=== PATIENT | male | born 1955 | race Caucasian/White ===

== ENCOUNTER 2017-04-14 01:08 | Emergency (ER) | payer OTHER ==
[2017-04-14 01:30] VITALS: BMI 22.8
[2017-04-14] MEDS ORDERED: ONDANSETRON 4 MG/2 ML VIAL IVPUSH ONE (02:30)
[2017-04-14] MEDS ORDERED: FAMOTIDINE 20 MG/50 ML IVPB 50 ML IVPB ONE ×2 (02:30→02:44)
[2017-04-14] MEDS ORDERED: SODIUM CHLORIDE 1,000 ML IV STA (02:30)
[2017-04-14] MEDS ORDERED: PANTOPRAZOLE SODIUM 40 MG in SODIUM CHLORIDE 100 ML IVPB ONE (02:30)
[2017-04-14] MEDS ORDERED: PANTOPRAZOLE SODIUM 100 ML IVPB ONE (02:44)
[2017-04-14] MEDS ORDERED: ONDANSETRON 4 MG/2 ML VIAL ONE (02:44)
--- NOTE | 2017-04-14 02:55 | PDOC ---
History of Present Illness - General Chief Complaint: Pain Stated Complaint: ABD PAIN Time Seen by Provider: 04/14/17 01:27 History Source: Patient Exam Limitations: No Limitations - History of Present Illness Travel History: No Initial Comments: 04/14/17 02:55 61yo Male patient w/ PmHx: Depression, Anxiety, Seizures, GERD, and Gastritis presents to ED c/o n/v with abdominal pain. Patient states he was seen at [facility] for anxiety and was discharged after having blood work done due to not feeling well. Patient states he was discharged home, and as he was walking down street he began vomiting and called [address] [facility] ED. He denies fever, CP, Diff breathing, cough, congestion, back pain, or any other complaints at this time. Timing/Duration: reports: getting worse. denies: constant, changing over time, intermittent, resolved prior to arrival, gone now, other Quality: reports: moderate. denies: mild, severe, aching, burning, cramping, dullness, fullness, sharpness, stabbing, throbbing, other Abdominal Pain Onset Location: reports: LUQ, epigastric. denies: RUQ, RLQ, LLQ , periumbilical, suprapubic, generalized abdomen, flank, unknown, other Pain Radiation: reports: no radiation Activities at Onset: reports: no specific activity Treatment Prior to Arrive: worse with: analgesics, antacids, cold pack, heat, laxative, enema, other Aggravating Factors: worse with: None, Defecation, Eating, Emotional upset, Exertion, Startup, Movement, Voiding, Change in position Alleviating Factors: worse with: None, Belching, Shallow Breathing, Defecation, Eating, Holding Breath, Passing Gas, Change in Position, Rest, Voiding, Vomiting Past History - Travel Traveled outside of the country in the last 30 days: No Close contact w/someone who was outside of country & ill: No - Past Medical History Allergies/Adverse Reactions: Allergies Allergy/AdvReac Type Severity Reaction Status Date / Time No Known Allergies Allergy Verified 04/14/17 01:30 Home Medications: Ambulatory Orders NK [No Known Home Medication] 04/14/17 Anemia: Yes Thyroid Disease: No (Denies) - Immunization History Immunization Up to Date: No - Suicide/Smoking/Psychosocial Hx Smoking History: Former smoker Have you smoked in the past 12 months: Yes Number of Cigarettes Smoked Daily: 10 Information on smoking cessation initiated: No Hx Alcohol Use: No Drug/Substance Use Hx: No Substance Use Type: Alcohol Abd/GI Specific PMHX - Complaint Specific PMHX Colitis: No Diverticulitis: No Gall Bladder Disease: No GERD: No Hepatitis: No Irritable Bowel Synd (IBS): No Pancreatitis: No GI Ulcer Disease: No Review of Systems - Review of Systems Able to Perform ROS?: Yes Is the patient limited Setswana proficient: No Constitutional: No: Chills, Fever ABD/GI: Yes: Nausea, Vomiting, Abdominal cramping. No: Abdominal Distended, Constipated, Diarrhea, Poor Appetite, Poor Fluid Intake All Other Systems: Reviewed and Negative *Physical Exam - Vital Signs Last Vital Signs Temp Pulse Resp BP Pulse Ox 98.6 F 62 19 128/63 98 04/14/17 01:25 04/14/17 01:25 04/14/17 01:25 04/14/17 01:25 04/14/17 01:25 - Physical Exam General Appearance: Yes: Nourished, Appropriately Dressed. No: Apparent Distress, Mild Distress, Moderate Distress, Severe Distress Respiratory/Chest: positive: Lungs Clear, Normal Breath Sounds. negative: Chest Tender, Respiratory Distress, Accessory Muscle Use, Labored Respiration, Rapid RR, Paradoxal Breathing, Rhonchi, Stridor, Wheezing Cardiovascular: positive: Regular Rhythm, Regular Rate Gastrointestinal/Abdominal: positive: Tender (LLQ/ Epigastric Pain), Soft, Increased Bowel Sounds, Guarding, Rebound, Tenderness (LLQ- Epigastric pain). negative: Normal Bowel Sounds, Flat, Distended Musculoskeletal: positive: Normal Inspection. negative: CVA Tenderness Extremity: positive: Normal Capillary Refill, Normal Inspection, Normal Range of Motion. negative: Pedal Edema, Swelling, Calf Tenderness, Erythema, Inflammation Integumentary: positive: Normal Color, Dry, Warm Neurologic: positive: medication manager II-XII NML intact, Fully Oriented, Alert, Normal Mood/ Affect, Normal Response, Motor Strength 5/5 *DC/Admit/Observation/Transfer - Discharge Dispostion Condition at time of disposition: Fair
[2017-04-14 03:08] LABS: BASOPHIL 0.3 % (0-2.0); EOSINOPHIL 2.6 % (0-4.5); MCH 32.2 pg (25.7-33.7); MCHC 34.8 g/dl (32.0-35.9); MEAN CELL VOLUME 92.4 fl (80-96); MEAN PLT VOLUME 8.1 fl (7.5-11.1); PLATELET COUNT 88 K/MM3 (134-434); RDW 14.5 % (11.9-15.9); WHITE BLOOD COUNT 5.8 K/mm3 (4.0-10.0)
[2017-04-14 03:47] LABS: ALBUMIN 3.8 g/dl (3.4-5.0); AMYLASE 54 U/L (25-115); ANION GAP 7 (8-16); BILIRUBIN,TOTAL 0.3 mg/dL (0.2-1.0); CALCIUM 8.8 mg/dL (8.5-10.1); CO2 31 mmol/L (21-32); CREATININE 1.2 mg/dL (0.7-1.3); GLUCOSE,RANDOM 87 mg/dL (74-106); SGOT/AST 13 U/L (15-37); SGPT/ALT 22 U/L (12-78); TOT PROT 6.4 g/dl (6.4-8.2)
[2017-04-14 03:48] LABS: ALK PHOS 103 U/L (45-117)
[2017-04-14 06:57] VITALS: PULSE 82; TEMP 98.1
--- NOTE | 2017-04-14 07:38 | PDOC ---
*Physical Exam - Vital Signs Last Vital Signs Temp Pulse Resp BP Pulse Ox 98.1 F 82 18 128/79 98 04/14/17 06:56 04/14/17 06:56 04/14/17 06:56 04/14/17 06:56 04/14/17 06:56 ED Treatment Course - LABORATORY CBC & Chemistry Diagram: 04/14/17 02:45 04/14/17 02:45 - ADDITIONAL ORDERS Additional order review: Laboratory Results 04/14/17 02:45 Sodium 142 Potassium 4.1 Chloride 104 Carbon Dioxide 31 Anion Gap 7 L BUN 13 Creatinine 1.2 Creat Clearance w eGFR > 60 Random Glucose 87 Calcium 8.8 Total Bilirubin 0.3 AST 13 L ALT 22 Alkaline Phosphatase 103 Total Protein 6.4 Albumin 3.8 Total Amylase 54 Lipase 128 04/14/17 02:45 RBC 3.60 L MCV 92.4 MCHC 34.8 RDW 14.5 MPV 8.1 Neutrophils % 69.0 Lymphocytes % 22.1 Monocytes % 6.0 Eosinophils % 2.6 Basophils % 0.3 - Medications Given in the ED: ED Medications Discontinued Medications Generic Name Dose Route Start Last Admin Trade Name Freq PRN Reason Stop Dose Admin Pantoprazole Sodium 40 mg/ 100 mls @ 200 mls/hr 04/14/17 02:30 04/14/17 03:05 Sodium Chloride IVPB 04/14/17 02:59 200 mls/hr ONCE ONE Administration Famotidine/Sodium Chloride 50 mls @ 100 mls/hr 04/14/17 02:30 04/14/17 03:05 Pepcid 20 Mg Premixed Ivpb - IVPB 04/14/17 02:59 100 mls/hr ONCE ONE Administration Sodium Chloride 1,000 mls @ 1,000 mls/hr 04/14/17 02:30 04/14/17 03:05 Normal Saline - IV 04/14/17 03:29 1,000 mls/hr ASDIR STA Administration Ondansetron HCl 4 mg 04/14/17 02:30 04/14/17 03:05 Zofran Injection IVPUSH 04/14/17 02:31 4 mg ONCE ONE Administration Medical Decision Making - Medical Decision Making 04/14/17 07:26 Pt received in signout from MARTÍNEZ. Patient here with complaints of abdominal pain with vomiting. Patient had CT that showed likely cholelithiasis with possible early cholecystitis. Patient currently pending a gallbladder ultrasound. Patient with normal vital signs, lab work and is currently asymptomatic. 04/14/17 07:38 Laboratory Tests 04/14/17 04/14/17 02:45 02:45 WBC 5.8 Hgb 11.6 L D Hct 33.3 L D Plt Count 88 L D Anion Gap 7 L BUN 13 Creatinine 1.2 Random Glucose 87 AST 13 L ALT 22 Lipase 128 04/14/17 09:32 Selected Entries 04/14/17 06:56 Temperature 98.1 F Pulse Rate [ 82 Left Apical] Respiratory 18 Rate Blood Pressure 128/79 [Right Arm] O2 Sat by Pulse 98 Oximetry (%) Ultrasound shows a non-hydropic gallbladder with cholelithiasis and gallbladder wall thickening. Gallbladder wall thickening is nonspecific, but may be attributed to chronic cholecystitis. No definite sonographic evidence of acute cholecystitis is seen at this time. Please correlate with clinical exam. there is no evidence of intrahepatic or extrahepatic biliary duct dilatation. Patient has normal vital signs, normal lipase with no elevation in white blood cells. Patient will be discharged home with consultation referral given for surgery. 04/16/17 08:45 *DC/Admit/Observation/Transfer Diagnosis at time of Disposition: Gallstones - Discharge Dispostion Disposition: HOME Condition at time of disposition: Improved - Referrals Referrals: Yesenia Christy [Primary Care Provider] - Morales Gallagher MD [Staff Physician] - - Patient Instructions Printed Discharge Instructions: DI for Gallstones Additional Instructions: Your ultrasound had no indication that you have an acute process but I do want to to follow up with referred surgeon listed below. If symptoms recur or worsen he may return to the nearest ED. otherwise follow up with your primary care physician.
[2017-04-14 10:13] VITALS: BP 141/82
== END 2017-04-14 10:14 | disposition home or self-care (01) ==
LOC: JER 01:08 → SUPCPDRO 01:08 → JER 10:14
PROC: 3E033GC Introduction of Other Therapeutic Substance into Peripheral Vein, Percutaneous Approach (ICD-10-PCS; principal; 2017-04-14)
PROC: 3E0337Z Introduction of Electrolytic and Water Balance Substance into Peripheral Vein, Percutaneous Approach (ICD-10-PCS; 2017-04-14)
DX: K80.80 Other cholelithiasis without obstruction (principal); F41.9 Anxiety disorder, unspecified; F32.9 Major depressive disorder, single episode, unspecified; G40.909 Epilepsy, unspecified, not intractable, without status epilepticus; K21.9 Gastro-esophageal reflux disease without esophagitis; D64.9 Anemia, unspecified; Z87.891 Personal history of nicotine dependence
CPT/HCPCS: 36415; 74177-TC; 76705-TC; 80053; 82150; 83690; 85025; 96365; 96368; 96375; 99283-25

== ENCOUNTER 2017-04-18 22:18 | Emergency (ER) | payer OTHER ==
[2017-04-18 22:24] VITALS: BP 140/81; PULSE 64; TEMP 97.7; BMI 20.1
--- NOTE | 2017-04-18 23:33 | PDOC ---
*Physical Exam - Vital Signs Last Vital Signs Temp Pulse Resp BP Pulse Ox 97.7 F 64 17 140/81 99 04/18/17 22:22 04/18/17 22:22 04/18/17 22:22 04/18/17 22:22 04/18/17 22:22 - Physical Exam Comments: 04/18/17 23:33 The patient was examined by [IZABELA Oleary] under my direct supervision. I personally evaluated the patient. I concur with the above findings and the plan of care. ED Treatment Course - LABORATORY CBC & Chemistry Diagram: 04/18/17 23:06 04/18/17 23:06 *DC/Admit/Observation/Transfer Diagnosis at time of Disposition: Gallstones - Discharge Dispostion Disposition: HOME Condition at time of disposition: Stable - Prescriptions Prescriptions: Ibuprofen 600 mg PO TID PRN #21 tablet PRN Reason: Pain - Referrals Referrals: Morales Gallagher MD [Staff Physician] - - Patient Instructions Printed Discharge Instructions: DI for Gallstones Additional Instructions: Please keep your appointment with your doctor this Thursday. If you develop any fever, worsening abdominal pain, vomiting, diarrhea, rectal bleeding, or any new or worsening symptoms, please return to the ER.
--- NOTE | 2017-04-18 23:47 | PDOC ---
History of Present Illness - General Chief Complaint: Pain Stated Complaint: ABDOMINAL PAIN Time Seen by Provider: 04/18/17 22:47 - History of Present Illness Initial Comments: 04/18/17 23:35 CHIEF COMPLAINT: abd pain HISTORY OF PRESENT ILLNESS: 61yo M with PMH of depression, anxiety, seizures, GERD, and gastritis presents to ED c/o n/v with abdominal pain. Patient was seen four days ago in this ER with gallstones and wall thickening of gallbladder seen on ultrasound. Patient was discharged with diagnosis of possible early cholecystitis with referral to surgery; no antibiotics were given. Today patient complains that pain is worsening and that "something has to be done" because he can not bear the pain . PAST MEDICAL HISTORY: Denies past medical history FAMILY HISTORY: Denies SOCIAL HISTORY: Former smoker. Current alcohol use. Denies illicit drug use. SURGICAL HISTORY: Denies ALLERGIES: No known drug allergies REVIEW OF SYSTEMS General/Constitutional: Denies fever or chills. HEENT: Denies change in vision. Denies ear pain or discharge. Denies sore throat. Cardiovascular: Denies chest pain or shortness of breath. Respiratory: Denies cough, wheezing, or hemoptysis. Gastrointestinal: Abdominal pain to RUQ. Denies nausea, vomiting, diarrhea or constipation. Denies rectal bleeding. Genitourinary: Denies dysuria, frequency, or change in urination. Musculoskeletal: Denies joint or muscle swelling or pain. Denies neck or back pain. Skin and breasts: Denies rash or easy bruising. Neurologic: Denies headache, vertigo, loss of consciousness, or loss of sensation. PHYSICAL EXAM General Appearance: Disheveled. No apparent distress. HEENT: EOMI, PERRLA. No conjunctival pallor. No photophobia, scleral icterus. Respiratory/Chest: Lungs CTAB. Cardiovascular: RRR. S1, S2. Vascular Pulses: Dorsalis-Pedis (R): 2+, Dorsalis-Pedis (L): 2+ Gastrointestinal/Abdominal: Tenderness to RUQ, negative Acuna's sign, no rebound tenderness. Normal bowel sounds. No organomegaly, pulsatile mass, guarding, hernia, hepatomegaly, splenomegaly. Lymphatic: No adenopathy, tenderness. Musculoskeletal/Extremities: Normal inspection. FROM of all extremities, normal capillary refill. Pelvis Stable. No CVA tenderness. No tenderness to extremities, pedal edema, swelling, erythema or deformity. Integumentary: Appropriate color, dry, warm. No cyanosis, erythema, jaundice or rash Neurologic: ethical hacker II-XII intact. Fully oriented, alert. Appropriate mood/affect. Motor strength 5/5. No appreciable EOM palsy, facial droop or sensory deficit. Past History - Past Medical History Allergies/Adverse Reactions: Allergies Allergy/AdvReac Type Severity Reaction Status Date / Time No Known Allergies Allergy Verified 04/14/17 01:30 Home Medications: Ambulatory Orders Ibuprofen 600 mg PO TID PRN #21 tablet 04/19/17 Anemia: Yes GI Disorders: Yes Thyroid Disease: No (Denies) Other medical history: gall stones - Immunization History Immunization Up to Date: No - Suicide/Smoking/Psychosocial Hx Smoking History: Former smoker Have you smoked in the past 12 months: No Number of Cigarettes Smoked Daily: 10 Information on smoking cessation initiated: No Hx Alcohol Use: No Drug/Substance Use Hx: No Substance Use Type: Alcohol Abd/GI Specific PMHX - Complaint Specific PMHX Colitis: No Diverticulitis: No Gall Bladder Disease: No GERD: No Hepatitis: No Irritable Bowel Synd (IBS): No Pancreatitis: No GI Ulcer Disease: No *Physical Exam - Vital Signs Last Vital Signs Temp Pulse Resp BP Pulse Ox 97.7 F 64 17 140/81 99 04/18/17 22:22 04/18/17 22:22 04/18/17 22:22 04/18/17 22:22 04/18/17 22:22 ED Treatment Course - LABORATORY CBC & Chemistry Diagram: 04/18/17 23:06 04/18/17 23:06 - RADIOLOGY Radiology Studies Ordered: Category Date Time Status GALLBLADDER US [US] Stat Ultrasound 04/18/17 23:16 Ordered Medical Decision Making - Medical Decision Making 04/21/17 06:16 61yo M with PMH of depression, anxiety, seizures, GERD, and gastritis presents to ED c/o n/v with abdominal pain. labs unremarkable ultrasound positive for gallstones, no cholecystitis seen. Patient to f/u with surgery outpatient as planned. Patient states he has appointment Thursday. *DC/Admit/Observation/Transfer Diagnosis at time of Disposition: Gallstones - Discharge Dispostion Disposition: HOME Condition at time of disposition: Stable Admit: No - Prescriptions Prescriptions: Ibuprofen 600 mg PO TID PRN #21 tablet PRN Reason: Pain - Referrals Referrals: Morales Gallagher MD [Staff Physician] - - Patient Instructions Printed Discharge Instructions: DI for Gallstones Additional Instructions: Please keep your appointment with your doctor this Thursday. If you develop any fever, worsening abdominal pain, vomiting, diarrhea, rectal bleeding, or any new or worsening symptoms, please return to the ER.
[2017-04-18 23:54] LABS: BASOPHIL 0.5 % (0-2.0); EOSINOPHIL 3.1 % (0-4.5); MCH 32.3 pg (25.7-33.7); MEAN CELL VOLUME 92.3 fl (80-96); NEUTROPHILS 62.9 % (42.8-82.8); RDW 14.3 % (11.9-15.9); WHITE BLOOD COUNT 4.9 K/mm3 (4.0-10.0)
[2017-04-19 00:08] LABS: INR 1.09 (0.82-1.09); PROTHROMBIN TIME (PATIENT) 12.3 SEC (9.98-11.88)
[2017-04-19 00:11] LABS: ACTIVATED PTT 26.1 SECONDS (26.9-34.4)
[2017-04-19 00:22] LABS: ALBUMIN 3.9 g/dl (3.4-5.0); ALK PHOS 101 U/L (45-117); ANION GAP 8 (8-16); BILIRUBIN,TOTAL 0.4 mg/dL (0.2-1.0); CALCIUM 8.5 mg/dL (8.5-10.1); CO2 30 mmol/L (21-32); CREATININE 1.1 mg/dL (0.7-1.3); GLUCOSE,RANDOM 96 mg/dL (74-106); SGOT/AST 20 U/L (15-37); SGPT/ALT 32 U/L (12-78); TOT PROT 6.6 g/dl (6.4-8.2)
[2017-04-19] MEDS ORDERED: KETOROLAC TROMETHAMINE 30 MG/1 ML VIAL IVPUSH ONE (00:27)
[2017-04-19 01:22] LABS: PLATELET COUNT 92 K/MM3 (134-434)
== END 2017-04-19 02:05 | disposition home or self-care (01) ==
LOC: JER 22:18
PROC: 3E0333Z Introduction of Anti-inflammatory into Peripheral Vein, Percutaneous Approach (ICD-10-PCS; principal; 2017-04-18)
DX: K80.20 Calculus of gallbladder without cholecystitis without obstruction (principal); K21.9 Gastro-esophageal reflux disease without esophagitis; Z86.69 Personal history of other diseases of the nervous system and sense organs; Z87.891 Personal history of nicotine dependence
CPT/HCPCS: 36415; 76705-TC; 80053; 83690; 85025; 85610; 85730; 96374; 99281-25

== ENCOUNTER 2017-08-02 18:14 | Emergency (ER) | payer OTHER ==
[2017-08-02 18:21] VITALS: BP 127/83; PULSE 67; TEMP 98.1; BMI 20.9
[2017-08-02] MEDS ORDERED: ONDANSETRON *ODT* 4 MG TABLET SL ONE (19:10)
[2017-08-02 20:00] LABS: BASO % 0.8 % (0-2.0); EOS % 3.7 % (0-4.5); HEMATOCRIT 33.1 % (35.4-49); HEMOGLOBIN 11.2 GM/dL (11.7-16.9); LYMPH % 18.4 % (8-40); MCH 30.6 pg (25.7-33.7); MCHC 33.7 g/dl (32.0-35.9); MEAN CELL VOLUME 90.8 fl (80-96); MEAN PLT VOLUME 7.8 fl (7.5-11.1); MONO % 6.8 % (3.8-10.2); NEUT % 70.3 % (42.8-82.8); PLATELET COUNT 93 K/MM3 (134-434); RBC 3.64 M/mm3 (4.00-5.60); RDW 13.7 % (11.9-15.9); WHITE BLOOD COUNT 4.7 K/mm3 (4.0-10.0)
[2017-08-02 20:05] LABS: URINE APPEARANCE CLEAR; URINE BILIRUBIN NEGATIVE (NEGATIVE); URINE BLOOD NEGATIVE (NEGATIVE); URINE COLOR LTYELLOW; URINE GLUCOSE (UA) NEGATIVE (NEGATIVE); URINE KETONE NEGATIVE (NEGATIVE); URINE LEUK ESTERASE NEGATIVE (NEGATIVE); URINE NITRITE NEGATIVE (NEGATIVE); URINE PROTEIN NEGATIVE (NEGATIVE); URINE UROBILINOGEN NEGATIVE mg/dL (0.2-1.0)
[2017-08-02] MEDS ORDERED: ONDANSETRON *ODT* 4 MG TABLET ONE (20:05)
[2017-08-02 20:25] LABS: ALBUMIN 3.7 g/dl (3.4-5.0); ALK PHOS 92 U/L (45-117); ANION GAP 6 (8-16); BILIRUBIN,TOTAL 0.4 mg/dL (0.2-1.0); BLOOD UREA NITROGEN 11 mg/dL (7-18); CALCIUM 8.4 mg/dL (8.5-10.1); CHLORIDE 107 mmol/L (98-107); CO2 29 mmol/L (21-32); GLUCOSE,RANDOM 86 mg/dL (74-106); POTASSIUM 4.4 mmol/L (3.5-5.1); SGOT/AST 21 U/L (15-37); SGPT/ALT 51 U/L (12-78); SODIUM 142 mmol/L (136-145); TOT PROT 7.1 g/dl (6.4-8.2)
--- NOTE | 2017-08-02 21:21 | PDOC ---
History of Present Illness - General History Source: Patient Exam Limitations: No Limitations - History of Present Illness Initial Comments: 08/02/17 21:23 The patient is a 62 year old male with a significant past medical history of depression, anxiety, seizures, GERD, COPD, asthma and gastritis who presents to the ED with complaints of generalized malaise and anxiety for several days. The patient reports he recently changed his seizure medication to Keppra 10 days ago. Since then, patient reports nausea and feeling jittery. Patient also reports left quadrant pain, left flank pain, dysuria, chills, and multiple episodes of diarrhea for the past several days. Denies vomiting. Denies fever. Denies chest pain or shortness of breath. Denies any other symptoms. Allergies: Codeine Surgical hx: Colectomy <Ferdo Pereyra - Last Filed: 08/02/17 21:23> <Neelam Melvin - Last Filed: 08/02/17 21:36> - General Chief Complaint: Nausea Stated Complaint: NAUSEA Time Seen by Provider: 08/02/17 18:36 Past History <Fredo Pereyra - Last Filed: 08/02/17 21:23> - Past Medical History Anemia: Yes Cardiac Disorders: Yes (AF) COPD: No GI Disorders: Yes Seizures: Yes Thyroid Disease: No (Denies) - Surgical History Abdominal Surgery: Yes (Gall Bladder) - Immunization History Immunization Up to Date: No - Suicide/Smoking/Psychosocial Hx Smoking History: Former smoker Have you smoked in the past 12 months: Yes Number of Cigarettes Smoked Daily: 10 Information on smoking cessation initiated: No Hx Alcohol Use: No Drug/Substance Use Hx: No Substance Use Type: None <Neelam Melvin - Last Filed: 08/02/17 21:36> - Past Medical History Allergies/Adverse Reactions: Allergies Allergy/AdvReac Type Severity Reaction Status Date / Time codeine Allergy Verified 08/02/17 18:21 Home Medications: Ambulatory Orders Albuterol Sulfate [Proair Hfa] 2 puff IH Q6H PRN 08/02/17 Atorvastatin Calcium 20 mg PO HS 08/02/17 Budesonide/Formeterol Fumarate [SYMBICORT 80/4.5mcg -] 2 inh PO DAILY 08/02/17 Hydroxyzine HCl 50 mg PO TID 08/02/17 Levetiracetam 1,500 mg PO DAILY 08/02/17 Mirtazapine 30 mg PO HS 08/02/17 Ondansetron [Zofran -] 4 mg PO Q8H PRN 08/02/17 Sotalol HCl [Betapace -] 80 mg PO BID 08/02/17 Abd/GI Specific PMHX - Complaint Specific PMHX Colitis: No Diverticulitis: No Gall Bladder Disease: No GERD: No Hepatitis: No Irritable Bowel Synd (IBS): No Pancreatitis: No GI Ulcer Disease: No <Neelam Melvin - Last Filed: 08/02/17 21:36> Review of Systems - Review of Systems Able to Perform ROS?: Yes Comments:: 08/02/17 21:24 CONSTITUTIONAL: + malaise, chills Absent: fever, diaphoresis, generalized weakness, loss of appetite HEENT: Absent: rhinorrhea, nasal congestion, throat pain, throat swelling, difficulty swallowing, mouth swelling, ear pain, eye pain, visual Changes CARDIOVASCULAR: Absent: chest pain, syncope, palpitations, irregular heart rate, lightheadedness , peripheral edema RESPIRATORY: Absent: cough, shortness of breath, dyspnea with exertion, orthopnea, wheezing, stridor, hemoptysis GASTROINTESTINAL: + nausea, abdominal pain Absent: abdominal distension, vomiting, diarrhea, constipation, melena, hematochezia GENITOURINARY: + flank pain , dysuria Absent: frequency, urgency, hesitancy, hematuria, genital pain MUSCULOSKELETAL: Absent: myalgia, arthralgia, joint swelling SKIN: Absent: rash, itching, pallor HEMATOLOGIC/IMMUNOLOGIC: Absent: easy bleeding, easy bruising, lymphadenopathy, frequent infections ENDOCRINE: Absent: unexplained weight gain, unexplained weight loss, heat intolerance, cold intolerance NEUROLOGIC: Absent: headache, focal weakness or paresthesias, dizziness, unsteady gait, seizure, mental status changes, bladder or bowel incontinence PSYCHIATRIC: + anxious Absent: depression, suicidal or homicidal ideation, hallucinations. All Other Systems: Reviewed and Negative <Fredo Pereyra - Last Filed: 08/02/17 21:23> *Physical Exam - Vital Signs Last Vital Signs Temp Pulse Resp BP Pulse Ox 98.1 F 67 20 127/83 100 08/02/17 18:15 08/02/17 18:15 08/02/17 18:15 08/02/17 18:15 08/02/17 18:15 - Physical Exam Comments: 08/02/17 21:24 GENERAL: Well developed, well nourished. Awake and alert. No acute distress. HEENT: Normocephalic, atraumatic. PERRLA, EOMI. No conjunctival pallor. Sclera are non- icteric. Moist mucous membranes. Oropharynx is clear. NECK: Supple. Full ROM. No JVD. Carotid pulses 2+ and symmetric, without bruits. No thyromegaly. NCo lymphadenopathy. CARDIOVASCULAR: Regular rate and rhythm. No murmurs, rubs, or gallops. Distal pulses are 2+ and symmetric. PULMONARY: No evidence of respiratory distress. Lungs clear to auscultation bilaterally. No wheezing, rales or rhonchi. ABDOMINAL: Soft. Non-tender. Non-distended. No rebound or guarding. No organomegaly. Normoactive bowel sounds. MUSCULOSKELETAL Normal range of motion at all joints. No bony deformities or tenderness. No CVA tenderness. EXTREMITIES: No cyanosis. No clubbing. No edema. No calf tenderness. SKIN: + well healed colectomy scars Warm and dry. Normal capillary refill. No rashes. No jaundice. NEUROLOGICAL: Alert, awake, appropriate. Cranial nerves 2-12 intact. No deficits to light touch and temperature in face, upper extremities and lower extremities. No motor deficits in the in face, upper extremities and lower extremities. Normoreflexic in the upper and lower extremities. Normal speech. Toes are down- going bilaterally. Gait is normal without ataxia. PSYCHIATRIC: Cooperative. Good eye contact. Appropriate mood and affect. <Fredo Pereyra - Last Filed: 08/02/17 21:23> - Vital Signs Last Vital Signs Temp Pulse Resp BP Pulse Ox 98.1 F 67 20 127/83 100 08/02/17 18:15 08/02/17 18:15 08/02/17 18:15 08/02/17 18:15 08/02/17 18:15 <Neelam Melvin - Last Filed: 08/02/17 21:36> ED Treatment Course - LABORATORY CBC & Chemistry Diagram: 08/02/17 19:52 08/02/17 19:52 - ADDITIONAL ORDERS Additional order review: Laboratory Results 0108/02/17 08/02/17 19:52 19:52 19:50 Sodium 142 Potassium 4.4 Chloride 107 Carbon Dioxide 29 Anion Gap 6 L BUN 11 D Creatinine 1.0 Creat Clearance w eGFR > 60 Random Glucose 86 Calcium 8.4 L Total Bilirubin 0.4 AST 21 ALT 51 D Alkaline Phosphatase 92 Total Protein 7.1 Albumin 3.7 Lipase 135 Urine Color Ltyellow Urine Appearance Clear Urine pH 7.0 Ur Specific [place] 1.012 Urine Protein Negative Urine Glucose (UA) Negative Urine Ketones Negative Urine Blood Negative Urine Nitrite Negative Urine Bilirubin Negative Urine Urobilinogen Negative Ur Leukocyte Esterase Negative 08/02/17 19:52 RBC 3.64 L MCV 90.8 MCHC 33.7 RDW 13.7 MPV 7.8 Neutrophils % 70.3 Lymphocytes % 18.4 D Monocytes % 6.8 Eosinophils % 3.7 Basophils % 0.8 - Medications Given in the ED: ED Medications Discontinued Medications Generic Name Dose Route Start Last Admin Trade Name Freq PRN Reason Stop Dose Admin Ondansetron HCl 4 mg 08/02/17 19:10 08/02/17 20:08 Zofran Odt - SL 08/02/17 19:11 4 mg ONCE ONE Administration <Fredo Pereyra - Last Filed: 08/02/17 21:23> - LABORATORY CBC & Chemistry Diagram: 08/02/17 19:52 08/02/17 19:52 - ADDITIONAL ORDERS Additional order review: Laboratory Results 08/02/17 08/02/17 08/02/17 19:52 19:52 19:50 Sodium 142 Potassium 4.4 Chloride 107 Carbon Dioxide 29 Anion Gap 6 L BUN 11 D Creatinine 1.0 Creat Clearance w eGFR > 60 Random Glucose 86 Calcium 8.4 L Total Bilirubin 0.4 AST 21 ALT 51 D Alkaline Phosphatase 92 Total Protein 7.1 Albumin 3.7 Lipase 135 Urine Color Ltyellow Urine Appearance Clear Urine pH 7.0 Ur Specific [place] 1.012 Urine Protein Negative Urine Glucose (UA) Negative Urine Ketones Negative Urine Blood Negative Urine Nitrite Negative Urine Bilirubin Negative Urine Urobilinogen Negative Ur Leukocyte Esterase Negative 08/02/17 19:52 RBC 3.64 L MCV 90.8 MCHC 33.7 RDW 13.7 MPV 7.8 Neutrophils % 70.3 Lymphocytes % 18.4 D Monocytes % 6.8 Eosinophils % 3.7 Basophils % 0.8 - Medications Given in the ED: ED Medications Discontinued Medications Generic Name Dose Route Start Last Admin Trade Name Marvin PRN Reason Stop Dose Admin Ondansetron HCl 4 mg 08/02/17 19:10 08/02/17 20:08 Zofran Odt - SL 08/02/17 19:11 4 mg ONCE ONE Administration <Neelam Melvin - Last Filed: 08/02/17 21:36> *DC/Admit/Observation/Transfer - Attestations Scribe Attestion: 08/02/17 21:24 Documentation prepared by Fredo Pereyra, acting as medical equipment repair technician for Neelam Melvin MD <Fredo Pereyra - Last Filed: 08/02/17 21:23> <Neelam Melvin - Last Filed: 08/02/17 21:36> Diagnosis at time of Disposition: Nausea, Jittery feeling - Discharge Dispostion Disposition: HOME Condition at time of disposition: Stable - Patient Instructions Printed Discharge Instructions: DI for Nausea -- Adult Additional Instructions: Please take your regular medications as prescribed by your doctor
== END 2017-08-02 21:57 | disposition home or self-care (01) ==
LOC: JER 18:14
DX: F41.9 Anxiety disorder, unspecified (principal); F32.9 Major depressive disorder, single episode, unspecified; J44.9 Chronic obstructive pulmonary disease, unspecified; K21.9 Gastro-esophageal reflux disease without esophagitis; K29.70 Gastritis, unspecified, without bleeding
CPT/HCPCS: 36415; 80053; 81003; 83690; 85025; 99281-25; 99282-25

== ENCOUNTER 2017-08-02 22:03 | Emergency (ER) | payer OTHER ==
[2017-08-02 22:12] VITALS: PULSE 70; TEMP 98.2; BMI 20.9
--- NOTE | 2017-08-02 23:10 | PDOC ---
History of Present Illness - General History Source: Patient Exam Limitations: No Limitations - History of Present Illness Initial Comments: 08/03/17 00:04 The patient is a disheveled 62 year old male with a significant past medical history of depression, anxiety, seizures, GERD, COPD, asthma and gastritis. Patient was discharged from the ED 20 minutes ago and did not want to go home. Patient then told staff he was suicidal. After thorough questioning, patient admitted he was not suicidal and did not feel safe going home after being discharged. Denies a suicidal plan or intentions to harm himself. Patient was reassured he could stay in the waiting room, security was alerted. Patient will spend the night in the ED waiting and was given food. <Fredo Pereyra - Last Filed: 08/03/17 00:04> <Neealm Melvin - Last Filed: 08/03/17 00:10> - General Chief Complaint: Suicidal Stated Complaint: SUICIDAL Time Seen by Provider: 08/02/17 22:50 Past History <Fredo Pereyra - Last Filed: 08/03/17 00:04> - Past Medical History Anemia: Yes Cardiac Disorders: Yes (AF) COPD: No GI Disorders: Yes Seizures: Yes Thyroid Disease: No (Denies) - Surgical History Abdominal Surgery: Yes (Gall Bladder) - Immunization History Immunization Up to Date: No - Suicide/Smoking/Psychosocial Hx Smoking History: Former smoker Have you smoked in the past 12 months: Yes Number of Cigarettes Smoked Daily: 10 Information on smoking cessation initiated: No Hx Alcohol Use: No Drug/Substance Use Hx: No Substance Use Type: None <Neelam Melvin - Last Filed: 08/03/17 00:10> - Past Medical History Allergies/Adverse Reactions: Allergies Allergy/AdvReac Type Severity Reaction Status Date / Time codeine Allergy Verified 08/02/17 18:21 Home Medications: Ambulatory Orders Albuterol Sulfate [Proair Hfa] 2 puff IH Q6H PRN 08/02/17 Atorvastatin Calcium 20 mg PO HS 08/02/17 Budesonide/Formeterol Fumarate [SYMBICORT 80/4.5mcg -] 2 inh PO DAILY 08/02/17 Hydroxyzine HCl 50 mg PO TID 08/02/17 Levetiracetam 1,500 mg PO DAILY 08/02/17 Mirtazapine 30 mg PO HS 08/02/17 Ondansetron [Zofran -] 4 mg PO Q8H PRN 08/02/17 Sotalol HCl [Betapace -] 80 mg PO BID 08/02/17 Review of Systems - Review of Systems Able to Perform ROS?: Yes Comments:: 08/03/17 00:05 CONSTITUTIONAL: Absent: fever, no chills, no fatigue EYES: Absent: visual changes ENT: Absent: ear pain, no sore throat CARDIOVASCULAR: Absent: chest pain, no palpitations RESPIRATORY: Absent: cough, no SOB GI: Absent: abdominal pain, no nausea, no vomiting, no constipation, no diarrhea GENITOURINARY: Absent: dysuria, no frequency, no hematuria MUSKULOSKELETAL: Absent: back pain, no arthralgia, no myalgia SKIN: Absent: rash NEURO: Absent: headache All Other Systems: Reviewed and Negative <Fredo Pereyra - Last Filed: 08/03/17 00:04> *Physical Exam - Vital Signs Last Vital Signs Temp Pulse Resp BP Pulse Ox 98.2 F 70 18 155/89 100 08/02/17 22:08 08/02/17 22:08 08/02/17 22:08 08/02/17 23:13 08/02/17 22:08 - Physical Exam Comments: 08/03/17 00:05 GENERAL: Well-appearing, well-nourished. No apparent distress. HEENT: Normocephalic, atraumatic. PERRL, EOM intact. CARDIOVASCULAR: Normal S1, S2. Regular rate and rhythm. PULMONARY: Clear to auscultation bilaterally. ABDOMEN: Soft, non-distended, non-tender. EXTREMITIES: Normal ROM in all four extremities. No gross deformities. SKIN: Warm, dry. No rash NEUROLOGICAL: Alert, awake, appropriate. Cranial nerves 2-12 intact. No deficits to light touch and temperature in face, upper extremities and lower extremities. No motor deficits in the in face, upper extremities and lower extremities. Normoreflexic in the upper and lower extremities. Normal speech. Toes are down- going bilaterally. Gait is normal without ataxia. PSYCHIATRIC: no hallucations, no tangential speech. On thorough questioning, had no suicidal plan, states he did not feel comfortable going home at night. <Fredo Pereyra - Last Filed: 08/03/17 00:04> - Vital Signs Last Vital Signs Temp Pulse Resp BP Pulse Ox 98.2 F 70 18 179/119 100 08/02/17 22:08 08/02/17 22:08 08/02/17 22:08 08/02/17 22:08 08/02/17 22:08 <Neelam Melvin - Last Filed: 08/03/17 00:10> *DC/Admit/Observation/Transfer - Attestations Scribe Attestion: 08/03/17 00:05 Documentation prepared by Fredo Pereyra, acting as medical record technician for Neelam Melvin MD <Fredo Pereyra - Last Filed: 08/03/17 00:04> <Neelam Melvin - Last Filed: 08/03/17 00:10> Diagnosis at time of Disposition: Jittery feeling - Discharge Dispostion Disposition: HOME Condition at time of disposition: Stable - Referrals Referrals: Yesenia Christy [Primary Care Provider] - - Patient Instructions Printed Discharge Instructions: DI for Nausea -- Adult Additional Instructions: please take your medications that you received from your doctor - Post Discharge Activity Forms/Work/School Notes: My Personal Safety Plan
[2017-08-02 23:14] VITALS: BP 155/89
== END 2017-08-02 23:40 | disposition home or self-care (01) ==
LOC: JER 22:03
DX: F41.9 Anxiety disorder, unspecified (principal); F32.9 Major depressive disorder, single episode, unspecified; J44.9 Chronic obstructive pulmonary disease, unspecified; J45.909 Unspecified asthma, uncomplicated; K21.9 Gastro-esophageal reflux disease without esophagitis; G40.909 Epilepsy, unspecified, not intractable, without status epilepticus
CPT/HCPCS: 99281-25

== ENCOUNTER 2018-04-29 01:59 | Inpatient (IN) | payer OTHER ==
--- NOTE | 2018-04-29 02:36 | PDOC ---
History of Present Illness - General Stated Complaint: ABD PAIN - History of Present Illness Initial Comments: The patient is a 62M w/ a history of seizures and a-fib (xarelto) who presents for evaluation of 10 hours of periumbilical abdominal pain that is described as achy/crampy, does not radiate, is not made worse by PO intake, and is associated with 8 episodes of NBNB vomiting. The patient denies sick contacts or new foods. The patient also describes an associated substernal, non-radiating, burning/ achy chest pain. He denies having had either pain like this before. He denies fevers/chills, diarrhea, blood in his urine, dysuria, or shortness of breath 04/29/18 02:50 Past History - Past Medical History Allergies/Adverse Reactions: Allergies Allergy/AdvReac Type Severity Reaction Status Date / Time codeine Allergy Verified 04/29/18 03:05 Home Medications: Ambulatory Orders Albuterol Sulfate [Proair Hfa] 2 puff IH Q6H PRN 08/02/17 Atorvastatin Calcium 20 mg PO HS 08/02/17 Budesonide/Formeterol Fumarate [SYMBICORT 80/4.5mcg -] 2 inh PO DAILY 08/02/17 Hydroxyzine HCl 50 mg PO TID 08/02/17 Levetiracetam 1,500 mg PO DAILY 08/02/17 Mirtazapine 30 mg PO HS 08/02/17 Ondansetron [Zofran -] 4 mg PO Q8H PRN 08/02/17 Sotalol HCl [Betapace -] 80 mg PO BID 08/02/17 Anemia: Yes Cardiac Disorders: Yes (AF) COPD: No GI Disorders: Yes Seizures: Yes Thyroid Disease: No (Denies) - Surgical History Abdominal Surgery: Yes (Gall Bladder) - Immunization History Immunization Up to Date: No - Suicide/Smoking/Psychosocial Hx Smoking History: Former smoker Have you smoked in the past 12 months: Yes Number of Cigarettes Smoked Daily: 10 Hx Alcohol Use: No Drug/Substance Use Hx: No Substance Use Type: None Review of Systems - Review of Systems Able to Perform ROS?: Yes Comments:: GENERAL/CONSTITUTIONAL: No fever or chills. No weakness HEAD, EYES, EARS, NOSE AND THROAT: No change in vision. No ear pain or discharge. No sore throat CARDIOVASCULAR: +chest pain; no shortness of breath RESPIRATORY: No cough, wheezing, or hemoptysis GASTROINTESTINAL: +diarrhea or constipation GENITOURINARY: No dysuria, frequency, or change in urination MUSCULOSKELETAL: No joint or muscle swelling or pain. No neck or back pain SKIN: +eczema NEUROLOGIC: No headache, vertigo, loss of consciousness, or change in strength/ sensation ENDOCRINE: No increased thirst. No abnormal weight change HEMATOLOGIC/LYMPHATIC: No anemia, easy bleeding, or history of blood clots ALLERGIC/IMMUNOLOGIC: No hives or skin allergy 04/29/18 02:54 Is the patient limited Gabonese proficient: No *Physical Exam - Vital Signs Vital Signs Temp Pulse Resp BP Pulse Ox 98.3 F 94 H 18 115/66 97 04/29/18 02:00 04/29/18 02:00 04/29/18 02:00 04/29/18 02:00 04/29/18 02:00 04/29/18 04:25 - Physical Exam Comments: GENERAL: Awake, alert, and fully oriented, in no acute distress HEAD: No signs of trauma, normocephalic, atraumatic EYES: PERRL, EOMI, sclera anicteric, conjunctiva clear ENT: Hearing grossly normal, nares patent, oropharynx clear without exudates NECK: Normal ROM, supple, no lymphadenopathy LUNGS: No distress, speaks full sentences, clear to auscultation bilaterally HEART:Regular rate and rhythm, normal S1 and S2, no murmurs appreciated, peripheral pulses normal and equal bilaterally ABDOMEN: Soft, EXTREMITIES : Normal inspection, Normal range of motion, no edema. No clubbing or cyanosis NEUROLOGICAL: Cranial nerves II through XII grossly intact. Normal speech, normal gait, no focal sensorimotor deficits SKIN: Warm, Dry, normal turgor, no rashes or lesions noted 04/29/18 03:00 ED Treatment Course - LABORATORY CBC & Chemistry Diagram: 04/29/18 03:36 04/29/18 03:36 Medical Decision Making - Medical Decision Making Patient was seen earlier this evening at [facility] where he was evaluated for abdominal pain. When speaking with one of the providers at this facility. They reported that the patient underwent lab work w/o imaging. The labs were notable for a Cr of 2.7, reportedly the patient's baseline per their records. However, chart review here reveals a baseline Cr of 1.0. They also stated that the wbc was 10.3, Hgb 13.9, Neg UA, Normal LFTs, Lipase [address] abd in I, II, & V3-6 HR 92, QTc 462 Given patient's repeated presentation, continuation of symptoms and abnormal appearing ECG. Will further w/u patient for cardiac v intra-abdominal pathology including ACS r/o and CT A&P to evaluation to r/o infection or obstruction ED Course CMP, CBC, Trop I, UA CXR, CT A&P ECG 04/29/18 03:08 Hgb 13.1 No leukocytosis Trop I 0.12 Patient took home dose of Xarelto this morning 04/29/18 04:27 Hypokalemia to 2.8 -Will replete with IV and PO K 04/29/18 04:38 Dispo: Admit 04/29/18 05:52 *DC/Admit/Observation/Transfer Diagnosis at time of Disposition: Abdominal pain Qualifiers: Abdominal location: unspecified location Qualified Code(s): R10.9 - Unspecified abdominal pain Chest pain Qualifiers: Chest pain type: unspecified Qualified Code(s): R07.9 - Chest pain, unspecified - Discharge Dispostion Condition at time of disposition: Fair - Referrals Referrals: Yesenia Christy [Primary Care Provider] - - Patient Instructions - Post Discharge Activity
--- NOTE | 2018-04-29 02:54 | PDOC ---
Attending Attestation - Resident Resident Name: Santiago Nagel - ED Attending Attestation I have performed the following: I have examined & evaluated the patient, The case was reviewed & discussed with the resident, I agree w/resident's findings & plan, Exceptions are as noted - HPI HPI: 04/29/18 03:25 Mr Max is a 62 yo M who presents to the ER via EMS for evaluation of abdominal pain, chest pain and vomiting He was seen at an outside hospital and discharged to home just prior to calling EMS Call placed to OSH where pt apparently had labs that did not demonstrate pancreatitis, creatinine elevated at 2.5 CT not performed Pt comes in today reporting multiple episodes of non bloody, non bilious emesis Crampy abdominal pain located in the epigastric and periumbilical area He also notes sharp chest pain 04/29/18 03:26 Of note: pt s/p cholecystectomy last year - Physicial Exam PE: 04/29/18 03:50 GENERAL: The patient is in no acute distress. EYES: PERRLA, EOMI, sclera anicteric, conjunctiva clear. ENT: Poor dentition. Moist mucous membranes. NECK: Normal range of motion LUNGS: Breath sounds equal, clear to auscultation bilaterally. No wheezes, and no crackles. HEART: Regular rate and rhythm, normal S1 and S2 without murmur, rub or gallop. ABDOMEN: Soft, protruberant, diffusely very tender to palpation EXTREMITIES: Normal range of motion NEUROLOGICAL: Cranial nerves II through XII grossly intact. Normal speech. No focal neurological deficits. MUSCULOSKELETAL: Back non-tender to palpation SKIN: psoriasis, flaky skin - Medical Decision Making 04/29/18 03:51 Pt with severe abdominal pain DD: Retained CBD stone, Pancreatitis, SBO, Colitis WIll do: Labs CT Re assess 04/29/18 04:44 Laboratory Tests 04/29/18 04/29/18 04/29/18 03:36 03:36 03:36 WBC 8.8 Hgb 13.1 Hct 36.7 Plt Count 134 D Sodium 135 L Potassium 2.8 L* Chloride 90 L Carbon Dioxide 34 H BUN 64 H Creatinine 3.0 H Random Glucose 134 H Lactic Acid Creatine Kinase 133 Troponin I 0.12 H Lipase 337 04/29/18 03:36 WBC Hgb Hct Plt Count Sodium Potassium Chloride Carbon Dioxide BUN Creatinine Random Glucose Lactic Acid 1.4 Creatine Kinase Troponin I Lipase CT pending CT demonstrates : splenomagaly, no appendicitis, no diverticulitis Will do: Admit to hospitalist service given acute on chronic renal insufficiency Will hydrate Will trend troponins
[2018-04-29 03:53] LABS: HEMATOCRIT 36.7 % (35.4-49); HEMOGLOBIN 13.1 GM/dL (11.7-16.9); MCHC 35.8 g/dl (32.0-35.9); MEAN CELL VOLUME 89.2 fl (80-96); MEAN PLT VOLUME 7.8 fl (7.5-11.1); PLATELET COUNT 134 K/MM3 (134-434); RBC 4.11 M/mm3 (4.00-5.60); RDW 13.8 % (11.9-15.9); WHITE BLOOD COUNT 8.8 K/mm3 (4.0-10.0)
[2018-04-29 04:03] LABS: INR 1.59 (0.83-1.09); PROTHROMBIN TIME (PATIENT) 18.9 SEC (9.7-13.0)
[2018-04-29 04:06] LABS: ACTIVATED PTT 33.2 SECONDS (25.2-36.5)
[2018-04-29 04:36] LABS: ALBUMIN 4.7 g/dl (3.4-5.0); ALK PHOS 100 U/L (45-117); ANION GAP 11 MMOL/L (8-16); BILIRUBIN,TOTAL 0.8 mg/dL (0.2-1); BLOOD UREA NITROGEN 64 mg/dL (7-18); CALCIUM 9.1 mg/dL (8.5-10.1); CHLORIDE 90 mmol/L (98-107); CO2 34 mmol/L (21-32); GLUCOSE,RANDOM 134 mg/dL (74-106); SGOT/AST 20 U/L (15-37); SGPT/ALT 39 U/L (13-61); SODIUM 135 mmol/L (136-145); TOT PROT 8.4 g/dl (6.4-8.2)
[2018-04-29 04:37] LABS: POTASSIUM 2.8 mmol/L (3.5-5.1)
[2018-04-29] MEDS ORDERED: SODIUM CHLORIDE 0.9% 500 ML INFUS.BAG IV ONE ×2 (04:38→07:36)
[2018-04-29] MEDS ORDERED: ONDANSETRON 4 MG/2 ML VIAL IVPUSH ONE (04:39)
[2018-04-29] MEDS ORDERED: POTASSIUM CHLORIDE TABS 20 MEQ TABLET.ER (FP) PO ONE ×4 (04:40→17:29)
[2018-04-29 05:02] LABS: MAGNESIUM 3.3 mg/dL (1.8-2.4)
[2018-04-29] MEDS ORDERED: ONDANSETRON 4 MG/2 ML VIAL ONE (05:42)
[2018-04-29] MEDS ORDERED: KCL 10 MEQ IVPB 10 MEQ/100 ML INFUS.BAG IVPB ONE ×3 (05:42→20:18)
[2018-04-29] MEDS ORDERED: PANTOPRAZOLE SODIUM 40 MG VIAL IVPUSH ONE (05:54)
[2018-04-29] MEDS ORDERED: ACETAMINOPHEN 1000 MG/100 ML VIAL (NON FORMULARY) IVPB ONE (05:54)
[2018-04-29] MEDS: KCL 10 MEQ IVPB 10 MEQ/100 ML INFUS.BAG IVPB SCH ×5 (05:56→20:22)
[2018-04-29] MEDS ORDERED: ACETAMINOPHEN INJECTION 100 ML IVPB ONE (05:57)
[2018-04-29] MEDS ORDERED: PANTOPRAZOLE SODIUM 40 MG VIAL ONE ×2 (05:57→06:07)
[2018-04-29] MEDS ORDERED: ALBUTEROL SO4 8 GM HFA INHALER IH PRN (06:21)
--- NOTE | 2018-04-29 06:21 | HP ---
CHIEF COMPLAINT: abdominal and chest pain PCP: [facility] HISTORY OF PRESENT ILLNESS: This is a 62 year old male with a significant past medical history of Afib on xarelto, COPD, GERD who presented to the ED with periumbilical pain and chest pain. He reported to me that he has had the pain x 10 days associated with vomiting x 2 days. He reported to the ED staff that he has been having the pain for 10 hours. He was also seen at [facility] for the same complaint yesterday. He denies palpitations. He is very unsure of his history and medications. ER course was notable for: (1) Trop 0.12 (2) potassium 2.8, Mg 3.3 (3) BUN 64/Cr 3.0 Recent Travel: pt denies PAST MEDICAL HISTORY: seizures, afib, anemia, COPD, asthma, GERD, depression, anxiety PAST SURGICAL HISTORY: cholecystectomy Social History: Smoking: quit 9mo ago, prior 45 pack year history Alcohol: pt denies Drugs: pt denies Family History: unk Allergies codeine Allergy (Verified 04/29/18 03:05) HOME MEDICATIONS: 3 Medication Instructions Recorded Albuterol Sulfate [Proair Hfa] 2 puff IH Q6H PRN 08/02/17 Atorvastatin Calcium 20 mg PO HS 08/02/17 Budesonide/Formeterol Fumarate 2 inh PO DAILY 08/02/17 [SYMBICORT 80/4.5mcg -] Levetiracetam 500 mg PO TID 08/02/17 Mirtazapine 30 mg PO HS 08/02/17 Furosemide 0 mg PO DAILY 04/29/18 Metoprolol Tartrate 0 mg PO BID 04/29/18 Xarelto 04/29/18 pt is unsure of his medications and dosages, his pharmacy will need to be contacted in the morning when it opens, [place] [facility] REVIEW OF SYSTEMS CONSTITUTIONAL: Absent: fever, chills, diaphoresis, generalized weakness, malaise, loss of appetite, weight change HEENT: Absent: rhinorrhea, nasal congestion, throat pain, throat swelling, difficulty swallowing, mouth swelling, ear pain, eye pain, visual changes CARDIOVASCULAR: Present: chest pain Absent: syncope, palpitations, irregular heart rate, lightheadedness, peripheral edema RESPIRATORY: Absent: cough, shortness of breath, dyspnea with exertion, orthopnea, wheezing, stridor, hemoptysis GASTROINTESTINAL: Present: abdominal pain, nausea, vomiting Absent: abdominal distension, diarrhea, constipation, melena, hematochezia GENITOURINARY: Absent: dysuria, frequency, urgency, hesitancy, hematuria, flank pain, genital pain MUSCULOSKELETAL: Absent: myalgia, arthralgia, joint swelling, back pain, neck pain SKIN: Absent: rash, itching, pallor HEMATOLOGIC/IMMUNOLOGIC: Absent: easy bleeding, easy bruising, lymphadenopathy, frequent infections ENDOCRINE: Absent: unexplained weight gain, unexplained weight loss, heat intolerance, cold intolerance NEUROLOGIC: Absent: headache, focal weakness or paresthesias, dizziness, unsteady gait, seizure, mental status changes, bladder or bowel incontinence PSYCHIATRIC: Absent: anxiety, depression, suicidal or homicidal ideation, hallucinations. PHYSICAL EXAMINATION Vital Signs - 24 hr 3 04/29/18 02:00 Temperature 98.3 F Pulse Rate 94 H Respiratory 18 Rate Blood Pressure 115/66 O2 Sat by Pulse 97 Oximetry (%) GENERAL: Awake, alert, and fully oriented, in no acute distress. + disheveled and unkempt HEAD: Normal with no signs of trauma. EYES: Pupils equal, round and reactive to light, extraocular movements intact, sclera anicteric, conjunctiva clear. No lid lag. EARS, NOSE, THROAT: Ears normal, nares patent, oropharynx clear without exudates. Moist mucous membranes. NECK: Normal range of motion, supple without lymphadenopathy, JVD, or masses. LUNGS: Breath sounds equal, clear to auscultation bilaterally. No wheezes, and no crackles. No accessory muscle use. HEART: Regular rate and rhythm, normal S1 and S2 without murmur, rub or gallop. ABDOMEN: Soft, tender upper abdomen, not distended, normoactive bowel sounds, no guarding, no rebound, no masses. MUSCULOSKELETAL: Normal range of motion at all joints. No bony deformities or tenderness. No CVA tenderness. UPPER EXTREMITIES: 2+ pulses, warm, well-perfused. No cyanosis. No clubbing. No peripheral edema. LOWER EXTREMITIES: 2+ pulses, warm, well-perfused. No calf tenderness. No peripheral edema. NEUROLOGICAL: Cranial nerves II-XII intact. Normal speech. PSYCHIATRIC: Cooperative. Good eye contact. Appropriate mood and affect. SKIN: Warm, dry, normal turgor, no rashes or lesions noted, normal capillary refill. Laboratory Results - last 24 hr 3 04/29/18 04/29/18 04/29/18 03:36 03:36 03:36 WBC 8.8 RBC 4.11 Hgb 13.1 Hct 36.7 MCV 89.2 MCH 32.0 MCHC 35.8 RDW 13.8 Plt Count 134 D MPV 7.8 PT with INR 18.90 H INR 1.59 H PTT (Actin FS) 33.2 Sodium 135 L Potassium 2.8 L* Chloride 90 L Carbon Dioxide 34 H Anion Gap 11 BUN 64 H Creatinine 3.0 H Creat Clearance w eGFR 21.38 Random Glucose 134 H Lactic Acid 1.4 Calcium 9.1 Magnesium 3.3 H Total Bilirubin 0.8 AST 20 ALT 39 Alkaline Phosphatase 100 Creatine Kinase 133 Troponin I 0.12 H Total Protein 8.4 H Albumin 4.7 Lipase 337 ECG sinus rhythm with PACs and occ PVCs vent rate92, QTC [address] depression lead I, II, V3-V6 Radiology Reports EXAM: CT ABDOMEN \T\ PELVIS CT W/O CONTR THIS IS A PRELIMINARY REPORT FROM [facility] FINDINGS: Abdomen Liver: Normal Spleen: Spleen is mildly enlarged measuring 14.2 cm in AP dimension and 14 cm in length Pancreas: Normal Gallbladder: Surgically absent Stomach: Normal Small bowel: Normal Large bowel: Normal Appendix: Normal Adrenals:Normal Kidneys: Normal Vascular: Normal Lymphatic: Normal Peritoneal: No free peritoneal air or fluid Pelvis: Prostate: normal Rectum: Normal Bladder: Normal The inferior thorax: There are calcified granulomas at the lung bases General: Skeletal: Normal Abdominal wall: Normal IMPRESSION: No bowel obstruction. Splenomegaly One or more of the following dose reduction techniques were used: automated exposure control, adjustment of the mA and/or kV according to patient size, use of iterative reconstructive technique. THIS DOCUMENT HAS BEEN ELECTRONICALLY SIGNED Yrn Moody MD 04/29/2018 04:57 EST ASSESSMENT/PLAN: 62yM with PMH seizures, afib, anemia, COPD, asthma, GERD, depression, anxiety presented to the ED with epigastric pain and chest pain assoc with N/V. troponemia in setting of chest pain - + ECG changes, but in setting of elevated creatinine - will trend - cardiology consult - repeat ECG 10am - will give metoprolol 25 (pt unsure of his home dose) now Afib - cont home xarelto, will reduce dose to 15 due to SHANNA - will give metoprolol 25mg BID, can change dose if pharmacy reports higher dose hypokalemia - po and IV ordered, repeat BMP SHANNA - trial of IVF - renal consult - renal sono COPD - cont home symbicort, increase to BID GERD - given protonix IV in ED, cont 40mg daily depression/anxiety - cont home remeron, pt also reports he is on another med but cannot remember the name DVT PPX - cont xarelto FEN - NS @ 75cc/hr - bmp @930 with 2nd trop - clear liquid diet as tolerated Dispo: pt currently requires further inpatient management of his emergent condition. Visit type - Emergency Visit Emergency Visit: Yes ED Registration Date: 04/29/18 Care time: The patient presented to the Emergency Department on the above date and was hospitalized for further evaluation of their emergent condition. - New Patient This patient is new to me today: Yes Date on this admission: 04/29/18 - Critical Care Critical Care patient: No
[2018-04-29] MEDS ORDERED: KCL 10 MEQ IVPB 20 MEQ/200 ML INFUS.BAG IVPB ONE (06:40)
[2018-04-29] MEDS ORDERED: METOPROLOL TARTRATE 25 MG TABLET (FP) PO ONE (06:44)
[2018-04-29] MEDS ORDERED: levETIRAcetam 500 MG TABLET (FP) PO ONE (07:37)
[2018-04-29] MEDS: levETIRAcetam 500 MG TABLET (FP) PO SCH ×3 (07:41→22:40)
[2018-04-29] MEDS ORDERED: METOPROLOL TARTRATE 25 MG TABLET (FP) ONE (07:43)
[2018-04-29] MEDS: SODIUM CHLORIDE 1,000 ML IV SCH ×2 (09:30→17:26)
[2018-04-29 10:07] LABS: ANION GAP 10 MMOL/L (8-16); BLOOD UREA NITROGEN 58 mg/dL (7-18); CALCIUM 7.8 mg/dL (8.5-10.1); CHLORIDE 100 mmol/L (98-107); CO2 29 mmol/L (21-32); CREATININE 2.3 mg/dL (0.55-1.3); GLUCOSE,RANDOM 102 mg/dL (74-106); SODIUM 138 mmol/L (136-145)
[2018-04-29] MEDS ORDERED: PANTOPRAZOLE 40 MG TABLET (FP) ONE (10:41)
--- NOTE | 2018-04-29 12:07 | EKG ---
Test Reason : Blood Pressure : / mmHG Vent. Rate : 143 BPM Atrial Rate : 143 BPM P-R Int : 206 ms QRS Dur : 078 ms QT Int : 314 ms P-R-T Axes : 068 038 219 degrees QTc Int : 484 ms SINUS TACHYCARDIA LOW VOLTAGE QRS ABNORMAL ECG WHEN COMPARED WITH ECG OF 29-APR-2018 06:57, SIGNIFICANT CHANGES HAVE OCCURRED Confirmed by MIKALA BORREGO MD ([id number]) on 04/29/2018 12:07:14 PM Referred By: RANDELL MUNIZ Confirmed By:MIKALA BORREGO MD
--- NOTE | 2018-04-29 12:07 | EKG ---
Test Reason : Blood Pressure : / mmHG Vent. Rate : 092 BPM Atrial Rate : 092 BPM P-R Int : 156 ms QRS Dur : 086 ms QT Int : 374 ms P-R-T Axes : 058 -11 007 degrees QTc Int : 462 ms SINUS RHYTHM WITH PREMATURE SUPRAVENTRICULAR COMPLEXES AND WITH OCCASIONAL PREMATURE VENTRICULAR COMPLEXES PROLONGED QT ABNORMAL ECG NO PREVIOUS ECGS AVAILABLE Confirmed by MIKALA BORREGO MD ([id number]) on 04/29/2018 12:07:33 PM Referred By: Confirmed By:MIKALA BORREGO MD
[2018-04-29] MEDS: BUDESONIDE/FORMETEROL FUMARATE 80/4.5 mcg INHALER IH SCH ×2 (12:13→22:58)
[2018-04-29] MEDS ORDERED: HEPARIN NA (PORCINE) 5,000 UNITS/ML 1ML VIAL SQ SCH (14:00)
--- NOTE | 2018-04-29 15:28 | CONSULT ---
Consultation: CONSULT REQUEST: Nephrology consult HISTORY OF PRESENT ILLNESS: 62yo M with history of Afib (on Xarelto), COPD, seizure disorder, and GERD who presented to the ED for chest pain and periumbilical pain for about 10 days. Pt is somewhat verbal so HPI partially obtained from chart. Pt also endorsed 2 days of NB/NB vomiting in addition to his pain. We were asked to evaluate this pt due to his acute rise in Cr to 2.3 from 1.0 baseline. Pt denies using any NSAIDs at all and reports that he was never on a diuretic before. Currently pt has no complaints. PMHx: Seizure disorder Afib (Xarelto) Anemia COPD GERD Anxiety/depression PSHx: Lap Cholecystectomy SoHx: Smokin pack year; (quit 9 months ago without nicotine aid) Alcohol: Denies Drugs: Denies Allergies: Codeine - dizziness REVIEW OF SYSTEMS: CONSTITUTIONAL: Absent: fever, chills, diaphoresis, generalized weakness, malaise, HEENT: Absent: rhinorrhea, nasal congestion, throat pain, throat swelling, difficulty swallowing, mouth swelling, ear pain, eye pain, visual changes CARDIOVASCULAR: Present: Chest pain Absent: syncope, palpitations, irregular heart rate, lightheadedness, peripheral edema RESPIRATORY: Absent: cough, shortness of breath, dyspnea with exertion, orthopnea, wheezing, stridor, hemoptysis GASTROINTESTINAL: Present: Vomiting Absent: abdominal pain, abdominal distension, nausea,diarrhea, constipation, melena, hematochezia GENITOURINARY: Absent: dysuria, frequency, urgency, hesitancy, hematuria, flank pain, genital pain MUSCULOSKELETAL: Absent: myalgia, arthralgia, joint swelling, back pain, neck pain SKIN: Absent: rash, itching, pallor HEMATOLOGIC/IMMUNOLOGIC: Absent: easy bleeding, easy bruising, lymphadenopathy, frequent infections ENDOCRINE: Absent: unexplained weight gain, unexplained weight loss, heat intolerance, cold intolerance NEUROLOGIC: Absent: headache, focal weakness or paresthesias, dizziness, unsteady gait, seizure, mental status changes, bladder or bowel incontinence PSYCHIATRIC: Absent: anxiety, depression, suicidal or homicidal ideation, hallucinations. PHYSICAL EXAMINATION Vital Signs - 24 hr 04/29/18 02:00 Temperature 98.3 F Pulse Rate 94 H Respiratory 18 Rate Blood Pressure 115/66 O2 Sat by Pulse 97 Oximetry (%) GENERAL: NAD, Awake, alert to verbal stimuli HEENT: NC/AT, ALFREDO, dry MM NECK: No JVD LUNGS: CTA bilaterally. No wheezes, and no crackles. No accessory muscle use. HEART: RRR, normal S1 and S2 without murmur ABDOMEN: Soft, NT/ND, normoactive bowel sounds, no guarding. MUSCULOSKELETAL: No CVA tenderness. EXTREMITIES: 2+ DP pulses, warm, well-perfused. No peripheral edema SKIN: Warm, very dry, cracked/scaling skin with chronic venous changes on lower extremities Laboratory Results - last 24 hr 04/29/18 04/29/18 04/29/18 03:36 03:36 03:36 WBC 8.8 RBC 4.11 Hgb 13.1 Hct 36.7 MCV 89.2 MCH 32.0 MCHC 35.8 RDW 13.8 Plt Count 134 D MPV 7.8 PT with INR 18.90 H INR 1.59 H PTT (Actin FS) 33.2 Sodium 135 L Potassium 2.8 L* Chloride 90 L Carbon Dioxide 34 H Anion Gap 11 BUN 64 H Creatinine 3.0 H Creat Clearance w eGFR 21.38 Random Glucose 134 H Lactic Acid Calcium 9.1 Magnesium Total Bilirubin 0.8 AST 20 ALT 39 Alkaline Phosphatase 100 Creatine Kinase Troponin I Total Protein 8.4 H Albumin 4.7 Lipase 04/29/18 04/29/18 04/29/18 03:36 03:36 09:10 WBC RBC Hgb Hct MCV MCH MCHC RDW Plt Count MPV PT with INR INR PTT (Actin FS) Sodium 138 Potassium 3.0 L Chloride 100 Carbon Dioxide 29 Anion Gap 10 BUN 58 H Creatinine 2.3 H Creat Clearance w eGFR 29.05 Random Glucose 102 Lactic Acid 1.4 Calcium 7.8 L Magnesium 3.3 H Total Bilirubin AST ALT Alkaline Phosphatase Creatine Kinase 133 112 Troponin I 0.12 H 0.18 H Total Protein Albumin Lipase 337 Active Medications Generic Name Dose Route Start Last Admin Trade Name Freq PRN Reason Stop Dose Admin Albuterol Sulfate 2 puff 04/29/18 06:21 Ventolin Hfa Inhaler - IH Q6H PRN SHORTNESS OF BREATH Atorvastatin Calcium 20 mg 04/29/18 22:00 Lipitor - PO HS SANDRINE Budesonide/Formoterol Fumarate 2 puff 04/29/18 10:00 04/29/18 12:13 Symbicort 80/4.5mcg - IH 2 puff BID SANDRINE Administration Sodium Chloride 1,000 mls @ 75 mls/hr 04/29/18 07:15 04/29/18 09:30 Normal Saline - IV 75 mls/hr ASDIR SANDRINE Administration Levetiracetam 500 mg 04/29/18 06:30 04/29/18 14:27 Keppra - PO 500 mg TID SANDRINE Administration Metoprolol Tartrate 25 mg 04/29/18 22:00 Lopressor - PO BID SANDRINE Mirtazapine 30 mg 04/29/18 22:00 Remeron - PO HS SANDRINE Pantoprazole Sodium 40 mg 04/30/18 10:00 Protonix - PO DAILY SANDRINE Rivaroxaban 15 mg 04/29/18 18:00 Xarelto - PO DAILY@1800 SAN[facility]INE ASSESSMENT/PLAN: Acute kidney injury Hypokalemia Elevated troponins R/o ACS Atrial Fibrillation COPD GERD --Likely SHANNA prerenal in nature due to vomiting; pt looks extremely dry --Continue IVF (NS@75cc/hr) --Urine electrolytes, creatinine --Renal US --Continue to trend Troponins; may have lingering plateau due to acute kidney injury --Replete K+ levels (kdur 40mEq); currently 3.0 --Continue home COPD medications Dispo: Continue Tele monitoring. Thank you for this consultative opportunity. Case discussed with Dr. Catrachita Guadalupe, DO - IM PGY-2 Visit type - Emergency Visit Emergency Visit: Yes ED Registration Date: 04/29/18 Care time: The patient presented to the Emergency Department on the above date and was hospitalized for further evaluation of their emergent condition. - New Patient This patient is new to me today: Yes Date on this admission: 04/29/18 - Critical Care Critical Care patient: No
--- NOTE | 2018-04-29 16:34 | PN ---
Teaching Attending Note Name of Resident: Scar Guadalupe (Nephrology) ATTENDING PHYSICIAN STATEMENT I saw and evaluated the patient. I reviewed the resident's note and discussed the case with the resident. I agree with the resident's findings and plan as documented. Renal Pt is a 62 year old male with pmhx of a-fib and epilepsy who presents to the ER with abdominal pain and vomiting. I was called to evaluate him for SHANNA. He denies history of CKD. He denies fevers or chills. He denies nsaid use. He is on furosemide at home. PMHX Seizure disorder Afib (Xarelto) Anemia COPD GERD Anxiety/depression Laboratory Tests 04/29/18 04/29/18 04/29/18 03:36 03:36 03:36 WBC 8.8 Hgb 13.1 Potassium 2.8 L* Creatinine 3.0 H Magnesium 3.3 H 04/29/18 09:10 WBC Hgb Potassium 3.0 L Creatinine 2.3 H Magnesium Current Medications Generic Name Dose Route Start Last Admin Trade Name Freq PRN Reason Stop Dose Admin Albuterol Sulfate 2 puff 04/29/18 06:21 Ventolin Hfa Inhaler - IH Q6H PRN SHORTNESS OF BREATH Atorvastatin Calcium 20 mg 04/29/18 22:00 Lipitor - PO HS SANDRINE Budesonide/Formoterol Fumarate 2 puff 04/29/18 10:00 04/29/18 12:13 Symbicort 80/4.5mcg - IH 2 puff BID SANDRINE Administration Sodium Chloride 1,000 mls @ 75 mls/hr 04/29/18 07:15 04/29/18 09:30 Normal Saline - IV 75 mls/hr ASDIR [facility]INE Administration Levetiracetam 500 mg 04/29/18 06:30 04/29/18 14:27 Keppra - PO 500 mg TID SANDRINE Administration Metoprolol Tartrate 25 mg 04/29/18 22:00 Lopressor - PO BID [facility] Mirtazapine 30 mg 04/29/18 22:00 Remeron - PO HS [facility] Pantoprazole Sodium 40 mg 04/30/18 10:00 Protonix - PO DAILY [facility] Rivaroxaban 15 mg 04/29/18 18:00 Xarelto - PO DAILY@1800 [facility] Last Vital Signs Temp Pulse Resp BP Pulse Ox 98.3 F 94 H 18 115/66 97 04/29/18 02:00 04/29/18 02:00 04/29/18 02:00 04/29/18 02:00 04/29/18 02:00 radiology reviewed Impression 1. SHANNA likely pre-renal 2. Seizure disorder 3. Afib (Xarelto) 4. Anemia 5. COPD 6. GERD 7. Anxiety/depression 8. HLD 9. hypokalemia 10. 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
[2018-04-29] MEDS ORDERED: POTASSIUM CHLORIDE ORAL LIQUID 20 MEQ/15 ML PO ONE (16:35)
--- NOTE | 2018-04-29 17:13 | CON.CARD ---
Consult Consult Specialty:: Cardiology Referred by:: Dr. Pedroza Reason for Consultation:: Chest pain, nstemi - History of Present Illness Chief Complaint: chest pain, abd pain, sob History of Present Illness: 62 year old man with pmh Afib on xarelto, copd, seizures, gerd, smoker, admitted with c/o chest pain, abd pain, nausea, vomiting found to have RADHA and mildly elevated troponin. Pt seen and examined today in nad. Pt awake and alert but does not provide a clear history. reportedly chest pain and abd pain have been going on for the past 10 days. denies sob, palpitations, pnd, orthopnea, le edema. - Alcohol/Substance Use Hx Alcohol Use: No - Smoking History Smoking history: Former smoker Have you smoked in the past 12 months: Yes Aproximately how many cigarettes per day: 10 Home Medications - Allergies Allergies/Adverse Reactions: Allergies Allergy/AdvReac Type Severity Reaction Status Date / Time codeine Allergy Verified 04/29/18 03:05 - Home Medications Home Medications: Ambulatory Orders Albuterol Sulfate [Proair Hfa] 2 puff IH Q6H PRN 08/02/17 Atorvastatin Calcium 20 mg PO HS 08/02/17 Budesonide/Formeterol Fumarate [SYMBICORT 80/4.5mcg -] 2 inh PO DAILY 08/02/17 Levetiracetam 500 mg PO TID 08/02/17 Mirtazapine 30 mg PO HS 08/02/17 Furosemide 0 mg PO DAILY 04/29/18 Metoprolol Tartrate 0 mg PO BID 04/29/18 Vital Signs: Vital Signs Temperature 98.3 F 04/29/18 02:00 Pulse Rate 94 H 04/29/18 02:00 Respiratory Rate 18 04/29/18 02:00 Blood Pressure 115/66 04/29/18 02:00 O2 Sat by Pulse Oximetry (%) 97 04/29/18 02:00 - Other Data Labs, Other Data: CBC, BMP 04/29/18 03:36 04/29/18 09:10 INR, PTT INR 1.59 (0.83-1.09) H 04/29/18 03:36 Troponin, BNP 04/29/18 04/29/18 03:36 09:10 Troponin I 0.12 H 0.18 H Troponin, BNP 04/29/18 04/29/18 03:36 09:10 Troponin I 0.12 H 0.18 H ekg nsr 92bpm, ST depressions possible ischemia in anterolateral and inferior leads repeat ekg 04/29 sinus tach vs SVT 143bpm, st depression c/w possible anterolateral and inferior ischemia. Echo: Pending Imaging - Results Chest X-ray: Report Reviewed, Image Reviewed EKG: Report Reviewed, Image Reviewed Other: Report Reviewed, Image Reviewed Assessment/Plan 62 year old man with pmh Afib on xarelto, copd, seizures, gerd, smoker, admitted with c/o chest pain, abd pain, nausea, vomiting found to have RADHA and mildly elevated troponin. Pt seen and examined today in nad. Pt awake and alert but does not provide a clear history. reportedly chest pain and abd pain have been going on for the past 10 days. denies sob, palpitations, pnd, orthopnea, le edema. Chest pain-atypical, unlikely ACS -but with abnl EKG concerning for ischemia -minimally elevated troponin that did not significantly trend up and normal CK level -pt has significant RADHA -ideally would have a nonurgent ischemic work up with a cardiac cath during admission however will need to wait to see if creatinine improves -cont to trend cardiac enzymes -cont metoprolol and statin -start ASA -tele monitoring -echo Arrhythmia-reported h/o Afib -on Xarelto -tachycardia this am ekg was more c/w SVT vs sinus tach -monitor tele -cont metoprolol and uptitrate as needed -can use IV lopressor prn if arrhythmia recurs
[2018-04-29] MEDS ORDERED: METOPROLOL TARTRATE 5 MG/5 ML VIAL IVPUSH PRN (17:19)
[2018-04-29] MEDS ORDERED: POTASSIUM CHLORIDE ORAL LIQUID 20 MEQ/15 ML ONE ×2 (17:29→17:39)
[2018-04-29 17:31] LABS: URINE APPEARANCE CLEAR; URINE BILIRUBIN NEGATIVE (<2.0 mg/dL); URINE COLOR LTYELLOW; URINE GLUCOSE (UA) NEGATIVE (NEGATIVE); URINE KETONE NEGATIVE (NEGATIVE); URINE LEUK ESTERASE NEGATIVE (NEGATIVE); URINE NITRITE NEGATIVE (NEGATIVE); URINE PROTEIN NEGATIVE (NEGATIVE); URINE UROBILINOGEN NEGATIVE mg/dL (0.2-1.0)
[2018-04-29] MEDS: RIVAROXABAN 15 MG TABLET PO SCH (17:53)
[2018-04-29] MEDS ORDERED: ASPIRIN 81 MG CHEWABLE TABLETS ONE (17:56)
[2018-04-29] MEDS: ASPIRIN 81 MG CHEWABLE TABLETS PO SCH (17:57)
[2018-04-29] MEDS ORDERED: MIRTAZAPINE 30 MG TABLET (FP) PO SCH (22:00)
[2018-04-29] MEDS ORDERED: MIRTAZAPINE 15 MG TABLET (FP) ONE (22:38)
[2018-04-29] MEDS: ATORVASTATIN CA 20 MG TABLET (FP) PO SCH (22:40)
[2018-04-29] MEDS: METOPROLOL TARTRATE 25 MG TABLET (FP) PO SCH (22:41)
[2018-04-30 00:29] VITALS: BMI 26.9
[2018-04-30] MEDS: ACETAMINOPHEN 325 MG TABLET (FP) PO PRN ×2 (00:53→14:19)
[2018-04-30] MEDS ORDERED: traMADol HCL 50 MG TABLET PO ONE ×2 (03:17→05:18)
[2018-04-30] MEDS: levETIRAcetam 500 MG TABLET (FP) PO SCH ×3 (05:54→21:41)
[2018-04-30] MEDS: SODIUM CHLORIDE 1,000 ML IV SCH ×3 (05:56→17:52)
[2018-04-30 07:12] LABS: BASO % 0.4 % (0-2.0); EOS % 3.3 % (0-4.5); HEMATOCRIT 28.3 % (35.4-49); HEMOGLOBIN 10.3 GM/dL (11.7-16.9); LYMPH % 22.6 % (8-40); MCH 34.9 pg (25.7-33.7); MCHC 36.5 g/dl (32.0-35.9); MEAN CELL VOLUME 95.6 fl (80-96); MEAN PLT VOLUME 7.6 fl (7.5-11.1); MONO % 7.3 % (3.8-10.2); NEUT % 66.4 % (42.8-82.8); PLATELET COUNT 99 K/MM3 (134-434); RBC 2.96 M/mm3 (4.00-5.60); RDW 14.1 % (11.9-15.9); WHITE BLOOD COUNT 4.2 K/mm3 (4.0-10.0)
[2018-04-30 07:52] LABS: ANION GAP 6 MMOL/L (8-16); BLOOD UREA NITROGEN 35 mg/dL (7-18); CALCIUM 8.1 mg/dL (8.5-10.1); CHLORIDE 108 mmol/L (98-107); CO2 29 mmol/L (21-32); CREATININE 1.6 mg/dL (0.55-1.3); GLUCOSE,RANDOM 92 mg/dL (74-106); MAGNESIUM 2.6 mg/dL (1.8-2.4); PHOSPHOROUS 1.3 mg/dL (2.5-4.9); SODIUM 143 mmol/L (136-145)
--- NOTE | 2018-04-30 09:44 | PN ---
Physical Exam: SUBJECTIVE: Pt c/o slight L-sided abdominal pain today. Pt tolerated his diet without any vomiting or nausea. Denies any SOB. OBJECTIVE: Vital Signs Period Temp Pulse Resp BP Sys/David Pulse Ox Last 24 Hr 97.7 F-98.2 F 66-68 18-18 120-141/45-76 GENERAL: NAD, Awake, alert to verbal stimuli HEENT: NC/AT, ALFREDO, [id number] MM NECK: No JVD LUNGS: CTA bilaterally. No wheezes, and no crackles. No accessory muscle use. HEART: RRR, normal S1 and S2 without murmur ABDOMEN: Soft, tympanitic, left-sided abdominal tenderness (mild), normoactive bowel sounds, no guarding. MUSCULOSKELETAL: No CVA tenderness. EXTREMITIES: 2+ DP pulses, warm, well-perfused. No peripheral edema SKIN: Warm, dry, chronic venous changes on lower extremities Laboratory Results - last 24 hr 04/30/18 04/30/18 06:15 06:15 WBC 4.2 RBC 2.96 L Hgb 10.3 L Hct 28.3 L D MCV 95.6 D MCH 34.9 H MCHC 36.5 H RDW 14.1 Plt Count 99 L D MPV 7.6 Absolute Neuts (auto) 2.8 Neutrophils % 66.4 Lymphocytes % 22.6 D Monocytes % 7.3 Eosinophils % 3.3 Basophils % 0.4 Nucleated RBC % 0 Sodium 143 Potassium 4.0 Chloride 108 H Carbon Dioxide 29 Anion Gap 6 L BUN 35 H Creatinine 1.6 H Creat Clearance w eGFR 44.16 Random Glucose 92 Calcium 8.1 L Phosphorus 1.3 L Magnesium 2.6 H Ur Random Chloride Urine Creatinine 122.0 H Active Medications Generic Name Dose Route Start Last Admin Trade Name Freq PRN Reason Stop Dose Admin Acetaminophen 650 mg 04/30/18 00:37 04/30/18 00:53 Tylenol - PO 650 mg Q6H PRN Administration PAIN LEVEL 1-5 Albuterol Sulfate 2 puff 04/29/18 06:21 Ventolin Hfa Inhaler - IH Q6H PRN SHORTNESS OF BREATH Aspirin 81 mg 04/29/18 17:30 04/29/18 17:57 Asa - PO 81 mg DAILY SANDRINE Administration Atorvastatin Calcium 20 mg 04/29/18 22:00 10/25/18 22:40 Lipitor - PO 20 mg HS SANDRINE Administration Budesonide/Formoterol Fumarate 2 puff 04/29/18 10:00 04/29/18 22:58 Symbicort 80/4.5mcg - IH 2 puff BID SANDRINE Administration Sodium Chloride 1,000 mls @ 75 mls/hr 04/29/18 07:15 04/30/18 05:56 Normal Saline - IV 75 mls/hr ASDIR SANDRINE Administration Levetiracetam 500 mg 04/29/18 06:30 04/30/18 05:54 Keppra - PO 500 mg TID SANDRINE Administration Metoprolol Tartrate 25 mg 04/29/18 22:00 04/29/18 22:41 Lopressor - PO 25 mg BID SANDRINE Administration Metoprolol Tartrate 5 mg 04/29/18 17:19 Lopressor Injection - IVPUSH Q4H PRN TACHYCARDIA Mirtazapine 30 mg 04/30/18 22:00 Remeron - PO HS SANDRINE Pantoprazole Sodium 40 mg 04/30/18 10:00 Protonix - PO DAILY SANDRINE Rivaroxaban 15 mg 04/29/18 18:00 04/29/18 17:53 Xarelto - PO 15 mg DAILY@1800 SANDRINE Administration ASSESSMENT/PLAN: Acute kidney injury Hypophosphatemia Hypokalemia (resolved) Elevated troponins R/o ACS Atrial Fibrillation COPD GERD --Likely SHANNA prerenal in nature; improving from IV hydration --Continue IVF (NS@75cc/hr) for today; repeat labs in AM --Hold diuretics for now --Replete Phos with Neutra-phos packet --Continue home COPD medications Dispo: Continue monitoring. Will reassess tomorrow Case discussed with Dr. Catrachita Guadalupe, DO - IM PGY-2 Visit type - Emergency Visit Emergency Visit: Yes ED Registration Date: 04/29/18 Care time: The patient presented to the Emergency Department on the above date and was hospitalized for further evaluation of their emergent condition. - New Patient This patient is new to me today: No - Critical Care Critical Care patient: No
[2018-04-30] MEDS ORDERED: NAPH,MB-DB/K PH,MBDB POWDER PACKET PO ONE (09:47)
--- NOTE | 2018-04-30 10:59 | PN ---
Progress Note, Physician Chief Complaint: patient came in with stomach pain ct scan negative found to slightly elevated troponin, and SHANNA echo done today complaining of slight left sided chest discomfort - Current Medication List Current Medications: Active Medications Acetaminophen (Tylenol -) 650 mg PO Q6H PRN PRN Reason: PAIN LEVEL 1-5 Last Admin: 04/30/18 00:53 Dose: 650 mg Albuterol Sulfate (Ventolin Hfa Inhaler -) 2 puff IH Q6H PRN PRN Reason: SHORTNESS OF BREATH Aspirin (Asa -) 81 mg PO DAILY [facility] Last Admin: 04/29/18 17:57 Dose: 81 mg Atorvastatin Calcium (Lipitor -) 20 mg PO HS [facility] Last Admin: 04/29/18 22:40 Dose: 20 mg Budesonide/Formoterol Fumarate (Symbicort 80/4.5mcg -) 2 puff IH BID [facility] Last Admin: 04/29/18 22:58 Dose: 2 puff Sodium Chloride (Normal Saline -) 1,000 mls @ 75 mls/hr IV ASDIR [facility] Last Admin: 04/30/18 05:56 Dose: 75 mls/hr Levetiracetam (Keppra -) 500 mg PO TID [facility] Last Admin: 04/30/18 05:54 Dose: 500 mg Metoprolol Tartrate (Lopressor -) 25 mg PO BID [facility] Last Admin: 04/29/18 22:41 Dose: 25 mg Metoprolol Tartrate (Lopressor Injection -) 5 mg IVPUSH Q4H PRN PRN Reason: TACHYCARDIA Mirtazapine (Remeron -) 30 mg PO [facility] Pantoprazole Sodium (Protonix -) 40 mg PO DAILY [facility] Rivaroxaban (Xarelto -) 15 mg PO DAILY@1800 [facility] Last Admin: 04/29/18 17:53 Dose: 15 mg - Objective Vital Signs: Vital Signs Temperature 98.2 F 04/30/18 05:57 Pulse Rate 68 04/30/18 05:57 Respiratory Rate 18 04/30/18 05:57 Blood Pressure 141/75 04/30/18 05:57 O2 Sat by Pulse Oximetry (%) 98 04/29/18 09:00 Constitutional: Yes: Calm Cardiovascular: Yes: Regular Rate and Rhythm, S1, S2 Respiratory: Yes: CTA Bilaterally Gastrointestinal: Yes: Normal Bowel Sounds, Soft Edema: No Integumentary: Yes: Other (psoarisis) Labs: CBC, BMP 04/30/18 06:15 04/30/18 06:15 INR, PTT INR 1.59 (0.83-1.09) H 04/29/18 03:36 Problem List - Problems (1) Chest pain Assessment/Plan: echo done report pending repeat troponin pending aspirin lipitor metoprolol Code(s): R07.9 - CHEST PAIN, UNSPECIFIED Qualifiers: Chest pain type: unspecified Qualified Code(s): R07.9 - Chest pain, unspecified (2) Abdominal pain Assessment/Plan: ct scan negative Code(s): R10.9 - UNSPECIFIED ABDOMINAL PAIN Qualifiers: Abdominal location: unspecified location Qualified Code(s): R10.9 - Unspecified abdominal pain (3) SHANNA (acute kidney injury) Assessment/Plan: renal sono -negative labs improving Cr from 3.0-1.6 no diuretics, on IVF potassium improved phosphorous repleted Code(s): N17.9 - ACUTE KIDNEY FAILURE, UNSPECIFIED (4) Afib Assessment/Plan: on xarelto and metoprolol Code(s): I48.91 - UNSPECIFIED ATRIAL FIBRILLATION (5) Seizure disorder Assessment/Plan: [facility] Code(s): G40.909 - EPILEPSY, UNSP, NOT INTRACTABLE, WITHOUT STATUS EPILEPTICUS
[2018-04-30] MEDS: METOPROLOL TARTRATE 25 MG TABLET (FP) PO SCH ×2 (11:26→21:41)
[2018-04-30] MEDS: ASPIRIN 81 MG CHEWABLE TABLETS PO SCH (11:26)
[2018-04-30] MEDS: PANTOPRAZOLE 40 MG TABLET (FP) PO SCH (11:26)
[2018-04-30] MEDS ORDERED: POTASSIUM PHOSPHATE 15 MM in DEXTROSE 5%-WATER - 250 ML IVPB ONE (12:05)
--- NOTE | 2018-04-30 12:05 | PN ---
Teaching Attending Note Name of Resident: Scar Guadalupe (Nephrology) ATTENDING PHYSICIAN STATEMENT I saw and evaluated the patient. I reviewed the resident's note and discussed the case with the resident. I agree with the resident's findings and plan as documented. Renal Pt seen and examined at bedside. He is awake and alert. He feels abd pain is improved. He denies lower ext edema. He denies shortness of breath. Current Medications Generic Name Dose Route Start Last Admin Trade Name Freq PRN Reason Stop Dose Admin Acetaminophen 650 mg 04/30/18 00:37 04/30/18 00:53 Tylenol - PO 650 mg Q6H PRN Administration PAIN LEVEL 1-5 Albuterol Sulfate 2 puff 04/29/18 06:21 Ventolin Hfa Inhaler - IH Q6H PRN SHORTNESS OF BREATH Aspirin 81 mg 04/29/18 17:30 04/30/18 11:26 Asa - PO 81 mg DAILY [facility] Administration Atorvastatin Calcium 20 mg 04/29/18 22:00 04/29/18 22:40 Lipitor - PO 20 mg HS SANDRINE Administration Budesonide/Formoterol Fumarate 2 puff 04/29/18 10:00 04/29/18 22:58 Symbicort 80/4.5mcg - IH 2 puff BID SANDRINE Administration Sodium Chloride 1,000 mls @ 75 mls/hr 04/29/18 07:15 04/30/18 05:56 Normal Saline - IV 75 mls/hr ASDIR SANDRINE Administration Levetiracetam 500 mg 04/29/18 06:30 04/30/18 05:54 Keppra - PO 500 mg TID SANDRINE Administration Metoprolol Tartrate 25 mg 04/29/18 22:00 04/30/18 11:26 Lopressor - PO 25 mg BID SANDRINE Administration Metoprolol Tartrate 5 mg 04/29/18 17:19 Lopressor Injection - IVPUSH Q4H PRN TACHYCARDIA Mirtazapine 30 mg 04/30/18 22:00 Remeron - PO HS [facility] Pantoprazole Sodium 40 mg 04/30/18 10:00 04/30/18 11:26 Protonix - PO 40 mg DAILY [facility]DRINE Administration Rivaroxaban 15 mg 04/29/18 18:00 04/29/18 17:53 Xarelto - PO 15 mg DAILY@1800 SANDRINE Administration Last Vital Signs Temp Pulse Resp BP Pulse Ox 98 F 72 20 117/73 98 04/30/18 10:00 04/30/18 10:00 04/30/18 10:00 04/30/18 10:00 04/29/18 09:00 Selected Entries 04/30/18 10:00 Blood Pressure 117/73 Laboratory Tests 04/29/18 04/30/18 17:00 06:15 Sodium 143 Potassium 4.0 Creatinine 1.6 H Urine Protein Negative Urine Blood Negative Laboratory Tests 04/30/18 06:15 Phosphorus 1.3 L cardio s1s2 pulm clear GI soft ext neg edema neuro awake and alert Impression 1. SHANNA likely pre-renal 2. Seizure disorder 3. Afib (Xarelto) 4. Anemia 5. COPD 6. GERD 7. Anxiety/depression 8. HLD 9. hypokalemia 10. abdominal pain/vomiting Plan - renal function is improving - potassium improved - replace phos - monitor labs
--- NOTE | 2018-04-30 12:18 | ECHO ---
Name: LANDON ARELLANO Exam:Adult Echocardiogram Study Date: 04/30/2018 10:08 AM Age: 62 yrs Reason For Study: CHEST PAIN,SOB,NSTEMI Height: 66 in Weight: 175 lb BSA: 1.9 m2 MMode/2D Measurements & Calculations IVSd: 0.84 cm Ao root diam: 4.1 cm LVIDd: 4.9 cm LA dimension: 3.9 cm LVIDs: 3.0 cm ACS: 1.9 cm LVPWd: 1.0 cm IVSs: 1.1 cm LVPWs: 1.1 cm EDV(Teich): 113.3 ml ESV(Teich): 34.3 ml Doppler Measurements & Calculations MV E max omar: 70.1 cm/sec Ao V2 max: 147.7 cm/sec MV A max omar: 66.9 cm/sec Ao max P.7 mmHg MV E/A: 1.0 Ao V2 mean: 97.3 cm/sec Ao mean P.4 mmHg Ao V2 VTI: 29.5 cm MR max omar: 403.5 cm/sec Med Peak E' Omar: 6.2 cm/sec MR max P.1 mmHg Med E/e': 11.2 Lat Peak E' Omar: 7.8 cm/sec Lat E/e': 9.0 Left Ventricle Left ventricular systolic function is normal. The left ventricular wall motion is normal. Right Ventricle The right ventricle is normal in size and function. Atria The left atrium is mildly dilated. Mitral Valve The mitral valve is normal in structure and function. There is mild mitral regurgitation. Tricuspid Valve The tricuspid valve is normal in structure and function. There is mild tricuspid regurgitation. Aortic Valve The aortic valve is trileaflet. No hemodynamically significant valvular aortic stenosis. No aortic regurgitation is present. Pulmonic Valve The pulmonic valve is not well seen, but is grossly normal. There is no pulmonic valvular stenosis. T here is no pulmonic valvular regurgitation. Great Vessels Mild aortic root dilatation. Pericardium/Pleura There is no pericardial effusion. Interpretation Summary Left ventricular systolic function is normal. The right ventricle is normal in size and function. The left atrium is mildly dilated. There is mild mitral regurgitation. There is mild tricuspid regurgitation. Mild aortic root dilatation. There is no pericardial effusion. MD [place] *Lisette 04/30/2018 12:17 PM
[2018-04-30] MEDS: NAPH,MB-DB/K PH,MBDB POWDER PACKET PO SCH ×3 (12:37→21:41)
[2018-04-30] MEDS ORDERED: PT OWN MED DRAWER 7, Y5N ONE (15:53)
--- NOTE | 2018-04-30 16:23 | PN ---
Progress Note, Physician History of Present Illness: This is a 62 year old male with a PMH of afib, on AC (Xarelto), copd, seizures, gerd, smoker, admitted with c/o chest pain, abd pain, nausea, vomiting found to have RADHA and mildly elevated troponin. He remains comfortable. Trops now 0.64 - Current Medication List Current Medications: Active Medications Acetaminophen (Tylenol -) 650 mg PO Q6H PRN PRN Reason: PAIN LEVEL 1-5 Last Admin: 04/30/18 14:19 Dose: 650 mg Albuterol Sulfate (Ventolin Hfa Inhaler -) 2 puff IH Q6H PRN PRN Reason: SHORTNESS OF BREATH Aspirin (Asa -) 81 mg PO DAILY [facility] Last Admin: 04/30/18 11:26 Dose: 81 mg Atorvastatin Calcium (Lipitor -) 20 mg PO HS [facility] Last Admin: 04/29/18 22:40 Dose: 20 mg Budesonide/Formoterol Fumarate (Symbicort 80/4.5mcg -) 2 puff IH BID [facility] Last Admin: 04/29/18 22:58 Dose: 2 puff Sodium Chloride (Normal Saline -) 1,000 mls @ 75 mls/hr IV ASDIR [facility] Last Admin: 04/30/18 05:56 Dose: 75 mls/hr Levetiracetam (Keppra -) 500 mg PO TID [facility] Last Admin: 04/30/18 14:19 Dose: 500 mg Metoprolol Tartrate (Lopressor -) 25 mg PO BID [facility] Last Admin: 04/30/18 11:26 Dose: 25 mg Metoprolol Tartrate (Lopressor Injection -) 5 mg IVPUSH Q4H PRN PRN Reason: TACHYCARDIA Mirtazapine (Remeron -) 30 mg PO HS [facility] Pantoprazole Sodium (Protonix -) 40 mg PO DAILY [facility] Last Admin: 04/30/18 11:26 Dose: 40 mg Potassium Phos/Sodium Phos (Phos-Nak Packet -) 1 packet PO TID [facility] Stop: 05/01/18 14:01 Last Admin: 04/30/18 14:19 Dose: 1 packet Rivaroxaban (Xarelto -) 15 mg PO DAILY@1800 [facility] Last Admin: 04/29/18 17:53 Dose: 15 mg - Objective Vital Signs: Vital Signs Temperature 97.5 F L 04/30/18 14:06 Pulse Rate 63 04/30/18 14:06 Respiratory Rate 20 04/30/18 10:00 Blood Pressure 113/61 04/30/18 14:06 O2 Sat by Pulse Oximetry (%) 98 04/29/18 09:00 Constitutional: Yes: No Distress Eyes: Yes: WNL HENT: Yes: WNL Cardiovascular: Yes: Regular Rate and Rhythm (NL S1S2) Respiratory: Yes: CTA Bilaterally Edema: No Psychiatric: Yes: Alert Labs: CBC, BMP 04/30/18 06:15 04/30/18 06:15 INR, PTT INR 1.59 (0.83-1.09) H 04/29/18 03:36 Assessment/Plan 62 year old male with a PMH of afib, on AC (Xarelto), copd, seizures, gerd, smoker, admitted with c/o chest pain, abd pain, nausea, vomiting found to have RADHA and mildly elevated troponin. He remains comfortable. Echocardiogram with NL LV function. Trops now 0.64 NSTEMI Troponins are trending up EKG showed iscemic changes When Creatinine recovers, would transfer to [facility] for Cardiac Cath. Continue to trend Troponins Continue Statin/ASA/Metoprolol Arrhythmia-reported h/o Afib -on Xarelto -tachycardia this am ekg was more c/w SVT vs sinus tach -monitor tele -cont metoprolol and uptitrate as needed Would need to hold Xarelto for 40 hours if a cardac cath is planned Would start holding Xarelto now, in preparation for possible transfer to [facility] Thursday. Arrhythmia-reported h/o Afib -on Xarelto -tachycardia this am ekg was more c/w SVT vs sinus tach -monitor tele -cont metoprolol and uptitrate as needed -can use IV lopressor prn if arrhythmia recurs
[2018-04-30] MEDS: RIVAROXABAN 15 MG TABLET PO SCH (17:49)
[2018-04-30] MEDS: BUDESONIDE/FORMETEROL FUMARATE 80/4.5 mcg INHALER IH SCH ×2 (17:50→21:42)
[2018-04-30] MEDS: ATORVASTATIN CA 20 MG TABLET (FP) PO SCH (21:41)
[2018-04-30] MEDS: MIRTAZAPINE 15 MG TABLET (FP) PO SCH (21:42)
[2018-05-01] MEDS: ACETAMINOPHEN 325 MG TABLET (FP) PO PRN (01:38)
[2018-05-01] MEDS ORDERED: traMADol HCL 50 MG TABLET PO ONE (04:41)
[2018-05-01] MEDS: levETIRAcetam 500 MG TABLET (FP) PO SCH ×3 (06:41→22:39)
[2018-05-01] MEDS: NAPH,MB-DB/K PH,MBDB POWDER PACKET PO SCH ×3 (06:42→22:39)
[2018-05-01] MEDS: PANTOPRAZOLE 40 MG TABLET (FP) PO SCH (09:27)
[2018-05-01] MEDS: METOPROLOL TARTRATE 25 MG TABLET (FP) PO SCH ×2 (09:27→22:39)
[2018-05-01] MEDS: ASPIRIN 81 MG CHEWABLE TABLETS PO SCH (09:27)
[2018-05-01] MEDS: SODIUM CHLORIDE 1,000 ML IV SCH (09:29)
[2018-05-01] MEDS: BUDESONIDE/FORMETEROL FUMARATE 80/4.5 mcg INHALER IH SCH ×2 (09:29→22:40)
[2018-05-01 09:42] LABS: HEMATOCRIT 33.7 % (35.4-49); HEMOGLOBIN 12.1 GM/dL (11.7-16.9); MCH 33.1 pg (25.7-33.7); MCHC 35.7 g/dl (32.0-35.9); MEAN CELL VOLUME 92.6 fl (80-96); MEAN PLT VOLUME 7.4 fl (7.5-11.1); PLATELET COUNT 128 K/MM3 (134-434); RBC 3.64 M/mm3 (4.00-5.60); RDW 13.7 % (11.9-15.9); WHITE BLOOD COUNT 5.6 K/mm3 (4.0-10.0)
[2018-05-01 09:45] LABS: ANION GAP 8 MMOL/L (8-16); BLOOD UREA NITROGEN 15 mg/dL (7-18); CALCIUM 8.4 mg/dL (8.5-10.1); CHLORIDE 109 mmol/L (98-107); CO2 27 mmol/L (21-32); CREATININE 1.1 mg/dL (0.55-1.3); GLUCOSE,RANDOM 98 mg/dL (74-106); MAGNESIUM 1.8 mg/dL (1.8-2.4); PHOSPHOROUS 2.3 mg/dL (2.5-4.9); POTASSIUM 3.6 mmol/L (3.5-5.1); SODIUM 144 mmol/L (136-145)
[2018-05-01] MEDS ORDERED: morphine CARPU-JECT 2 MG/1 ML DISP.SYRIN IVPUSH PRN (10:44)
--- NOTE | 2018-05-01 10:46 | PN ---
Progress Note, Physician Chief Complaint: NSTEMI History of Present Illness: NAD c/o nausea troponins rising Seen by Cardiology On IVF Cr trending down - Current Medication List Current Medications: Active Medications Acetaminophen (Tylenol -) 650 mg PO Q6H PRN PRN Reason: PAIN LEVEL 1-5 Last Admin: 05/01/18 01:38 Dose: 650 mg Albuterol Sulfate (Ventolin Hfa Inhaler -) 2 puff IH Q6H PRN PRN Reason: SHORTNESS OF BREATH Aspirin (Asa -) 81 mg PO DAILY [facility] Last Admin: 05/01/18 09:27 Dose: 81 mg Atorvastatin Calcium (Lipitor -) 20 mg PO HS [facility] Last Admin: 04/30/18 21:41 Dose: 20 mg Budesonide/Formoterol Fumarate (Symbicort 80/4.5mcg -) 2 puff IH BID [facility] Last Admin: 05/01/18 09:29 Dose: 2 puff Sodium Chloride (Normal Saline -) 1,000 mls @ 75 mls/hr IV ASDIR [facility] Last Admin: 05/01/18 09:29 Dose: 75 mls/hr Levetiracetam (Keppra -) 500 mg PO TID [facility] Last Admin: 05/01/18 06:41 Dose: 500 mg Metoprolol Tartrate (Lopressor -) 25 mg PO BID [facility] Last Admin: 05/01/18 09:27 Dose: 25 mg Metoprolol Tartrate (Lopressor Injection -) 5 mg IVPUSH Q4H PRN PRN Reason: TACHYCARDIA Mirtazapine (Remeron -) 30 mg PO HS [facility] Last Admin: 04/30/18 21:42 Dose: 30 mg Nitroglycerin (Nitro-Bid 2% Paste -) 0.5 inch TD Q6HPO [facility] Pantoprazole Sodium (Protonix -) 40 mg PO DAILY [facility] Last Admin: 05/01/18 09:27 Dose: 40 mg Potassium Phos/Sodium Phos (Phos-Nak Packet -) 1 packet PO TID [facility] Stop: 05/01/18 14:01 Last Admin: 05/01/18 06:42 Dose: 1 packet Rivaroxaban (Xarelto -) 15 mg PO DAILY@1800 [facility] Last Admin: 04/30/18 17:49 Dose: 15 mg - Objective Vital Signs: Vital Signs Temperature 98 F 05/01/18 09:00 Pulse Rate 84 05/01/18 09:00 Respiratory Rate 18 05/01/18 09:00 Blood Pressure 159/100 05/01/18 09:00 O2 Sat by Pulse Oximetry (%) 98 04/29/18 09:00 Constitutional: Yes: Well Nourished, No Distress, Calm Cardiovascular: Yes: Regular Rate and Rhythm Respiratory: Yes: Regular Gastrointestinal: Yes: Normal Bowel Sounds, Soft Musculoskeletal: Yes: WNL Extremities: Yes: WNL Edema: No Peripheral Pulses WNL: Yes Neurological: Yes: Alert, Oriented Psychiatric: Yes: Alert, Oriented Labs: CBC, BMP 05/01/18 08:55 05/01/18 08:55 INR, PTT INR 1.59 (0.83-1.09) H 04/29/18 03:36 Problem List - Problems (1) NSTEMI (non-ST elevated myocardial infarction) Assessment/Plan: -Seen by Cardiology -On Lopressor 25 mg po bid -Troponins trending up -repeat EKG and Troponin stat -Start Nitro Patch Q6H -Pt to be transferred to [facility] for cardiac cath Code(s): I21.4 - NON-ST ELEVATION (NSTEMI) MYOCARDIAL INFARCTION (2) SHANNA (acute kidney injury) Assessment/Plan: -On NS @ 75 cc/hr -Cr trending down -monitor Cr Code(s): N17.9 - ACUTE KIDNEY FAILURE, UNSPECIFIED (3) Chest pain Code(s): R07.9 - CHEST PAIN, UNSPECIFIED Qualifiers: Chest pain type: unspecified Qualified Code(s): R07.9 - Chest pain, unspecified (4) Nausea Assessment/Plan: -more nauseous this AM -Zofran 4 mg IVP Q6H PRN Code(s): R11.0 - NAUSEA Assessment/Plan see problem list
[2018-05-01] MEDS: NITROGLYCERIN 2% OINTMENT - 1GM PACKET TD SCH ×2 (11:30→17:29)
[2018-05-01] MEDS ORDERED: morphine SULFATE 4 MG/ML VIAL IVPUSH PRN (11:37)
--- NOTE | 2018-05-01 13:26 | PN ---
Progress Note, Physician Chief Complaint: Episode of mild chest pain this morning History of Present Illness: 62 year old male with a PMH of afib, on AC (Xarelto), copd, seizures, gerd, smoker, admitted with c/o chest pain, abd pain, nausea, vomiting found to have RADHA and mildly elevated troponin. He remains comfortable. Echocardiogram with NL LV function. Trops 0.64 - Current Medication List Current Medications: Active Medications Acetaminophen (Tylenol -) 650 mg PO Q6H PRN PRN Reason: PAIN LEVEL 1-5 Last Admin: 05/01/18 01:38 Dose: 650 mg Albuterol Sulfate (Ventolin Hfa Inhaler -) 2 puff IH Q6H PRN PRN Reason: SHORTNESS OF BREATH Aspirin (Asa -) 81 mg PO DAILY [facility] Last Admin: 05/01/18 09:27 Dose: 81 mg Atorvastatin Calcium (Lipitor -) 20 mg PO HS [facility] Last Admin: 04/30/18 21:41 Dose: 20 mg Budesonide/Formoterol Fumarate (Symbicort 80/4.5mcg -) 2 puff IH BID [facility] Last Admin: 05/01/18 09:29 Dose: 2 puff Sodium Chloride (Normal Saline -) 1,000 mls @ 75 mls/hr IV ASDIR [facility] Last Admin: 05/01/18 09:29 Dose: 75 mls/hr Levetiracetam (Keppra -) 500 mg PO TID [facility] Last Admin: 05/01/18 06:41 Dose: 500 mg Metoprolol Tartrate (Lopressor -) 25 mg PO BID [facility] Last Admin: 05/01/18 09:27 Dose: 25 mg Metoprolol Tartrate (Lopressor Injection -) 5 mg IVPUSH Q4H PRN PRN Reason: TACHYCARDIA Mirtazapine (Remeron -) 30 mg PO HS [facility] Last Admin: 04/30/18 21:42 Dose: 30 mg Morphine Sulfate (Morphine Sulfate) 2 mg IVPUSH Q5M PRN PRN Reason: chest pain Nitroglycerin (Nitro-Bid 2% Paste -) 0.5 inch TD Q6HPO [facility] Last Admin: 05/01/18 11:30 Dose: 0.5 inch Ondansetron HCl (Zofran Injection) 4 mg IVPUSH Q6H PRN PRN Reason: NAUSEA Pantoprazole Sodium (Protonix -) 40 mg PO DAILY [facility] Last Admin: 05/01/18 09:27 Dose: 40 mg Potassium Phos/Sodium Phos (Phos-Nak Packet -) 1 packet PO TID [facility] Stop: 05/01/18 14:01 Last Admin: 05/01/18 06:42 Dose: 1 packet Rivaroxaban (Xarelto -) 15 mg PO DAILY@1800 [facility] Last Admin: 04/30/18 17:49 Dose: 15 mg - Objective Vital Signs: Vital Signs Temperature 98 F 05/01/18 09:00 Pulse Rate 84 05/01/18 09:00 Respiratory Rate 18 05/01/18 09:00 Blood Pressure 159/100 05/01/18 09:00 O2 Sat by Pulse Oximetry (%) 98 04/29/18 09:00 Constitutional: Yes: No Distress Neck: Yes: Supple Cardiovascular: Yes: S1, S2. No: JVD Respiratory: Yes: CTA Bilaterally Edema: No Labs: CBC, BMP 05/01/18 08:55 05/01/18 08:55 INR, PTT INR 1.59 (0.83-1.09) H 04/29/18 03:36 Assessment/Plan 62 year old male with a PMH of afib, on AC (Xarelto), copd, seizures, gerd, smoker, admitted with c/o chest pain, abd pain, nausea, vomiting found to have RADHA and mildly elevated troponin. He remains comfortable. Echocardiogram with NL LV function. Trops now 0.64 NSTEMI EKG showed iscemic changes If Creatinine improving and if continues plan for cardiac cath at [facility] on Thursday. Continue Statin/ASA/Metoprolol Arrhythmia-reported h/o Afib -on Xarelto -tachycardia this am ekg was more c/w SVT vs sinus tach -monitor tele -cont metoprolol and uptitrate as needed Stop xarelto in anticipation of cardiac cath. Arrhythmia-reported h/o Afib -on Xarelto -monitor tele -cont metoprolol and uptitrate as needed -can use IV lopressor prn if arrhythmia recurs
[2018-05-01] MEDS: ONDANSETRON 4 MG/2 ML VIAL IVPUSH PRN (14:10)
--- NOTE | 2018-05-01 14:52 | EKG ---
Test Reason : Blood Pressure : / mmHG Vent. Rate : 081 BPM Atrial Rate : 081 BPM P-R Int : 152 ms QRS Dur : 080 ms QT Int : 374 ms P-R-T Axes : 060 010 018 degrees QTc Int : 434 ms NORMAL SINUS RHYTHM NORMAL ECG WHEN COMPARED WITH ECG OF 29-APR-2018 08:57, VENT. RATE HAS DECREASED BY [address] LESS DEPRESSED IN ANTERIOR LEADS T WAVE INVERSION NO LONGER EVIDENT IN INFERIOR LEADS T WAVE INVERSION NO LONGER EVIDENT IN LATERAL LEADS Confirmed by MD Rahel, Sebastian ([id number]) on 05/01/2018 2:52:24 PM Referred By: Tana TREVIÑO Confirmed By:Sebastian Mcginnis MD
--- NOTE | 2018-05-01 16:27 | PN ---
Progress Note, Physician History of Present Illness: Pt seen and examined at bedside. He is awake and alert. He says he has poor appetite. He denies shortness of breath. - Current Medication List Current Medications: Active Medications Acetaminophen (Tylenol -) 650 mg PO Q6H PRN PRN Reason: PAIN LEVEL 1-5 Last Admin: 05/01/18 01:38 Dose: 650 mg Albuterol Sulfate (Ventolin Hfa Inhaler -) 2 puff IH Q6H PRN PRN Reason: SHORTNESS OF BREATH Aspirin (Asa -) 81 mg PO DAILY [facility] Last Admin: 05/01/18 09:27 Dose: 81 mg Atorvastatin Calcium (Lipitor -) 20 mg PO HS [facility] Last Admin: 04/30/18 21:41 Dose: 20 mg Budesonide/Formoterol Fumarate (Symbicort 80/4.5mcg -) 2 puff IH BID [facility] Last Admin: 05/01/18 09:29 Dose: 2 puff Sodium Chloride (Normal Saline -) 1,000 mls @ 75 mls/hr IV ASDIR [facility] Last Admin: 05/01/18 09:29 Dose: 75 mls/hr Levetiracetam (Keppra -) 500 mg PO TID [facility] Last Admin: 05/01/18 14:10 Dose: 500 mg Metoprolol Tartrate (Lopressor -) 25 mg PO BID [facility] Last Admin: 05/01/18 09:27 Dose: 25 mg Metoprolol Tartrate (Lopressor Injection -) 5 mg IVPUSH Q4H PRN PRN Reason: TACHYCARDIA Mirtazapine (Remeron -) 30 mg PO HS [facility] Last Admin: 04/30/18 21:42 Dose: 30 mg Morphine Sulfate (Morphine Sulfate) 2 mg IVPUSH Q5M PRN PRN Reason: chest pain Nitroglycerin (Nitro-Bid 2% Paste -) 0.5 inch TD Q6HPO [facility] Last Admin: 05/01/18 11:30 Dose: 0.5 inch Ondansetron HCl (Zofran Injection) 4 mg IVPUSH Q6H PRN PRN Reason: NAUSEA Last Admin: 05/01/18 14:10 Dose: 4 mg Pantoprazole Sodium (Protonix -) 40 mg PO DAILY [facility] Last Admin: 05/01/18 09:27 Dose: 40 mg Rivaroxaban (Xarelto -) 15 mg PO DAILY@1800 [facility] Last Admin: 04/30/18 17:49 Dose: 15 mg - Objective Vital Signs: Vital Signs Temperature 98.3 F 05/01/18 14:00 Pulse Rate 72 05/01/18 14:00 Respiratory Rate 18 05/01/18 09:00 Blood Pressure 135/73 05/01/18 14:00 O2 Sat by Pulse Oximetry (%) 100 05/01/18 09:00 Constitutional: Yes: Calm Eyes: Yes: Conjunctiva Clear HENT: Yes: Atraumatic Cardiovascular: Yes: S1, S2 Respiratory: Yes: CTA Bilaterally Gastrointestinal: Yes: Soft Genitourinary: Yes: WNL Musculoskeletal: Yes: WNL Edema: No Integumentary: Yes: Venous Stasis Changes Neurological: Yes: Oriented Psychiatric: Yes: Oriented Labs: CBC, BMP 05/01/18 08:55 05/01/18 08:55 INR, PTT INR 1.59 (0.83-1.09) H 04/29/18 03:36 Problem List - Problems (1) SHANNA (acute kidney injury) Code(s): N17.9 - ACUTE KIDNEY FAILURE, UNSPECIFIED (2) Abdominal pain Code(s): R10.9 - UNSPECIFIED ABDOMINAL PAIN Qualifiers: Abdominal location: unspecified location Qualified Code(s): R10.9 - Unspecified abdominal pain (3) Afib Code(s): I48.91 - UNSPECIFIED ATRIAL FIBRILLATION Assessment/Plan Current Medications Generic Name Dose Route Start Last Admin Trade Name Freq PRN Reason Stop Dose Admin Acetaminophen 650 mg 04/30/18 00:37 05/01/18 01:38 Tylenol - PO 650 mg Q6H PRN Administration PAIN LEVEL 1-5 Albuterol Sulfate 2 puff 04/29/18 06:21 Ventolin Hfa Inhaler - IH Q6H PRN SHORTNESS OF BREATH Aspirin 81 mg 04/29/18 17:30 05/01/18 09:27 Asa - PO 81 mg DAILY [facility] Administration Atorvastatin Calcium 20 mg 04/29/18 22:00 04/30/18 21:41 Lipitor - PO 20 mg HS [facility] Administration Budesonide/Formoterol Fumarate 2 puff 04/29/18 10:00 05/01/18 09:29 Symbicort 80/4.5mcg - IH 2 puff BID [facility] Administration Sodium Chloride 1,000 mls @ 75 mls/hr 04/29/18 07:15 05/01/18 09:29 Normal Saline - IV 75 mls/hr ASDIR [facility] Administration Levetiracetam 500 mg 04/29/18 06:30 05/01/18 14:10 Keppra - PO 500 mg TID [facility] Administration Metoprolol Tartrate 25 mg 04/29/18 22:00 05/01/18 09:27 Lopressor - PO 25 mg BID [facility] Administration Metoprolol Tartrate 5 mg 04/29/18 17:19 Lopressor Injection - IVPUSH Q4H PRN TACHYCARDIA Mirtazapine 30 mg 04/30/18 22:00 04/30/18 21:42 Remeron - PO 30 mg HS [facility] Administration Morphine Sulfate 2 mg 05/01/18 11:37 Morphine Sulfate IVPUSH Q5M PRN chest pain Nitroglycerin 0.5 inch 05/01/18 12:00 05/01/18 11:30 Nitro-Bid 2% Paste - TD 0.5 inch Q6HPO [facility] Administration Ondansetron HCl 4 mg 05/01/18 10:44 05/01/18 14:10 Zofran Injection IVPUSH 4 mg Q6H PRN Administration NAUSEA Pantoprazole Sodium 40 mg 04/30/18 10:00 05/01/18 09:27 Protonix - PO 40 mg DAILY [facility] Administration Rivaroxaban 15 mg 04/29/18 18:00 04/30/18 17:49 Xarelto - PO 15 mg DAILY@1800 [facility] Administration Laboratory Tests 05/01/18 08:55 Sodium 144 Potassium 3.6 Creatinine 1.1 Phosphorus 2.3 L Impression 1. SHANNA likely pre-renal 2. Seizure disorder 3. Afib (Xarelto) 4. Anemia 5. COPD 6. GERD 7. Anxiety/depression 8. HLD 9. hypokalemia 10. abdominal pain/vomiting Plan - change fluids to 1/2 ns and decrease rate - replace phos - replace potassium - repeat labs in am - shanna likely from prerenal disease
[2018-05-01] MEDS ORDERED: SODIUM CHLORIDE 0.45% 1,000 ML IV SCH (16:30)
[2018-05-01] MEDS ORDERED: POTASSIUM CHLORIDE TABS 20 MEQ TABLET.ER (FP) PO ONE (16:45)
[2018-05-01] MEDS: ATORVASTATIN CA 20 MG TABLET (FP) PO SCH (22:39)
[2018-05-01] MEDS: MIRTAZAPINE 15 MG TABLET (FP) PO SCH (22:39)
[2018-05-02] MEDS: NITROGLYCERIN 2% OINTMENT - 1GM PACKET TD SCH ×4 (01:26→17:52)
[2018-05-02] MEDS: ONDANSETRON 4 MG/2 ML VIAL IVPUSH PRN ×4 (05:37→20:56)
[2018-05-02] MEDS: levETIRAcetam 500 MG TABLET (FP) PO SCH ×3 (06:19→23:42)
[2018-05-02] MEDS: NAPH,MB-DB/K PH,MBDB POWDER PACKET PO SCH ×3 (06:20→23:41)
[2018-05-02 09:22] LABS: ALBUMIN 4.1 g/dl (3.4-5.0); ALK PHOS 84 U/L (45-117); ANION GAP 8 MMOL/L (8-16); BILIRUBIN,TOTAL 0.6 mg/dL (0.2-1); BLOOD UREA NITROGEN 8 mg/dL (7-18); CALCIUM 8.9 mg/dL (8.5-10.1); CHLORIDE 104 mmol/L (98-107); CO2 29 mmol/L (21-32); CREATININE 1.2 mg/dL (0.55-1.3); GLUCOSE,RANDOM 80 mg/dL (74-106); MAGNESIUM 1.6 mg/dL (1.8-2.4); PHOSPHOROUS 2.5 mg/dL (2.5-4.9); POTASSIUM 4.3 mmol/L (3.5-5.1); SGOT/AST 19 U/L (15-37); SGPT/ALT 30 U/L (13-61); SODIUM 140 mmol/L (136-145); TOT PROT 7.4 g/dl (6.4-8.2)
[2018-05-02] MEDS: METOPROLOL TARTRATE 25 MG TABLET (FP) PO SCH ×2 (09:51→21:21)
[2018-05-02] MEDS: PANTOPRAZOLE 40 MG TABLET (FP) PO SCH (09:51)
[2018-05-02] MEDS: ASPIRIN 81 MG CHEWABLE TABLETS PO SCH (09:51)
[2018-05-02] MEDS: BUDESONIDE/FORMETEROL FUMARATE 80/4.5 mcg INHALER IH SCH ×2 (09:51→23:42)
--- NOTE | 2018-05-02 12:14 | PN ---
Progress Note, Physician Chief Complaint: NSTEMI History of Present Illness: NAD c/o nausea troponin trending down now Seen by Cardiology On IVF Cr stable - Current Medication List Current Medications: Active Medications Acetaminophen (Tylenol -) 650 mg PO Q6H PRN PRN Reason: PAIN LEVEL 1-5 Last Admin: 05/01/18 01:38 Dose: 650 mg Albuterol Sulfate (Ventolin Hfa Inhaler -) 2 puff IH Q6H PRN PRN Reason: SHORTNESS OF BREATH Aspirin (Asa -) 81 mg PO DAILY [facility] Last Admin: 05/02/18 09:51 Dose: 81 mg Atorvastatin Calcium (Lipitor -) 20 mg PO HS [facility] Last Admin: 05/01/18 22:39 Dose: 20 mg Budesonide/Formoterol Fumarate (Symbicort 80/4.5mcg -) 2 puff IH BID [facility] Last Admin: 05/02/18 09:51 Dose: 2 puff Sodium Chloride (1/2 Normal Saline) 1,000 mls @ 42 mls/hr IV ASDIR [facility] Last Admin: 05/01/18 17:27 Dose: 42 mls/hr Levetiracetam (Keppra -) 500 mg PO TID [facility] Last Admin: 05/02/18 06:19 Dose: 500 mg Metoprolol Tartrate (Lopressor -) 25 mg PO BID [facility] Last Admin: 05/02/18 09:51 Dose: 25 mg Metoprolol Tartrate (Lopressor Injection -) 5 mg IVPUSH Q4H PRN PRN Reason: TACHYCARDIA Mirtazapine (Remeron -) 30 mg PO HS [facility] Last Admin: 05/01/18 22:39 Dose: 30 mg Morphine Sulfate (Morphine Sulfate) 2 mg IVPUSH Q5M PRN PRN Reason: chest pain Last Admin: 05/01/18 22:45 Dose: 2 mg Nitroglycerin (Nitro-Bid 2% Paste -) 0.5 inch TD Q6HPO [facility] Last Admin: 05/02/18 06:20 Dose: 0.5 inch Ondansetron HCl (Zofran Injection) 4 mg IVPUSH Q6H PRN PRN Reason: NAUSEA Last Admin: 05/02/18 10:18 Dose: 4 mg Pantoprazole Sodium (Protonix -) 40 mg PO DAILY [facility] Last Admin: 05/02/18 09:51 Dose: 40 mg Potassium Phos/Sodium Phos (Phos-Nak Packet -) 1 packet PO TID [facility] Stop: 05/03/18 14:01 Last Admin: 05/02/18 06:20 Dose: 1 packet Rivaroxaban (Xarelto -) 15 mg PO DAILY@1800 [facility] Last Admin: 04/30/18 17:49 Dose: 15 mg - Objective Vital Signs: Vital Signs Temperature 98.7 F 05/02/18 09:00 Pulse Rate 102 H 05/02/18 09:00 Respiratory Rate 18 05/02/18 09:00 Blood Pressure 161/89 05/02/18 09:00 O2 Sat by Pulse Oximetry (%) 97 05/01/18 20:34 Constitutional: Yes: Well Nourished, No Distress, Calm Cardiovascular: Yes: Regular Rate and Rhythm Respiratory: Yes: Regular Gastrointestinal: Yes: Normal Bowel Sounds, Soft Musculoskeletal: Yes: WNL Extremities: Yes: WNL Edema: No Peripheral Pulses WNL: Yes Neurological: Yes: Alert, Oriented Psychiatric: Yes: Alert, Oriented Labs: CBC, BMP 05/01/18 08:55 05/02/18 07:08 INR, PTT INR 1.59 (0.83-1.09) H 04/29/18 03:36 Problem List - Problems (1) NSTEMI (non-ST elevated myocardial infarction) Assessment/Plan: -Seen by Cardiology -On Lopressor 25 mg po bid -Troponin trending down -Start Nitro Patch Q6H -Pt to be transferred to [facility] for cardiac cath Code(s): I21.4 - NON-ST ELEVATION (NSTEMI) MYOCARDIAL INFARCTION (2) SHANNA (acute kidney injury) Assessment/Plan: -On NS @ 75 cc/hr -Cr trending down -monitor Cr Code(s): N17.9 - ACUTE KIDNEY FAILURE, UNSPECIFIED (3) Chest pain Assessment/Plan: -morphine PRN -Nitro paste Q6H Code(s): R07.9 - CHEST PAIN, UNSPECIFIED Qualifiers: Chest pain type: unspecified Qualified Code(s): R07.9 - Chest pain, unspecified (4) Nausea Assessment/Plan: -more nauseous this AM -Zofran 4 mg IVP Q6H PRN Code(s): R11.0 - NAUSEA Assessment/Plan see problem list
--- NOTE | 2018-05-02 13:04 | PN ---
Progress Note, Physician Chief Complaint: Some mild left sided chest pain overnight History of Present Illness: 62 year old male with a PMH of afib, on AC (Xarelto), copd, seizures, gerd, smoker, admitted with c/o chest pain, abd pain, nausea, vomiting found to have RADHA and mildly elevated troponin. He remains comfortable. Echocardiogram with NL LV function. Trops 0.64 - Current Medication List Current Medications: Active Medications Acetaminophen (Tylenol -) 650 mg PO Q6H PRN PRN Reason: PAIN LEVEL 1-5 Last Admin: 05/01/18 01:38 Dose: 650 mg Albuterol Sulfate (Ventolin Hfa Inhaler -) 2 puff IH Q6H PRN PRN Reason: SHORTNESS OF BREATH Aspirin (Asa -) 81 mg PO DAILY [facility] Last Admin: 05/02/18 09:51 Dose: 81 mg Atorvastatin Calcium (Lipitor -) 20 mg PO HS [facility] Last Admin: 05/01/18 22:39 Dose: 20 mg Budesonide/Formoterol Fumarate (Symbicort 80/4.5mcg -) 2 puff IH BID [facility] Last Admin: 05/02/18 09:51 Dose: 2 puff Sodium Chloride (1/2 Normal Saline) 1,000 mls @ 42 mls/hr IV ASDIR [facility] Last Admin: 05/01/18 17:27 Dose: 42 mls/hr Levetiracetam (Keppra -) 500 mg PO TID [facility] Last Admin: 05/02/18 06:19 Dose: 500 mg Metoprolol Tartrate (Lopressor -) 25 mg PO BID [facility] Last Admin: 05/02/18 09:51 Dose: 25 mg Metoprolol Tartrate (Lopressor Injection -) 5 mg IVPUSH Q4H PRN PRN Reason: TACHYCARDIA Mirtazapine (Remeron -) 30 mg PO HS [facility] Last Admin: 05/01/18 22:39 Dose: 30 mg Morphine Sulfate (Morphine Sulfate) 2 mg IVPUSH Q5M PRN PRN Reason: chest pain Last Admin: 05/01/18 22:45 Dose: 2 mg Nitroglycerin (Nitro-Bid 2% Paste -) 0.5 inch TD Q6HPO [facility] Last Admin: 05/02/18 12:30 Dose: 0.5 inch Ondansetron HCl (Zofran Injection) 4 mg IVPUSH Q6H PRN PRN Reason: NAUSEA Last Admin: 05/02/18 10:18 Dose: 4 mg Pantoprazole Sodium (Protonix -) 40 mg PO DAILY [facility] Last Admin: 05/02/18 09:51 Dose: 40 mg Potassium Phos/Sodium Phos (Phos-Nak Packet -) 1 packet PO TID [facility] Stop: 05/03/18 14:01 Last Admin: 05/02/18 06:20 Dose: 1 packet Rivaroxaban (Xarelto -) 15 mg PO DAILY@1800 [facility] Last Admin: 04/30/18 17:49 Dose: 15 mg - Objective Vital Signs: Vital Signs Temperature 98.7 F 05/02/18 09:00 Pulse Rate 102 H 05/02/18 09:00 Respiratory Rate 18 05/02/18 09:00 Blood Pressure 161/89 05/02/18 09:00 O2 Sat by Pulse Oximetry (%) 97 05/01/18 20:34 Constitutional: Yes: No Distress Neck: Yes: Supple Cardiovascular: Yes: Regular Rate and Rhythm, S1, S2. No: JVD Respiratory: Yes: CTA Bilaterally Gastrointestinal: Yes: Soft Edema: No Labs: CBC, BMP 05/01/18 08:55 05/02/18 07:08 INR, PTT INR 1.59 (0.83-1.09) H 04/29/18 03:36 Assessment/Plan 62 year old male with a PMH of afib, on AC (Xarelto), copd, seizures, gerd, smoker, admitted with c/o chest pain, abd pain, nausea, vomiting found to have RADHA and mildly elevated troponin. He remains comfortable. Echocardiogram with NL LV function. Trops now 0.64 NSTEMI EKG showed iscemic changes Planned for cardiac cath at [facility] on Thursday. Continue Statin/ASA/Metoprolol NPO tomorrow morning Arrhythmia-reported h/o Afib -on Xarelto --monitor tele -cont metoprolol and uptitrate as needed Stopped xarelto yesterday in anticipation of cardiac cath.
--- NOTE | 2018-05-02 14:06 | EKG ---
Test Reason : Blood Pressure : / mmHG Vent. Rate : 135 BPM Atrial Rate : 135 BPM P-R Int : 100 ms QRS Dur : 160 ms QT Int : 332 ms P-R-T Axes : 000 -32 021 degrees QTc Int : 498 ms SUPRAVENTRICULAR TACHYCARDIA LEFT AXIS DEVIATION T WAVE ABNORMALITY, CONSIDER INFEROLATERAL ISCHEMIA Confirmed by MD Rahel, Sebastian ([id number]) on 05/02/2018 2:06:02 PM Referred By: Confirmed By:Sebastian Mcginnis MD
[2018-05-02] MEDS ORDERED: MAGNESIUM SULF 50% (8.12 MEQ/2 ML-1 GM VIAL) IVPB ONE (16:33)
--- NOTE | 2018-05-02 16:33 | PN ---
Progress Note, Physician History of Present Illness: Pt seen and examined at bedside. He is awake and alert. He denies shortness of breath. He complains of poor appetite. - Current Medication List Current Medications: Active Medications Acetaminophen (Tylenol -) 650 mg PO Q6H PRN PRN Reason: PAIN LEVEL 1-5 Last Admin: 05/01/18 01:38 Dose: 650 mg Albuterol Sulfate (Ventolin Hfa Inhaler -) 2 puff IH Q6H PRN PRN Reason: SHORTNESS OF BREATH Aspirin (Asa -) 81 mg PO DAILY [facility] Last Admin: 05/02/18 09:51 Dose: 81 mg Atorvastatin Calcium (Lipitor -) 20 mg PO HS [facility] Last Admin: 05/01/18 22:39 Dose: 20 mg Budesonide/Formoterol Fumarate (Symbicort 80/4.5mcg -) 2 puff IH BID [facility] Last Admin: 05/02/18 09:51 Dose: 2 puff Sodium Chloride (1/2 Normal Saline) 1,000 mls @ 42 mls/hr IV ASDIR [facility] Last Admin: 05/01/18 17:27 Dose: 42 mls/hr Levetiracetam (Keppra -) 500 mg PO TID [facility] Last Admin: 05/02/18 14:21 Dose: 500 mg Metoprolol Tartrate (Lopressor -) 25 mg PO BID [facility] Last Admin: 05/02/18 09:51 Dose: 25 mg Metoprolol Tartrate (Lopressor Injection -) 5 mg IVPUSH Q4H PRN PRN Reason: TACHYCARDIA Mirtazapine (Remeron -) 30 mg PO HS [facility] Last Admin: 05/01/18 22:39 Dose: 30 mg Morphine Sulfate (Morphine Sulfate) 2 mg IVPUSH Q5M PRN PRN Reason: chest pain Last Admin: 05/01/18 22:45 Dose: 2 mg Nitroglycerin (Nitro-Bid 2% Paste -) 0.5 inch TD Q6HPO [facility] Last Admin: 05/02/18 12:30 Dose: 0.5 inch Ondansetron HCl (Zofran Injection) 4 mg IVPUSH Q6H PRN PRN Reason: NAUSEA Last Admin: 05/02/18 15:51 Dose: 4 mg Pantoprazole Sodium (Protonix -) 40 mg PO DAILY [facility] Last Admin: 05/02/18 09:51 Dose: 40 mg Potassium Phos/Sodium Phos (Phos-Nak Packet -) 1 packet PO TID [facility] Stop: 05/03/18 14:01 Last Admin: 05/02/18 14:21 Dose: 1 packet Rivaroxaban (Xarelto -) 15 mg PO DAILY@1800 [facility] Last Admin: 04/30/18 17:49 Dose: 15 mg - Objective Vital Signs: Vital Signs Temperature 97.9 F 05/02/18 14:00 Pulse Rate 84 05/02/18 14:00 Respiratory Rate 18 05/02/18 09:00 Blood Pressure 137/93 05/02/18 14:00 O2 Sat by Pulse Oximetry (%) 99 05/02/18 09:00 Constitutional: Yes: Calm Eyes: Yes: Conjunctiva Clear HENT: Yes: Atraumatic Neck: Yes: Supple Cardiovascular: Yes: S1, S2 Respiratory: Yes: CTA Bilaterally Gastrointestinal: Yes: Normal Bowel Sounds, Soft Genitourinary: Yes: WNL Musculoskeletal: Yes: WNL Edema: No Neurological: Yes: Oriented Psychiatric: Yes: Oriented Labs: CBC, BMP 05/01/18 08:55 05/02/18 07:08 INR, PTT INR 1.59 (0.83-1.09) H 04/29/18 03:36 Problem List - Problems (1) SHANNA (acute kidney injury) Code(s): N17.9 - ACUTE KIDNEY FAILURE, UNSPECIFIED (2) Abdominal pain Code(s): R10.9 - UNSPECIFIED ABDOMINAL PAIN Qualifiers: Abdominal location: unspecified location Qualified Code(s): R10.9 - Unspecified abdominal pain (3) Afib Code(s): I48.91 - UNSPECIFIED ATRIAL FIBRILLATION Assessment/Plan Current Medications Generic Name Dose Route Start Last Admin Trade Name Freq PRN Reason Stop Dose Admin Acetaminophen 650 mg 04/30/18 00:37 05/01/18 01:38 Tylenol - PO 650 mg Q6H PRN Administration PAIN LEVEL 1-5 Albuterol Sulfate 2 puff 04/29/18 06:21 Ventolin Hfa Inhaler - IH Q6H PRN SHORTNESS OF BREATH Aspirin 81 mg 04/29/18 17:30 05/02/18 09:51 Asa - PO 81 mg DAILY [facility] Administration Atorvastatin Calcium 20 mg 04/29/18 22:00 05/01/18 22:39 Lipitor - PO 20 mg HS [facility] Administration Budesonide/Formoterol Fumarate 2 puff 04/29/18 10:00 05/02/18 09:51 Symbicort 80/4.5mcg - IH 2 puff BID [facility] Administration Sodium Chloride 1,000 mls @ 42 mls/hr 05/01/18 16:30 05/01/18 17:27 1/2 Normal Saline IV 42 mls/hr ASDIR [facility] Administration Levetiracetam 500 mg 04/29/18 06:30 05/02/18 14:21 Keppra - PO 500 mg TID [facility] Administration Metoprolol Tartrate 25 mg 04/29/18 22:00 05/02/18 09:51 Lopressor - PO 25 mg BID [facility] Administration Metoprolol Tartrate 5 mg 04/29/18 17:19 Lopressor Injection - IVPUSH Q4H PRN TACHYCARDIA Mirtazapine 30 mg 04/30/18 22:00 05/01/18 22:39 Remeron - PO 30 mg HS [facility] Administration Morphine Sulfate 2 mg 05/01/18 11:37 05/01/18 22:45 Morphine Sulfate IVPUSH 2 mg Q5M PRN Administration chest pain Nitroglycerin 0.5 inch 05/01/18 12:00 05/02/18 12:30 Nitro-Bid 2% Paste - TD 0.5 inch Q6HPO [facility] Administration Ondansetron HCl 4 mg 05/01/18 10:44 05/02/18 15:51 Zofran Injection IVPUSH 4 mg Q6H PRN Administration NAUSEA Pantoprazole Sodium 40 mg 04/30/18 10:00 05/02/18 09:51 Protonix - PO 40 mg DAILY [facility] Administration Potassium Phos/Sodium Phos 1 packet 05/01/18 22:00 05/02/18 14:21 Phos-Nak Packet - PO 05/03/18 14:01 1 packet TID [facility] Administration Rivaroxaban 15 mg 04/29/18 18:00 04/30/18 17:49 Xarelto - PO 15 mg DAILY@1800 [facility] Administration Laboratory Tests 05/02/18 07:08 Phosphorus 2.5 Magnesium 1.6 L Impression 1. SHANNA likely pre-renal 2. Seizure disorder 3. Afib (Xarelto) 4. Anemia 5. COPD 6. GERD 7. Anxiety/depression 8. HLD 9. hypokalemia 10. abdominal pain/vomiting Plan - can observe off of fluids - replace mag - repeat labs in am - shanna likely from prerenal disease
[2018-05-02] MEDS ORDERED: METOPROLOL TARTRATE 5 MG/5 ML VIAL IVPUSH ONE (22:12)
[2018-05-02 23:31] LABS: ALK PHOS 85 U/L (45-117); ANION GAP 7 MMOL/L (8-16); BILIRUBIN,TOTAL 0.5 mg/dL (0.2-1); BLOOD UREA NITROGEN 8 mg/dL (7-18); CALCIUM 8.9 mg/dL (8.5-10.1); CHLORIDE 106 mmol/L (98-107); CO2 29 mmol/L (21-32); CREATININE 1.2 mg/dL (0.55-1.3); GLUCOSE,RANDOM 93 mg/dL (74-106); MAGNESIUM 2.1 mg/dL (1.8-2.4); POTASSIUM 4.3 mmol/L (3.5-5.1); SGOT/AST 19 U/L (15-37); SGPT/ALT 29 U/L (13-61); SODIUM 143 mmol/L (136-145); TOT PROT 7.4 g/dl (6.4-8.2)
[2018-05-02] MEDS: ATORVASTATIN CA 20 MG TABLET (FP) PO SCH (23:42)
[2018-05-02] MEDS: MIRTAZAPINE 15 MG TABLET (FP) PO SCH (23:42)
[2018-05-03] MEDS: ONDANSETRON 4 MG/2 ML VIAL IVPUSH PRN ×2 (05:31→13:32)
[2018-05-03] MEDS: NITROGLYCERIN 2% OINTMENT - 1GM PACKET TD SCH ×3 (05:33→12:30)
[2018-05-03] MEDS: levETIRAcetam 500 MG TABLET (FP) PO SCH (05:35)
[2018-05-03] MEDS: NAPH,MB-DB/K PH,MBDB POWDER PACKET PO SCH (05:35)
[2018-05-03 06:10] LABS: BASO % 0.3 % (0-2.0); EOS % 2.5 % (0-4.5); HEMATOCRIT 33.9 % (35.4-49); HEMOGLOBIN 11.8 GM/dL (11.7-16.9); LYMPH % 17.7 % (8-40); MCH 31.9 pg (25.7-33.7); MCHC 34.9 g/dl (32.0-35.9); MEAN CELL VOLUME 91.5 fl (80-96); MEAN PLT VOLUME 6.8 fl (7.5-11.1); MONO % 8.7 % (3.8-10.2); NEUT % 70.8 % (42.8-82.8); PLATELET COUNT 110 K/MM3 (134-434); RBC 3.71 M/mm3 (4.00-5.60); RDW 13.8 % (11.9-15.9); WHITE BLOOD COUNT 5.9 K/mm3 (4.0-10.0)
[2018-05-03 06:49] LABS: ALBUMIN 3.8 g/dl (3.4-5.0); ALK PHOS 80 U/L (45-117); ANION GAP 5 MMOL/L (8-16); BILIRUBIN,TOTAL 0.6 mg/dL (0.2-1); BLOOD UREA NITROGEN 8 mg/dL (7-18); CALCIUM 8.7 mg/dL (8.5-10.1); CHLORIDE 107 mmol/L (98-107); CO2 28 mmol/L (21-32); CREATININE 1.2 mg/dL (0.55-1.3); GLUCOSE,RANDOM 93 mg/dL (74-106); MAGNESIUM 1.8 mg/dL (1.8-2.4); PHOSPHOROUS 2.7 mg/dL (2.5-4.9); POTASSIUM 4.1 mmol/L (3.5-5.1); SGOT/AST 19 U/L (15-37); SGPT/ALT 28 U/L (13-61); SODIUM 140 mmol/L (136-145)
--- NOTE | 2018-05-03 09:23 | PN ---
Progress Note, Physician - Current Medication List Current Medications: Active Medications Acetaminophen (Tylenol -) 650 mg PO Q6H PRN PRN Reason: PAIN LEVEL 1-5 Last Admin: 05/01/18 01:38 Dose: 650 mg Albuterol Sulfate (Ventolin Hfa Inhaler -) 2 puff IH Q6H PRN PRN Reason: SHORTNESS OF BREATH Aspirin (Asa -) 81 mg PO DAILY [facility] Last Admin: 05/02/18 09:51 Dose: 81 mg Atorvastatin Calcium (Lipitor -) 20 mg PO [facility] Last Admin: 05/02/18 23:42 Dose: 20 mg Budesonide/Formoterol Fumarate (Symbicort 80/4.5mcg -) 2 puff IH BID [facility] Last Admin: 05/02/18 23:42 Dose: 2 puff Levetiracetam (Keppra -) 500 mg PO TID [facility] Last Admin: 05/03/18 05:35 Dose: Not Given Metoprolol Tartrate (Lopressor -) 25 mg PO BID [facility] Last Admin: 05/02/18 21:21 Dose: 25 mg Metoprolol Tartrate (Lopressor Injection -) 5 mg IVPUSH Q4H PRN PRN Reason: TACHYCARDIA Last Admin: 05/02/18 21:05 Dose: 5 mg Mirtazapine (Remeron -) 30 mg PO [facility] Last Admin: 05/02/18 23:42 Dose: 30 mg Morphine Sulfate (Morphine Sulfate) 2 mg IVPUSH Q5M PRN PRN Reason: chest pain Last Admin: 05/01/18 22:45 Dose: 2 mg Nitroglycerin (Nitro-Bid 2% Paste -) 0.5 inch TD Q6HPO [facility] Last Admin: 05/03/18 05:34 Dose: Not Given Ondansetron HCl (Zofran Injection) 4 mg IVPUSH Q6H PRN PRN Reason: NAUSEA Last Admin: 05/03/18 05:31 Dose: 4 mg Pantoprazole Sodium (Protonix -) 40 mg PO DAILY [facility] Last Admin: 05/02/18 09:51 Dose: 40 mg Potassium Phos/Sodium Phos (Phos-Nak Packet -) 1 packet PO TID [facility] Stop: 05/03/18 14:01 Last Admin: 05/03/18 05:35 Dose: Not Given Rivaroxaban (Xarelto -) 15 mg PO DAILY@1800 [facility] Last Admin: 04/30/18 17:49 Dose: 15 mg - Objective Vital Signs: Vital Signs Temperature 98.4 F 05/03/18 05:00 Pulse Rate 85 05/03/18 05:00 Respiratory Rate 20 05/03/18 05:00 Blood Pressure 153/96 05/03/18 05:00 O2 Sat by Pulse Oximetry (%) 99 05/02/18 21:00 Labs: CBC, BMP 05/03/18 05:30 05/03/18 05:30 INR, PTT INR 1.59 (0.83-1.09) H 04/29/18 03:36 Assessment/Plan - Problems (1) NSTEMI (non-ST elevated myocardial infarction) Assessment/Plan: -Seen by Cardiology -On Lopressor 25 mg po bid -Troponin trending down -Start Nitro Patch Q6H -Pt to be transferred to [facility] for cardiac cath Code(s): I21.4 - NON-ST ELEVATION (NSTEMI) MYOCARDIAL INFARCTION (2) SHANNA (acute kidney injury) Assessment/Plan: -Off NS -Laboratory Tests 04/30/18 05/02/18 05/03/18 06:15 07:08 05:30 Creatinine 1.6 H 1.2 1.2 -Cr trending down -monitor Cr--renal on board Code(s): N17.9 - ACUTE KIDNEY FAILURE, UNSPECIFIED (3) Chest pain Assessment/Plan: -morphine PRN -Nitro paste Q6H Code(s): R07.9 - CHEST PAIN, UNSPECIFIED Qualifiers: Chest pain type: unspecified Qualified Code(s): R07.9 - Chest pain, unspecified (4) Nausea Assessment/Plan: -more nauseous this AM -Zofran 4 mg IVP Q6H PRN Code(s): R11.0 - NAUSEA
[2018-05-03] MEDS: PANTOPRAZOLE 40 MG TABLET (FP) PO SCH (09:44)
[2018-05-03] MEDS: METOPROLOL TARTRATE 25 MG TABLET (FP) PO SCH (09:44)
[2018-05-03] MEDS: ASPIRIN 81 MG CHEWABLE TABLETS PO SCH (09:44)
[2018-05-03] MEDS: BUDESONIDE/FORMETEROL FUMARATE 80/4.5 mcg INHALER IH SCH (09:49)
[2018-05-03 10:28] VITALS: BP 166/90; PULSE 92; TEMP 97.8
--- NOTE | 2018-05-03 13:20 | PN ---
Progress Note, Physician Chief Complaint: No chest pain today Last night episode of afib rvr History of Present Illness: 62 year old male with a PMH of afib, on AC (Xarelto), copd, seizures, gerd, smoker, admitted with c/o chest pain, abd pain, nausea, vomiting found to have RADHA and mildly elevated troponin. He remains comfortable. Echocardiogram with NL LV function. Trops 0.64 - Current Medication List Current Medications: Active Medications Acetaminophen (Tylenol -) 650 mg PO Q6H PRN PRN Reason: PAIN LEVEL 1-5 Last Admin: 05/01/18 01:38 Dose: 650 mg Albuterol Sulfate (Ventolin Hfa Inhaler -) 2 puff IH Q6H PRN PRN Reason: SHORTNESS OF BREATH Aspirin (Asa -) 81 mg PO DAILY [facility] Last Admin: 05/03/18 09:44 Dose: 81 mg Atorvastatin Calcium (Lipitor -) 20 mg PO [facility] Last Admin: 05/02/18 23:42 Dose: 20 mg Budesonide/Formoterol Fumarate (Symbicort 80/4.5mcg -) 2 puff IH BID [facility] Last Admin: 05/03/18 09:49 Dose: 2 puff Levetiracetam (Keppra -) 500 mg PO TID [facility] Last Admin: 05/03/18 05:35 Dose: Not Given Metoprolol Tartrate (Lopressor -) 25 mg PO BID [facility] Last Admin: 05/03/18 09:44 Dose: 25 mg Metoprolol Tartrate (Lopressor Injection -) 5 mg IVPUSH Q4H PRN PRN Reason: TACHYCARDIA Last Admin: 05/02/18 21:05 Dose: 5 mg Mirtazapine (Remeron -) 30 mg PO HS [facility] Last Admin: 05/02/18 23:42 Dose: 30 mg Morphine Sulfate (Morphine Sulfate) 2 mg IVPUSH Q5M PRN PRN Reason: chest pain Last Admin: 05/01/18 22:45 Dose: 2 mg Nitroglycerin (Nitro-Bid 2% Paste -) 0.5 inch TD Q6HPO [facility] Last Admin: 05/03/18 12:30 Dose: 0.5 inch Ondansetron HCl (Zofran Injection) 4 mg IVPUSH Q6H PRN PRN Reason: NAUSEA Last Admin: 05/03/18 05:31 Dose: 4 mg Pantoprazole Sodium (Protonix -) 40 mg PO DAILY [facility] Last Admin: 05/03/18 09:44 Dose: 40 mg Potassium Phos/Sodium Phos (Phos-Nak Packet -) 1 packet PO TID [facility] Stop: 05/03/18 14:01 Last Admin: 05/03/18 05:35 Dose: Not Given Rivaroxaban (Xarelto -) 15 mg PO DAILY@1800 [facility] Last Admin: 04/30/18 17:49 Dose: 15 mg - Objective Vital Signs: Vital Signs Temperature 97.8 F 05/03/18 09:00 Pulse Rate 92 H 05/03/18 09:00 Respiratory Rate 18 05/03/18 09:00 Blood Pressure 166/90 05/03/18 09:00 O2 Sat by Pulse Oximetry (%) 100 05/03/18 09:00 Constitutional: Yes: No Distress Neck: Yes: Supple Cardiovascular: Yes: Regular Rate and Rhythm, S1, S2. No: JVD Respiratory: Yes: CTA Bilaterally Gastrointestinal: Yes: Soft Edema: No Labs: CBC, BMP 05/03/18 05:30 05/03/18 05:30 INR, PTT INR 1.59 (0.83-1.09) H 04/29/18 03:36 Problem List - Problems (1) Afib Code(s): I48.91 - UNSPECIFIED ATRIAL FIBRILLATION (2) NSTEMI (non-ST elevated myocardial infarction) Code(s): I21.4 - NON-ST ELEVATION (NSTEMI) MYOCARDIAL INFARCTION Assessment/Plan 62 year old male with a PMH of afib, on AC (Xarelto), copd, seizures, gerd, smoker, admitted with c/o chest pain, abd pain, nausea, vomiting found to have RADHA and mildly elevated troponin. He remains comfortable. Echocardiogram with NL LV function. Trops now 0.64 NSTEMI EKG showed iscemic changes Planned for cardiac cath at [facility] today. Continue Statin/ASA/Metoprolol NPO Arrhythmia-reported h/o Afib -on Xarelto --monitor tele -cont metoprolol and uptitrate as needed. Will increase today to 50mg q12 Stopped xarelto yesterday in anticipation of cardiac cath.
== END 2018-05-03 13:41 | disposition short-term general hospital (02) | DRG 682 ==
LOC: JER 01:59 → JERBED 05:52 → J4W 22:34
PROVIDERS: ADMIT Internal Medicine; ATTEND Family Medicine
DX: N17.9 Acute kidney failure, unspecified (principal); I21.4 Non-ST elevation (NSTEMI) myocardial infarction; I47.1 Supraventricular tachycardia; G40.909 Epilepsy, unspecified, not intractable, without status epilepticus; I48.91 Unspecified atrial fibrillation; E87.6 Hypokalemia; K21.9 Gastro-esophageal reflux disease without esophagitis; F41.8 Other specified anxiety disorders; I49.9 Cardiac arrhythmia, unspecified; J44.9 Chronic obstructive pulmonary disease, unspecified; R10.9 Unspecified abdominal pain; R07.89 Other chest pain; R11.0 Nausea; D64.9 Anemia, unspecified; Z87.891 Personal history of nicotine dependence
CPT/HCPCS: 36415; 71045-TC-FY; 74176-TC; 76775-TC; 80048; 80053; 81003; 82436; 82550; 82570; 83605; 83690; 83735; 84100; 84133; 84300; 84484; 85025; 85027; 85610; 85730; 93005; 93010; 93306-TC; 99284-25; J0131; J7030

== ENCOUNTER 2018-07-27 16:29 | Emergency (ER) | payer OTHER ==
--- NOTE | 2018-07-27 16:42 | PDOC ---
Rapid Medical Evaluation Chief Complaint: Pain, Acute Time Seen by Provider: 07/27/18 16:40 Medical Evaluation: 07/27/18 16:40 I have performed a brief in person evaluation of this patient. The patient's CC: CP HPI: Pt is a 63 YO male who complains of CP and has a CV hx. Pt is a poor historian and complains of HTN. PE: Skin: Clear Heart: RRR Lungs: Clear MS. moves all extremities without difficulty. Neuro: Alert and oriented Psch: appropriate affect The patient will proceed to main ED for further evaluation. Discharge Disposition - Diagnosis Chest pain Qualifiers: Chest pain type: unspecified Qualified Code(s): R07.9 - Chest pain, unspecified - Referrals - Patient Instructions - Post Discharge Activity
[2018-07-27 16:44] VITALS: BP 154/82; PULSE 80; TEMP 98.2; BMI 26.1
--- NOTE | 2018-07-27 17:22 | PDOC ---
History of Present Illness - General Chief Complaint: Shortness of Breath Stated Complaint: SHORTNESS OF BREATH Time Seen by Provider: 07/27/18 16:40 History Source: Patient Past History - Past Medical History Allergies/Adverse Reactions: Allergies Allergy/AdvReac Type Severity Reaction Status Date / Time codeine Allergy Verified 07/27/18 17:44 Home Medications: Ambulatory Orders Albuterol Sulfate [Proair Hfa] 2 puff IH Q6H PRN 08/02/17 Atorvastatin Calcium 20 mg PO HS 08/02/17 Budesonide/Formeterol Fumarate [SYMBICORT 80/4.5mcg -] 2 inh PO DAILY 08/02/17 Levetiracetam 500 mg PO TID 08/02/17 Mirtazapine 30 mg PO HS 08/02/17 Furosemide 0 mg PO DAILY 04/29/18 Metoprolol Tartrate 0 mg PO BID 04/29/18 Anemia: Yes Cardiac Disorders: Yes (AF) COPD: No GI Disorders: Yes Seizures: Yes Thyroid Disease: No (Denies) - Surgical History Abdominal Surgery: Yes (Gall Bladder) - Immunization History Immunization Up to Date: No - Suicide/Smoking/Psychosocial Hx Smoking History: Former smoker Have you smoked in the past 12 months: No Number of Cigarettes Smoked Daily: 10 If you are a former smoker, when did you quit?: 10YRS Information on smoking cessation initiated: No Hx Alcohol Use: No Drug/Substance Use Hx: No Substance Use Type: None Hx Substance Use Treatment: No Review of Systems - Review of Systems Constitutional: No: Fever Respiratory: Yes: Shortness of Breath. No: Cough Cardiac (ROS): No: Chest Pain, Lightheadedness, Palpitations, Syncope ABD/GI: No: Nausea, Vomiting *Physical Exam - Vital Signs Last Vital Signs Temp Pulse Resp BP Pulse Ox 98.2 F 80 17 154/82 97 07/27/18 16:42 07/27/18 16:42 07/27/18 16:42 07/27/18 16:42 07/27/18 16:42 - Physical Exam General Appearance: Yes: Appropriately Dressed. No: Apparent Distress HEENT: positive: Normal Voice Neck: positive: Supple Respiratory/Chest: positive: Lungs Clear, Normal Breath Sounds. negative: Respiratory Distress Cardiovascular: positive: Regular Rate, S1, S2 Gastrointestinal/Abdominal: positive: Soft. negative: Tender Integumentary: positive: Dry, Warm Neurologic: positive: Fully Oriented, Alert, Normal Mood/Affect Moderate Sedation - Procedure Monitoring Vital Signs: Procedure Monitoring Vital Signs Temperature 98.2 F 07/27/18 16:42 Pulse Rate 80 07/27/18 16:42 Respiratory Rate 17 07/27/18 16:42 Blood Pressure 154/82 07/27/18 16:42 O2 Sat by Pulse Oximetry (%) 97 07/27/18 16:42 ED Treatment Course - LABORATORY CBC & Chemistry Diagram: 07/27/18 17:32 07/27/18 17:32 Medical Decision Making - Medical Decision Making 07/27/18 17:21 62-year-old male, poor historian, history of anxiety, depression, GERD, anemia, asthma, Afib on xarelto, CAD s/p 1 stent (placed 04/2018 at [facility]), chronic SOB, CKD, here w/ possible worsening of his SOB for unclear duration, regardless of position. No CP, diaphoresis, n/v, palpations, leg pain or swelling. 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 Patient appears anxious during evaluation See exam Possibly worsening sob No CP Exam only remarkable for mild anxiety, chest/lungs clear, no edema R/o ACS, unlikely dissection, PE or PNA, possible anxiety component -ekg -cxr -labs -discuss dispo w/ ed attg 07/27/18 19:53 EKG, chest x-ray and labs unremarkable. On reassessment, patient remains stable and well-appearing, currently eating a tray of food. Reports no shortness of breath at this time. Dispo discussed with Dr. Melvin, who recommends repeat troponin in 3 hours and if negative, patient can be discharged. Of note, patient's renal M.D., Dr. Dontrell Huddleston saw patient, while M.D., was already in ER. Aware of Cr f 1.9 and states recently, patient' s creatinine has been ~2. No further recommendations from ER standpoint at this time 07/27/18 21:28 Troponin negative. Patient remained stable and currently asymptomatic. Will arrange transport home *DC/Admit/Observation/Transfer Diagnosis at time of Disposition: Shortness of breath - Discharge Dispostion Disposition: HOME Condition at time of disposition: Improved - Referrals - Patient Instructions Additional Instructions: Your labs, EKG and chest x-ray were normal here. Continue to follow-up with your toll line inspector and your PMD Please return to ED for worsening of symptoms - Post Discharge Activity
[2018-07-27 17:58] LABS: BASO % 0.5 % (0-2.0); EOS % 1.8 % (0-4.5); HEMATOCRIT 28.7 % (35.4-49); HEMOGLOBIN 9.5 GM/dL (11.7-16.9); LYMPH % 11.2 % (8-40); MCH 29.4 pg (25.7-33.7); MCHC 33.2 g/dl (32.0-35.9); MEAN CELL VOLUME 88.3 fl (80-96); MEAN PLT VOLUME 7.9 fl (7.5-11.1); MONO % 6.4 % (3.8-10.2); NEUT % 80.1 % (42.8-82.8); PLATELET COUNT 93 K/MM3 (134-434); RBC 3.24 M/mm3 (4.00-5.60); RDW 15.1 % (11.9-15.9); WHITE BLOOD COUNT 3.7 K/mm3 (4.0-10.0)
[2018-07-27 18:41] LABS: ALBUMIN 4.2 g/dl (3.4-5.0); ALK PHOS 67 U/L (45-117); ANION GAP 10 MMOL/L (8-16); BILIRUBIN,TOTAL 0.3 mg/dL (0.2-1); BLOOD UREA NITROGEN 23 mg/dL (7-18); CALCIUM 8.4 mg/dL (8.5-10.1); CHLORIDE 111 mmol/L (98-107); CO2 20 mmol/L (21-32); CREATININE 1.9 mg/dL (0.55-1.3); GLUCOSE,RANDOM 103 mg/dL (74-106); POTASSIUM 4.7 mmol/L (3.5-5.1); SGOT/AST 19 U/L (15-37); SGPT/ALT 30 U/L (13-61); SODIUM 141 mmol/L (136-145); TOT PROT 7.4 g/dl (6.4-8.2)
[2018-07-27] MEDS ORDERED: ACETAMINOPHEN 1000 MG/100 ML VIAL (NON FORMULARY) IVPB ONE (19:53)
[2018-07-27] MEDS ORDERED: ACETAMINOPHEN INJECTION 100 ML IVPB ONE (20:13)
--- NOTE | 2018-07-28 13:17 | EKG ---
Test Reason : Blood Pressure : / mmHG Vent. Rate : 082 BPM Atrial Rate : 082 BPM P-R Int : 162 ms QRS Dur : 084 ms QT Int : 392 ms P-R-T Axes : 058 -24 041 degrees QTc Int : 457 ms NORMAL SINUS RHYTHM LOW VOLTAGE QRS BORDERLINE ECG WHEN COMPARED WITH ECG OF 02-MAY-2018 21:23, SINUS RHYTHM HAS REPLACED ATRIAL FLUTTER VENT. RATE HAS DECREASED BY [address] NO LONGER DEPRESSED IN INFERIOR LEADS ST NO LONGER DEPRESSED IN ANTEROLATERAL LEADS T WAVE INVERSION NO LONGER EVIDENT IN INFERIOR LEADS Confirmed by NATALIA NANCE MD ([id number]) on 07/28/2018 1:16:54 PM Referred By: Confirmed By:NATALIA NANCE MD
== END 2018-07-27 21:47 | disposition home or self-care (01) ==
LOC: JER 16:29
PROC: 3E033NZ Introduction of Analgesics, Hypnotics, Sedatives into Peripheral Vein, Percutaneous Approach (ICD-10-PCS; principal; 2018-07-27)
DX: R06.02 Shortness of breath (principal); I25.10 Atherosclerotic heart disease of native coronary artery without angina pectoris; Z95.5 Presence of coronary angioplasty implant and graft; I48.91 Unspecified atrial fibrillation; Z79.01 Long term (current) use of anticoagulants; N18.9 Chronic kidney disease, unspecified; F41.8 Other specified anxiety disorders; F32.9 Major depressive disorder, single episode, unspecified; Z86.69 Personal history of other diseases of the nervous system and sense organs
CPT/HCPCS: 36415; 71046-TC-FY; 80053; 82550; 83880; 84484; 85025; 93005; 93010; 96374; 99283-25; J0131

== ENCOUNTER 2018-10-02 11:29 | Inpatient (IN) | payer OTHER ==
--- NOTE | 2018-10-02 12:01 | PDOC ---
History of Present Illness - General Chief Complaint: Injury Stated Complaint: WEAKNESS Time Seen by Provider: 10/02/18 12:00 History Source: Patient Exam Limitations: No Limitations - History of Present Illness Initial Comments: 10/02/18 12:03 63 year old man with a significant past medical history of Afib on xarelto, COPD , GERD, restless leg syndrome who presents to the ED for increased frequency in falls. The patient last fell yesterday at 1900 and reports that we was on the ground for 30min and was able to pick himself up afterwards. He denies head or neck trauma. He states he felt dizzy and his legs gave out on him, he cannot say if he lost consciousness. The fall was the same symptoms as his previous falls. Patient walks with a cane at baseline He has on and off upper thigh tingling due to his restless leg syndrome and reports that this is worsened for approx the psat two days. He wsa evaluated at [facility] ER yesterday and reports that a CT scan and blood work were done that were negative. He denies any low back pain, history of disk herniation, nubmness in the groin, urinary retention or incontincence. He denies any chest pain, shortness of breath, recent travel, recent illness. He has no other complaitns at bedside. Past History - Past Medical History Allergies/Adverse Reactions: Allergies Allergy/AdvReac Type Severity Reaction Status Date / Time codeine Allergy Verified 10/02/18 11:46 Home Medications: Ambulatory Orders Albuterol Sulfate [Proair Hfa] 2 puff IH Q6H PRN 08/02/17 Atorvastatin Calcium 20 mg PO HS 08/02/17 Budesonide/Formeterol Fumarate [SYMBICORT 80/4.5mcg -] 2 inh PO DAILY 08/02/17 Levetiracetam 500 mg PO TID 08/02/17 Mirtazapine 30 mg PO HS 08/02/17 Metoprolol Tartrate 0 mg PO BID 04/29/18 Anemia: Yes Cardiac Disorders: Yes (AF) COPD: No GI Disorders: Yes Seizures: Yes Thyroid Disease: No (Denies) - Surgical History Abdominal Surgery: Yes (Gall Bladder) - Immunization History Immunization Up to Date: No - Suicide/Smoking/Psychosocial Hx Smoking History: Former smoker Have you smoked in the past 12 months: No Number of Cigarettes Smoked Daily: 10 If you are a former smoker, when did you quit?: 10YRS Information on smoking cessation initiated: No Hx Alcohol Use: No Drug/Substance Use Hx: No Substance Use Type: None Hx Substance Use Treatment: No Review of Systems - Review of Systems Able to Perform ROS?: Yes Constitutional: No: Chills, Diaphoresis, Fever HEENTM: No: Blurred Vision, Tinnitus Respiratory: No: Cough, Orthopnea, Shortness of Breath Cardiac (ROS): No: Chest Pain, Lightheadedness, Palpitations, Syncope ABD/GI: No: Constipated, Diarrhea, Nausea, Vomiting : No: Burning, Dysuria, Hematuria, Incontinence Musculoskeletal: No: Back Pain, Muscle Weakness Neurological: No: Headache, Numbness, Paresthesia, Tingling *Physical Exam - Vital Signs Last Vital Signs Temp Pulse Resp BP Pulse Ox 98.3 F 72 20 118/59 L 96 10/02/18 11:46 10/02/18 11:46 10/02/18 11:46 10/02/18 11:46 10/02/18 11:46 - Physical Exam Comments: 10/02/18 12:22 GENERAL: Awake, alert, and fully oriented, disheveled and unkempt man HEAD: No signs of trauma, normocephalic, atraumatic EYES: EOMI, sclera anicteric, conjunctiva clear ENT: oropharynx clear without exudates. Moist mucosa NECK: Normal ROM, supple LUNGS: No distress, speaks full sentences, clear to auscultation bilaterally HEART: Regular rate and rhythm, normal S1 and S2, no murmurs, rubs or gallops, peripheral pulses normal and equal bilaterally. ABDOMEN: Soft, nontender, normoactive bowel sounds. No guarding, no rebound. No masses EXTREMITIES : Normal inspection, Normal range of motion, no edema. No clubbing or cyanosis. occasional twitching of legs at bedside. NEUROLOGICAL: Cranial nerves II through XII grossly intact. Normal speech, no focal sensorimotor deficits SKIN: psoriatic lesions on the dorsal aspect of the hands bilaterally ED Treatment Course - LABORATORY CBC & Chemistry Diagram: 10/02/18 13:03 10/02/18 13:03 Medical Decision Making - Medical Decision Making 10/02/18 12:21 63 year old man with a significant past medical history of Afib on xarelto, COPD , GERD, restless leg syndrome who presents to the ED for increased frequency in falls. The patient last fell yesterday at 1900 and reports that we was on the ground for 30min and was able to pick himself up afterwards. He denies head or neck trauma. He states he felt dizzy and his legs gave out on him, he cannot say if he lost consciousness. The fall was the same symptoms as his previous falls. ED Course: consider arrythmia vs acs r/o infectious vs electrolyte derangmeent 10/02/18 12:27 cbc, cmp, trop, cxr, ua tylenol and Robaxin for muscle spasm 10/02/18 14:40 Labwork with slight SHANNA EKG: : normal sinus rhythm HR 74, L axis deviation, QTc 490 no interval abnormalities, narrow QRS, ST and T wave segments and morphology normal. 10/02/18 14:41 Patient admitted to medicine for furtherr management regarding recurrent falls and shanna *DC/Admit/Observation/Transfer Diagnosis at time of Disposition: SHANNA (acute kidney injury), Falls frequently - Discharge Dispostion Condition at time of disposition: Stable Decision to Admit order: Yes - Referrals - Patient Instructions - Post Discharge Activity
--- NOTE | 2018-10-02 12:38 | PDOC ---
Attending Attestation - HPI HPI: 10/02/18 13:26 The patient is a 63 year old male, with a significant PMH of restless leg syndrome, COPD, GERD and A fib , who presents to the emergency department today with generalized leg weakness and twitching that began last night. The patient states twitching is located to the bilateral thighs accompanied with some dizziness. The patient states he fell 7 times last night, last fall was yesterday at 7 pm ( patient is unsure if he syncopize). The patient states he went to [place] last night after the fall where they did a full work up and found no abnormal findings. He states twitching progressively worsened today with associated left hip pain and came to the ER for further evaluation. Patient denies numbness or tingling. Denies any other neurological deficit. Denies any head trauma. The patient denies chest pain and shortness of breath. Allergies: codeine Past surgical history: Gallbladder surgery Social history: Former smoker ( quit smoking 10 years ago ) denies alcohol and recreational drug use. PCP: None reported - Physicial Exam PE: 10/02/18 13:29 GENERAL: +Dishevel. The patient is in no acute distress. HEAD: Normal with no signs of trauma. EYES: PERRLA, EOMI, sclera anicteric, conjunctiva clear. NECK: Normal range of motion, supple without lymphadenopathy, JVD, or masses. LUNGS: Breath sounds equal, clear to auscultation bilaterally. No wheezes, and no crackles. HEART:Regular rate and rhythm, normal S1 and S2 without murmur, rub or gallop. EXTREMITIES:+Left hip pain but able to to move it. No deformity. Normal range of motion, no edema. No clubbing or cyanosis. No erythema, or tenderness. NEUROLOGICAL: Cranial nerves II through XII grossly intact. Normal speech. No focal neurological deficits. MUSCULOSKELETAL: Back non-tender to palpation, no CVA tenderness SKIN: +Cirrhosis on skin. <Fartun Camarena - Last Filed: 10/02/18 13:26> - Resident Resident Name: Tiffany Fuller - ED Attending Attestation I have performed the following: I have examined & evaluated the patient, The case was reviewed & discussed with the resident, I agree w/resident's findings & plan, Exceptions are as noted - Physicial Exam PE: - Medical Decision Making 10/02/18 13:33 63 yo M with c/o frequent falls, leg weakness S/p 7 falls yesterday Pt reports pain in the legs Lives alone EKG - NSR rate of 74 bpm. Left axis deviation, no st elevation or depression, t waves upright 10/02/18 13:54 Laboratory Tests 05/03/18 07/27/18 07/27/18 05:30 17:32 17:32 WBC 3.7 L Hgb 9.5 L Hct 28.7 L D Plt Count 93 L BUN 8 23 H Creatinine 1.2 1.9 H Alkaline Phosphatase Troponin I 10/02/18 10/02/18 13:03 13:03 WBC 3.0 L Hgb 10.0 L Hct 30.2 L Plt Count 90 L BUN 22 H Creatinine 2.2 H Alkaline Phosphatase 79 Troponin I < 0.02 Will admit for PT eval Pt not safe discharge <Trudy Jackson - Last Filed: 10/04/18 10:42>
[2018-10-02] MEDS ORDERED: METHOCARBAMOL 750 MG TABLET PO ONE (12:40)
[2018-10-02] MEDS ORDERED: ACETAMINOPHEN 325 MG TABLET (FP) PO ONE (12:40)
[2018-10-02] MEDS ORDERED: ACETAMINOPHEN 325 MG TABLET (FP) ONE (12:49)
[2018-10-02] MEDS ORDERED: METHOCARBAMOL 500 MG TABLET ONE (12:49)
[2018-10-02 13:17] LABS: BASO % 0.5 % (0-2.0); EOS % 1.3 % (0-4.5); HEMATOCRIT 30.2 % (35.4-49); LYMPH % 14.8 % (8-40); MCH 28.8 pg (25.7-33.7); MCHC 33.2 g/dl (32.0-35.9); MEAN CELL VOLUME 86.7 fl (80-96); MEAN PLT VOLUME 7.8 fl (7.5-11.1); MONO % 9.5 % (3.8-10.2); NEUT % 73.9 % (42.8-82.8); PLATELET COUNT 90 K/MM3 (134-434); RBC 3.48 M/mm3 (4.00-5.60); RDW 16.7 % (11.9-15.9)
[2018-10-02 13:47] LABS: ALBUMIN 4.2 g/dl (3.4-5.0); ALK PHOS 79 U/L (45-117); ANION GAP 10 MMOL/L (8-16); BILIRUBIN,TOTAL 0.4 mg/dL (0.2-1); BLOOD UREA NITROGEN 22 mg/dL (7-18); CALCIUM 8.6 mg/dL (8.5-10.1); CHLORIDE 107 mmol/L (98-107); CO2 24 mmol/L (21-32); CREATININE 2.2 mg/dL (0.55-1.3); GLUCOSE,RANDOM 94 mg/dL (74-106); POTASSIUM 4.2 mmol/L (3.5-5.1); SGOT/AST 34 U/L (15-37); SGPT/ALT 42 U/L (13-61); SODIUM 140 mmol/L (136-145); TOT PROT 7.3 g/dl (6.4-8.2)
[2018-10-02] MEDS ORDERED: ALBUTEROL SO4 2.5/IPRATROPIUM 0.5 INH SOL 3 ML VIAL.NEB. NEB PRN (14:44)
[2018-10-02] MEDS: ACETAMINOPHEN 325 MG TABLET (FP) PO PRN (18:50)
[2018-10-02 21:22] LABS: EPI CELLS 0.2 /HPF (0-5); URINE APPEARANCE CLEAR; URINE BACTERIA 0.8 /hpf (NEGATIVE); URINE BILIRUBIN NEGATIVE (NEGATIVE); URINE CASTS 3 /hpf (0-8); URINE COLOR YELLOW; URINE GLUCOSE (UA) NEGATIVE (NEGATIVE); URINE KETONE TRACE (NEGATIVE); URINE LEUK ESTERASE NEGATIVE (NEGATIVE); URINE NITRITE NEGATIVE (NEGATIVE); URINE PROTEIN TRACE (NEGATIVE); URINE RBC 12 /hpf (0-4); URINE WBC 0 /hpf (0-5)
[2018-10-02] MEDS: MIRTAZAPINE 15 MG TABLET (FP) PO SCH (21:37)
[2018-10-02] MEDS: BUDESONIDE/FORMETEROL FUMARATE 80/4.5 mcg INHALER IH SCH (21:38)
[2018-10-02] MEDS: levETIRAcetam 500 MG TABLET (FP) PO SCH (21:38)
[2018-10-03] MEDS ORDERED: traMADol HCL 50 MG TABLET PO ONE (05:15)
[2018-10-03 07:05] LABS: HEMATOCRIT 30.1 % (35.4-49); HEMOGLOBIN 10.4 GM/dL (11.7-16.9); MCH 31.4 pg (25.7-33.7); MCHC 34.5 g/dl (32.0-35.9); MEAN PLT VOLUME 8.3 fl (7.5-11.1); PLATELET COUNT 86 K/MM3 (134-434); RBC 3.31 M/mm3 (4.00-5.60); RDW 17.1 % (11.9-15.9); WHITE BLOOD COUNT 2.8 K/mm3 (4.0-10.0)
[2018-10-03 07:27] LABS: ALBUMIN 4.2 g/dl (3.4-5.0); ALK PHOS 77 U/L (45-117); ANION GAP 8 MMOL/L (8-16); BILIRUBIN,TOTAL 0.4 mg/dL (0.2-1); BLOOD UREA NITROGEN 20 mg/dL (7-18); CALCIUM 8.4 mg/dL (8.5-10.1); CHLORIDE 105 mmol/L (98-107); CO2 25 mmol/L (21-32); CREATININE 2.1 mg/dL (0.55-1.3); GLUCOSE,RANDOM 98 mg/dL (74-106); POTASSIUM 4.1 mmol/L (3.5-5.1); SGOT/AST 31 U/L (15-37); SGPT/ALT 44 U/L (13-61); SODIUM 138 mmol/L (136-145); TOT PROT 7.3 g/dl (6.4-8.2)
[2018-10-03] MEDS ORDERED: PT OWN MED DRAWER 7, Y5N ONE (09:16)
[2018-10-03] MEDS: ACETAMINOPHEN 325 MG TABLET (FP) PO PRN (09:49)
[2018-10-03] MEDS: levETIRAcetam 500 MG TABLET (FP) PO SCH ×2 (09:49→21:24)
[2018-10-03] MEDS: BUDESONIDE/FORMETEROL FUMARATE 80/4.5 mcg INHALER IH SCH ×2 (09:50→21:25)
[2018-10-03] MEDS ORDERED: metoPROLOL SUCCINATE 25 MG TAB.SR.24H (FP) PO SCH (10:00)
--- NOTE | 2018-10-03 13:13 | HP ---
Admitting History and Physical - Primary Care Physician PCP: Manuel Pedroza - Admission Chief Complaint: WEAKNESS/FREQUENT FALLS X 6 History of Present Illness: H/O AFIB ON XARELTO, COPD, HERE WITH FREQUENT FALLS AND RESTLESS LEGS WORSENING. NO LOC NO BLEEDS, DENIES AND SIGNS OF BLOOD. History Source: Medical Record Limitations to Obtaining History: Poor Historian - Smoking History Smoking history: Former smoker Have you smoked in the past 12 months: No Aproximately how many cigarettes per day: 10 If you are a former smoker, when did you quit?: 10YRS - Alcohol/Substance Use Hx Alcohol Use: No Home Medications - Allergies Allergies/Adverse Reactions: Allergies Allergy/AdvReac Type Severity Reaction Status Date / Time codeine Allergy Verified 10/02/18 11:46 - Home Medications Home Medications: Ambulatory Orders Albuterol Sulfate [Proair Hfa] 2 puff IH Q6H PRN 08/02/17 Atorvastatin Calcium 20 mg PO HS 08/02/17 Budesonide/Formeterol Fumarate [SYMBICORT 80/4.5mcg -] 2 inh PO DAILY 08/02/17 Mirtazapine 30 mg PO HS 08/02/17 Metoprolol Tartrate 0 mg PO BID 04/29/18 Amiodarone HCl 200 mg PO DAILY 10/03/18 Aspirin [Aspirin EC] 81 mg PO DAILY 10/03/18 Clopidogrel Bisulfate [Plavix] 75 mg PO DAILY 10/03/18 Gabapentin 300 mg PO TID 10/03/18 Quetiapine Fumarate [Seroquel -] 200 mg PO HS 10/03/18 Rivaroxaban [Xarelto -] 20 mg PO DAILY 10/03/18 levETIRAcetam [Keppra -] 500 mg PO TID 10/03/18 Review of Systems - Review of Systems Constitutional: reports: Weakness Eyes: reports: No Symptoms HENT: reports: No Symptoms Neck: reports: No Symptoms Cardiovascular: reports: No Symptoms Respiratory: reports: No Symptoms Gastrointestinal: reports: No Symptoms Genitourinary: reports: No Symptoms Musculoskeletal: reports: Muscle Weakness Integumentary: reports: No Symptoms Neurological: reports: Unsteady Gait, Weakness Endocrine: reports: Other Hematology/Lymphatic: reports: No Symptoms Psychiatric: reports: Other Physical Examination Vital Signs: Vital Signs Temperature 98.3 F 10/03/18 10:00 Pulse Rate 82 03/31/19 10:00 Respiratory Rate 18 10/03/18 10:00 Blood Pressure 145/79 10/03/18 10:00 O2 Sat by Pulse Oximetry (%) 96 10/03/18 09:00 Constitutional: Yes: Mild Distress Eyes: Yes: WNL HENT: Yes: WNL Neck: Yes: WNL Cardiovascular: Yes: Pulse Irregular Respiratory: Yes: WNL Gastrointestinal: Yes: WNL Renal/: Yes: WNL Musculoskeletal: Yes: Muscle Weakness Extremities: Yes: Other Edema: No Peripheral Pulses WNL: Yes Integumentary: Yes: WNL Wound/Incision: Yes: Clean/Dry Neurological: Yes: Pre-Existing Deficit, Unsteady Gait, Weakness ...Motor Strength: LLE, RLE Psychiatric: Yes: WNL Labs: CBC, BMP 10/03/18 06:00 10/03/18 06:00 Imaging - Results Cat Scan: Report Reviewed Problem List - Problems (1) Leg weakness, bilateral Code(s): R29.898 - OTH SYMPTOMS AND SIGNS INVOLVING THE MUSCULOSKELETAL SYSTEM (2) Falls frequently Code(s): R29.6 - REPEATED FALLS (3) Afib Code(s): I48.91 - UNSPECIFIED ATRIAL FIBRILLATION (4) Jittery feeling Code(s): R45.0 - NERVOUSNESS Assessment/Plan NEUROLOGY EVAL PHYSIATRY EVAL MAY NEED MRI LSPINE AND EMG CONSIDER HOLDING ZARELTO IF CONTINUES TO FALL RISK MAY OUTWEIGH BENEFIT
[2018-10-03 17:27] VITALS: BMI 27.6
--- NOTE | 2018-10-03 17:27 | CON.NEP ---
Consult Consult Specialty:: Nephrology Reason for Consultation:: renal insufficiency - History of Present Illness Chief Complaint: falls History of Present Illness: This is a 63 year old man with a history of seizures, schizophrenia, depression. asthma, copd, GERD and afib on xarelto who presents for frequent falls. Says he felt he couldnt stand. No nausea or vomiting. No recent new medications. He does not believe he has BPH and has not had problems urinating. Thinks he may have seen a information and data architect analyst before but does not remember. 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 Cardio/Vascular: Yes: AFIB Pulmonary: Yes: COPD - Past Surgical History Past Surgical History: Yes: Cholecystectomy - Alcohol/Substance Use Hx Alcohol Use: No - Smoking History Smoking history: Former smoker Have you smoked in the past 12 months: No Aproximately how many cigarettes per day: 10 If you are a former smoker, when did you quit?: 10YRS Home Medications - Allergies Allergies/Adverse Reactions: Allergies Allergy/AdvReac Type Severity Reaction Status Date / Time codeine Allergy Verified 10/02/18 11:46 - Home Medications Home Medications: Ambulatory Orders Albuterol Sulfate [Proair Hfa] 2 puff IH Q6H PRN 08/02/17 Atorvastatin Calcium 20 mg PO HS 08/02/17 Budesonide/Formeterol Fumarate [SYMBICORT 80/4.5mcg -] 2 inh PO DAILY 08/02/17 Mirtazapine 30 mg PO HS 08/02/17 Metoprolol Tartrate 0 mg PO BID 04/29/18 Amiodarone HCl 200 mg PO DAILY 10/03/18 Aspirin [Aspirin EC] 81 mg PO DAILY 10/03/18 Clopidogrel Bisulfate [Plavix] 75 mg PO DAILY 10/03/18 Gabapentin 300 mg PO TID 10/03/18 Quetiapine Fumarate [Seroquel -] 200 mg PO HS 10/03/18 Rivaroxaban [Xarelto -] 20 mg PO DAILY 10/03/18 levETIRAcetam [Keppra -] 500 mg PO TID 10/03/18 Review of Systems - Review of Systems Constitutional: reports: Weakness Eyes: reports: No Symptoms HENT: reports: No Symptoms Neck: reports: No Symptoms Cardiovascular: reports: No Symptoms Respiratory: reports: No Symptoms Gastrointestinal: reports: No Symptoms Genitourinary: reports: No Symptoms Musculoskeletal: reports: Muscle Weakness Integumentary: reports: No Symptoms Neurological: reports: Incoordination, Seizure, Other (falls) Endocrine: reports: No Symptoms Hematology/Lymphatic: reports: No Symptoms Psychiatric: reports: Depression Nephrology Consult - Height Height: 5 ft 6 in - Weight Weight: 171 lb 7 oz - BMI Body Mass Index (BMI): 27.6 - Lab Results CBC,BMP: CBC, BMP 10/03/18 06:00 10/03/18 06:00 Anion Gap: Anion Gap Anion Gap 8 MMOL/L (8-16) 10/03/18 06:00 - Imaging Chest X-ray: Report Reviewed (HERMINIO) Cat Scan: Report Reviewed (no bleed) - Physical Examination Vital Signs: Vital Signs Temperature 97.8 F 10/03/18 14:27 Pulse Rate 75 10/03/18 14:27 Respiratory Rate 18 10/03/18 14:27 Blood Pressure 130/75 10/03/18 14:27 O2 Sat by Pulse Oximetry (%) 96 10/03/18 09:00 Constitutional: Yes: Well Nourished, No Distress Eyes: Yes: Conjunctiva Clear HENT: Yes: Atraumatic, Normocephalic Neck: Yes: Supple, Trachea Midline Cardiovascular: Yes: Pulse Irregular Respiratory: Yes: Regular, Diminished Gastrointestinal: Yes: Normal Bowel Sounds Renal/: Yes: WNL Extremities: Yes: WNL Edema: No Integumentary: Yes: WNL Neurological: Yes: Alert, Oriented, Cran Nerves II-XII Intact. No: Asterixis Assessment/Plan IMPRESSION Probable SHANNA on CKD Has pancytopenia Hematuria with previously normal kidneys schizophrenia/depression falls ?medication related PLAN obtain urine for sodium, creatinine and protein gentle hydration would continue xarelto despite fall heme eval and neuro eval consider repeating renal sono PSA MV
[2018-10-03] MEDS: traMADol HCL 50 MG TABLET PO PRN (21:00)
[2018-10-03] MEDS: MIRTAZAPINE 15 MG TABLET (FP) PO SCH (21:23)
[2018-10-03] MEDS: METOPROLOL TARTRATE 50 MG TABLET (FP) PO SCH (21:24)
[2018-10-04] MEDS: traMADol HCL 50 MG TABLET PO PRN ×2 (03:18→05:11)
[2018-10-04] MEDS: BUDESONIDE/FORMETEROL FUMARATE 80/4.5 mcg INHALER IH SCH ×2 (09:32→22:20)
[2018-10-04] MEDS: levETIRAcetam 500 MG TABLET (FP) PO SCH ×2 (09:32→22:18)
[2018-10-04] MEDS: METOPROLOL TARTRATE 50 MG TABLET (FP) PO SCH ×2 (09:32→22:18)
--- NOTE | 2018-10-04 10:19 | EKG ---
Test Reason : Blood Pressure : / mmHG Vent. Rate : 074 BPM Atrial Rate : 074 BPM P-R Int : 184 ms QRS Dur : 096 ms QT Int : 442 ms P-R-T Axes : 051 -36 036 degrees QTc Int : 490 ms NORMAL SINUS RHYTHM LEFT AXIS DEVIATION PROLONGED QT ABNORMAL ECG WHEN COMPARED WITH ECG OF 27-JUL-2018 17:40, T WAVE VARIATION Confirmed by ROGER LAU MD ([id number]) on 10/04/2018 10:19:26 AM Referred By: Confirmed By:ROGER LAU MD
--- NOTE | 2018-10-04 11:11 | EKG ---
Test Reason : Blood Pressure : / mmHG Vent. Rate : 067 BPM Atrial Rate : 067 BPM P-R Int : 174 ms QRS Dur : 088 ms QT Int : 454 ms P-R-T Axes : 045 -20 027 degrees QTc Int : 479 ms NORMAL SINUS RHYTHM LOW VOLTAGE QRS BORDERLINE ECG WHEN COMPARED WITH ECG OF 02-OCT-2018 13:05, NO SIGNIFICANT CHANGE WAS FOUND Confirmed by ROGER LAU MD ([id number]) on 10/04/2018 11:11:44 AM Referred By: ANNE GOODWIN Confirmed By:ROGER LAU MD
--- NOTE | 2018-10-04 11:46 | PN ---
Progress Note, Physician Chief Complaint: Recurrent Falls SHANNA History of Present Illness: Previous notes and events reviewed awake and alert NAD denies complaints of chest pain, SOB - Current Medication List Current Medications: Active Medications Acetaminophen (Tylenol -) 650 mg PO Q6H PRN PRN Reason: PAIN OR FEVER Last Admin: 10/03/18 09:49 Dose: 650 mg Albuterol/Ipratropium (Duoneb -) 1 amp NEB Q6H PRN PRN Reason: SHORTNESS OF BREATH Budesonide/Formoterol Fumarate (Symbicort 80/4.5mcg -) 2 puff IH BID [facility] Last Admin: 10/04/18 09:32 Dose: 2 puff Levetiracetam (Keppra -) 500 mg PO BID [facility] Last Admin: 10/04/18 09:32 Dose: 500 mg Metoprolol Tartrate (Lopressor -) 50 mg PO BID [facility] Last Admin: 10/04/18 09:32 Dose: 50 mg Mirtazapine (Remeron -) 15 mg PO [facility] Last Admin: 10/03/18 21:23 Dose: 15 mg Tramadol HCl (Ultram -) 50 mg PO Q6H PRN PRN Reason: PAIN LEVEL 7 - 10 Last Admin: 10/04/18 03:18 Dose: 50 mg - Objective Vital Signs: Vital Signs Temperature 97.5 F L 10/04/18 10:00 Pulse Rate 69 10/04/18 10:00 Respiratory Rate 20 10/04/18 10:00 Blood Pressure 110/68 10/04/18 10:00 O2 Sat by Pulse Oximetry (%) 100 10/03/18 21:00 Constitutional: Yes: No Distress, Calm Eyes: Yes: Conjunctiva Clear HENT: Yes: Atraumatic Cardiovascular: Yes: Regular Rate and Rhythm Respiratory: Yes: Regular, CTA Bilaterally Gastrointestinal: Yes: Normal Bowel Sounds, Soft, Tenderness (diffuse) Musculoskeletal: Yes: Muscle Weakness Extremities: Yes: WNL Edema: No Integumentary: Yes: Rash (generalzied) Neurological: Yes: Alert, Oriented Psychiatric: Yes: Alert, Oriented Labs: CBC, BMP 10/03/18 06:00 10/03/18 06:00 Problem List - Problems (1) SHANNA (acute kidney injury) Assessment/Plan: -BUN/Cr 20/2.1 -monitor renal function daily -renal on board Code(s): N17.9 - ACUTE KIDNEY FAILURE, UNSPECIFIED (2) Falls frequently Assessment/Plan: -neuro consult placed -fall precaution -PT Code(s): R29.6 - REPEATED FALLS (3) Leg weakness, bilateral Assessment/Plan: -PT -pending MRI of Lumbar spine Code(s): R29.898 - OTH SYMPTOMS AND SIGNS INVOLVING THE MUSCULOSKELETAL SYSTEM (4) Afib Assessment/Plan: -xarelto on hold due to multiple recurrent falls -cardiology consult Code(s): I48.91 - UNSPECIFIED ATRIAL FIBRILLATION (5) Seizure disorder Assessment/Plan: -continue keppra -neuro consult -seizure precaution Code(s): G40.909 - EPILEPSY, UNSP, NOT INTRACTABLE, WITHOUT STATUS EPILEPTICUS Assessment/Plan see problem list
--- NOTE | 2018-10-04 13:50 | PN ---
Progress Note, Physician History of Present Illness: Pt seen and examined at bedside. He is awake and alert. He says that he feels better today. - Current Medication List Current Medications: Active Medications Acetaminophen (Tylenol -) 650 mg PO Q6H PRN PRN Reason: PAIN OR FEVER Last Admin: 10/03/18 09:49 Dose: 650 mg Albuterol/Ipratropium (Duoneb -) 1 amp NEB Q6H PRN PRN Reason: SHORTNESS OF BREATH Budesonide/Formoterol Fumarate (Symbicort 80/4.5mcg -) 2 puff IH BID [facility] Last Admin: 10/04/18 09:32 Dose: 2 puff Levetiracetam (Keppra -) 500 mg PO BID [facility] Last Admin: 10/04/18 09:32 Dose: 500 mg Metoprolol Tartrate (Lopressor -) 50 mg PO BID [facility] Last Admin: 10/04/18 09:32 Dose: 50 mg Mirtazapine (Remeron -) 15 mg PO [facility] Last Admin: 10/03/18 21:23 Dose: 15 mg Tramadol HCl (Ultram -) 50 mg PO Q6H PRN PRN Reason: PAIN LEVEL 7 - 10 Last Admin: 10/04/18 03:18 Dose: 50 mg - Objective Vital Signs: Vital Signs Temperature 97.5 F L 10/04/18 10:00 Pulse Rate 69 10/04/18 10:00 Respiratory Rate 20 10/04/18 10:00 Blood Pressure 110/68 10/04/18 10:00 O2 Sat by Pulse Oximetry (%) 97 10/04/18 09:00 Constitutional: Yes: Calm Eyes: Yes: Conjunctiva Clear HENT: Yes: Atraumatic Neck: Yes: Supple Cardiovascular: Yes: S1, S2 Respiratory: Yes: CTA Bilaterally Gastrointestinal: Yes: Soft Genitourinary: Yes: WNL Edema: LLE: Trace, RLE: Trace Integumentary: Yes: Other (psoriasis) Neurological: Yes: Oriented Psychiatric: Yes: Oriented Labs: CBC, BMP 10/03/18 06:00 10/03/18 06:00 Assessment/Plan Current Medications Generic Name Dose Route Start Last Admin Trade Name Freq PRN Reason Stop Dose Admin Acetaminophen 650 mg 10/02/18 14:44 10/03/18 09:49 Tylenol - PO 650 mg Q6H PRN Administration PAIN OR FEVER Albuterol/Ipratropium 1 amp 10/02/18 14:44 Duoneb - NEB Q6H PRN SHORTNESS OF BREATH Budesonide/Formoterol Fumarate 2 puff 10/02/18 22:00 10/04/18 09:32 Symbicort 80/4.5mcg - IH 2 puff BID [facility] Administration Levetiracetam 500 mg 10/02/18 22:00 10/04/18 09:32 Keppra - PO 500 mg BID [facility] Administration Metoprolol Tartrate 50 mg 10/03/18 22:00 10/04/18 09:32 Lopressor - PO 50 mg BID [facility] Administration Mirtazapine 15 mg 10/02/18 22:00 10/03/18 21:23 Remeron - PO 15 mg HS [facility] Administration Tramadol HCl 50 mg 10/03/18 13:03 10/04/18 03:18 Ultram - PO 50 mg Q6H PRN Administration PAIN LEVEL 7 - 10 Impression 1. SHANNA 2. Seizure disorder 3. Afib (Xarelto) 4. Anemia 5. COPD 6. GERD 7. Anxiety/depression 8. HLD Plan - repeat labs in am - check urine lytes and survey technologist - check renal ultrasound - repeat ua - avoid nsaids
[2018-10-04] MEDS ORDERED: SODIUM CHLORIDE 1,000 ML IV SCH (14:00)
--- NOTE | 2018-10-04 19:52 | CONSULT ---
Consult - text type - Consultation Consultation Note: NEUROLOGY CONSULTATION is greatly appreciated: This 63 yo RH man lives alone. PMH of Schizophrenia, seizure disorder, Chol, ASHD, s/p stent, COPD (quit smoking), ETOH in past, depression on Albuterol; Atorvastatin; SYMBICORT; Mirtazapine; Metoprolol; Amiodarone; Aspirin 81; Clopidogrel; Gabapentin 300 mg PO TID; quetiapine 200 mg PO HS; Xarelto; and levETIRAcetam 500 mg PO TID. Pt has been followed at [facility] by Neuro (Dr. Tana Carbajal). He describes 4 years of "Restless Legs Syndrome" (RLS) characterized by numbness , tingling and pains in the legs at night. Now, he describes "6 mos" of new-onset tremors and difficulty walking- now admitted with increasing falls at home. CT of brain (reviewed): Technically poor due to mov't. Moderate, diffuse atrophy and microvascular changes. Pancytopenia. RPR neg. PROSPER: Diffuse Psoriatic skin chages. No head trauma. No bruits. Cor reg. NEURO: Vague historian but Ox3. Recalls 2 of 3 @ 3 mins. Neg. frontal release. Speech sl. hypophonic and festinating. CN II-XII: normal Motor: Intermittent rest tremors. + cogwheeling L>R. Normal strength and reflexes except AJ's. Toes downgoing. Coord: No FTN dystaxia Sensory: Normal. Romberg Neg Gait: Sl flexed and unsteady with turns. IMP: Non-focal exam sig for mild-mod extrapyramidal features (Parkinsonism). Restless Legs Syndrome (RLS) which can be seen with PD and antedate motor features by many years. Mild Peripheral neuropathy Seizure disorder by history. (Cannot exclude possibility seizures are contributing to Pt's falls.) SUGGEST: Check T4, TSH, B12 Continue Gabapentin 300 mg PO q 8 hrs Increase Levetiracetam, empirically, to 1 gm q 12 hrs. Begin Pramipexole 0.125 mg PO TID x 2 days then 0.25 mg PO TID Psychiatry consultation manager support services consultation Neuro f/u and EEG as out patient. Thank you very much, Louie Cao MD
[2018-10-04] MEDS: MIRTAZAPINE 15 MG TABLET (FP) PO SCH (22:18)
[2018-10-04] MEDS: PRAMIPEXOLE DIHYDROCHLORIDE 0.125 MG TABLET PO SCH (22:19)
[2018-10-04] MEDS: TRIAMCINOLONE ACET 0.5% CREAM 15 GM TUBE TP SCH (22:20)
[2018-10-04] MEDS: QUEtiapine FUMARATE 200 MG TABLET PO SCH (22:59)
[2018-10-05] MEDS: PRAMIPEXOLE DIHYDROCHLORIDE 0.125 MG TABLET PO SCH ×3 (05:08→22:04)
[2018-10-05 07:46] LABS: HEMATOCRIT 29.1 % (35.4-49); HEMOGLOBIN 9.9 GM/dL (11.7-16.9); MCH 31.1 pg (25.7-33.7); MCHC 34.1 g/dl (32.0-35.9); MEAN CELL VOLUME 91.1 fl (80-96); MEAN PLT VOLUME 8.3 fl (7.5-11.1); PLATELET COUNT 84 K/MM3 (134-434); RDW 16.9 % (11.9-15.9); WHITE BLOOD COUNT 2.5 K/mm3 (4.0-10.0)
[2018-10-05 08:40] LABS: ALBUMIN 3.4 g/dl (3.4-5.0); ALK PHOS 66 U/L (45-117); ANION GAP 6 MMOL/L (8-16); BILIRUBIN,TOTAL 0.3 mg/dL (0.2-1); BLOOD UREA NITROGEN 15 mg/dL (7-18); CALCIUM 8.1 mg/dL (8.5-10.1); CHLORIDE 110 mmol/L (98-107); CO2 24 mmol/L (21-32); CREATININE 1.4 mg/dL (0.55-1.3); GLUCOSE,RANDOM 88 mg/dL (74-106); POTASSIUM 3.7 mmol/L (3.5-5.1); SGOT/AST 19 U/L (15-37); SGPT/ALT 40 U/L (13-61); SODIUM 139 mmol/L (136-145); TOT PROT 6.4 g/dl (6.4-8.2)
[2018-10-05] MEDS: TRIAMCINOLONE ACET 0.5% CREAM 15 GM TUBE TP SCH ×2 (09:49→22:09)
[2018-10-05] MEDS: BUDESONIDE/FORMETEROL FUMARATE 80/4.5 mcg INHALER IH SCH ×2 (09:50→22:04)
[2018-10-05] MEDS: levETIRAcetam 500 MG TABLET (FP) PO SCH ×2 (09:51→22:04)
[2018-10-05] MEDS: METOPROLOL TARTRATE 50 MG TABLET (FP) PO SCH ×2 (09:51→22:03)
[2018-10-05] MEDS: ACETAMINOPHEN 325 MG TABLET (FP) PO PRN ×2 (12:13→22:03)
--- NOTE | 2018-10-05 13:54 | PN ---
Progress Note, Physician History of Present Illness: Pt seen and examined at bedside. He is awake and alert. He denies shortness of breath or chest pain. He denies dysuria. - Current Medication List Current Medications: Active Medications Acetaminophen (Tylenol -) 650 mg PO Q6H PRN PRN Reason: PAIN OR FEVER Last Admin: 10/05/18 12:13 Dose: 650 mg Albuterol/Ipratropium (Duoneb -) 1 amp NEB Q6H PRN PRN Reason: SHORTNESS OF BREATH Budesonide/Formoterol Fumarate (Symbicort 80/4.5mcg -) 2 puff IH BID [facility] Last Admin: 10/05/18 09:50 Dose: 2 puff Levetiracetam (Keppra -) 500 mg PO BID [facility] Last Admin: 10/05/18 09:51 Dose: 500 mg Metoprolol Tartrate (Lopressor -) 50 mg PO BID [facility] Last Admin: 10/05/18 09:51 Dose: 50 mg Mirtazapine (Remeron -) 15 mg PO [facility] Last Admin: 10/04/18 22:18 Dose: 15 mg Pramipexole Dihydrochloride (Mirapex -) 0.125 mg PO TID [facility] Stop: 10/06/18 23:59 Last Admin: 10/05/18 05:08 Dose: 0.125 mg Pramipexole Dihydrochloride (Mirapex -) 0.25 mg PO TID [facility] Quetiapine Fumarate (Seroquel -) 200 mg PO [facility] Last Admin: 10/04/18 22:59 Dose: 200 mg Tramadol HCl (Ultram -) 50 mg PO Q6H PRN PRN Reason: PAIN LEVEL 7 - 10 Last Admin: 10/04/18 03:18 Dose: 50 mg Triamcinolone Acetonide (Aristocort 0.5% Cream -) 1 applic TP BID [facility] Last Admin: 10/05/18 09:49 Dose: 1 applic - Objective Vital Signs: Vital Signs Temperature 97.8 F 10/05/18 10:00 Pulse Rate 74 10/05/18 10:00 Respiratory Rate 20 10/05/18 10:00 Blood Pressure 112/64 10/05/18 10:00 O2 Sat by Pulse Oximetry (%) 98 10/04/18 21:00 Constitutional: Yes: Calm Eyes: Yes: Conjunctiva Clear HENT: Yes: Atraumatic Cardiovascular: Yes: S1, S2 Respiratory: Yes: CTA Bilaterally Gastrointestinal: Yes: Soft Genitourinary: Yes: WNL Musculoskeletal: Yes: WNL Edema: No Integumentary: Yes: Other (psoriasis) Neurological: Yes: Oriented Psychiatric: Yes: Oriented Labs: CBC, BMP 10/05/18 06:30 10/05/18 06:30 Assessment/Plan Current Medications Generic Name Dose Route Start Last Admin Trade Name Freq PRN Reason Stop Dose Admin Acetaminophen 650 mg 10/02/18 14:44 10/05/18 12:13 Tylenol - PO 650 mg Q6H PRN Administration PAIN OR FEVER Albuterol/Ipratropium 1 amp 10/02/18 14:44 Duoneb - NEB Q6H PRN SHORTNESS OF BREATH Budesonide/Formoterol Fumarate 2 puff 10/02/18 22:00 10/05/18 09:50 Symbicort 80/4.5mcg - IH 2 puff BID [facility] Administration Levetiracetam 500 mg 10/02/18 22:00 10/05/18 09:51 Keppra - PO 500 mg BID [facility] Administration Metoprolol Tartrate 50 mg 10/03/18 22:00 10/05/18 09:51 Lopressor - PO 50 mg BID [facility] Administration Mirtazapine 15 mg 10/02/18 22:00 10/04/18 22:18 Remeron - PO 15 mg HS [facility] Administration Pramipexole Dihydrochloride 0.125 mg 10/04/18 22:00 10/05/18 05:08 Mirapex - PO 10/06/18 23:59 0.125 mg TID [facility] Administration Pramipexole Dihydrochloride 0.25 mg 10/07/18 06:00 Mirapex - PO TID [facility] Quetiapine Fumarate 200 mg 10/04/18 22:00 10/04/18 22:59 Seroquel - PO 200 mg HS [facility] Administration Tramadol HCl 50 mg 10/03/18 13:03 10/04/18 03:18 Ultram - PO 50 mg Q6H PRN Administration PAIN LEVEL 7 - 10 Triamcinolone Acetonide 1 applic 10/04/18 22:00 04/02/19 09:49 Aristocort 0.5% Cream - TP 1 applic BID [facility] Administration Impression 1. SHANNA 2. Seizure disorder 3. Afib (Xarelto) 4. Anemia 5. COPD 6. GERD 7. Anxiety/depression 8. HLD Plan - renal function is improved - follow renal ultrasound - encourage PO intake - stopped fluids - avoid nsaids
[2018-10-05] MEDS ORDERED: PT OWN MED DRAWER 7, Y5N ONE ×2 (14:03→20:33)
--- NOTE | 2018-10-05 17:02 | PN ---
Progress Note, Physician Chief Complaint: ASLEEP COMFORTABLE EVENTS REVIEWED - Current Medication List Current Medications: Active Medications Acetaminophen (Tylenol -) 650 mg PO Q6H PRN PRN Reason: PAIN OR FEVER Last Admin: 10/05/18 12:13 Dose: 650 mg Albuterol/Ipratropium (Duoneb -) 1 amp NEB Q6H PRN PRN Reason: SHORTNESS OF BREATH Budesonide/Formoterol Fumarate (Symbicort 80/4.5mcg -) 2 puff IH BID [facility] Last Admin: 10/05/18 09:50 Dose: 2 puff Levetiracetam (Keppra -) 500 mg PO BID [facility] Last Admin: 10/05/18 09:51 Dose: 500 mg Levothyroxine Sodium (Synthroid -) 25 mcg PO DAILY@0700 [facility] Metoprolol Tartrate (Lopressor -) 50 mg PO BID [facility] Last Admin: 10/05/18 09:51 Dose: 50 mg Mirtazapine (Remeron -) 15 mg PO [facility] Last Admin: 10/04/18 22:18 Dose: 15 mg Pramipexole Dihydrochloride (Mirapex -) 0.125 mg PO TID [facility] Stop: 10/06/18 23:59 Last Admin: 10/05/18 14:59 Dose: 0.125 mg Pramipexole Dihydrochloride (Mirapex -) 0.25 mg PO TID [facility] Quetiapine Fumarate (Seroquel -) 200 mg PO [facility] Last Admin: 10/04/18 22:59 Dose: 200 mg Tramadol HCl (Ultram -) 50 mg PO Q6H PRN PRN Reason: PAIN LEVEL 7 - 10 Last Admin: 10/04/18 03:18 Dose: 50 mg Triamcinolone Acetonide (Aristocort 0.5% Cream -) 1 applic TP BID [facility] Last Admin: 10/05/18 09:49 Dose: 1 applic - Objective Vital Signs: Vital Signs Temperature 98.2 F 10/05/18 14:27 Pulse Rate 61 10/05/18 14:27 Respiratory Rate 20 10/05/18 14:27 Blood Pressure 127/78 10/05/18 14:27 O2 Sat by Pulse Oximetry (%) 98 10/05/18 09:00 Constitutional: Yes: Other Cardiovascular: Yes: Regular Rate and Rhythm Respiratory: Yes: WNL Gastrointestinal: Yes: WNL Genitourinary: Yes: WNL Musculoskeletal: Yes: Muscle Weakness Extremities: Yes: WNL Edema: No Peripheral Pulses WNL: Yes Neurological: Yes: Pre-Existing Deficit ...Motor Strength: LLE, RLE Psychiatric: Yes: Other Labs: CBC, BMP 10/05/18 06:30 10/05/18 06:30 Problem List - Problems (1) Leg weakness, bilateral Code(s): R29.898 - OTH SYMPTOMS AND SIGNS INVOLVING THE MUSCULOSKELETAL SYSTEM (2) Falls frequently Code(s): R29.6 - REPEATED FALLS (3) Afib Code(s): I48.91 - UNSPECIFIED ATRIAL FIBRILLATION (4) Jittery feeling Code(s): R45.0 - NERVOUSNESS Assessment/Plan NEUROLOGY EVAL PHYSIATRY EVAL MAY NEED MRI LSPINE AND EMG CONSIDER HOLDING ZARELTO IF CONTINUES TO FALL RISK MAY OUTWEIGH BENEFIT SNF PLACEMENT RENAL FUNCTION IMPROVING OOB TO CHAIR
[2018-10-05 19:00] LABS: PH,URINE 6.5 (5.0-8.0); URINE APPEARANCE CLEAR; URINE BILIRUBIN NEGATIVE (NEGATIVE); URINE COLOR YELLOW; URINE GLUCOSE (UA) NEGATIVE (NEGATIVE); URINE KETONE NEGATIVE (NEGATIVE); URINE LEUK ESTERASE NEGATIVE (NEGATIVE); URINE NITRITE NEGATIVE (NEGATIVE); URINE PROTEIN NEGATIVE (NEGATIVE); URINE UROBILINOGEN 0.2 mg/dL (0.2-1.0)
[2018-10-05] MEDS: QUEtiapine FUMARATE 200 MG TABLET PO SCH (22:03)
[2018-10-05] MEDS: MIRTAZAPINE 15 MG TABLET (FP) PO SCH (22:03)
[2018-10-06] MEDS: PRAMIPEXOLE DIHYDROCHLORIDE 0.125 MG TABLET PO SCH (06:30)
[2018-10-06] MEDS ORDERED: LEVOTHYROXINE NA 25 MCG TABLET (FP) PO SCH (07:00)
[2018-10-06] MEDS ORDERED: PT OWN MED DRAWER 7, Y5N ONE (09:15)
--- NOTE | 2018-10-06 09:52 | PN ---
Progress Note, Physician - Current Medication List Current Medications: Active Medications Acetaminophen (Tylenol -) 650 mg PO Q6H PRN PRN Reason: PAIN OR FEVER Last Admin: 10/05/18 22:03 Dose: 650 mg Albuterol/Ipratropium (Duoneb -) 1 amp NEB Q6H PRN PRN Reason: SHORTNESS OF BREATH Budesonide/Formoterol Fumarate (Symbicort 80/4.5mcg -) 2 puff IH BID [facility] Last Admin: 10/05/18 22:04 Dose: 2 puff Levetiracetam (Keppra -) 500 mg PO BID [facility] Last Admin: 10/05/18 22:04 Dose: 500 mg Levothyroxine Sodium (Synthroid -) 25 mcg PO DAILY@0700 [facility] Last Admin: 10/06/18 06:29 Dose: 25 mcg Metoprolol Tartrate (Lopressor -) 50 mg PO BID [facility] Last Admin: 10/05/18 22:03 Dose: 50 mg Mirtazapine (Remeron -) 15 mg PO [facility] Last Admin: 10/05/18 22:03 Dose: 15 mg Pramipexole Dihydrochloride (Mirapex -) 0.125 mg PO TID [facility] Stop: 10/06/18 23:59 Last Admin: 10/06/18 06:30 Dose: 0.125 mg Pramipexole Dihydrochloride (Mirapex -) 0.25 mg PO TID [facility] Quetiapine Fumarate (Seroquel -) 200 mg PO [facility] Last Admin: 10/05/18 22:03 Dose: 200 mg Tramadol HCl (Ultram -) 50 mg PO Q6H PRN PRN Reason: PAIN LEVEL 7 - 10 Last Admin: 10/04/18 03:18 Dose: 50 mg Triamcinolone Acetonide (Aristocort 0.5% Cream -) 1 applic TP BID [facility] Last Admin: 10/05/18 22:09 Dose: 1 applic - Objective Vital Signs: Vital Signs Temperature 98 F 10/06/18 05:12 Pulse Rate 68 10/06/18 05:12 Respiratory Rate 18 10/06/18 05:12 Blood Pressure 114/71 10/06/18 05:12 O2 Sat by Pulse Oximetry (%) 98 10/05/18 21:00 Labs: CBC, BMP 10/05/18 06:30 10/05/18 06:30 Problem List - Problems (1) Leg weakness, bilateral Code(s): R29.898 - OTH SYMPTOMS AND SIGNS INVOLVING THE MUSCULOSKELETAL SYSTEM (2) Falls frequently Code(s): R29.6 - REPEATED FALLS (3) Afib Code(s): I48.91 - UNSPECIFIED ATRIAL FIBRILLATION (4) Jittery feeling Code(s): R45.0 - NERVOUSNESS
--- NOTE | 2018-10-06 10:02 | DS ---
Physical Examination Vital Signs: Vital Signs Temperature 98 F 10/06/18 05:12 Pulse Rate 68 10/06/18 05:12 Respiratory Rate 18 10/06/18 05:12 Blood Pressure 114/71 10/06/18 05:12 O2 Sat by Pulse Oximetry (%) 98 10/05/18 21:00 Findings/Remarks: walked 150 ft yesterday with a steady gait and no falls Constitutional: Yes: No Distress Eyes: Yes: WNL HENT: Yes: WNL Neck: Yes: WNL Cardiovascular: Yes: Pulse Irregular Respiratory: Yes: WNL Gastrointestinal: Yes: WNL Renal/: Yes: WNL Musculoskeletal: Yes: Muscle Weakness Extremities: Yes: WNL Edema: No Peripheral Pulses WNL: Yes Integumentary: Yes: Rash Wound/Incision: Yes: Open to air Neurological: Yes: Pre-Existing Deficit Psychiatric: Yes: Other Labs: CBC, BMP 10/05/18 06:30 10/05/18 06:30 Discharge Summary Reason For Visit: SHANNA,RECURRENT FALLS Current Active Problems SHANNA (acute kidney injury) (Acute) Falls frequently (Acute) Leg weakness, bilateral (Acute) Procedures: Principal: CT SCANS Hospital Course: NEUROLOGY WORKUP, STARTED ON MIRAPEX, WILL MONITOR OUTPATIENT AND HOME P.T. Condition: Stable - Instructions Diet, Activity, Other Instructions: SEE YOUR DOCTOR IN 1-2 DAYS Disposition: VNS/HOME HEALTH CARE - Home Medications Comprehensive Discharge Medication List: Ambulatory Orders Albuterol Sulfate [Proair Hfa] 2 puff IH Q6H PRN 08/02/17 Atorvastatin Calcium 20 mg PO HS 08/02/17 Budesonide/Formeterol Fumarate [SYMBICORT 80/4.5mcg -] 2 inh PO DAILY 08/02/17 Amiodarone HCl 200 mg PO DAILY 10/03/18 Aspirin [Aspirin EC] 81 mg PO DAILY 10/03/18 Clopidogrel Bisulfate [Plavix] 75 mg PO DAILY 10/03/18 Rivaroxaban [Xarelto -] 20 mg PO DAILY 10/03/18 levETIRAcetam [Keppra -] 500 mg PO TID 10/03/18 Acetaminophen [Tylenol .Regular Strength -] 650 mg PO Q6H PRN tablet 10/06/18 Albuterol 2.5/Ipratropium 0.5 [Duoneb -] 1 amp NEB Q6H PRN #120 amp 10/06/18 Budesonide/Formeterol Fumarate [SYMBICORT 80/4.5mcg -] 2 puff IH BID #2 inhaler 10/06/18 Gabapentin 300 mg PO TID #90 capsule 10/06/18 Levothyroxine [Synthroid -] 25 mcg PO DAILY@0700 #30 tablet 10/06/18 Metoprolol Tartrate [Lopressor -] 50 mg PO BID #60 tablet 10/06/18 Mirtazapine [Remeron -] 15 mg PO HS #30 tablet 10/06/18 Pramipexole Dihydrochloride [Mirapex -] 0.25 mg PO TID #90 tablet 10/06/18 Quetiapine Fumarate [Seroquel -] 200 mg PO HS #30 tablet 10/06/18 Triamcinolone 0.5% Cream [Aristocort 0.5% Cream -] 1 applic TP BID #90 tube 09/21 levETIRAcetam [Keppra -] 500 mg PO BID #60 tablet 10/06/18
[2018-10-06] MEDS: METOPROLOL TARTRATE 50 MG TABLET (FP) PO SCH (10:08)
[2018-10-06] MEDS: levETIRAcetam 500 MG TABLET (FP) PO SCH (10:08)
[2018-10-06] MEDS: TRIAMCINOLONE ACET 0.5% CREAM 15 GM TUBE TP SCH (10:08)
[2018-10-06] MEDS: BUDESONIDE/FORMETEROL FUMARATE 80/4.5 mcg INHALER IH SCH (10:10)
[2018-10-06 12:08] VITALS: BP 113/76; PULSE 71; TEMP 98
--- NOTE | 2018-10-06 12:33 | PN ---
Progress Note, Physician History of Present Illness: Pt seen and examined at bedside. He is awake and alert. He denies shortness of breath. - Current Medication List Current Medications: Active Medications Acetaminophen (Tylenol -) 650 mg PO Q6H PRN PRN Reason: PAIN OR FEVER Last Admin: 10/05/18 22:03 Dose: 650 mg Albuterol/Ipratropium (Duoneb -) 1 amp NEB Q6H PRN PRN Reason: SHORTNESS OF BREATH Budesonide/Formoterol Fumarate (Symbicort 80/4.5mcg -) 2 puff IH BID [facility] Last Admin: 10/06/18 10:10 Dose: 2 puff Levetiracetam (Keppra -) 500 mg PO BID [facility] Last Admin: 10/06/18 10:08 Dose: 500 mg Levothyroxine Sodium (Synthroid -) 25 mcg PO DAILY@0700 [facility] Last Admin: 10/06/18 06:29 Dose: 25 mcg Metoprolol Tartrate (Lopressor -) 50 mg PO BID [facility] Last Admin: 10/06/18 10:08 Dose: 50 mg Mirtazapine (Remeron -) 15 mg PO [facility] Last Admin: 10/05/18 22:03 Dose: 15 mg Pramipexole Dihydrochloride (Mirapex -) 0.125 mg PO TID [facility] Stop: 10/06/18 23:59 Last Admin: 10/06/18 06:30 Dose: 0.125 mg Pramipexole Dihydrochloride (Mirapex -) 0.25 mg PO TID [facility] Quetiapine Fumarate (Seroquel -) 200 mg PO [facility] Last Admin: 10/05/18 22:03 Dose: 200 mg Tramadol HCl (Ultram -) 50 mg PO Q6H PRN PRN Reason: PAIN LEVEL 7 - 10 Last Admin: 10/04/18 03:18 Dose: 50 mg Triamcinolone Acetonide (Aristocort 0.5% Cream -) 1 applic TP BID [facility] Last Admin: 10/06/18 10:08 Dose: 1 applic - Objective Vital Signs: Vital Signs Temperature 98.0 F 10/06/18 10:00 Pulse Rate 71 10/06/18 10:00 Respiratory Rate 18 10/06/18 10:00 Blood Pressure 113/76 10/06/18 10:00 O2 Sat by Pulse Oximetry (%) 98 10/05/18 21:00 Constitutional: Yes: Calm Eyes: Yes: Conjunctiva Clear HENT: Yes: Atraumatic Cardiovascular: Yes: S1, S2 Respiratory: Yes: CTA Bilaterally Gastrointestinal: Yes: Normal Bowel Sounds, Soft Genitourinary: Yes: WNL Musculoskeletal: Yes: WNL Edema: No Integumentary: Yes: Other (psoriasis) Neurological: Yes: Oriented Psychiatric: Yes: Oriented Labs: CBC, BMP 10/05/18 06:30 10/05/18 06:30 Assessment/Plan Current Medications Generic Name Dose Route Start Last Admin Trade Name Freq PRN Reason Stop Dose Admin Acetaminophen 650 mg 10/02/18 14:44 10/05/18 22:03 Tylenol - PO 650 mg Q6H PRN Administration PAIN OR FEVER Albuterol/Ipratropium 1 amp 10/02/18 14:44 Duoneb - NEB Q6H PRN SHORTNESS OF BREATH Budesonide/Formoterol Fumarate 2 puff 10/02/18 22:00 10/06/18 10:10 Symbicort 80/4.5mcg - IH 2 puff BID [facility] Administration Levetiracetam 500 mg 10/02/18 22:00 10/06/18 10:08 Keppra - PO 500 mg BID [facility] Administration Levothyroxine Sodium 25 mcg 10/06/18 07:00 10/06/18 06:29 Synthroid - PO 25 mcg DAILY@0700 [facility] Administration Metoprolol Tartrate 50 mg 10/03/18 22:00 10/06/18 10:08 Lopressor - PO 50 mg BID [facility] Administration Mirtazapine 15 mg 10/02/18 22:00 10/05/18 22:03 Remeron - PO 15 mg HS [facility] Administration Pramipexole Dihydrochloride 0.125 mg 10/04/18 22:00 10/06/18 06:30 Mirapex - PO 10/06/18 23:59 0.125 mg TID [facility] Administration Pramipexole Dihydrochloride 0.25 mg 10/07/18 06:00 Mirapex - PO TID [facility] Quetiapine Fumarate 200 mg 10/04/18 22:00 10/05/18 22:03 Seroquel - PO 200 mg HS [facility] Administration Tramadol HCl 50 mg 10/03/18 13:03 10/04/18 03:18 Ultram - PO 50 mg Q6H PRN Administration PAIN LEVEL 7 - 10 Triamcinolone Acetonide 1 applic 10/04/18 22:00 10/06/18 10:08 Aristocort 0.5% Cream - TP 1 applic BID [facility] Administration Impression 1. SHANNA 2. Seizure disorder 3. Afib (Xarelto) 4. Anemia 5. COPD 6. GERD 7. Anxiety/depression 8. HLD Plan - no new labs - can see pt in office - he is eager to go home - stopped fluids - avoid nsaids
[2018-10-07] MEDS ORDERED: PRAMIPEXOLE DIHYDROCHLORIDE 0.25 MG TABLET PO SCH (06:00)
== END 2018-10-06 13:46 | disposition home health service (06) | DRG 683 ==
LOC: JER 11:29 → JERBED 14:39 → J7W 17:00
PROVIDERS: ADMIT Family Medicine; ATTEND Family Medicine
DX: N17.9 Acute kidney failure, unspecified (principal); D61.818 Other pancytopenia; G20 Parkinson's disease; R29.6 Repeated falls; R29.898 Other symptoms and signs involving the musculoskeletal system; R45.0 Nervousness; I48.91 Unspecified atrial fibrillation; J44.9 Chronic obstructive pulmonary disease, unspecified; F20.9 Schizophrenia, unspecified; R31.9 Hematuria, unspecified; G40.909 Epilepsy, unspecified, not intractable, without status epilepticus; G25.81 Restless legs syndrome; D64.9 Anemia, unspecified; F41.8 Other specified anxiety disorders; E78.5 Hyperlipidemia, unspecified; G62.9 Polyneuropathy, unspecified; K21.9 Gastro-esophageal reflux disease without esophagitis
CPT/HCPCS: 36415; 70450-TC; 71045-TC-FY; 76700-TC; 80053; 81003; 82436; 82570; 82607; 84133; 84156; 84300; 84443; 84484; 85025; 85027; 85651; 86140; 86593; 87086; 93005; 93010; 97116-GP; 97162-GP; 99282-25; J7030

== ENCOUNTER 2018-10-07 01:32 | Emergency (ER) | payer OTHER ==
--- NOTE | 2018-10-07 02:11 | PDOC ---
Attending Attestation - Resident Resident Name: Sheng Bloom - ED Attending Attestation I have performed the following: I have examined & evaluated the patient, The case was reviewed & discussed with the resident, I agree w/resident's findings & plan - HPI HPI: 10/07/18 03:31 63-year-old male with chronic leg pain here for an episode of leg. Again, similar to previous episodes Patient discharged from the hospital yesterday There's been no new trauma. - Physicial Exam PE: 10/07/18 03:31 Agree with resident's exam - Medical Decision Making 10/07/18 03:32 63-year-old male with chronic pain IV Tylenol given in the emergency department Patient discharged and advised to follow-up with his regular physicians regarding pain management
[2018-10-07] MEDS ORDERED: ACETAMINOPHEN 325 MG TABLET (FP) PO ONE (02:22)
--- NOTE | 2018-10-07 02:26 | PDOC ---
History of Present Illness - General Chief Complaint: Pain, Acute Stated Complaint: PAIN,LT LEG Time Seen by Provider: 10/07/18 02:06 History Source: Patient Exam Limitations: No Limitations - History of Present Illness Initial Comments: 63 yo M h/o restless leg syndrome, a-fib on xarelto, COPD, psariasis, seizure disorder and schizophrenia p/w L leg pain for 1 day. He was discharged yesterday on pramipexole for RLS. He said the pain is located in L groin, radiates to L ankle, sharp, 10/10, intermitent, no allievating or worsening factors. Denies fever, chills, n/v, chest pain, sob. 10/07/18 02:32 Patient's medical problems are chronic in nature including pain. Will give the pt tylenol and encourage him to follow up with his doctors for further management. Past History - Past Medical History Allergies/Adverse Reactions: Allergies Allergy/AdvReac Type Severity Reaction Status Date / Time codeine Allergy Verified 10/02/18 11:46 Home Medications: Ambulatory Orders Albuterol Sulfate [Proair Hfa] 2 puff IH Q6H PRN 08/02/17 Atorvastatin Calcium 20 mg PO HS 08/02/17 Budesonide/Formeterol Fumarate [SYMBICORT 80/4.5mcg -] 2 inh PO DAILY 08/02/17 Amiodarone HCl 200 mg PO DAILY 10/03/18 Aspirin [Aspirin EC] 81 mg PO DAILY 10/03/18 Clopidogrel Bisulfate [Plavix] 75 mg PO DAILY 10/03/18 Rivaroxaban [Xarelto -] 20 mg PO DAILY 10/03/18 levETIRAcetam [Keppra -] 500 mg PO TID 10/03/18 Acetaminophen [Tylenol .Regular Strength -] 650 mg PO Q6H PRN tablet 10/06/18 Albuterol 2.5/Ipratropium 0.5 [Duoneb -] 1 amp NEB Q6H PRN #120 amp 10/06/18 Budesonide/Formeterol Fumarate [SYMBICORT 80/4.5mcg -] 2 puff IH BID #2 inhaler 10/06/18 Gabapentin 300 mg PO TID #90 capsule 10/06/18 Levothyroxine [Synthroid -] 25 mcg PO DAILY@0700 #30 tablet 10/06/18 Metoprolol Tartrate [Lopressor -] 50 mg PO BID #60 tablet 10/06/18 Mirtazapine [Remeron -] 15 mg PO HS #30 tablet 10/06/18 Pramipexole Dihydrochloride [Mirapex -] 0.25 mg PO TID #90 tablet 10/06/18 Quetiapine Fumarate [Seroquel -] 200 mg PO HS #30 tablet 10/06/18 Triamcinolone 0.5% Cream [Aristocort 0.5% Cream -] 1 applic TP BID #90 tube 09/21 levETIRAcetam [Keppra -] 500 mg PO BID #60 tablet 10/06/18 Anemia: Yes Asthma: Yes Cardiac Disorders: Yes (AF) COPD: Yes CHF: Yes GI Disorders: Yes Seizures: Yes Thyroid Disease: No (Denies) - Surgical History Abdominal Surgery: Yes (Gall Bladder) Cardiac Surgery: Yes - Immunization History Immunization Up to Date: No - Suicide/Smoking/Psychosocial Hx Smoking History: Never smoked Have you smoked in the past 12 months: No Number of Cigarettes Smoked Daily: 10 If you are a former smoker, when did you quit?: 10YRS Information on smoking cessation initiated: No Hx Alcohol Use: Yes Drug/Substance Use Hx: No Substance Use Type: None Hx Substance Use Treatment: No Review of Systems - Review of Systems Able to Perform ROS?: Yes Is the patient limited [place] proficient: No Constitutional: Yes: Weakness. No: Chills, Fever Respiratory: No: Cough, Orthopnea, Shortness of Breath Cardiac (ROS): No: Chest Pain, Edema, Irregular Heart Rate ABD/GI: No: Nausea, Vomiting Integumentary: Yes: Other (L leg pain) Neurological: No: Headache *Physical Exam - Vital Signs Last Vital Signs Temp Pulse Resp BP Pulse Ox 97.6 F 72 19 95/67 99 10/07/18 01:32 10/07/18 01:32 10/07/18 01:32 10/07/18 01:32 10/07/18 01:32 - Physical Exam General Appearance: Yes: Disheveled. No: Apparent Distress Respiratory/Chest: positive: Lungs Clear, Normal Breath Sounds Cardiovascular: positive: Regular Rate, S1, S2. negative: Edema, JVD, Murmur Gastrointestinal/Abdominal: positive: Normal Bowel Sounds. negative: Tender, Protuberent, Distended Extremity: positive: Erythema. 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 It's an old and chronic condition might be due to restless leg syndrome. Please continue to take pramipexole for the condition and follow up with your neurologist and PMD. - Post Discharge Activity
[2018-10-07] MEDS ORDERED: ACETAMINOPHEN 325 MG TABLET (FP) ONE (03:09)
[2018-10-07 07:13] VITALS: BP 95/67; PULSE 72; TEMP 97.6; BMI 25.8
== END 2018-10-07 03:20 | disposition home or self-care (01) ==
LOC: JER 01:32
DX: G25.81 Restless legs syndrome (principal); I48.91 Unspecified atrial fibrillation; Z79.01 Long term (current) use of anticoagulants; J44.9 Chronic obstructive pulmonary disease, unspecified; J45.909 Unspecified asthma, uncomplicated; L40.9 Psoriasis, unspecified; G40.909 Epilepsy, unspecified, not intractable, without status epilepticus; F29 Unspecified psychosis not due to a substance or known physiological condition; D64.9 Anemia, unspecified
CPT/HCPCS: 99281-25

== ENCOUNTER 2018-10-10 03:24 | Emergency (ER) | payer OTHER ==
--- NOTE | 2018-10-10 03:40 | PDOC ---
History of Present Illness - General Stated Complaint: CHEST PAIN,ABDOMINAL PAIN Time Seen by Provider: 10/10/18 03:35 History Source: Patient Exam Limitations: No Limitations - History of Present Illness Initial Comments: 10/10/18 03:35 63YOM with h/o chronic right knee pain from injury sustained in youth, restless leg syndrome, a-fib on xarelto, COPD, psariasis, seizure disorder and schizophrenia, who p/w overdose of medications (#5 Seroquel 200 mg and #3 mirtazipine 15 mg) which he ingested about 2 hours ago because he was in so much pain that he could not sleep. He denies using any other medications, drugs , or alcohol, and denies any intent to harm himself. He states that his knee simply was too painful. He lives alone. He otherwise denies any recent symptoms (no f/c/n/v/d/c, new n/t/w focally, etc). He has been able to walk with increased pain per his normal baseline. He has not tried taking Tylenol, ibuprofen, or any other medication for the pain, and he denies any recent falls or other injuries that may have precipitated the worsened pain. He believes that the cold weather worsens his knee pain. Past History - Past Medical History Allergies/Adverse Reactions: Allergies Allergy/AdvReac Type Severity Reaction Status Date / Time codeine Allergy Verified 10/10/18 04:06 Home Medications: Ambulatory Orders Albuterol Sulfate [Proair Hfa] 2 puff IH Q6H PRN 08/02/17 Atorvastatin Calcium 20 mg PO HS 08/02/17 Budesonide/Formeterol Fumarate [SYMBICORT 80/4.5mcg -] 2 inh PO DAILY 08/02/17 Amiodarone HCl 200 mg PO DAILY 10/03/18 Aspirin [Aspirin EC] 81 mg PO DAILY 10/03/18 Clopidogrel Bisulfate [Plavix] 75 mg PO DAILY 10/03/18 Rivaroxaban [Xarelto -] 20 mg PO DAILY 10/03/18 levETIRAcetam [Keppra -] 500 mg PO TID 10/03/18 Acetaminophen [Tylenol .Regular Strength -] 650 mg PO Q6H PRN tablet 10/06/18 Albuterol 2.5/Ipratropium 0.5 [Duoneb -] 1 amp NEB Q6H PRN #120 amp 10/06/18 Budesonide/Formeterol Fumarate [SYMBICORT 80/4.5mcg -] 2 puff IH BID #2 inhaler 10/06/18 Gabapentin 300 mg PO TID #90 capsule 10/06/18 Levothyroxine [Synthroid -] 25 mcg PO DAILY@0700 #30 tablet 10/06/18 Metoprolol Tartrate [Lopressor -] 50 mg PO BID #60 tablet 10/06/18 Mirtazapine [Remeron -] 15 mg PO HS #30 tablet 10/06/18 Pramipexole Dihydrochloride [Mirapex -] 0.25 mg PO TID #90 tablet 10/06/18 Quetiapine Fumarate [Seroquel -] 200 mg PO HS #30 tablet 10/06/18 Triamcinolone 0.5% Cream [Aristocort 0.5% Cream -] 1 applic TP BID #90 tube 09/21 levETIRAcetam [Keppra -] 500 mg PO BID #60 tablet 10/06/18 Anemia: Yes Asthma: Yes Cardiac Disorders: Yes (AF) COPD: Yes CHF: Yes GI Disorders: Yes Seizures: Yes Thyroid Disease: No (Denies) - Surgical History Abdominal Surgery: Yes (Gall Bladder) Cardiac Surgery: Yes - Immunization History Immunization Up to Date: No - Suicide/Smoking/Psychosocial Hx Smoking History: Never smoked Have you smoked in the past 12 months: No Number of Cigarettes Smoked Daily: 10 If you are a former smoker, when did you quit?: 10YRS Hx Alcohol Use: Yes Drug/Substance Use Hx: No Substance Use Type: None Hx Substance Use Treatment: No Review of Systems - Review of Systems Able to Perform ROS?: Yes Comments:: 10/10/18 03:39 GEN: no fever, chills, malaise, generalized weakness, or weight change HEENT: no ear pain, sore throat, vision change, or eye pain CV: no chest pain, palpitations, lightheadedness, syncope, or edema RESP: no cough, wheezing, or SOB GI: no abdominal pain, nausea, vomiting, diarrhea, constipation, or white/black/ bloody stool : no dysuria, hematuria, incontinence, retention, bleeding, or discharge MSK: right knee pain, otherwise no neck/back pain, or muscle weakness/pain NEURO: no headache, seizure, vertigo, numbness, tingling, or focal weakness PSYCH: medication overdose, no SI, no HI, no behavior change SKIN: no jaundice, no rash ROS otherwise negative except as noted in HPI *Physical Exam - Physical Exam Comments: 10/10/18 03:42 GENERAL: disheveled, unkempt, A/Ox4, no distress, answers questions appropriately HEENT: PERRLA, EOMI, moist mucous membranes, poor dentition and mostly edentulous NECK/BACK: no midline ttp, no spinal stepoff or deformity, no hematoma, full ROM , neck supple CARDIOVASCULAR: regular rate/rhythm, normal S1S2, no MGR, strong peripheral pulses, capillary refill <2 seconds, extremities wwp, no edema LUNGS/RESPIRATORY: no respiratory distress, CTAB GI/ABDOMEN: protuberant but not tight, symmetric [id number], normoactive BS, soft, no ttp, no midline pulsatile masses : no CVA tenderness EXTREMITIES: no muscle atrophy, no acute deformity SKIN: diffuse excoriations, warm and dry, no pallor, no jaundice, no bruising NEUROLOGICAL: GCS 15, CN II-XII grossly intact, 5/5 strength proximally and distally, no facial droop ED Treatment Course - LABORATORY CBC & Chemistry Diagram: 10/10/18 04:25 10/10/18 04:25 Medical Decision Making - Medical Decision Making 63YOM p/w Seroquel and mirtazipine overdose without intent to harm himself, also with knee pain. Exam: As noted in Physical Exam section. Mental status Exam: As noted in Physical Exam section.denies self harm attempt, SI/HI, plan, or SI/HI history DDX IBNLT: overdose, overuse, medication interaction, change in medication metabolism, coingestion, etc W/U ordered: Labs as noted below, EKG EKG: Reviewed; results as noted in ECG Review section. Labs: 10/10/18 03:53 I spoke with Poison Control, practitioner [place], #[id number]. They are not concerned about this small ingestion of mirtazipine. Their bigger concern is the Seroquel, which causes QT prolongation and other complications. This is not likely a severe overdose of Seroquel if it really was 5 pills. Could cause dry mouth, somnolence, dizziness, and tachycardia first. Monitor vitals and mental status, needs continuous pulse ox and monitoring analyst. Recommends watching him for 12 hours from initial ingestion. As long as he is asymptomatic at 12 hours (which would be about 2 pm today. 10/10/18 04:45 Patient is a candidate for ED Obs. [facility]. Black Decision to Admit order placed per ED protocol. 10/10/18 05:[address] Evangelista; all are aware of plan for ED Obs. Decision to Admit order corrected. *DC/Admit/Observation/Transfer Diagnosis at time of Disposition: Knee pain, right Overdose of antipsychotic Qualifiers: Encounter type: initial encounter Injury intent: accidental or unintentional Qualified Code(s): T43.501A - Poisoning by unspecified antipsychotics and neuroleptics, accidental (unintentional), initial encounter - Discharge Dispostion Condition at time of disposition: Guarded Decision to Admit order: Yes - Referrals - Patient Instructions - Post Discharge Activity
[2018-10-10 04:12] LABS: URINE APPEARANCE CLEAR; URINE BILIRUBIN NEGATIVE (NEGATIVE); URINE COLOR YELLOW; URINE GLUCOSE (UA) NEGATIVE (NEGATIVE); URINE KETONE NEGATIVE (NEGATIVE); URINE LEUK ESTERASE NEGATIVE (NEGATIVE); URINE NITRITE NEGATIVE (NEGATIVE); URINE PROTEIN NEGATIVE (NEGATIVE); URINE UROBILINOGEN 0.2 mg/dL (0.2-1.0)
[2018-10-10 04:41] LABS: BASO % 0.9 % (0-2.0); EOS % 1.8 % (0-4.5); HEMATOCRIT 30.1 % (35.4-49); HEMOGLOBIN 10.3 GM/dL (11.7-16.9); LYMPH % 23.7 % (8-40); MCH 31.8 pg (25.7-33.7); MCHC 34.1 g/dl (32.0-35.9); MEAN CELL VOLUME 93.3 fl (80-96); MEAN PLT VOLUME 8.1 fl (7.5-11.1); MONO % 12.2 % (3.8-10.2); NEUT % 61.4 % (42.8-82.8); PLATELET COUNT 96 K/MM3 (134-434); RBC 3.23 M/mm3 (4.00-5.60); RDW 16.9 % (11.9-15.9); WHITE BLOOD COUNT 2.5 K/mm3 (4.0-10.0)
[2018-10-10 05:04] VITALS: TEMP 98.7; BMI 25.8
--- NOTE | 2018-10-10 05:05 | PDOC ---
Attending Attestation - Resident Resident Name: Chasidy Smith - ED Attending Attestation I have performed the following: I have examined & evaluated the patient, The case was reviewed & discussed with the resident, I agree w/resident's findings & plan - HPI HPI: 10/10/18 05:04 Pt comes with knee pain that was keeping him awake at night, and he had no painkillers, so he took 5 seroquel and 3 mirtazapine. He came to the ER for the pain. He has no complaints at this time, other than the joint pain (he states that it is his psoriatic arthritis, as diagnosed by his PMD) He has no suicidal ideation. He is stable and answering questions appropriately. Pt is clean and well kempt. Pt is compliant with exam and patient with our treatment. - Physicial Exam PE: 10/10/18 05:04 Agree with resident exam - Medical Decision Making 10/10/18 05:24 Pt will be observed until 9am. At that time he may be discharged. Pt took 1g seroquel; and 45mg mirtazapine. Pt states that he was having abd pain and right knee pain and he wanted to blunt the pain so took some of his psych meds. Pt is alert and aware and acting normally. He is not suicidal. He is appropriate. Pt's labs are stable - similar as old. Pt will be signed out to the day team and they will observe and d/c patient. 10/10/18 06:02 Tox negative;UA normal Pt will follow with PMD.
[2018-10-10 05:06] LABS: ALK PHOS 71 U/L (45-117); ANION GAP 5 MMOL/L (8-16); BILIRUBIN,TOTAL 0.3 mg/dL (0.2-1); BLOOD UREA NITROGEN 23 mg/dL (7-18); CALCIUM 8.6 mg/dL (8.5-10.1); CHLORIDE 110 mmol/L (98-107); CO2 24 mmol/L (21-32); CREATININE 1.8 mg/dL (0.55-1.3); GLUCOSE,RANDOM 97 mg/dL (74-106); MAGNESIUM 2.1 mg/dL (1.8-2.4); POTASSIUM 3.8 mmol/L (3.5-5.1); SGOT/AST 35 U/L (15-37); SGPT/ALT 52 U/L (13-61); SODIUM 139 mmol/L (136-145); TOT PROT 7.4 g/dl (6.4-8.2)
[2018-10-10] MEDS ORDERED: ACETAMINOPHEN 1000 MG/100 ML VIAL (NON FORMULARY) IVPB ONE (05:13)
[2018-10-10] MEDS ORDERED: FOLIC ACID INJECTION - 1 MG, THIAMINE HCL 100 MG, MULTIVIT INJECTION ADULT 10 ML in SOD... IVPB ONE (05:23)
[2018-10-10] MEDS ORDERED: ACETAMINOPHEN INJECTION 100 ML IVPB ONE (05:30)
[2018-10-10 09:38] VITALS: BP 165/93; PULSE 87
--- NOTE | 2018-10-10 10:43 | PDOC ---
*Physical Exam - Vital Signs Last Vital Signs Temp Pulse Resp BP Pulse Ox 98.7 F 87 18 165/93 100 10/10/18 03:58 10/10/18 09:37 10/10/18 09:37 10/10/18 09:37 10/10/18 09:37 - Physical Exam Comments: 10/10/18 10:39 Care received at 0700 Pt under observation after taking multiple pills of seroquel for pain control, per poison control obs for 12hrs Pt took pills at 9pm last night Pt is not suicidal On my evaluation, pt well appearing GENERAL: Awake, alert, and fully oriented, in no acute distress EYES: PERRLA, EOMI, sclera anicteric, conjunctiva clear ENT: Nares patent, oropharynx clear without exudates. Moist mucosa NECK: Normal ROM, supple, no lymphadenopathy, JVD, or masses LUNGS: Breath sounds equal, clear to auscultation bilaterally. No wheezes, and no crackles HEART: Regular rate and rhythm, normal S1 and S2, no murmurs, rubs or gallops ABDOMEN: Soft, nontender, normoactive bowel sounds. No guarding, no rebound. No masses EXTREMITIES: Normal range of motion, no edema. WWP NEUROLOGICAL: Normal speech, cranial nerves intact, equal strength and sensation b/l SKIN: Warm, Dry, normal turgor, no rashes or lesions noted. Pt requests DC home I discussed the physical exam findings, ancillary test results and final diagnoses with the patient. I answered all of the patient's questions. The patient was satisfied with the care received and felt comfortable with the discharge plan and treatment plan. The patient will call their primary care physician within 24 hours to arrange follow-up and will return to the Emergency Department with any new, persistent or worsening symptoms. ED Treatment Course - LABORATORY CBC & Chemistry Diagram: 10/10/18 04:25 10/10/18 04:25 - ADDITIONAL ORDERS Additional order review: Laboratory Results 10/10/18 10/10/18 04:25 04:05 Sodium 139 Potassium 3.8 Chloride 110 H Carbon Dioxide 24 Anion Gap 5 L BUN 23 H Creatinine 1.8 H Creat Clearance w eGFR 38.42 Random Glucose 97 Calcium 8.6 Phosphorus 4.0 Magnesium 2.1 Total Bilirubin 0.3 AST 35 ALT 52 Alkaline Phosphatase 71 Creatine Kinase 324 H Creatine Kinase Index 0.8 CK-MB (CK-2) 2.7 Troponin I < 0.02 Total Protein 7.4 Albumin 4.0 Urine Color Yellow Urine Appearance Clear Urine pH 5.0 D Ur Specific [place] 1.015 Urine Protein Negative Urine Glucose (UA) Negative Urine Ketones Negative Urine Blood Negative Urine Nitrite Negative Urine Bilirubin Negative Urine Urobilinogen 0.2 Ur Leukocyte Esterase Negative Salicylates < 1.7 L Acetaminophen 11.8 Alcohol, Quantitative < 3.0 10/10/18 04:25 RBC 3.23 L MCV 93.3 MCHC 34.1 RDW 16.9 H MPV 8.1 Neutrophils % 61.4 Lymphocytes % 23.7 D Monocytes % 12.2 H Eosinophils % 1.8 Basophils % 0.9 - Medications Given in the ED: ED Medications Discontinued Medications Generic Name Dose Route Start Last Admin Trade Name Freq PRN Reason Stop Dose Admin Acetaminophen 1,000 mg 10/10/18 05:13 10/10/18 05:38 Ofirmev Injection - IVPB 10/10/18 05:14 1,000 mg ONCE ONE Administration *DC/Admit/Observation/Transfer Diagnosis at time of Disposition: Knee pain, right Overdose of antipsychotic Qualifiers: Encounter type: initial encounter Injury intent: accidental or unintentional Qualified Code(s): T43.501A - Poisoning by unspecified antipsychotics and neuroleptics, accidental (unintentional), initial encounter - Discharge Dispostion Disposition: HOME Condition at time of disposition: Improved - Referrals - Patient Instructions - Post Discharge Activity
--- NOTE | 2018-10-10 17:57 | EKG ---
Test Reason : Blood Pressure : / mmHG Vent. Rate : 077 BPM Atrial Rate : 077 BPM P-R Int : 178 ms QRS Dur : 092 ms QT Int : 428 ms P-R-T Axes : 051 -40 029 degrees QTc Int : 484 ms NORMAL SINUS RHYTHM LEFT AXIS DEVIATION PROLONGED QT ABNORMAL ECG WHEN COMPARED WITH ECG OF 04-OCT-2018 10:46, NO SIGNIFICANT CHANGE WAS FOUND Confirmed by YAEL CONNER MD ([id number]) on 10/10/2018 5:57:06 PM Referred By: Confirmed By:YAEL CONNER MD
== END 2018-10-10 11:28 | disposition home or self-care (01) ==
LOC: JER 03:24 → UNDOADMOB 04:44 → JERBED 04:44 → JER 11:28
PROC: 3E033GC Introduction of Other Therapeutic Substance into Peripheral Vein, Percutaneous Approach (ICD-10-PCS; principal; 2018-10-10)
PROC: 3E033NZ Introduction of Analgesics, Hypnotics, Sedatives into Peripheral Vein, Percutaneous Approach (ICD-10-PCS; 2018-10-10)
DX: T43.591A Poisoning by other antipsychotics and neuroleptics, accidental (unintentional), initial encounter (principal); T43.021A Poisoning by tetracyclic antidepressants, accidental (unintentional), initial encounter; Y92.038 Other place in apartment as the place of occurrence of the external cause; M25.561 Pain in right knee; G89.29 Other chronic pain; I48.91 Unspecified atrial fibrillation; Z79.01 Long term (current) use of anticoagulants; D64.9 Anemia, unspecified; J45.909 Unspecified asthma, uncomplicated; J44.9 Chronic obstructive pulmonary disease, unspecified; L40.9 Psoriasis, unspecified; G25.81 Restless legs syndrome; G40.909 Epilepsy, unspecified, not intractable, without status epilepticus; F20.9 Schizophrenia, unspecified
CPT/HCPCS: 36415; 80053; 80307; 81003; 82550; 82553; 83735; 84100; 84484; 85025; 93005; 93010; 96365; 96366; 96375; 99283-25; J0131; J7030

== ENCOUNTER 2018-12-29 22:27 | Observation (INO) | payer OTHER ==
[2018-12-29 22:57] VITALS: BMI 29.0
--- NOTE | 2018-12-29 23:05 | PDOC ---
History of Present Illness - General Chief Complaint: Chest Pain Stated Complaint: CHEST PAIN Time Seen by Provider: 12/29/18 23:03 History Source: Patient Exam Limitations: Clinical Condition - History of Present Illness Initial Comments: Travis Max is a 63 yo M w a hx of CAD s/p recent cardiac stent, restless leg syndrome, a-fib on xarelto, COPD, psoriasis, seizure disorder, schizophrenia and chronic right knee pain from an injury sustained in youth who presents to the [facility] for chest pain which started earlier today. The patient states this morning while he was sitting down at rest he began feeling a pressure like pain on his chest that was associated with nausea but no emesis and profuse diaphoresis. The patient denies radiation, SOB, difficulty breathing , or back pain. He had a stent placed in april of 2018 at [facility]. PCP: Sharlene Mckenzie PSH: cholecystectomy, Stent Social Hx: Lives home alone, independent in his ADL. Denies smoking, drinking, or other substance usage. Allergies: Codeine Past History - Past Medical History Allergies/Adverse Reactions: Allergies Allergy/AdvReac Type Severity Reaction Status Date / Time codeine Allergy Verified 12/29/18 22:57 Home Medications: Ambulatory Orders Albuterol Sulfate [Proair Hfa] 2 puff IH Q6H PRN 08/02/17 Atorvastatin Calcium 20 mg PO HS 08/02/17 Budesonide/Formeterol Fumarate [SYMBICORT 80/4.5mcg -] 2 inh PO DAILY 08/02/17 Amiodarone HCl 200 mg PO DAILY 10/03/18 Aspirin [Aspirin EC] 81 mg PO DAILY 10/03/18 Clopidogrel Bisulfate [Plavix] 75 mg PO DAILY 10/03/18 Rivaroxaban [Xarelto -] 20 mg PO DAILY 10/03/18 levETIRAcetam [Keppra -] 500 mg PO TID 10/03/18 Acetaminophen [Tylenol .Regular Strength -] 650 mg PO Q6H PRN tablet 10/06/18 Albuterol 2.5/Ipratropium 0.5 [Duoneb -] 1 amp NEB Q6H PRN #120 amp 10/06/18 Budesonide/Formeterol Fumarate [SYMBICORT 80/4.5mcg -] 2 puff IH BID #2 inhaler 10/06/18 Gabapentin 300 mg PO TID #90 capsule 10/06/18 Levothyroxine [Synthroid -] 25 mcg PO DAILY@0700 #30 tablet 10/06/18 Metoprolol Tartrate [Lopressor -] 50 mg PO BID #60 tablet 10/06/18 Mirtazapine [Remeron -] 15 mg PO HS #30 tablet 10/06/18 Pramipexole Dihydrochloride [Mirapex -] 0.25 mg PO TID #90 tablet 10/06/18 Quetiapine Fumarate [Seroquel -] 200 mg PO HS #30 tablet 10/06/18 Triamcinolone 0.5% Cream [Aristocort 0.5% Cream -] 1 applic TP BID #90 tube 09/21 levETIRAcetam [Keppra -] 500 mg PO BID #60 tablet 10/06/18 Anemia: Yes Asthma: Yes Cardiac Disorders: Yes (AF) COPD: Yes CHF: Yes GI Disorders: Yes Seizures: Yes Thyroid Disease: No (Denies) - Surgical History Abdominal Surgery: Yes (Gall Bladder) Cardiac Surgery: Yes - Immunization History Immunization Up to Date: No - Suicide/Smoking/Psychosocial Hx Smoking History: Never smoked Have you smoked in the past 12 months: No Number of Cigarettes Smoked Daily: 10 If you are a former smoker, when did you quit?: 10YRS Information on smoking cessation initiated: No Hx Alcohol Use: Yes Drug/Substance Use Hx: No Substance Use Type: None Hx Substance Use Treatment: No Review of Systems - Review of Systems Able to Perform ROS?: Yes Comments:: CONSTITUTIONAL: Absent: fever, no chills, no fatigue EYES: Absent: visual changes ENT: Absent: ear pain, no sore throat CARDIOVASCULAR: Present: Chest pain Absent: no palpitations RESPIRATORY: Absent: cough, no SOB GI: Present: Nausea Absent: abdominal pain, no vomiting, no constipation, no diarrhea GENITOURINARY: Absent: dysuria, no frequency, no hematuria MUSKULOSKELETAL: Absent: back pain, no arthralgia, no myalgia SKIN: Present: rash NEURO: Absent: headache *Physical Exam - Vital Signs Last Vital Signs Temp Pulse Resp BP Pulse Ox 98.2 F 81 16 127/64 98 12/29/18 22:27 12/29/18 22:27 12/29/18 22:27 12/29/18 22:27 12/29/18 22:27 - Physical Exam Comments: GENERAL: malodorous scent. Not well kept. No apparent distress. HEENT: Normocephalic, atraumatic. PERRL, EOM intact. CARDIOVASCULAR: Normal S1, S2. Regular rate and rhythm. PULMONARY: No evidence of respiratory distress. Lungs clear to auscultation bilaterally. No wheezing, rales or rhonchi. ABDOMEN: Soft, non-distended, non-tender. EXTREMITIES: Normal ROM in all four extremities. No gross deformities. SKIN: Warm, dry. Diffuse psoriatic lesions all over his body. NEUROLOGICAL: No focal neurological deficits. Heart Score/ECG Review - History History: Moderately suspicious - Electrocardiogram EKG: Normal - Age Age: 45-65 - Risk Factors Risk Factors Heart Score: Yes Hx Hypercholesterolemia, Yes Hx Hypertension, Yes Hx Diabetes, Yes Positive family hx of cardiac disease, Yes Hx Obesity Based on the list above the patient has:: >/=3 risk factors or Hx atherosclerotic disease - Troponin Troponin: </= normal limit - Score Heart Score - Total: 4 - ECG Intrepretation Rhythm: Regular Rhythm - [place]: Normal - ST and T Early Repolarization: No Non Specific ST-T Wave changes: No - ECG Impressions Normal ECG: Yes Non-specific ST Elevation: No Ischemic Changes: No ED Treatment Course - LABORATORY CBC & Chemistry Diagram: 12/29/18 23:20 12/29/18 23:20 Medical Decision Making - Medical Decision Making Travis Max is a 63 yo M w a hx of CAD s/p recent cardiac stent, restless leg syndrome, a-fib on xarelto, COPD, psoriasis, seizure disorder, schizophrenia and chronic right knee pain from an injury sustained in youth who presents to the [facility] for chest pain which started earlier today. The patient states this morning while he was sitting down at rest he began feeling a pressure like pain on his chest that was associated with nausea but no emesis and profuse diaphoresis. The patient denies radiation, SOB, difficulty breathing , or back pain. He had a stent placed in april of 2018 at [facility]. Vital Signs Temp Pulse Resp BP Pulse Ox 98.2 F 81 16 127/64 98 12/29/18 22:27 12/29/18 22:27 12/29/18 22:27 12/29/18 22:27 12/29/18 22:27 DDx IBNLT: ACS/AL, angina, arrhtyhmia, electrolyte/metabolic disturbance, MSK chest pain/costochondritis, PE Plan: Labs, urine, EKG, CXR, admit to [facility] for chest pain. CBC,CMP WBC 3.2 K/mm3 (4.0-10.0) L 12/29/18 23:20 RBC 3.73 M/mm3 (4.00-5.60) L 12/29/18 23:20 Hgb 10.9 GM/dL (11.7-16.9) L 12/29/18 23:20 Hct 33.2 % (35.4-49) L 12/29/18 23:20 MCV 88.9 fl (80-96) 12/29/18 23:20 MCH 29.3 pg (25.7-33.7) 12/29/18 23:20 MCHC 32.9 g/dl (32.0-35.9) 12/29/18 23:20 RDW 15.5 % (11.9-15.9) 12/29/18 23:20 Plt Count 93 K/MM3 (134-434) L 12/29/18 23:20 MPV 8.2 fl (7.5-11.1) 12/29/18 23:20 Absolute Neuts (auto) 2.5 K/mm3 (1.5-8.0) 12/29/18 23:20 Neutrophils % 77.5 % (42.8-82.8) D 12/29/18 23:20 Lymphocytes % 12.3 % (8-40) D 12/29/18 23:20 Monocytes % 8.9 % (3.8-10.2) 12/29/18 23:20 Eosinophils % 1.0 % (0-4.5) 12/29/18 23:20 Basophils % 0.3 % (0-2.0) 12/29/18 23:20 Nucleated RBC % 0 % (0-0) 12/29/18 23:20 Sodium 142 mmol/L (136-145) 12/29/18 23:20 Potassium 4.0 mmol/L (3.5-5.1) 12/29/18 23:20 Chloride 110 mmol/L (98-107) H 12/29/18 23:20 Carbon Dioxide 23 mmol/L (21-32) 12/29/18 23:20 Anion Gap 8 MMOL/L (8-16) 12/29/18 23:20 BUN 20.5 mg/dL (7-18) H 12/29/18 23:20 Creatinine 1.9 mg/dL (0.55-1.3) H 12/29/18 23:20 Est GFR (CKD-EPI)AfAm 42.84 12/29/18 23:20 Est GFR (CKD-EPI)NonAf 36.96 12/29/18 23:20 Random Glucose 95 mg/dL (74-106) 12/29/18 23:20 Calcium 8.8 mg/dL (8.5-10.1) 12/29/18 23:20 Magnesium 2.4 mg/dL (1.8-2.4) 12/29/18 23:20 Total Bilirubin 0.5 mg/dL (0.2-1) 12/29/18 23:20 AST 10 U/L (15-37) L 12/29/18 23:20 ALT 23 U/L (13-61) 12/29/18 23:20 Alkaline Phosphatase 74 U/L (45-117) 12/29/18 23:20 Creatine Kinase 51 U/L (26-308) 12/29/18 23:20 Troponin I < 0.02 ng/ml (0.00-0.05) 12/29/18 23:20 B-Natriuretic Peptide 380.7 pg/ml (5-125) H 12/29/18 23:20 Total Protein 7.8 g/dl (6.4-8.2) 12/29/18 23:20 Albumin 4.4 g/dl (3.4-5.0) 12/29/18 23:20 Will admit patient to telemtery Obs for chest pain and SHANNA *DC/Admit/Observation/Transfer Diagnosis at time of Disposition: Chest pain, SHANNA (acute kidney injury) - Discharge Dispostion Condition at time of disposition: Stable Decision to Admit order: Yes - Referrals Referrals: Sharlene Mckenzie NP [Primary Care Provider] - - Patient Instructions - Post Discharge Activity
[2018-12-29 23:28] LABS: BASO % 0.3 % (0-2.0); HEMATOCRIT 33.2 % (35.4-49); HEMOGLOBIN 10.9 GM/dL (11.7-16.9); LYMPH % 12.3 % (8-40); MCH 29.3 pg (25.7-33.7); MCHC 32.9 g/dl (32.0-35.9); MEAN CELL VOLUME 88.9 fl (80-96); MEAN PLT VOLUME 8.2 fl (7.5-11.1); MONO % 8.9 % (3.8-10.2); NEUT % 77.5 % (42.8-82.8); PLATELET COUNT 93 K/MM3 (134-434); RBC 3.73 M/mm3 (4.00-5.60); RDW 15.5 % (11.9-15.9); WHITE BLOOD COUNT 3.2 K/mm3 (4.0-10.0)
[2018-12-29 23:44] LABS: INR 1.15 (0.83-1.09); PROTHROMBIN TIME (PATIENT) 13.6 SEC (9.7-13.0)
[2018-12-29 23:53] LABS: ALBUMIN 4.4 g/dl (3.4-5.0); ALK PHOS 74 U/L (45-117); ANION GAP 8 MMOL/L (8-16); BILIRUBIN,TOTAL 0.5 mg/dL (0.2-1); BLOOD UREA NITROGEN 20.5 mg/dL (7-18); CALCIUM 8.8 mg/dL (8.5-10.1); CHLORIDE 110 mmol/L (98-107); CO2 23 mmol/L (21-32); CREATININE 1.9 mg/dL (0.55-1.3); GLUCOSE,RANDOM 95 mg/dL (74-106); MAGNESIUM 2.4 mg/dL (1.8-2.4); SGOT/AST 10 U/L (15-37); SGPT/ALT 23 U/L (13-61); SODIUM 142 mmol/L (136-145); TOT PROT 7.8 g/dl (6.4-8.2)
--- NOTE | 2018-12-30 01:46 | HP ---
Admitting History and Physical - Primary Care Physician PCP: Sharlene Mckenzie - Admission Chief Complaint: Chest Pain, Diaphoresis History of Present Illness: This is a 63 y/o man with a PMHx of CAD s/p Stent ([facility], 04/2018), RLS, Afib (Xarelto), COPD, Seizure Disorder, Schizophrenia, Psoriasis, Chronic R- knee pain. Who presents to the ED with left sided chest pain non radiating with diaphoresis started yesterday. Patient reports "not feeling well", he became diaphoretic and felt faint. He reports that his neighbor became concerned and called EMS. Patient denies chills, cough, GARCIA, palpitations, AP, vomiting, diarrhea, melena, hematochezia, hematuria, dysuria History Source: Patient Limitations to Obtaining History: Poor Historian - Past Medical History BEAN SNAPPER: Yes: Seizure Cardiovascular: Yes: AFIB Pulmonary: Yes: COPD Psych: Yes: Schizophrenia Musculoskeletal: Yes: Other (chronic right knee pain) - Past Surgical History Past Surgical History: Yes: Cholecystectomy, Stent - Smoking History Smoking history: Never smoked Have you smoked in the past 12 months: No Aproximately how many cigarettes per day: 10 If you are a former smoker, when did you quit?: 10YRS - Alcohol/Substance Use Hx Alcohol Use: Yes - Social History Usual Living Arrangement: Yes: Alone ADL: Independent History of Recent Travel: No Home Medications - Allergies Allergies/Adverse Reactions: Allergies Allergy/AdvReac Type Severity Reaction Status Date / Time codeine Allergy Verified 12/29/18 22:57 - Home Medications Home Medications: Ambulatory Orders Albuterol Sulfate [Proair Hfa] 2 puff IH Q6H PRN 08/02/17 Atorvastatin Calcium 20 mg PO HS 08/02/17 Amiodarone HCl 200 mg PO DAILY 10/03/18 Aspirin [Aspirin EC] 81 mg PO DAILY 10/03/18 Clopidogrel Bisulfate [Plavix] 75 mg PO DAILY 10/03/18 Rivaroxaban [Xarelto -] 20 mg PO DAILY 10/03/18 Acetaminophen [Tylenol .Regular Strength -] 650 mg PO Q6H PRN tablet 10/06/18 Albuterol 2.5/Ipratropium 0.5 [Duoneb -] 1 amp NEB Q6H PRN #120 amp 10/06/18 Budesonide/Formeterol Fumarate [SYMBICORT 80/4.5mcg -] 2 puff IH BID #2 inhaler 10/06/18 Gabapentin 300 mg PO TID #90 capsule 10/06/18 Levothyroxine [Synthroid -] 25 mcg PO DAILY@0700 #30 tablet 10/06/18 Metoprolol Tartrate [Lopressor -] 50 mg PO BID #60 tablet 10/06/18 Mirtazapine [Remeron -] 15 mg PO HS #30 tablet 10/06/18 Pramipexole Dihydrochloride [Mirapex -] 0.25 mg PO TID #90 tablet 10/06/18 Quetiapine Fumarate [Seroquel -] 200 mg PO HS #30 tablet 10/06/18 Triamcinolone 0.5% Cream [Aristocort 0.5% Cream -] 1 applic TP BID #90 tube 09/21 levETIRAcetam [Keppra -] 500 mg PO BID #60 tablet 10/06/18 Family Disease History - Family Disease History Family History: Unremarkable Review of Systems - Review of Systems Constitutional: reports: Diaphoresis Eyes: reports: No Symptoms HENT: reports: No Symptoms, Ocular Prosthesis Cardiovascular: reports: Chest Pain Respiratory: reports: No Symptoms Gastrointestinal: reports: No Symptoms Genitourinary: reports: No Symptoms Breasts: reports: No Symptoms Reported Musculoskeletal: reports: No Symptoms Integumentary: reports: Rash Neurological: reports: Other (Near Syncope) Endocrine: reports: No Symptoms Hematology/Lymphatic: reports: No Symptoms Psychiatric: reports: No Symptoms Physical Examination Vital Signs: Vital Signs Temperature 98.2 F 12/29/18 22:27 Pulse Rate 81 12/29/18 22:27 Respiratory Rate 16 12/29/18 22:27 Blood Pressure 127/64 12/29/18 22:27 O2 Sat by Pulse Oximetry (%) 98 12/29/18 22:27 Constitutional: Yes: Well Nourished, No Distress, Calm Eyes: Yes: WNL, Conjunctiva Clear, EOM Intact, PERRL HENT: Yes: WNL, Atraumatic, Normocephalic Neck: Yes: WNL, Supple, Trachea Midline Cardiovascular: Yes: Pulse Irregular, S1, S2 Respiratory: Yes: WNL, Regular, CTA Bilaterally Gastrointestinal: Yes: WNL, Normal Bowel Sounds, Soft Renal/: Yes: WNL Breast(s): Yes: WNL Musculoskeletal: Yes: WNL Extremities: Yes: WNL Edema: No Peripheral Pulses WNL: Yes Integumentary: Yes: Rash (plaque like lesions to upper arms, legs) Neurological: Yes: Alert, Confusion, Cran Nerves II-XII Intact ...Motor Strength: WNL Psychiatric: Yes: WNL, Alert, Oriented Labs: CBC, BMP 12/29/18 23:20 12/29/18 23:20 Laboratory Results - last 24 hr 12/29/18 12/29/18 12/29/18 23:20 23:20 23:20 WBC 3.2 L RBC 3.73 L Hgb 10.9 L Hct 33.2 L MCV 88.9 MCH 29.3 MCHC 32.9 RDW 15.5 Plt Count 93 L MPV 8.2 Absolute Neuts (auto) 2.5 Neutrophils % 77.5 D Lymphocytes % 12.3 D Monocytes % 8.9 Eosinophils % 1.0 Basophils % 0.3 Nucleated RBC % 0 PT with INR 13.60 H INR 1.15 H Sodium 142 Potassium 4.0 Chloride 110 H Carbon Dioxide 23 Anion Gap 8 BUN 20.5 H Creatinine 1.9 H Est GFR (CKD-EPI)AfAm 42.84 Est GFR (CKD-EPI)NonAf 36.96 Random Glucose 95 Calcium 8.8 Magnesium 2.4 Total Bilirubin 0.5 AST 10 L ALT 23 Alkaline Phosphatase 74 Creatine Kinase 51 Troponin I < 0.02 B-Natriuretic Peptide Total Protein 7.8 Albumin 4.4 12/29/18 23:20 WBC RBC Hgb Hct MCV MCH MCHC RDW Plt Count MPV Absolute Neuts (auto) Neutrophils % Lymphocytes % Monocytes % Eosinophils % Basophils % Nucleated RBC % PT with INR INR Sodium Potassium Chloride Carbon Dioxide Anion Gap BUN Creatinine Est GFR (CKD-EPI)AfAm Est GFR (CKD-EPI)NonAf Random Glucose Calcium Magnesium Total Bilirubin AST ALT Alkaline Phosphatase Creatine Kinase Troponin I B-Natriuretic Peptide 380.7 H Total Protein Albumin Intake & Output 12/27/18 12/28/18 12/29/18 12/30/18 23:59 23:59 23:59 23:59 Weight 81.647 kg Imaging - Results Chest X-ray: Image Reviewed EKG: Image Reviewed Problem List - Problems (1) Chest pain Assessment/Plan: r/o ACS HEART Score 4 Continue cardiac monitoring Serial Enzymes Appreciate Cardiology consult Echo in am Will give Asa and continue Chest Xray image- no infiltrate no effusion EKG- NSR no ST or TWI Code(s): R07.9 - CHEST PAIN, UNSPECIFIED (2) CAD (coronary artery disease) Assessment/Plan: Continue Asa, BB Will have day team verify with home pharmacy Amiodarone and Clopidogrel- patient is a poor historian. EKG- reviewed Code(s): I25.10 - ATHSCL HEART DISEASE OF [place] CORONARY ARTERY W/O ANG PCTRS (3) Afib Assessment/Plan: [id number] 3 Continue Xarelto, BB Code(s): I48.91 - UNSPECIFIED ATRIAL FIBRILLATION (4) COPD (chronic obstructive pulmonary disease) Assessment/Plan: stable No acute flare Continue Spiriva Duonebs prn O2 Code(s): J44.9 - CHRONIC OBSTRUCTIVE PULMONARY DISEASE, UNSPECIFIED (5) Seizure disorder Assessment/Plan: Stable No active seizure activity Continue Keppra Seizure Precautions f/u with Neurology in outpatient- missed recent appointment per pt Code(s): G40.909 - EPILEPSY, UNSP, NOT INTRACTABLE, WITHOUT STATUS EPILEPTICUS (6) Schizophrenia Assessment/Plan: Stable Continue Seroquel, Remeron Code(s): F20.9 - SCHIZOPHRENIA, UNSPECIFIED (7) Restless leg syndrome Assessment/Plan: Stable Continue Will have day team verify with pts home pharmacy if still on Gabapentin and Pramipexole. Was in home med listed in [employer], pt could not confirm Code(s): G25.81 - RESTLESS LEGS SYNDROME (8) Psoriasis Code(s): L40.9 - PSORIASIS, UNSPECIFIED Assessment/Plan This is a 63 y/o man with a PMHx of cAD s/p Stent ([place], 04/2018), Afib ( on Xarelto), COPD, Seizure Disorder, Schizophrenia, RLS, Chronic R- Knee Pain, Psoriasis. Placed in Telemetry Observation for Chest Pain r/o ACS for further evaluation of their emergent condition. Plan: See Problem List FEN Po fluids Replete lytes prn Low Na Diet DVT ppx OOB SCDs Continue Xarelto Dispo: Observation Visit type - Emergency Visit Emergency Visit: Yes ED Registration Date: 12/29/18 Care time: The patient presented to the Emergency Department on the above date and was hospitalized for further evaluation of their emergent condition. - New Patient This patient is new to me today: Yes Date on this admission: 12/30/18 - Critical Care Critical Care patient: No
--- NOTE | 2018-12-30 02:34 | PDOC ---
Documentation entered by Nanci Arora SCRIBE, acting as scribe for Norma Garsia DO. Norma Garsia DO: This documentation has been prepared by the radha, Nanci Arora SCRIBE, under my direction and personally reviewed by me in its entirety. I confirm that the documentation accurately reflects all work, treatment, procedures, and medical decision making performed by me. Attending Attestation - Resident Resident Name: Travis Person - ED Attending Attestation I have performed the following: I have examined & evaluated the patient, The case was reviewed & discussed with the resident, I agree w/resident's findings & plan - HPI HPI: 12/29/18 23:43 The patient is a 63 year old male, with a significant PMH of chronic right knee pain, restless leg syndrome, a-fib (on xarelto), COPD, psoriasis, recent stent ( 04/22), CHF, seizure disorder and schizophrenia who presents to the emergency department [facility] from home with upper chest pain since this afternoon. The patient states he was at rest at the sudden onset of his chest pain. The patient states he endorsed multiple episodes of nausea and sweats since this morning. The patient denies shortness of breath, headache and dizziness. Denies fever, chills, vomiting, diarrhea and constipation. Denies dysuria, frequency, urgency and hematuria. Allergies: Codeine Past surgical history: cholecystectomy, Gallbladder removal Social history: occasional alcohol use. PCP: Sharlene Hernández - Physicial Exam PE: 12/29/18 23:43 Agree with resident exam. - Medical Decision Making 12/30/18 02:33 63-year-old male with chest pain and history of CAD with stents EKG shows no acute ST segment elevations Plan for observation on medical service for serial enzymes
[2018-12-30] MEDS ORDERED: ALBUTEROL SO4 2.5/IPRATROPIUM 0.5 INH SOL 3 ML VIAL.NEB. NEB PRN (03:18)
[2018-12-30] MEDS ORDERED: ASPIRIN 81 MG CHEWABLE TABLETS PO ONE (03:18)
[2018-12-30] MEDS ORDERED: levETIRAcetam 500 MG TABLET (FP) PO ONE ×2 (04:27→10:41)
[2018-12-30] MEDS ORDERED: ASPIRIN 81 MG CHEWABLE TABLETS ONE (04:27)
[2018-12-30] MEDS: levETIRAcetam 500 MG TABLET (FP) PO SCH ×2 (05:15→10:30)
[2018-12-30 05:48] LABS: BASO % 0.5 % (0-2.0); EOS % 1.1 % (0-4.5); HEMATOCRIT 31.9 % (35.4-49); HEMOGLOBIN 10.6 GM/dL (11.7-16.9); LYMPH % 19.4 % (8-40); MCH 29.3 pg (25.7-33.7); MCHC 33.3 g/dl (32.0-35.9); MEAN PLT VOLUME 8.1 fl (7.5-11.1); MONO % 10.9 % (3.8-10.2); NEUT % 68.1 % (42.8-82.8); PLATELET COUNT 106 K/MM3 (134-434); RBC 3.62 M/mm3 (4.00-5.60); RDW 15.3 % (11.9-15.9); WHITE BLOOD COUNT 3.7 K/mm3 (4.0-10.0)
[2018-12-30 05:53] VITALS: TEMP 99.1
[2018-12-30 06:13] LABS: BLOOD UREA NITROGEN 22.2 mg/dL (7-18); CALCIUM 8.7 mg/dL (8.5-10.1); CREATININE 1.8 mg/dL (0.55-1.3); MAGNESIUM 2.5 mg/dL (1.8-2.4); POTASSIUM 4.5 mmol/L (3.5-5.1)
[2018-12-30 06:15] LABS: CHOLESTEROL 130 mg/dL (50-200); HDL CHOLESTEROL 41 mg/dL (40-60); TRIGLYCERIDES 183 mg/dL (0-150)
[2018-12-30] MEDS ORDERED: PRAMIPEXOLE DIHYDROCHLORIDE 0.25 MG TABLET PO SCH (06:30)
[2018-12-30] MEDS ORDERED: GABAPENTIN 300 MG CAPSULE (FP) PO SCH (06:30)
[2018-12-30] MEDS ORDERED: LEVOTHYROXINE NA 25 MCG TABLET (FP) ONE (06:32)
[2018-12-30] MEDS ORDERED: GABAPENTIN 100 MG CAPSULE (FP) ONE (06:33)
[2018-12-30] MEDS ORDERED: LEVOTHYROXINE NA 25 MCG TABLET (FP) PO SCH (07:00)
[2018-12-30 07:39] VITALS: BP 155/77; PULSE 72
[2018-12-30] MEDS ORDERED: BUDESONIDE/FORMETEROL FUMARATE 80/4.5 mcg INHALER IH SCH (10:00)
[2018-12-30] MEDS ORDERED: TRIAMCINOLONE ACET 0.5% CREAM 15 GM TUBE TP SCH (10:00)
[2018-12-30] MEDS ORDERED: METOPROLOL TARTRATE 50 MG TABLET (FP) PO SCH (10:00)
[2018-12-30] MEDS ORDERED: METOPROLOL TARTRATE 50 MG TABLET (FP) ONE (10:41)
--- NOTE | 2018-12-30 11:14 | PN ---
Progress Note, Physician Chief Complaint: Chest pain History of Present Illness: NAD Feels better Trops x 1 negative - Current Medication List Current Medications: Active Medications Albuterol/Ipratropium (Duoneb -) 1 amp NEB Q6H PRN PRN Reason: SHORTNESS OF BREATH Aspirin (Ecotrin -) 81 mg PO DAILY [facility] Atorvastatin Calcium (Lipitor -) 20 mg PO HS [facility] Budesonide/Formoterol Fumarate (Symbicort 80/4.5mcg -) 2 puff IH BID [facility] Gabapentin (Neurontin -) 300 mg PO TID [facility] Last Admin: 12/30/18 06:41 Dose: 300 mg Sodium Chloride (Normal Saline -) 1,000 mls @ 75 mls/hr IV ASDIR [facility] Levetiracetam (Keppra -) 500 mg PO BID [facility] Last Admin: 12/30/18 05:15 Dose: 500 mg Levothyroxine Sodium (Synthroid -) 25 mcg PO DAILY@0700 [facility] Last Admin: 12/30/18 06:42 Dose: 25 mcg Metoprolol Tartrate (Lopressor -) 50 mg PO BID [facility] Mirtazapine (Remeron -) 15 mg PO HS [facility] Pramipexole Dihydrochloride (Mirapex -) 0.25 mg PO TID [facility] Last Admin: 12/30/18 07:09 Dose: 0.25 mg Quetiapine Fumarate (Seroquel -) 200 mg PO HS [facility] Rivaroxaban (Xarelto) 20 mg PO DAILY@1800 [facility] Triamcinolone Acetonide (Aristocort 0.5% Cream -) 1 applic TP BID [facility] - Objective Vital Signs: Vital Signs Temperature 99.1 F 12/30/18 05:52 Pulse Rate 72 12/30/18 07:38 Respiratory Rate 15 12/30/18 07:38 Blood Pressure 155/77 12/30/18 07:38 O2 Sat by Pulse Oximetry (%) 96 12/30/18 07:38 Constitutional: Yes: Well Nourished, No Distress, Calm Cardiovascular: Yes: Regular Rate and Rhythm Respiratory: Yes: Regular Gastrointestinal: Yes: WNL Genitourinary: Yes: WNL Musculoskeletal: Yes: WNL Extremities: Yes: WNL Edema: No Peripheral Pulses WNL: Yes Neurological: Yes: Alert, Oriented Psychiatric: Yes: Alert, Oriented Labs: CBC, BMP 12/30/18 05:10 12/30/18 05:10 INR, PTT INR 1.15 (0.83-1.09) H 12/29/18 23:20 Problem List - Problems (1) Dehydration Assessment/Plan: -Start IVF -Nephrology consult -Baseline Cr 1.2 -Monitor trend Code(s): E86.0 - DEHYDRATION (2) SHANNA (acute kidney injury) Assessment/Plan: -Start IVF -Nephrology consult -Baseline Cr 1.2 -Monitor trend Code(s): N17.9 - ACUTE KIDNEY FAILURE, UNSPECIFIED (3) CAD (coronary artery disease) Assessment/Plan: -Continue statin, BB -Echo done -Cardiology consult Code(s): I25.10 - ATHSCL HEART DISEASE OF [place] CORONARY ARTERY W/O ANG PCTRS (4) Chest pain Assessment/Plan: -Atypical CP -Continue statin, BB -Echo done -Cardiology consult -unlikely ACS Code(s): R07.9 - CHEST PAIN, UNSPECIFIED (5) Schizophrenia Code(s): F20.9 - SCHIZOPHRENIA, UNSPECIFIED (6) Hypothyroidism Assessment/Plan: -Last TSH elevated -recheck thyroid profile -Adjust levothyroxine if needed Code(s): E03.9 - HYPOTHYROIDISM, UNSPECIFIED (7) Afib Assessment/Plan: -Rate controlled, chronic -Continue Xraelto Code(s): I48.91 - UNSPECIFIED ATRIAL FIBRILLATION Assessment/Plan see problem list
[2018-12-30] MEDS ORDERED: SODIUM CHLORIDE 1,000 ML IV SCH (11:15)
--- NOTE | 2018-12-30 12:24 | ECHO ---
Name: LANDON ARELLANO Exam:Adult Echocardiogram Study Date: 12/30/2018 08:03 AM Age: 63 yrs Reason For Study: Chest pain Height: 66 in Weight: 180 lb BSA: 1.9 m2 MMode/2D Measurements & Calculations IVSd: 1.1 cm Ao root diam: 3.6 cm LVIDd: 4.9 cm LA dimension: 3.7 cm LVIDs: 3.2 cm LVPWd: 0.90 cm EDV(Teich): 112.4 ml LVOT diam: 2.0 cm ESV(Teich): 41.7 ml LAV (MOD-bp): 71.9 ml Doppler Measurements & Calculations MV E max omar: 83.4 cm/sec Ao V2 max: 111.3 cm/sec MV A max omar: 110.1 cm/sec Ao max P.0 mmHg MV E/A: 0.76 MV dec time: 0.14 sec RHONDA(V,D): 2.8 cm2 LV V1 max P.9 mmHg MR max omar: 444.8 cm/sec LV V1 max: 98.5 cm/sec MR max P.4 mmHg PA V2 max: 116.7 cm/sec Med Peak E' Omar: 4.8 cm/sec PA max P.5 mmHg Med E/e': 17.4 Lat Peak E' Omar: 7.1 cm/sec Lat E/e': 11.8 PI Vmax: 100.4 cm/sec Procedure A complete two-dimensional transthoracic echocardiogram was performed (2D, M-mode, Doppler and color flow Doppler). Left Ventricle The left ventricular size, thickness and function are normal. The left ventricular ejection fraction is normal. Ejection Fraction = 55-60%. The left ventricular wall motion is normal. Right Ventricle The right ventricle is normal in size and function. Atria The left atrium is mildly dilated. Right atrial size is normal. Mitral Valve There is mild mitral regurgitation. Tricuspid Valve No tricuspid regurgitation. There was insufficient TR detected to calculate RV systolic pressure. Aortic Valve The aortic valve is trileaflet. No hemodynamically significant valvular aortic stenosis. No aortic regurgitation is present. Pulmonic Valve There is no pulmonic valvular regurgitation. Great Vessels The aortic root is normal size. Pericardium/Pleura There is no pericardial effusion. Interpretation Summary The left ventricular size, thickness and function are normal The right ventricle is normal in size and function. The left atrium is mildly dilated. There is mild mitral regurgitation. MD Karl Franks 12/30/2018 12:22 PM
--- NOTE | 2018-12-30 12:25 | CON.CARD ---
Consult - History of Present Illness History of Present Illness: pt left ama prior to being seen. 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 Cardio/Vascular: Yes: AFIB Pulmonary: Yes: COPD Psych: Yes: Schizophrenia Musculoskeletal: Yes: Other (chronic right knee pain) - Past Surgical History Past Surgical History: Yes: Cholecystectomy, Stent - Alcohol/Substance Use Hx Alcohol Use: Yes - Smoking History Smoking history: Never smoked Have you smoked in the past 12 months: No Aproximately how many cigarettes per day: 10 If you are a former smoker, when did you quit?: 10YRS - Social History ADL: Independent History of Recent Travel: No Home Medications - Allergies Allergies/Adverse Reactions: Allergies Allergy/AdvReac Type Severity Reaction Status Date / Time codeine Allergy Verified 12/29/18 22:57 - Home Medications Home Medications: Ambulatory Orders Albuterol Sulfate [Proair Hfa] 2 puff IH Q6H PRN 08/02/17 Atorvastatin Calcium 20 mg PO HS 08/02/17 Amiodarone HCl 200 mg PO DAILY 10/03/18 Aspirin [Aspirin EC] 81 mg PO DAILY 10/03/18 Clopidogrel Bisulfate [Plavix] 75 mg PO DAILY 10/03/18 Rivaroxaban [Xarelto -] 20 mg PO DAILY 10/03/18 Acetaminophen [Tylenol .Regular Strength -] 650 mg PO Q6H PRN tablet 10/06/18 Albuterol 2.5/Ipratropium 0.5 [Duoneb -] 1 amp NEB Q6H PRN #120 amp 10/06/18 Budesonide/Formeterol Fumarate [SYMBICORT 80/4.5mcg -] 2 puff IH BID #2 inhaler 10/06/18 Gabapentin 300 mg PO TID #90 capsule 10/06/18 Levothyroxine [Synthroid -] 25 mcg PO DAILY@0700 #30 tablet 10/06/18 Metoprolol Tartrate [Lopressor -] 50 mg PO BID #60 tablet 10/06/18 Mirtazapine [Remeron -] 15 mg PO HS #30 tablet 10/06/18 Pramipexole Dihydrochloride [Mirapex -] 0.25 mg PO TID #90 tablet 10/06/18 Quetiapine Fumarate [Seroquel -] 200 mg PO HS #30 tablet 10/06/18 Triamcinolone 0.5% Cream [Aristocort 0.5% Cream -] 1 applic TP BID #90 tube 09/21 levETIRAcetam [Keppra -] 500 mg PO BID #60 tablet 10/06/18 Vital Signs: Vital Signs Temperature 99.1 F 12/30/18 05:52 Pulse Rate 72 12/30/18 07:38 Respiratory Rate 15 12/30/18 07:38 Blood Pressure 155/77 12/30/18 07:38 O2 Sat by Pulse Oximetry (%) 96 12/30/18 07:38 - Other Data Labs, Other Data: CBC, BMP 12/30/18 05:10 12/30/18 05:10 INR, PTT INR 1.15 (0.83-1.09) H 12/29/18 23:20 Troponin, BNP 12/29/18 12/29/18 23:20 23:20 Troponin I < 0.02 B-Natriuretic Peptide 380.7 H Troponin, BNP 12/29/18 12/29/18 23:20 23:20 Troponin I < 0.02 B-Natriuretic Peptide 380.7 H
--- NOTE | 2018-12-30 13:36 | CONSULT ---
Consult Consult Specialty:: Nephrology Reason for Consultation:: SHANNA - History of Present Illness Chief Complaint: chest pain History of Present Illness: Pt is a 63 year old male with pmhx of ckd, cad, cardiac stents, a-fib, copd, psoriasis, epilepsy and schizophrenia who presents to the ER with chest pain. He was found to have elevated creatinine and I was called to evaluate him. He has CKD but is poorly compliant with follow up. He recently had stents placed. he denies shortness of breath. He denies hematuria or dysuria. he denies nsaid use. 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 Cardio/Vascular: Yes: AFIB Pulmonary: Yes: COPD Renal/: Yes: Renal Inusuff Psych: Yes: Schizophrenia Musculoskeletal: Yes: Other (chronic right knee pain) - Past Surgical History Past Surgical History: Yes: Cholecystectomy, Stent - Alcohol/Substance Use Hx Alcohol Use: Yes - Smoking History Smoking history: Never smoked Have you smoked in the past 12 months: No Aproximately how many cigarettes per day: 10 If you are a former smoker, when did you quit?: 10YRS - Social History ADL: Independent History of Recent Travel: No Home Medications - Allergies Allergies/Adverse Reactions: Allergies Allergy/AdvReac Type Severity Reaction Status Date / Time codeine Allergy Verified 12/29/18 22:57 - Home Medications Home Medications: Ambulatory Orders Albuterol Sulfate [Proair Hfa] 2 puff IH Q6H PRN 08/02/17 Atorvastatin Calcium 20 mg PO HS 08/02/17 Amiodarone HCl 200 mg PO DAILY 10/03/18 Aspirin [Aspirin EC] 81 mg PO DAILY 10/03/18 Clopidogrel Bisulfate [Plavix] 75 mg PO DAILY 10/03/18 Rivaroxaban [Xarelto -] 20 mg PO DAILY 10/03/18 Acetaminophen [Tylenol .Regular Strength -] 650 mg PO Q6H PRN tablet 10/06/18 Albuterol 2.5/Ipratropium 0.5 [Duoneb -] 1 amp NEB Q6H PRN #120 amp 10/06/18 Budesonide/Formeterol Fumarate [SYMBICORT 80/4.5mcg -] 2 puff IH BID #2 inhaler 10/06/18 Gabapentin 300 mg PO TID #90 capsule 10/06/18 Levothyroxine [Synthroid -] 25 mcg PO DAILY@0700 #30 tablet 10/06/18 Metoprolol Tartrate [Lopressor -] 50 mg PO BID #60 tablet 10/06/18 Mirtazapine [Remeron -] 15 mg PO HS #30 tablet 10/06/18 Pramipexole Dihydrochloride [Mirapex -] 0.25 mg PO TID #90 tablet 10/06/18 Quetiapine Fumarate [Seroquel -] 200 mg PO HS #30 tablet 10/06/18 Triamcinolone 0.5% Cream [Aristocort 0.5% Cream -] 1 applic TP BID #90 tube 09/21 levETIRAcetam [Keppra -] 500 mg PO BID #60 tablet 10/06/18 Family Disease History - Family Disease History Family History: Denies Review of Systems - Review of Systems Constitutional: reports: Malaise Eyes: reports: No Symptoms HENT: reports: No Symptoms Neck: reports: No Symptoms Cardiovascular: reports: Chest Pain Respiratory: reports: No Symptoms Gastrointestinal: reports: No Symptoms Genitourinary: reports: No Symptoms Musculoskeletal: reports: No Symptoms Integumentary: reports: No Symptoms Neurological: reports: No Symptoms Endocrine: reports: No Symptoms Hematology/Lymphatic: reports: No Symptoms Psychiatric: reports: No Symptoms Physical Exam Vital Signs: Vital Signs Temperature 99.1 F 12/30/18 05:52 Pulse Rate 72 12/30/18 07:38 Respiratory Rate 15 12/30/18 07:38 Blood Pressure 155/77 12/30/18 07:38 O2 Sat by Pulse Oximetry (%) 96 12/30/18 07:38 Constitutional: Yes: Calm Eyes: Yes: Conjunctiva Clear HENT: Yes: Atraumatic Neck: Yes: Supple Cardiovascular: Yes: S1, S2 Respiratory: Yes: CTA Bilaterally Gastrointestinal: Yes: Soft Renal/: Yes: WNL Musculoskeletal: Yes: WNL Edema: Yes Edema: LLE: Trace, RLE: Trace Integumentary: Yes: Other (psoriasis) Neurological: Yes: Oriented Psychiatric: Yes: Oriented Labs: CBC, BMP 12/30/18 05:10 12/30/18 05:10 Imaging - Results Chest X-ray: Report Reviewed Problem List - Problems (1) CKD (chronic kidney disease) Code(s): N18.9 - CHRONIC KIDNEY DISEASE, UNSPECIFIED (2) Afib Code(s): I48.91 - UNSPECIFIED ATRIAL FIBRILLATION (3) CAD (coronary artery disease) Code(s): I25.10 - ATHSCL HEART DISEASE OF [place] CORONARY ARTERY W/O ANG PCTRS (4) Psoriasis Code(s): L40.9 - PSORIASIS, UNSPECIFIED Assessment/Plan Selected Entries 12/30/18 12/30/18 05:52 07:38 Blood Pressure 133/83 155/77 [Right Arm] Laboratory Tests 12/29/18 12/29/18 12/30/18 23:20 23:20 05:10 Hgb 10.9 L 10.6 L Sodium Potassium Chloride Carbon Dioxide Anion Gap BUN 20.5 H Creatinine 1.9 H 12/30/18 05:10 Hgb Sodium 140 Potassium 4.5 Chloride 110 H Carbon Dioxide 24 Anion Gap 6 L BUN 22.2 H Creatinine 1.8 H Impression 1. SHANNA 2. Seizure disorder 3. Afib (Xarelto) 4. Anemia 5. COPD 6. GERD 7. Anxiety/depression 8. HLD 9. ckd 10. cad 11. 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
--- NOTE | 2018-12-30 13:38 | EKG ---
Test Reason : Blood Pressure : / mmHG Vent. Rate : 065 BPM Atrial Rate : 065 BPM P-R Int : 166 ms QRS Dur : 080 ms QT Int : 456 ms P-R-T Axes : 046 -15 023 degrees QTc Int : 474 ms NORMAL SINUS RHYTHM NORMAL ECG WHEN COMPARED WITH ECG OF 10-OCT-2018 03:51, NO SIGNIFICANT CHANGE WAS FOUND Confirmed by MIKALA BORREGO MD ([id number]) on 12/30/2018 1:38:37 PM Referred By: Confirmed By:MIKALA BORREGO MD
[2018-12-30] MEDS ORDERED: RIVAROXABAN 20 MG TABLET PO SCH (18:00)
[2018-12-30] MEDS ORDERED: ATORVASTATIN CA 20 MG TABLET (FP) PO SCH (22:00)
[2018-12-30] MEDS ORDERED: MIRTAZAPINE 15 MG TABLET (FP) PO SCH (22:00)
[2018-12-30] MEDS ORDERED: QUEtiapine FUMARATE 200 MG TABLET PO SCH (22:00)
[2018-12-31] MEDS ORDERED: ASPIRIN COATED 81 MG TABLET.EC PO SCH (10:00)
== END 2018-12-30 13:28 | disposition left against medical advice (07) ==
LOC: JER 22:27 → JERBED 12-30 00:37
PROVIDERS: ADMIT Family Medicine; ATTEND Family Medicine
PROC: 3E0337Z Introduction of Electrolytic and Water Balance Substance into Peripheral Vein, Percutaneous Approach (ICD-10-PCS; principal; 2018-12-30)
DX: R07.9 Chest pain, unspecified (principal); N17.9 Acute kidney failure, unspecified; N18.9 Chronic kidney disease, unspecified; E86.0 Dehydration; E03.9 Hypothyroidism, unspecified; I25.10 Atherosclerotic heart disease of native coronary artery without angina pectoris; I48.91 Unspecified atrial fibrillation; J44.9 Chronic obstructive pulmonary disease, unspecified; G40.909 Epilepsy, unspecified, not intractable, without status epilepticus; F20.9 Schizophrenia, unspecified; G25.81 Restless legs syndrome; L40.9 Psoriasis, unspecified; M25.561 Pain in right knee; G89.29 Other chronic pain; Z88.5 Allergy status to narcotic agent; Z95.5 Presence of coronary angioplasty implant and graft; Z79.01 Long term (current) use of anticoagulants; Z79.84 Long term (current) use of oral hypoglycemic drugs
CPT/HCPCS: 36415; 71046-TC-FY; 80048; 80053; 80061; 82550; 82607; 83721; 83735; 83880; 84100; 84484; 85025; 85610; 86850; 86900; 86901; 93005; 93010; 93306-TC; 99282-25; G0378; J7030

== ENCOUNTER 2019-05-25 14:23 | Inpatient (IN) | payer OTHER ==
--- NOTE | 2019-05-25 15:19 | EKG ---
Test Reason : Blood Pressure : / mmHG Vent. Rate : 129 BPM Atrial Rate : 122 BPM P-R Int : 000 ms QRS Dur : 088 ms QT Int : 286 ms P-R-T Axes : 000 -33 033 degrees QTc Int : 418 ms POOR DATA QUALITY, INTERPRETATION MAY BE ADVERSELY AFFECTED ATRIAL FIBRILLATION WITH RAPID VENTRICULAR RESPONSE LEFT AXIS DEVIATION PULMONARY DISEASE PATTERN SEPTAL INFARCT , AGE UNDETERMINED Confirmed by GOYO BAILEY, NATALIA ([id number]) on 05/25/2019 3:19:15 PM Referred By: Confirmed By:NATALIA NANCE MD
--- NOTE | 2019-05-25 15:40 | PDOC ---
History of Present Illness - General Chief Complaint: Shortness of Breath Stated Complaint: Weakness Time Seen by Provider: 05/25/19 14:48 - History of Present Illness Initial Comments: Mr. Colunga is a 63y/o man with a pmhx CHF, Afib (on xarelto), COPD, asthma, schizophrenia, and CAD (s/p stent placement) presenting with a 2 day history of worsening LE edema. Per the patient, 2 days ago he noticed his legs were more swollen and he had pain going up and down stairs. Today he went to his psychiatrist's office who noticed the pt having difficulty walking and had significant LE edema, the psychiatrist recommended the pt come to the ED. He hasn't noted anything that helps or hurts his sx and states that the swelling has been getting worse and now he has trouble walking any distance at all. Pt denies any pain in his legs at rest. The Pt also endorses L sided CP for the past day which he states is present both and rest and with exertion. He describes the pain as "sharp" and stated he took an extra baby aspirin which he felt helped. The CP is not wose on inspiration and not reproducible to palpation. On ROS the pt endorses nausea with 4 episodes of vomiting which the pt attributed to eating bad ham, he endorses CP, heart palpitations, chills, and LE edema. Pt denies SOB, feeling feverish, orthopnea, diarrhea, constipation , abdominal pain, dysuria, hematuria, numbness or tingling in his hands/ feet. 05/25/19 15:40 Past History - Travel Traveled outside of the country in the last 30 days: No Close contact w/someone who was outside of country & ill: No - Past Medical History Allergies/Adverse Reactions: Allergies Allergy/AdvReac Type Severity Reaction Status Date / Time codeine Allergy Verified 05/25/19 14:41 Home Medications: Ambulatory Orders Albuterol Sulfate [Proair Hfa] 2 puff IH Q6H PRN 08/02/17 Atorvastatin Calcium 20 mg PO HS 08/02/17 Amiodarone HCl 200 mg PO DAILY 10/03/18 Aspirin [Aspirin EC] 81 mg PO DAILY 10/03/18 Clopidogrel Bisulfate [Plavix] 75 mg PO DAILY 10/03/18 Rivaroxaban [Xarelto -] 20 mg PO DAILY 10/03/18 Acetaminophen [Tylenol .Regular Strength -] 650 mg PO Q6H PRN tablet 10/06/18 Albuterol 2.5/Ipratropium 0.5 [Duoneb -] 1 amp NEB Q6H PRN #120 amp 10/06/18 Budesonide/Formeterol Fumarate [SYMBICORT 80/4.5mcg -] 2 puff IH BID #2 inhaler 10/06/18 Gabapentin 300 mg PO TID #90 capsule 10/06/18 Levothyroxine [Synthroid -] 25 mcg PO DAILY@0700 #30 tablet 10/06/18 Metoprolol Tartrate [Lopressor -] 50 mg PO BID #60 tablet 10/06/18 Mirtazapine [Remeron -] 15 mg PO HS #30 tablet 10/06/18 Pramipexole Dihydrochloride [Mirapex -] 0.25 mg PO TID #90 tablet 10/06/18 Quetiapine Fumarate [Seroquel -] 200 mg PO HS #30 tablet 10/06/18 levETIRAcetam [Keppra -] 500 mg PO BID #60 tablet 10/06/18 Anemia: Yes Asthma: Yes Cardiac Disorders: Yes (AF) COPD: Yes CHF: Yes Diabetes: Yes GI Disorders: Yes HTN: Yes Hypercholesterolemia: Yes Seizures: Yes Thyroid Disease: No (Denies) - Surgical History Abdominal Surgery: Yes (Gall Bladder) Cardiac Surgery: Yes (cardiac stent placed 2018 @ [facility]) - Family Medical History Family Hx Psychiatric Problems: Mother (schizophrenia) - Immunization History Immunization Up to Date: No - Psycho Social/Smoking Cessation Hx Smoking History: Former smoker Have you smoked in the past 12 months: No Number of Cigarettes Smoked Daily: 10 If you are a former smoker, when did you quit?: 10YRS Information on smoking cessation initiated: No Hx Alcohol Use: Yes Drug/Substance Use Hx: No Substance Use Type: None Hx Substance Use Treatment: No Review of Systems - Review of Systems Able to Perform ROS?: Yes Constitutional: Yes: Chills, Other (weight gain). No: Fever, Loss of Appetite, Malaise, Weakness HEENTM: No: Recent change in vision, Nose Congestion, Hearing Loss, Throat Pain Respiratory: No: Cough, Orthopnea, Shortness of Breath, SOB with Exertion, SOB at Rest Cardiac (ROS): Yes: Chest Pain, Edema, Palpitations. No: Lightheadedness, Syncope ABD/GI: Yes: Nausea, Vomiting. No: Diarrhea, Poor Appetite, Poor Fluid Intake, Rectal Bleeding : No: Burning, Dysuria, Flank Pain Musculoskeletal: No: Joint Pain, Joint Swelling Integumentary: Yes: Rash, Sweating. No: Pruritus Neurological: No: Numbness, Paresthesia Psychiatric: Yes: Depression Endocrine: Yes: Unexplained Weight Gain. No: Excessive Sweating, Flushing, Unexplained Weight Loss Hematologic/Lymphatic: No: Blood Clots, Easy Bruising, Bleeding Diathesis *Physical Exam - Vital Signs Last Vital Signs Temp Pulse Resp BP Pulse Ox 98.2 F 105 H 22 H 140/98 95 05/25/19 14:39 05/25/19 14:39 05/25/19 14:39 05/25/19 14:39 05/25/19 14:39 - Physical Exam General Appearance: Yes: Disheveled, Obese. No: Apparent Distress HEENT: positive: EOMI, PARAS, Normal Voice, Pharynx Normal Neck: positive: Trachea midline, Supple. negative: Lymphadenopathy (R), Lymphadenopathy (L) Respiratory/Chest: positive: Lungs Clear, Normal Breath Sounds, Rales (at the bases bilaterally). negative: Respiratory Distress, Accessory Muscle Use, Rhonchi, Wheezing Cardiovascular: positive: S1, S2, Tachycardia, Irregularly Irregular. negative : JVD, Murmur Gastrointestinal/Abdominal: positive: Normal Bowel Sounds, Soft. negative: Tender Musculoskeletal: negative: CVA Tenderness Extremity: positive: Pedal Edema (2+ bilateral pitting edema in the LE) Integumentary: positive: Normal Color, Dry, Rash (psoriatic rash on extensor surfaces of UE and LE in addition to around umbilicus) ED Treatment Course - LABORATORY CBC & Chemistry Diagram: 05/25/19 15:47 05/25/19 15:47 Medical Decision Making - Medical Decision Making Mr. Colunga is a 63y/o man with a pmhx CHF, Afib (on xarelto), COPD, asthma, schizophrenia, and CAD (s/p stent placement) presenting with a 2 day history of worsening LE edema also found to be in Afib on admission. Most likely cause of his sx is CHF exacerbation but IA, or COPD exacerbation should also be ruled out. Will obtain - CBC - EKG - CMP - Coags - BNP - Trop - CXR - UA 05/25/19 17:09 05/25/19 17:18 - EKG with Afib+ RVR, LAD, pulmonary diseae pattern. Rate 129, QTc 418 - order Cardizem 20 IVpush 05/25/19 17:26 - BNP 2260, will order cardizem 30 PO and Lasix 40 IVpush - would like to admit pt for tx of CHF exacerbation and afib in RVR Discharge - Discharge Information Problems reviewed: Yes Clinical Impression/Diagnosis: Afib Qualifiers: Atrial fibrillation type: unspecified Qualified Code(s): I48.91 - Unspecified atrial fibrillation CHF exacerbation Qualifiers: Heart failure type: unspecified Qualified Code(s): I50.9 - Heart failure, unspecified Condition: Stable - Admission Yes - Follow up/Referral Referrals: Sharlene Mckenzie TONAL REGULATOR [Primary Care Provider] - - Patient Discharge Instructions - Post Discharge Activity
[2019-05-25 15:55] LABS: BASO % 0.5 % (0-2.0); EOS % 0.8 % (0-4.5); HEMATOCRIT 28.2 % (35.4-49); HEMOGLOBIN 8.6 GM/dL (11.7-16.9); LYMPH % 7.3 % (8-40); MCH 23.2 pg (25.7-33.7); MCHC 30.4 g/dl (32.0-35.9); MEAN CELL VOLUME 76.4 fl (80-96); MEAN PLT VOLUME 8.2 fl (7.5-11.1); MONO % 6.2 % (3.8-10.2); NEUT % 85.2 % (42.8-82.8); PLATELET COUNT 169 K/MM3 (134-434); RBC 3.69 M/mm3 (4.00-5.60); RDW 17.3 % (11.9-15.9); WHITE BLOOD COUNT 7.3 K/mm3 (4.0-10.0)
[2019-05-25] MEDS ORDERED: dilTIAZem HCL 50 MG/10 ML - 10 ML VIAL IVPUSH ONE (16:01)
--- NOTE | 2019-05-25 16:06 | PDOC ---
Attending Attestation - Resident Resident Name: Violetta Swan - ED Attending Attestation I have performed the following: I have examined & evaluated the patient, The case was reviewed & discussed with the resident, I agree w/resident's findings & plan, Exceptions are as noted - HPI HPI: 05/25/19 16:02 Patient 63-year-old male with history of atrial fibrillation on Xarelto, COPD, CHF, schizophrenia who presents with increased unintentional weight gain over the past several months, worsening lower extremity edema, palpitations, shortness of breath at rest and with minimal exertion. Patient was seen by his outpatient psychiatrist who referred him to the ER for further evaluation and treatment. - Physicial Exam PE: 05/25/19 16:03 Patient is awake and alert, obese, tachycardic, in no significant distress Normocephalic and atraumatic No JVD Poor dentition Irregularly irregular Bibasilar rhonchi +3 pitting edema to the lower extremities bilaterally with intermittent erythroderma and lichenification - Medical Decision Making Patient 63-year-old male with multiple comorbidities presents to the ER with atrial fibrillation with RVR and worsening CHF. Will control ventricular rate with Cardizem. Will administer IV Lasix. Will rule out CT. Will obtain CBC/ CMP/cardiac profile/chest x-ray. Likely admission.
[2019-05-25] MEDS ORDERED: dilTIAZem HCL 125 MG/25 ML - 25 ML VIAL ONE (16:07)
[2019-05-25 16:08] LABS: INR 1.75 (0.83-1.09); PROTHROMBIN TIME (PATIENT) 20.8 SEC (9.7-13.0)
[2019-05-25 16:10] LABS: ACTIVATED PTT 41.8 SECONDS (25.2-36.5)
[2019-05-25 16:22] LABS: N-TERMINAL BNP 2260.2 pg/ml (5-125)
[2019-05-25 16:24] LABS: ALBUMIN 3.7 g/dl (3.4-5.0); BILIRUBIN,TOTAL 0.3 mg/dL (0.2-1); BLOOD UREA NITROGEN 15.3 mg/dL (7-18); CALCIUM 8.8 mg/dL (8.5-10.1); CREATININE 1.6 mg/dL (0.55-1.3); POTASSIUM 4.5 mmol/L (3.5-5.1); TOT PROT 6.9 g/dl (6.4-8.2)
[2019-05-25 16:30] LABS: URINE APPEARANCE CLEAR; URINE BILIRUBIN NEGATIVE (NEGATIVE); URINE COLOR YELLOW; URINE GLUCOSE (UA) NEGATIVE (NEGATIVE); URINE KETONE NEGATIVE (NEGATIVE); URINE LEUK ESTERASE NEGATIVE (NEGATIVE); URINE NITRITE NEGATIVE (NEGATIVE); URINE PROTEIN TRACE (NEGATIVE); URINE UROBILINOGEN 0.2 mg/dL (0.2-1.0)
[2019-05-25] MEDS ORDERED: FUROSEMIDE 40 MG/4 ML INJECTABLE VIAL IVPUSH ONE (16:32)
[2019-05-25] MEDS ORDERED: dilTIAZem HCL 30 MG TABLET (FP) ONE (16:32)
[2019-05-25] MEDS ORDERED: dilTIAZem HCL 30 MG TABLET (FP) PO ONE (16:32)
[2019-05-25] MEDS ORDERED: FUROSEMIDE 40 MG/4 ML INJECTABLE VIAL ONE (16:32)
--- NOTE | 2019-05-25 21:04 | HP ---
Admitting History and Physical - Primary Care Physician PCP: Dr. [email or web address] - Admission Chief Complaint: SOB, weakness History of Present Illness: 63 y/o man with a pmhx CHF, HTN/HLD, Afib (on xarelto), CAD (s/p stent placement ), COPD/Asthma, Anemia, Hypothyroidism, Seizures and schizophrenia, arrived to ER with complain worsening LE edema for past 2 days, (legs more swollen and pain going up and down stairs). Patient has difficulty walking due to significant b/l LE edema. Patient also complains of L sided CP for the past day which he states is present both and rest and with exertion. He describes the pain as "sharp" and stated he took an extra baby aspirin which he felt helped. Patient also complains of nausea with 4 episodes of vomiting which the pt attributed to eating bad ham, he endorses CP, heart palpitations, chills, and LE edema. Pt denies SOB, fever, orthopnea, diarrhea, constipation, abdominal pain, dysuria, hematuria, numbness or tingling in his hands/ feet. 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 Cardiovascular: Yes: AFIB, CAD, HTN, Hyperlipdemia Pulmonary: Yes: Asthma, COPD Renal/: Yes: Renal Inusuff Psych: Yes: Depression, Schizophrenia Endocrine: Yes: Hypothyroidism - Past Surgical History Past Surgical History: Yes: Cholecystectomy, Stent - Smoking History Smoking history: Former smoker Have you smoked in the past 12 months: No Aproximately how many cigarettes per day: 10 If you are a former smoker, when did you quit?: 10YRS - Alcohol/Substance Use Hx Alcohol Use: Yes History of Substance Use: reports: None - Social History ADL: Independent History of Recent Travel: No Home Medications - Allergies Allergies/Adverse Reactions: Allergies Allergy/AdvReac Type Severity Reaction Status Date / Time codeine Allergy Verified 05/25/19 14:41 - Home Medications Home Medications: Ambulatory Orders Albuterol Sulfate [Proair Hfa] 2 puff IH Q6H PRN 08/02/17 Atorvastatin Calcium 20 mg PO HS 08/02/17 Amiodarone HCl 200 mg PO DAILY 10/03/18 Aspirin [Aspirin EC] 81 mg PO DAILY 10/03/18 Clopidogrel Bisulfate [Plavix] 75 mg PO DAILY 10/03/18 Rivaroxaban [Xarelto -] 20 mg PO DAILY 10/03/18 Acetaminophen [Tylenol .Regular Strength -] 650 mg PO Q6H PRN tablet 10/06/18 Albuterol 2.5/Ipratropium 0.5 [Duoneb -] 1 amp NEB Q6H PRN #120 amp 10/06/18 Budesonide/Formeterol Fumarate [SYMBICORT 80/4.5mcg -] 2 puff IH BID #2 inhaler 10/06/18 Gabapentin 300 mg PO TID #90 capsule 10/06/18 Levothyroxine [Synthroid -] 25 mcg PO DAILY@0700 #30 tablet 10/06/18 Metoprolol Tartrate [Lopressor -] 50 mg PO BID #60 tablet 10/06/18 Mirtazapine [Remeron -] 15 mg PO HS #30 tablet 10/06/18 Pramipexole Dihydrochloride [Mirapex -] 0.25 mg PO TID #90 tablet 10/06/18 Quetiapine Fumarate [Seroquel -] 200 mg PO HS #30 tablet 10/06/18 levETIRAcetam [Keppra -] 500 mg PO BID #60 tablet 10/06/18 Family Medical History Family Hx Psychiatric Problems: Mother (schizophrenia) Review of Systems - Review of Systems Constitutional: reports: Chills, Unintentional Wgt. Loss Eyes: reports: No Symptoms HENT: reports: No Symptoms Neck: reports: No Symptoms Cardiovascular: reports: Chest Pain, Edema, Palpitations, Shortness of Breath Respiratory: reports: SOB, SOB on Exertion Gastrointestinal: reports: Nausea, Vomiting Genitourinary: reports: No Symptoms Musculoskeletal: reports: No Symptoms Integumentary: reports: No Symptoms Neurological: reports: No Symptoms Endocrine: reports: Excessive Sweating, Unexplained Weight Gain Hematology/Lymphatic: reports: No Symptoms Psychiatric: reports: Depression Physical Examination Vital Signs: Vital Signs Temperature 98.2 F 05/25/19 14:39 Pulse Rate 122 H 05/25/19 18:29 Respiratory Rate 17 05/25/19 18:29 Blood Pressure 122/67 05/25/19 18:29 O2 Sat by Pulse Oximetry (%) 95 05/25/19 18:29 Constitutional: Yes: No Distress, Calm, Obese Eyes: Yes: Conjunctiva Clear, EOM Intact HENT: Yes: Atraumatic, Normocephalic Neck: Yes: Supple, Trachea Midline Cardiovascular: Yes: Regular Rate and Rhythm, S1, S2 Respiratory: Yes: Regular, CTA Bilaterally Gastrointestinal: Yes: Normal Bowel Sounds, Soft Musculoskeletal: Yes: WNL Extremities: Yes: WNL Edema: Yes Edema: LLE: 2+, RLE: 2+ Peripheral Pulses WNL: Yes Neurological: Yes: Alert, Oriented Labs: CBC, BMP 05/25/19 15:47 05/25/19 15:47 Imaging - Results Chest X-ray: Report Reviewed (Mild CHF exacerbation) EKG: Report Reviewed (- EKG with Afib+ RVR, LAD, pulmonary diseae pattern. Rate 129, QTc 418) Other: Report Reviewed (- BNP 2260) Problem List - Problems (1) Atrial fibrillation with RVR Code(s): I48.91 - UNSPECIFIED ATRIAL FIBRILLATION (2) CHF exacerbation Code(s): I50.9 - HEART FAILURE, UNSPECIFIED Qualifiers: Heart failure type: unspecified Qualified Code(s): I50.9 - Heart failure, unspecified (3) Anemia Code(s): D64.9 - ANEMIA, UNSPECIFIED (4) HLD (hyperlipidemia) Code(s): E78.5 - HYPERLIPIDEMIA, UNSPECIFIED (5) HTN (hypertension) Code(s): I10 - ESSENTIAL (PRIMARY) HYPERTENSION (6) Depression Code(s): F32.9 - MAJOR DEPRESSIVE DISORDER, SINGLE EPISODE, UNSPECIFIED (7) Afib Code(s): I48.91 - UNSPECIFIED ATRIAL FIBRILLATION Qualifiers: Atrial fibrillation type: unspecified Qualified Code(s): I48.91 - Unspecified atrial fibrillation (8) CAD (coronary artery disease) Code(s): I25.10 - ATHSCL HEART DISEASE OF [place] CORONARY ARTERY W/O ANG PCTRS (9) COPD (chronic obstructive pulmonary disease) Code(s): J44.9 - CHRONIC OBSTRUCTIVE PULMONARY DISEASE, UNSPECIFIED (10) Hypothyroidism Code(s): E03.9 - HYPOTHYROIDISM, UNSPECIFIED (11) Schizophrenia Code(s): F20.9 - SCHIZOPHRENIA, UNSPECIFIED (12) Seizure disorder Code(s): G40.909 - EPILEPSY, UNSP, NOT INTRACTABLE, WITHOUT STATUS EPILEPTICUS Assessment/Plan 63 y/o man with a pmhx CHF, HTN/HLD, Afib (on xarelto), CAD (s/p stent placement ), COPD/Asthma, Anemia, Hypothyroidism, Seizures and schizophrenia, arrived to ER with complain worsening LE edema for past 2 days, CP, Palpitation, N/V and chills. # Acute CHF exacerbation - BNP: 2260.2 - CXR: Mild CHF - In ED given 40 IV push - continue with Lasix 40 mg BID IV push - o2 via NC - Fluid restriction - Monitor I & O - daily weights - follow up cardiology in AM # A-Fib with RVR - EKG with Afib+ RVR, LAD, pulmonary diseae pattern. Rate 129, QTc 418 - In ED given Cardizem 20 IV push - Monitor HR closely -Rivaroxaban 20 mg PO DAILY -Metoprolol Tartrate 50 mg PO BID -Amiodarone HCl 200 mg PO DAILY # COPD -Albuterol Sulfate 2 puff IH Q6H PRN -Budesonide/Formeterol Fumarate 2 puff IH BID -monitor SPo2 closely # HTN /HLD/CAD Atorvastatin Calcium 20 mg PO HS Clopidogrel Bisulfate 75 mg PO DAILY - monitor BP # Hypothyrodism -Levothyroxine 25 mcg PO DAILY --follow up TSH # Seizure -levETIRAcetam 500 mg PO BID # Schizophrenia # Depression -Mirtazapine 15 mg PO HS -Quetiapine Fumarate 200 mg PO HS # Rest leg Syndrome -Gabapentin 300 mg PO TID -Pramipexole Dihydrochloride 0.25 mg PO TID # Anemia - hgb: 8.6 - monitor H/H FEN Po fluids Replete lytes prn Low Na Diet DVT ppx OOB SCDs Continue Xarelto Visit type - Emergency Visit Emergency Visit: Yes ED Registration Date: 05/25/19 Care time: The patient presented to the Emergency Department on the above date and was hospitalized for further evaluation of their emergent condition. - New Patient This patient is new to me today: Yes Date on this admission: 05/25/19 - Critical Care Critical Care patient: No
[2019-05-25] MEDS ORDERED: ALBUTEROL SO4 2.5/IPRATROPIUM 0.5 INH SOL 3 ML VIAL.NEB. NEB PRN (21:32)
[2019-05-25] MEDS ORDERED: ALBUTEROL SO4 8 GM HFA INHALER IH PRN (21:32)
[2019-05-25] MEDS ORDERED: ACETAMINOPHEN 325 MG TABLET (FP) PO PRN (21:32)
[2019-05-25 22:12] VITALS: BMI 31.0
[2019-05-25] MEDS: BUDESONIDE/FORMETEROL FUMARATE 80/4.5 mcg INHALER IH SCH (23:06)
[2019-05-25] MEDS: MIRTAZAPINE 15 MG TABLET (FP) PO SCH (23:07)
[2019-05-25] MEDS: GABAPENTIN 300 MG CAPSULE (FP) PO SCH (23:07)
[2019-05-25] MEDS: PRAMIPEXOLE DIHYDROCHLORIDE 0.25 MG TABLET PO SCH (23:07)
[2019-05-25] MEDS: METOPROLOL TARTRATE 50 MG TABLET (FP) PO SCH (23:08)
[2019-05-25] MEDS: ATORVASTATIN CA 20 MG TABLET (FP) PO SCH (23:08)
[2019-05-25] MEDS: QUEtiapine FUMARATE 100 MG TABLET (FP) PO SCH (23:08)
[2019-05-25] MEDS: levETIRAcetam 500 MG TABLET (FP) PO SCH (23:08)
[2019-05-26] MEDS: PRAMIPEXOLE DIHYDROCHLORIDE 0.25 MG TABLET PO SCH ×3 (06:09→21:17)
[2019-05-26] MEDS: GABAPENTIN 300 MG CAPSULE (FP) PO SCH ×3 (06:09→21:16)
[2019-05-26] MEDS ORDERED: LEVOTHYROXINE NA 25 MCG TABLET (FP) PO SCH (07:00)
[2019-05-26 08:09] LABS: HEMATOCRIT 25.9 % (35.4-49); HEMOGLOBIN 8.1 GM/dL (11.7-16.9); MCH 24.1 pg (25.7-33.7); MCHC 31.3 g/dl (32.0-35.9); MEAN CELL VOLUME 76.8 fl (80-96); MEAN PLT VOLUME 7.9 fl (7.5-11.1); PLATELET COUNT 140 K/MM3 (134-434); RBC 3.38 M/mm3 (4.00-5.60); RDW 17.5 % (11.9-15.9); WHITE BLOOD COUNT 4.2 K/mm3 (4.0-10.0)
[2019-05-26 08:53] LABS: BLOOD UREA NITROGEN 17.9 mg/dL (7-18); CALCIUM 8.7 mg/dL (8.5-10.1); CREATININE 1.6 mg/dL (0.55-1.3); POTASSIUM 4.1 mmol/L (3.5-5.1)
[2019-05-26] MEDS ORDERED: CLOPIDOGREL BISULFATE 75 MG TABLET (FP) PO SCH (10:00)
[2019-05-26] MEDS ORDERED: PT OWN MED DRAWER 7, Y5N ONE ×2 (10:12→21:06)
[2019-05-26] MEDS: AMIODARONE HCL 200 MG TABLET (FP) PO SCH (10:43)
[2019-05-26] MEDS: METOPROLOL TARTRATE 50 MG TABLET (FP) PO SCH ×2 (10:43→21:17)
[2019-05-26] MEDS: levETIRAcetam 500 MG TABLET (FP) PO SCH ×2 (10:43→21:16)
[2019-05-26] MEDS: ASPIRIN COATED 81 MG TABLET.EC PO SCH (10:43)
[2019-05-26] MEDS: BUDESONIDE/FORMETEROL FUMARATE 80/4.5 mcg INHALER IH SCH ×2 (10:44→21:17)
[2019-05-26] MEDS ORDERED: FUROSEMIDE 40 MG/4 ML INJECTABLE VIAL IVPUSH ONE (12:33)
--- NOTE | 2019-05-26 12:35 | PN ---
Progress Note, Physician Chief Complaint: patient feeling better no CP no SOB lying comfortably in bed - Current Medication List Current Medications: Active Medications Acetaminophen (Tylenol -) 650 mg PO Q6H PRN PRN Reason: PAIN OR FEVER Albuterol Sulfate (Ventolin Hfa Inhaler -) 2 puff IH Q6H PRN PRN Reason: SHORTNESS OF BREATH Amiodarone HCl (Cordarone -) 200 mg PO DAILY [facility] Last Admin: 05/26/19 10:43 Dose: 200 mg Aspirin (Ecotrin -) 81 mg PO DAILY [facility] Last Admin: 05/26/19 10:43 Dose: 81 mg Atorvastatin Calcium (Lipitor -) 20 mg PO [facility] Last Admin: 05/25/19 23:08 Dose: 20 mg Budesonide/Formoterol Fumarate (Symbicort 80/4.5mcg -) 2 puff IH BID [facility] Last Admin: 05/26/19 10:44 Dose: 2 puff Clopidogrel Bisulfate (Plavix -) 75 mg PO DAILY [facility] Last Admin: 05/26/19 10:43 Dose: 75 mg Gabapentin (Neurontin -) 300 mg PO TID [facility] Last Admin: 05/26/19 06:09 Dose: 300 mg Levetiracetam (Keppra -) 500 mg PO BID [facility] Last Admin: 05/26/19 10:43 Dose: 500 mg Levothyroxine Sodium (Synthroid -) 50 mcg PO DAILY@0700 [facility] Metoprolol Tartrate (Lopressor -) 50 mg PO BID [facility] Last Admin: 05/26/19 10:43 Dose: Not Given Mirtazapine (Remeron -) 15 mg PO [facility] Last Admin: 05/25/19 23:07 Dose: 15 mg Pramipexole Dihydrochloride (Mirapex -) 0.25 mg PO TID [facility] Last Admin: 05/26/19 06:09 Dose: 0.25 mg Quetiapine Fumarate (Seroquel -) 200 mg PO [facility] Last Admin: 05/25/19 23:08 Dose: 200 mg Rivaroxaban (Xarelto) 20 mg PO DAILY@1800 [facility] - Objective Vital Signs: Vital Signs Temperature 97.9 F 05/26/19 05:00 Pulse Rate 104 H 05/26/19 05:00 Respiratory Rate 20 05/26/19 05:00 Blood Pressure 91/68 05/26/19 05:00 O2 Sat by Pulse Oximetry (%) 99 05/25/19 21:37 Constitutional: Yes: Calm Cardiovascular: Yes: Regular Rate and Rhythm, S1, S2 Respiratory: Yes: Diminished Gastrointestinal: Yes: Normal Bowel Sounds, Soft Edema: Yes Neurological: Yes: Alert, Oriented Labs: CBC, BMP 05/26/19 07:30 05/26/19 07:30 INR, PTT INR 1.75 (0.83-1.09) H 05/25/19 15:47 Problem List - Problems (1) Afib Assessment/Plan: amiodarone xarelto and lopressor Code(s): I48.91 - UNSPECIFIED ATRIAL FIBRILLATION Qualifiers: Atrial fibrillation type: unspecified Qualified Code(s): I48.91 - Unspecified atrial fibrillation (2) CHF exacerbation Assessment/Plan: iv lasix Code(s): I50.9 - HEART FAILURE, UNSPECIFIED Qualifiers: Heart failure type: unspecified Qualified Code(s): I50.9 - Heart failure, unspecified (3) HLD (hyperlipidemia) Assessment/Plan: lipitor Code(s): E78.5 - HYPERLIPIDEMIA, UNSPECIFIED (4) Hypothyroid Assessment/Plan: tsh galileo elevated synthroid dose increased Code(s): E03.9 - HYPOTHYROIDISM, UNSPECIFIED (5) CKD (chronic kidney disease) Assessment/Plan: renal consult iv lasix Code(s): N18.9 - CHRONIC KIDNEY DISEASE, UNSPECIFIED (6) Restless leg syndrome Assessment/Plan: on mirapex Code(s): G25.81 - RESTLESS LEGS SYNDROME
--- NOTE | 2019-05-26 12:45 | CONSULT ---
Consult Consult Specialty:: Nephrology Reason for Consultation:: ckd and fluid overload - History of Present Illness Chief Complaint: lower ext edema History of Present Illness: Pt is a 63 year old male with pmhx of chf, htn, hld, a-fib, cad, copd, asthma, anemai, epilepsy and schizophrenia who presents to the ER with worsening lower ext edema. He also complains of shortness of breath with ambulation. he denies dysuria or hematuria. I was called to evaluate him for elevated public health specialist. he does have history of CKD. He denies fevers or chills. He did have a few episodes of vomiting. Pt says that he was not on diuretics at home. 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 Cardio/Vascular: Yes: AFIB, CAD, HTN, Hyperlipdemia Pulmonary: Yes: Asthma, COPD Renal/: Yes: Renal Inusuff Psych: Yes: Depression, Schizophrenia Musculoskeletal: Yes: Other (chronic right knee pain) Endocrine: Yes: Hypothyroidism - Past Surgical History Past Surgical History: Yes: Cholecystectomy, Stent - Alcohol/Substance Use Hx Alcohol Use: Yes History of Substance Use: reports: None - Smoking History Smoking history: Former smoker Have you smoked in the past 12 months: No Aproximately how many cigarettes per day: 10 If you are a former smoker, when did you quit?: 10YRS - Social History ADL: Independent History of Recent Travel: No Home Medications - Allergies Allergies/Adverse Reactions: Allergies Allergy/AdvReac Type Severity Reaction Status Date / Time codeine Allergy Verified 05/25/19 14:41 - Home Medications Home Medications: Ambulatory Orders Albuterol Sulfate [Proair Hfa] 2 puff IH Q6H PRN 08/02/17 Atorvastatin Calcium 20 mg PO HS 08/02/17 Amiodarone HCl 200 mg PO DAILY 10/03/18 Aspirin [Aspirin EC] 81 mg PO DAILY 10/03/18 Clopidogrel Bisulfate [Plavix] 75 mg PO DAILY 10/03/18 Rivaroxaban [Xarelto -] 20 mg PO DAILY 10/03/18 Acetaminophen [Tylenol .Regular Strength -] 650 mg PO Q6H PRN tablet 10/06/18 Albuterol 2.5/Ipratropium 0.5 [Duoneb -] 1 amp NEB Q6H PRN #120 amp 10/06/18 Budesonide/Formeterol Fumarate [SYMBICORT 80/4.5mcg -] 2 puff IH BID #2 inhaler 10/06/18 Gabapentin 300 mg PO TID #90 capsule 10/06/18 Levothyroxine [Synthroid -] 25 mcg PO DAILY@0700 #30 tablet 10/06/18 Metoprolol Tartrate [Lopressor -] 50 mg PO BID #60 tablet 10/06/18 Mirtazapine [Remeron -] 15 mg PO HS #30 tablet 10/06/18 Pramipexole Dihydrochloride [Mirapex -] 0.25 mg PO TID #90 tablet 10/06/18 Quetiapine Fumarate [Seroquel -] 200 mg PO HS #30 tablet 10/06/18 levETIRAcetam [Keppra -] 500 mg PO BID #60 tablet 10/06/18 Family Medical History Family History: Denies Review of Systems - Review of Systems Constitutional: reports: Malaise Eyes: reports: No Symptoms HENT: reports: No Symptoms Neck: reports: No Symptoms Cardiovascular: reports: Edema, Palpitations, Shortness of Breath Respiratory: reports: SOB on Exertion Gastrointestinal: reports: Vomiting Genitourinary: reports: No Symptoms Musculoskeletal: reports: No Symptoms Integumentary: reports: No Symptoms Neurological: reports: No Symptoms Endocrine: reports: No Symptoms Hematology/Lymphatic: reports: No Symptoms Physical Exam Vital Signs: Vital Signs Temperature 97.9 F 05/26/19 05:00 Pulse Rate 104 H 05/26/19 05:00 Respiratory Rate 20 05/26/19 05:00 Blood Pressure 91/68 05/26/19 05:00 O2 Sat by Pulse Oximetry (%) 99 05/25/19 21:37 Constitutional: Yes: Calm Eyes: Yes: Conjunctiva Clear HENT: Yes: Atraumatic Cardiovascular: Yes: S1, S2 Respiratory: Yes: On Nasal O2 Gastrointestinal: Yes: Soft Renal/: Yes: WNL Musculoskeletal: Yes: WNL Edema: Yes Edema: LLE: 3+, RLE: 3+ Integumentary: Yes: Venous Stasis Changes Neurological: Yes: Oriented Psychiatric: Yes: Oriented Labs: CBC, BMP 05/26/19 07:30 05/26/19 07:30 Imaging - Results Chest X-ray: Report Reviewed Problem List - Problems (1) Afib Code(s): I48.91 - UNSPECIFIED ATRIAL FIBRILLATION Qualifiers: Atrial fibrillation type: unspecified Qualified Code(s): I48.91 - Unspecified atrial fibrillation (2) Anemia Code(s): D64.9 - ANEMIA, UNSPECIFIED (3) CHF exacerbation Code(s): I50.9 - HEART FAILURE, UNSPECIFIED Qualifiers: Heart failure type: unspecified Qualified Code(s): I50.9 - Heart failure, unspecified (4) CKD (chronic kidney disease) Code(s): N18.9 - CHRONIC KIDNEY DISEASE, UNSPECIFIED Assessment/Plan Current Medications Generic Name Dose Route Start Last Admin Trade Name Freq PRN Reason Stop Dose Admin Acetaminophen 650 mg 05/25/19 21:32 Tylenol - PO Q6H PRN PAIN OR FEVER Albuterol Sulfate 2 puff 05/25/19 21:32 Ventolin Hfa Inhaler - IH Q6H PRN SHORTNESS OF BREATH Amiodarone HCl 200 mg 05/26/19 10:00 05/26/19 10:43 Cordarone - PO 200 mg DAILY [facility] Administration Aspirin 81 mg 05/26/19 10:00 05/26/19 10:43 Ecotrin - PO 81 mg DAILY [facility] Administration Atorvastatin Calcium 20 mg 05/25/19 22:00 05/25/19 23:08 Lipitor - PO 20 mg HS [facility] Administration Budesonide/Formoterol Fumarate 2 puff 05/25/19 22:00 05/26/19 10:44 Symbicort 80/4.5mcg - IH 2 puff BID [facility] Administration Clopidogrel Bisulfate 75 mg 05/26/19 10:00 05/26/19 10:43 Plavix - PO 75 mg DAILY [facility] Administration Gabapentin 300 mg 05/25/19 22:00 05/26/19 06:09 Neurontin - PO 300 mg TID [facility] Administration Levetiracetam 500 mg 05/25/19 22:00 05/26/19 10:43 Keppra - PO 500 mg BID [facility] Administration Levothyroxine Sodium 50 mcg 05/27/19 07:00 Synthroid - PO DAILY@0700 [facility] Metoprolol Tartrate 50 mg 05/25/19 22:00 05/26/19 10:43 Lopressor - PO Not Given BID [facility] Mirtazapine 15 mg 05/25/19 22:00 05/25/19 23:07 Remeron - PO 15 mg HS [facility] Administration Pramipexole Dihydrochloride 0.25 mg 05/25/19 22:00 05/26/19 06:09 Mirapex - PO 0.25 mg TID [facility] Administration Quetiapine Fumarate 200 mg 05/25/19 22:00 05/25/19 23:08 Seroquel - PO 200 mg HS [facility] Administration Rivaroxaban 20 mg 05/26/19 18:00 Xarelto PO DAILY@1800 [facility] Impression 1. CKD 2. Seizure disorder 3. Afib (Xarelto) 4. Anemia 5. COPD 6. GERD 7. Anxiety/depression 8. HLD 9. CHF 10. fluid overload Plan - start lasix - monitor renal function - pt has ckd, public health specialist was 1.8 on last admission - avoid nsaids - daily weights - 2 grams sodium diet
--- NOTE | 2019-05-26 16:24 | CON.CARD ---
Consult Consult Specialty:: Cardiology Referred by:: Dr. Pedroza Reason for Consultation:: CHF, afib with rvr - History of Present Illness Chief Complaint: edema, chest pain History of Present Illness: 63 year old man with a pmh AFib on xarelto, HTN, HLD, CADs/p NSTEMI 04/2018 s/p PCI with NEGRO RCA 05/03/18 [facility] with no other sig residual CAD, Chronic diastolic CHF, COPD, Anemia, hypothyroid, seizures, schizophrenia admitted with progressively worsening edema, chest tightness. Pt found to be in volume overload with acute on chronic likely diastolic chf, AFib with RVR. Pt was last seen in the office 05/2018 at which time he stated that he could not afford to continue following with doctors and to get his medication due to financial reasons. this was discussed with financial support who was helping him. he did not follow up after that. pt seen and examined today in nad. states that he has been eating very badly lately. states he is feeling better since admission. no current chest pain or sob. no palpitations. Cardiac Cath [facility] 05/03/2018 1. Single vessel CAD - long and severe stenosis beginning at the pRCA extending into the dRCA 2. Normal LVEDP 3. No 4. 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 Cardio/Vascular: Yes: AFIB, CAD, CHF, HTN, Hyperlipdemia Pulmonary: Yes: Asthma, COPD Renal/: Yes: Renal Inusuff Psych: Yes: Depression, Schizophrenia Musculoskeletal: Yes: Other (chronic right knee pain) Endocrine: Yes: Hypothyroidism - Past Surgical History Past Surgical History: Yes: Cholecystectomy, Stent - Alcohol/Substance Use Hx Alcohol Use: Yes History of Substance Use: reports: None - Smoking History Smoking history: Former smoker Have you smoked in the past 12 months: No Aproximately how many cigarettes per day: 10 If you are a former smoker, when did you quit?: 10YRS - Social History ADL: Independent History of Recent Travel: No Home Medications - Allergies Allergies/Adverse Reactions: Allergies Allergy/AdvReac Type Severity Reaction Status Date / Time codeine Allergy Verified 05/25/19 14:41 - Home Medications Home Medications: Ambulatory Orders Albuterol Sulfate [Proair Hfa] 2 puff IH Q6H PRN 08/02/17 Atorvastatin Calcium 20 mg PO HS 08/02/17 Amiodarone HCl 200 mg PO DAILY 10/03/18 Aspirin [Aspirin EC] 81 mg PO DAILY 10/03/18 Clopidogrel Bisulfate [Plavix] 75 mg PO DAILY 10/03/18 Rivaroxaban [Xarelto -] 20 mg PO DAILY 10/03/18 Acetaminophen [Tylenol .Regular Strength -] 650 mg PO Q6H PRN tablet 10/06/18 Albuterol 2.5/Ipratropium 0.5 [Duoneb -] 1 amp NEB Q6H PRN #120 amp 10/06/18 Budesonide/Formeterol Fumarate [SYMBICORT 80/4.5mcg -] 2 puff IH BID #2 inhaler 10/06/18 Gabapentin 300 mg PO TID #90 capsule 10/06/18 Levothyroxine [Synthroid -] 25 mcg PO DAILY@0700 #30 tablet 10/06/18 Metoprolol Tartrate [Lopressor -] 50 mg PO BID #60 tablet 10/06/18 Mirtazapine [Remeron -] 15 mg PO HS #30 tablet 10/06/18 Pramipexole Dihydrochloride [Mirapex -] 0.25 mg PO TID #90 tablet 10/06/18 Quetiapine Fumarate [Seroquel -] 200 mg PO HS #30 tablet 10/06/18 levETIRAcetam [Keppra -] 500 mg PO BID #60 tablet 10/06/18 Review of Systems - Review of Systems Constitutional: reports: Malaise, Weakness. denies: No Symptoms, Chills, Diaphoresis, Fever, Lethargy, Loss of Appetite, Night Sweats, Unintentional Wgt. Loss, Other Eyes: denies: No Symptoms, Blind Spots, Blurred Vision, Double Vision, Eye Pain , Floaters, Photophobia, Recent Change in Vision, Other HENT: denies: No Symptoms, Difficult Swallowing, Ear Discharge, Ear Pain, Epistaxis, Gingival Bleeding, Hearing Loss, Mouth Swelling, Nasal Congestion, Ocular Prosthesis, Throat Pain, Toothache, Ringing in Ears, Other Neck: denies: No Symptoms, Decreased ROM, Lumps, Pain on Movement, Stiffness, Swollen Glands, Tenderness, Other Cardiovascular: reports: Chest Pain, Edema, Shortness of Breath. denies: No Symptoms, Palpitations, Other Respiratory: reports: Exercise Intolerance, Orthopnea, PND, SOB, SOB on Exertion. denies: No Symptoms, Cough, Hemoptysis, Snoring, Wheezing, Other Gastrointestinal: denies: No Symptoms, Abdominal Pain, Bloating, Constipation, Diarrhea, Dysphagia, Indigestion, Melena, Nausea, Rectal Bleeding, Vomiting, Vomiting Blood, Other Genitourinary: denies: No Symptoms, Burning, Discharge, Dysuria, Flank Pain, Frequency, Hematuria, Incontinence, Lesions, Menses, Pain, Testicular Mass, Testicular Pain, Testicular Swelling, Urgency, Vaginal Bleeding, Other Breasts: denies: No Symptoms Reported, See HPI, Breast Implants, Discharge from Nipple, Lumps, Pain, Skin Changes, Other Musculoskeletal: denies: No Symptoms, Back Pain, Crepitus, Decreased ROM, Extremity Pain, Joint Pain, Joint Swelling, Muscle Pain, Muscle Cramps, Muscle Weakness, Other Integumentary: denies: No Symptoms, Blister, Bruising, Change in Color, Eczema, Erythema, Incision, Lesions, Lump, Pallor, Pruritis, Rash, Wound, Other Neurological: denies: No Symptoms, Change in LOC, Change in Speech, Confusion, Dizziness, Headache, Incoordination, Numbness, Parasthesia, Pre-Existing Deficit , Seizure, Syncope, Tremors, Unsteady Gait, Weakness, Other Endocrine: denies: No Symptoms, Excessive Sweating, Flushing, Increased Hunger, Increased Thirst, Intolerance to Cold, Intolerance to Heat, Unexplained Weight Gain, Unexplained Weight Loss, Other Hematology/Lymphatic: denies: No Symptoms, Easily Bruised, Excessive Bleeding, Swollen Glands, Other Psychiatric: denies: No Symptoms, Altered Sleep Pattern, Anxiety, Depression, Hallucinations, Panic, Paranoia, Suicidal, Other - Risk Factors Known Risk Factors: Yes: Diabetes Mellitus, Hypercholesterolemia, Hypertension, Prior PA /Emb Stroke Vital Signs: Vital Signs Temperature 97.9 F 05/26/19 05:00 Pulse Rate 104 H 05/26/19 05:00 Respiratory Rate 20 05/26/19 05:00 Blood Pressure 91/68 05/26/19 05:00 O2 Sat by Pulse Oximetry (%) 99 05/25/19 21:37 Constitutional: Yes: No Distress, Calm Eyes: Yes: Conjunctiva Clear, EOM Intact, PERRL HENT: Yes: Atraumatic, Normocephalic Neck: Yes: Supple, Trachea Midline Respiratory: Yes: Regular, Diminished, On Nasal O2, Rales, Rhonchi, SOB. No: Wheezes Gastrointestinal: Yes: Normal Bowel Sounds, Soft. No: Distention, Tenderness Cardiovascular: Yes: Tachycardia, Pulse Irregular. No: Regular Rate and Rhythm , Bradycardia, Gallop, Rub, Varicosities JVD: No Carotid Bruit: No PMI: Non-Displaced Heart Sounds: Yes: S1, S2. No: Split S2, S3, S4, Clicks, Gallop, Rub, Bruit Murmur: No: Systolic Murmur, Diastolic Murmur Musculoskeletal: Yes: WNL Extremities: Yes: WNL Edema: Yes Edema: LLE: 1+, RLE: 1+ Peripheral Pulses WNL: Yes Peripheral Pulses: 2+ Left Doralis Pedis, 2+ Right Dorsalis Pedis Neurological: Yes: Alert, Oriented Psychiatric: Yes: Alert, Oriented - Other Data Labs, Other Data: CBC, BMP 05/26/19 07:30 05/26/19 07:30 INR, PTT INR 1.75 (0.83-1.09) H 05/25/19 15:47 afib with RVR 130bpm, lad, septal infarct Echo: Report Reviewed Imaging - Results Chest X-ray: Report Reviewed, Image Reviewed EKG: Report Reviewed, Image Reviewed Other: Report Reviewed, Image Reviewed (tele-afib with periods of RVR) Assessment/Plan 63 year old man with a pmh AFib on xarelto, HTN, HLD, CADs/p NSTEMI 04/2018 s/p PCI with NEGRO RCA 05/03/18 [facility] with no other sig residual CAD, Chronic diastolic CHF, COPD, Anemia, hypothyroid, seizures, schizophrenia admitted with progressively worsening edema, chest tightness. Pt found to be in volume overload with acute on chronic likely diastolic chf, AFib with RVR. Pt was last seen in the office 05/2018 at which time he stated that he could not afford to continue following with doctors and to get his medication due to financial reasons. this was discussed with financial support who was helping him. he did not follow up after that. pt seen and examined today in nad. states that he has been eating very badly lately. states he is feeling better since admission. no current chest pain or sob. no palpitations. Cardiac Cath [facility] 05/03/2018 1. Single vessel CAD - long and severe stenosis beginning at the pRCA extending into the dRCA 2. Normal LVEDP 3. No 4. Successful PCI of RCA with NEGRO x 2 Recommend DAPT and medical management of SIHD ECHO 12/30/18 Normal LV systolic function, normal RV Mild mr, mild tr No pericardial effusion Edema/sob/chest tightness-volume overload -suspect acute on chronic diastolic CHF -Need to confirm medication adherence as in the past pt was non-adherent with fup and likely could not afford medications either -admits to eating a very poor diet -CHF possibly precipitated by Afib with RVR -HR control -cont IV Lasix diuresis -monitor strict I/Os daily weights, bun/creat and electrolytes and replete as needed. CAD-NSTEMI 04/2018 s/p cardiac cath single vessel CAD RCA s/p NEGRO x 2 RCA -current chest pain/sob not c/w ACS -cardiac enzymes wnl -cont ASA 81mg daily -stop Plavix as >1 year post PCI and also on Xarelto -echo sj[facility] 12/30/18 showed normal LV/RV systolic function, no sig valvular abnl -cont metoprolol and lipitor -would not pursue further ischemic evaluation at this time. Pafib with rvr -cont amiodarone 200mg daily for now -cont metoprolol and uptitrate as needed for HR control -cont Xarelto 20mg daily -needs fup with EP -needs fup with PMD as on amio needs PFTs, TFTs LFTs monitored SW/corrections caseworker ramon
[2019-05-26] MEDS: RIVAROXABAN 20 MG TABLET PO SCH (17:55)
[2019-05-26] MEDS: QUEtiapine FUMARATE 100 MG TABLET (FP) PO SCH (21:16)
[2019-05-26] MEDS: MIRTAZAPINE 15 MG TABLET (FP) PO SCH (21:16)
[2019-05-26] MEDS: ATORVASTATIN CA 20 MG TABLET (FP) PO SCH (21:16)
[2019-05-27] MEDS: GABAPENTIN 300 MG CAPSULE (FP) PO SCH ×3 (06:37→21:39)
[2019-05-27] MEDS: PRAMIPEXOLE DIHYDROCHLORIDE 0.25 MG TABLET PO SCH ×3 (06:37→22:08)
[2019-05-27] MEDS: LEVOTHYROXINE NA 50 MCG TABLET (FP) PO SCH (06:37)
[2019-05-27 07:22] LABS: ALBUMIN 3.3 g/dl (3.4-5.0); BILIRUBIN,TOTAL 0.4 mg/dL (0.2-1); BLOOD UREA NITROGEN 23.4 mg/dL (7-18); CALCIUM 8.4 mg/dL (8.5-10.1); CREATININE 1.9 mg/dL (0.55-1.3); TOT PROT 6.4 g/dl (6.4-8.2)
[2019-05-27] MEDS: levETIRAcetam 500 MG TABLET (FP) PO SCH ×2 (10:32→21:39)
[2019-05-27] MEDS: METOPROLOL TARTRATE 50 MG TABLET (FP) PO SCH ×2 (10:32→21:39)
[2019-05-27] MEDS: AMIODARONE HCL 200 MG TABLET (FP) PO SCH (10:32)
[2019-05-27] MEDS: ASPIRIN COATED 81 MG TABLET.EC PO SCH (10:33)
[2019-05-27] MEDS: BUDESONIDE/FORMETEROL FUMARATE 80/4.5 mcg INHALER IH SCH ×2 (10:33→22:06)
[2019-05-27] MEDS: FUROSEMIDE 40 MG/4 ML INJECTABLE VIAL IVPUSH SCH (10:33)
--- NOTE | 2019-05-27 12:42 | PN ---
Progress Note, Physician History of Present Illness: Pt seen and examined at bedside. He is awake and alert. he feels that his brething is improved. - Current Medication List Current Medications: Active Medications Acetaminophen (Tylenol -) 650 mg PO Q6H PRN PRN Reason: PAIN OR FEVER Albuterol Sulfate (Ventolin Hfa Inhaler -) 2 puff IH Q6H PRN PRN Reason: SHORTNESS OF BREATH Amiodarone HCl (Cordarone -) 200 mg PO DAILY [facility] Last Admin: 05/27/19 10:32 Dose: 200 mg Aspirin (Ecotrin -) 81 mg PO DAILY [facility] Last Admin: 05/27/19 10:33 Dose: 81 mg Atorvastatin Calcium (Lipitor -) 20 mg PO [facility] Last Admin: 05/26/19 21:16 Dose: 20 mg Budesonide/Formoterol Fumarate (Symbicort 80/4.5mcg -) 2 puff IH BID [facility] Last Admin: 05/27/19 10:33 Dose: 2 puff Furosemide (Lasix Injection -) 40 mg IVPUSH DAILY [facility] Last Admin: 05/27/19 10:33 Dose: 40 mg Gabapentin (Neurontin -) 300 mg PO TID [facility] Last Admin: 05/27/19 06:37 Dose: 300 mg Levetiracetam (Keppra -) 500 mg PO BID [facility] Last Admin: 05/27/19 10:32 Dose: 500 mg Levothyroxine Sodium (Synthroid -) 50 mcg PO DAILY@0700 [facility] Last Admin: 05/27/19 06:37 Dose: 50 mcg Metoprolol Tartrate (Lopressor -) 50 mg PO BID [facility] Last Admin: 05/27/19 10:32 Dose: 50 mg Mirtazapine (Remeron -) 15 mg PO [facility] Last Admin: 05/26/19 21:16 Dose: 15 mg Pramipexole Dihydrochloride (Mirapex -) 0.25 mg PO TID [facility] Last Admin: 05/27/19 06:37 Dose: 0.25 mg Quetiapine Fumarate (Seroquel -) 200 mg PO [facility] Last Admin: 05/26/19 21:16 Dose: 200 mg Rivaroxaban (Xarelto) 20 mg PO DAILY@1800 [facility] Last Admin: 05/26/19 17:55 Dose: 20 mg - Objective Vital Signs: Vital Signs Temperature 98.5 F 05/27/19 09:00 Pulse Rate 76 05/27/19 09:00 Respiratory Rate 18 05/27/19 09:00 Blood Pressure 114/61 05/27/19 09:00 O2 Sat by Pulse Oximetry (%) 100 05/27/19 09:00 Constitutional: Yes: Calm Eyes: Yes: Conjunctiva Clear HENT: Yes: Atraumatic Neck: Yes: Supple Cardiovascular: Yes: S1, S2 Respiratory: Yes: CTA Bilaterally Gastrointestinal: Yes: Normal Bowel Sounds, Soft Musculoskeletal: Yes: WNL Edema: Yes Edema: LLE: 2+, RLE: 2+ Neurological: Yes: Oriented Psychiatric: Yes: Oriented Labs: CBC, BMP 05/26/19 07:30 05/27/19 06:05 INR, PTT INR 1.75 (0.83-1.09) H 05/25/19 15:47 Problem List - Problems (1) Afib Code(s): I48.91 - UNSPECIFIED ATRIAL FIBRILLATION Qualifiers: Atrial fibrillation type: unspecified Qualified Code(s): I48.91 - Unspecified atrial fibrillation (2) Anemia Code(s): D64.9 - ANEMIA, UNSPECIFIED (3) CHF exacerbation Code(s): I50.9 - HEART FAILURE, UNSPECIFIED Qualifiers: Heart failure type: unspecified Qualified Code(s): I50.9 - Heart failure, unspecified (4) CKD (chronic kidney disease) Code(s): N18.9 - CHRONIC KIDNEY DISEASE, UNSPECIFIED Assessment/Plan Current Medications Generic Name Dose Route Start Last Admin Trade Name Freq PRN Reason Stop Dose Admin Acetaminophen 650 mg 05/25/19 21:32 Tylenol - PO Q6H PRN PAIN OR FEVER Albuterol Sulfate 2 puff 05/25/19 21:32 Ventolin Hfa Inhaler - IH Q6H PRN SHORTNESS OF BREATH Amiodarone HCl 200 mg 05/26/19 10:00 05/27/19 10:32 Cordarone - PO 200 mg DAILY [facility] Administration Aspirin 81 mg 05/26/19 10:00 05/27/19 10:33 Ecotrin - PO 81 mg DAILY [facility] Administration Atorvastatin Calcium 20 mg 05/25/19 22:00 05/26/19 21:16 Lipitor - PO 20 mg HS [facility] Administration Budesonide/Formoterol Fumarate 2 puff 05/25/19 22:00 05/27/19 10:33 Symbicort 80/4.5mcg - IH 2 puff BID [facility] Administration Furosemide 40 mg 05/27/19 10:00 05/27/19 10:33 Lasix Injection - IVPUSH 40 mg DAILY [facility] Administration Gabapentin 300 mg 05/25/19 22:00 05/27/19 06:37 Neurontin - PO 300 mg TID [facility] Administration Levetiracetam 500 mg 05/25/19 22:00 05/27/19 10:32 Keppra - PO 500 mg BID [facility] Administration Levothyroxine Sodium 50 mcg 05/27/19 07:00 05/27/19 06:37 Synthroid - PO 50 mcg DAILY@0700 [facility] Administration Metoprolol Tartrate 50 mg 05/25/19 22:00 05/27/19 10:32 Lopressor - PO 50 mg BID [facility] Administration Mirtazapine 15 mg 05/25/19 22:00 05/26/19 21:16 Remeron - PO 15 mg HS [facility] Administration Pramipexole Dihydrochloride 0.25 mg 05/25/19 22:00 05/27/19 06:37 Mirapex - PO 0.25 mg TID [facility] Administration Quetiapine Fumarate 200 mg 05/25/19 22:00 05/26/19 21:16 Seroquel - PO 200 mg HS [facility] Administration Rivaroxaban 20 mg 05/26/19 18:00 05/26/19 17:55 Xarelto PO 20 mg DAILY@1800 [facility] Administration Impression 1. CKD 2. Seizure disorder 3. Afib (Xarelto) 4. Anemia 5. COPD 6. GERD 7. Anxiety/depression 8. HLD 9. CHF 10. 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
--- NOTE | 2019-05-27 14:49 | PN ---
Progress Note, Physician Chief Complaint: patient seen and examined says his breathing is better - Current Medication List Current Medications: Active Medications Acetaminophen (Tylenol -) 650 mg PO Q6H PRN PRN Reason: PAIN OR FEVER Albuterol Sulfate (Ventolin Hfa Inhaler -) 2 puff IH Q6H PRN PRN Reason: SHORTNESS OF BREATH Amiodarone HCl (Cordarone -) 200 mg PO DAILY [facility] Last Admin: 05/27/19 10:32 Dose: 200 mg Aspirin (Ecotrin -) 81 mg PO DAILY [facility] Last Admin: 05/27/19 10:33 Dose: 81 mg Atorvastatin Calcium (Lipitor -) 20 mg PO [facility] Last Admin: 05/26/19 21:16 Dose: 20 mg Budesonide/Formoterol Fumarate (Symbicort 80/4.5mcg -) 2 puff IH BID [facility] Last Admin: 05/27/19 10:33 Dose: 2 puff Furosemide (Lasix Injection -) 40 mg IVPUSH DAILY [facility] Last Admin: 05/27/19 10:33 Dose: 40 mg Gabapentin (Neurontin -) 300 mg PO TID [facility] Last Admin: 05/27/19 06:37 Dose: 300 mg Levetiracetam (Keppra -) 500 mg PO BID [facility] Last Admin: 05/27/19 10:32 Dose: 500 mg Levothyroxine Sodium (Synthroid -) 50 mcg PO DAILY@0700 [facility] Last Admin: 05/27/19 06:37 Dose: 50 mcg Metoprolol Tartrate (Lopressor -) 50 mg PO BID [facility] Last Admin: 05/27/19 10:32 Dose: 50 mg Mirtazapine (Remeron -) 15 mg PO [facility] Last Admin: 05/26/19 21:16 Dose: 15 mg Pramipexole Dihydrochloride (Mirapex -) 0.25 mg PO TID [facility] Last Admin: 05/27/19 06:37 Dose: 0.25 mg Quetiapine Fumarate (Seroquel -) 200 mg PO [facility] Last Admin: 05/26/19 21:16 Dose: 200 mg Rivaroxaban (Xarelto) 20 mg PO DAILY@1800 [facility] Last Admin: 05/26/19 17:55 Dose: 20 mg - Objective Vital Signs: Vital Signs Temperature 98.2 F 11/22/19 14:31 Pulse Rate 75 05/27/19 14:31 Respiratory Rate 20 05/27/19 14:31 Blood Pressure 117/52 L 05/27/19 14:31 O2 Sat by Pulse Oximetry (%) 100 05/27/19 09:00 Constitutional: Yes: Calm Cardiovascular: Yes: Regular Rate and Rhythm, S1, S2 Respiratory: Yes: Diminished Gastrointestinal: Yes: Normal Bowel Sounds, Soft Edema: Yes Neurological: Yes: Alert, Oriented Labs: CBC, BMP 05/26/19 07:30 05/27/19 06:05 INR, PTT INR 1.75 (0.83-1.09) H 05/25/19 15:47 Problem List - Problems (1) CHF exacerbation Assessment/Plan: iv lasix daily weights possibly acute on chronic distolic heart failure last echo in 12/22 normal LV fucntion and ejection fraction monitor creatinine low salt diet Code(s): I50.9 - HEART FAILURE, UNSPECIFIED Qualifiers: Heart failure type: unspecified Qualified Code(s): I50.9 - Heart failure, unspecified (2) Afib Assessment/Plan: amiodarone xarelto and lopressor Code(s): I48.91 - UNSPECIFIED ATRIAL FIBRILLATION Qualifiers: Atrial fibrillation type: unspecified Qualified Code(s): I48.91 - Unspecified atrial fibrillation (3) HLD (hyperlipidemia) Assessment/Plan: lipitor Code(s): E78.5 - HYPERLIPIDEMIA, UNSPECIFIED (4) Hypothyroid Assessment/Plan: tsh markedy elevated synthroid dose increased Code(s): E03.9 - HYPOTHYROIDISM, UNSPECIFIED (5) CKD (chronic kidney disease) Code(s): N18.9 - CHRONIC KIDNEY DISEASE, UNSPECIFIED (6) Restless leg syndrome Code(s): G25.81 - RESTLESS LEGS SYNDROME
--- NOTE | 2019-05-27 15:31 | PN ---
Progress Note, Physician History of Present Illness: seen and examined today in nad. feeling much better today. Converted to NSR yesterday. urinating a lot. sob and edema improving. - Current Medication List Current Medications: Active Medications Acetaminophen (Tylenol -) 650 mg PO Q6H PRN PRN Reason: PAIN OR FEVER Albuterol Sulfate (Ventolin Hfa Inhaler -) 2 puff IH Q6H PRN PRN Reason: SHORTNESS OF BREATH Amiodarone HCl (Cordarone -) 200 mg PO DAILY [facility] Last Admin: 05/27/19 10:32 Dose: 200 mg Aspirin (Ecotrin -) 81 mg PO DAILY [facility] Last Admin: 05/27/19 10:33 Dose: 81 mg Atorvastatin Calcium (Lipitor -) 20 mg PO HS [facility] Last Admin: 05/26/19 21:16 Dose: 20 mg Budesonide/Formoterol Fumarate (Symbicort 80/4.5mcg -) 2 puff IH BID [facility] Last Admin: 05/27/19 10:33 Dose: 2 puff Furosemide (Lasix Injection -) 40 mg IVPUSH DAILY [facility] Last Admin: 05/27/19 10:33 Dose: 40 mg Gabapentin (Neurontin -) 300 mg PO TID [facility] Last Admin: 05/27/19 15:00 Dose: 300 mg Levetiracetam (Keppra -) 500 mg PO BID [facility] Last Admin: 05/27/19 10:32 Dose: 500 mg Levothyroxine Sodium (Synthroid -) 50 mcg PO DAILY@0700 [facility] Last Admin: 05/27/19 06:37 Dose: 50 mcg Metoprolol Tartrate (Lopressor -) 50 mg PO BID [facility] Last Admin: 05/27/19 10:32 Dose: 50 mg Mirtazapine (Remeron -) 15 mg PO [facility] Last Admin: 05/26/19 21:16 Dose: 15 mg Pramipexole Dihydrochloride (Mirapex -) 0.25 mg PO TID [facility] Last Admin: 05/27/19 15:00 Dose: 0.25 mg Quetiapine Fumarate (Seroquel -) 200 mg PO [facility] Last Admin: 05/26/19 21:16 Dose: 200 mg Rivaroxaban (Xarelto) 20 mg PO DAILY@1800 [facility] Last Admin: 05/26/19 17:55 Dose: 20 mg - Objective Vital Signs: Vital Signs Temperature 98.2 F 05/27/19 14:31 Pulse Rate 75 05/27/19 14:31 Respiratory Rate 20 05/27/19 14:31 Blood Pressure 117/52 L 05/27/19 14:31 O2 Sat by Pulse Oximetry (%) 100 05/27/19 09:00 Constitutional: Yes: No Distress, Calm Eyes: Yes: Conjunctiva Clear, EOM Intact HENT: Yes: Atraumatic, Normocephalic Neck: Yes: Supple, Trachea Midline Cardiovascular: Yes: Regular Rate and Rhythm, S1, S2. No: Bradycardia, Tachycardia, Pulse Irregular, Bruit, JVD, Gallop, Murmur, Rub, S3, S4, Varicosities Respiratory: Yes: Regular, Diminished, On Nasal O2, Rales. No: Rhonchi, SOB, Wheezes Gastrointestinal: Yes: Normal Bowel Sounds, Soft. No: Distention, Tenderness Extremities: Yes: WNL Edema: Yes Edema: LLE: Trace, RLE: Trace Peripheral Pulses WNL: Yes Peripheral Pulses: Left Doralis Pedis: 2+, Right Dorsalis Pedis: 2+ Neurological: Yes: Alert, Oriented Psychiatric: Yes: Alert, Oriented Labs: CBC, BMP 05/26/19 07:30 05/27/19 06:05 INR, PTT INR 1.75 (0.83-1.09) H 05/25/19 15:47 - ....Imaging Chest X-ray: Report Reviewed, Image Reviewed EKG: Report Reviewed, Image Reviewed Other: Report Reviewed, Image Reviewed (tele-AF-->NSR 05/26/19) Assessment/Plan 63 year old man with a pmh AFib on xarelto, HTN, HLD, CADs/p NSTEMI 04/2018 s/p PCI with NEGRO RCA 05/03/18 [facility] with no other sig residual CAD, Chronic diastolic CHF, COPD, Anemia, hypothyroid, seizures, schizophrenia admitted with progressively worsening edema, chest tightness. Pt found to be in volume overload with acute on chronic likely diastolic chf, AFib with RVR. Pt was last seen in the office 05/2018 at which time he stated that he could not afford to continue following with doctors and to get his medication due to financial reasons. this was discussed with financial support who was helping him. he did not follow up after that. pt seen and examined today in nad. states that he has been eating very badly lately. states he is feeling better since admission. no current chest pain or sob. no palpitations. Cardiac Cath [facility] 05/03/2018 1. Single vessel CAD - long and severe stenosis beginning at the pRCA extending into the dRCA 2. Normal LVEDP 3. No 4. Successful PCI of RCA with NEGRO x 2 Recommend DAPT and medical management of SIHD ECHO 12/30/18 Normal LV systolic function, normal RV Mild mr, mild tr No pericardial effusion Edema/sob/chest tightness-volume overload -suspect acute on chronic diastolic CHF -pt states he was adherent to medications as outpatient but admits to eating a very poor diet -additionally CHF possibly precipitated by Afib with RVR -converted to NSR -diuresing well with improvement in symptoms, edema -bun/creat trending up but is near his baseline from last admission -cont IV Lasix diuresis today and re-evaluate tomorrow to potentially transition to po tomorrow -monitor strict I/Os daily weights, bun/creat and electrolytes and replete as needed. CAD-NSTEMI 04/2018 s/p cardiac cath single vessel CAD RCA s/p NEGRO x 2 RCA -current chest pain/sob not c/w ACS -cardiac enzymes wnl -cont ASA 81mg daily -stop Plavix as >1 year post PCI and also on Xarelto -echo r 12/30/18 showed normal LV/RV systolic function, no sig valvular abnl -cont metoprolol and lipitor -would not pursue further ischemic evaluation at this time. Pafib with rvr -converted back to NSR 05/26 -cont amiodarone 200mg daily for now -cont metoprolol and uptitrate as needed for HR control -cont Xarelto 20mg daily -needs fup with cardiology as outpatient -needs fup with PMD as on amio needs PFTs, TFTs LFTs monitored
[2019-05-27] MEDS: RIVAROXABAN 20 MG TABLET PO SCH (18:17)
[2019-05-27] MEDS: ATORVASTATIN CA 20 MG TABLET (FP) PO SCH (21:39)
[2019-05-27] MEDS: MIRTAZAPINE 15 MG TABLET (FP) PO SCH (21:39)
[2019-05-27] MEDS: QUEtiapine FUMARATE 100 MG TABLET (FP) PO SCH (22:08)
[2019-05-28] MEDS: GABAPENTIN 300 MG CAPSULE (FP) PO SCH ×3 (06:33→21:30)
[2019-05-28] MEDS: PRAMIPEXOLE DIHYDROCHLORIDE 0.25 MG TABLET PO SCH ×3 (06:33→21:30)
[2019-05-28] MEDS: LEVOTHYROXINE NA 50 MCG TABLET (FP) PO SCH (06:33)
[2019-05-28] MEDS ORDERED: PT OWN MED DRAWER 7, Y5N ONE ×3 (06:39→21:25)
[2019-05-28] MEDS: METOPROLOL TARTRATE 50 MG TABLET (FP) PO SCH ×2 (09:16→21:30)
[2019-05-28] MEDS: ASPIRIN COATED 81 MG TABLET.EC PO SCH (09:16)
[2019-05-28] MEDS: AMIODARONE HCL 200 MG TABLET (FP) PO SCH (09:16)
[2019-05-28] MEDS: levETIRAcetam 500 MG TABLET (FP) PO SCH ×2 (09:16→21:30)
[2019-05-28] MEDS: FUROSEMIDE 40 MG/4 ML INJECTABLE VIAL IVPUSH SCH (10:00)
[2019-05-28] MEDS: BUDESONIDE/FORMETEROL FUMARATE 80/4.5 mcg INHALER IH SCH ×2 (10:00→21:32)
--- NOTE | 2019-05-28 10:22 | PN ---
Progress Note, Physician Chief Complaint: Acute on Chronic CHF exacerbation A-fib History of Present Illness: Previous notes and events reviewed awake and alert NAD denies chest pain, SOB, or dyspnea on exertion - Current Medication List Current Medications: Active Medications Acetaminophen (Tylenol -) 650 mg PO Q6H PRN PRN Reason: PAIN OR FEVER Albuterol Sulfate (Ventolin Hfa Inhaler -) 2 puff IH Q6H PRN PRN Reason: SHORTNESS OF BREATH Amiodarone HCl (Cordarone -) 200 mg PO DAILY [facility] Last Admin: 05/28/19 09:16 Dose: 200 mg Aspirin (Ecotrin -) 81 mg PO DAILY [facility] Last Admin: 05/28/19 09:16 Dose: 81 mg Atorvastatin Calcium (Lipitor -) 20 mg PO [facility] Last Admin: 05/27/19 21:39 Dose: 20 mg Budesonide/Formoterol Fumarate (Symbicort 80/4.5mcg -) 2 puff IH BID [facility] Last Admin: 05/28/19 10:00 Dose: 2 puff Furosemide (Lasix Injection -) 40 mg IVPUSH DAILY [facility] Last Admin: 05/28/19 10:00 Dose: 40 mg Gabapentin (Neurontin -) 300 mg PO TID [facility] Last Admin: 05/28/19 06:33 Dose: 300 mg Levetiracetam (Keppra -) 500 mg PO BID [facility] Last Admin: 05/28/19 09:16 Dose: 500 mg Levothyroxine Sodium (Synthroid -) 50 mcg PO DAILY@0700 [facility] Last Admin: 05/28/19 06:33 Dose: 50 mcg Metoprolol Tartrate (Lopressor -) 50 mg PO BID [facility] Last Admin: 05/28/19 09:16 Dose: 50 mg Mirtazapine (Remeron -) 15 mg PO [facility] Last Admin: 05/27/19 21:39 Dose: 15 mg Pramipexole Dihydrochloride (Mirapex -) 0.25 mg PO TID [facility] Last Admin: 05/28/19 06:33 Dose: 0.25 mg Quetiapine Fumarate (Seroquel -) 200 mg PO [facility] Last Admin: 05/27/19 22:08 Dose: 200 mg Rivaroxaban (Xarelto) 20 mg PO DAILY@1800 [facility] Last Admin: 05/27/19 18:17 Dose: 20 mg - Objective Vital Signs: Vital Signs Temperature 98.7 F 05/28/19 09:00 Pulse Rate 73 05/28/19 09:00 Respiratory Rate 18 05/28/19 09:00 Blood Pressure 149/68 05/28/19 09:00 O2 Sat by Pulse Oximetry (%) 100 05/28/19 09:00 Constitutional: Yes: No Distress, Calm Eyes: Yes: Conjunctiva Clear HENT: Yes: Atraumatic Cardiovascular: Yes: Pulse Irregular Respiratory: Yes: Regular, Diminished, On Nasal O2 Gastrointestinal: Yes: Normal Bowel Sounds, Soft Musculoskeletal: Yes: WNL Extremities: Yes: WNL Edema: Yes Edema: LLE: 1+, RLE: 2+ Neurological: Yes: Alert, Oriented Psychiatric: Yes: Alert, Oriented Labs: CBC, BMP 05/26/19 07:30 05/27/19 06:05 INR, PTT INR 1.75 (0.83-1.09) H 05/25/19 15:47 Problem List - Problems (1) Afib Assessment/Plan: -Xarelto, Amdiodarone, and Metoprolol Code(s): I48.91 - UNSPECIFIED ATRIAL FIBRILLATION Qualifiers: Atrial fibrillation type: unspecified Qualified Code(s): I48.91 - Unspecified atrial fibrillation (2) Anemia Assessment/Plan: -Hg 8.1 -monitor Hg daily -transfuse for Hg <7.0 to avoid fluid overload -anemia profile Code(s): D64.9 - ANEMIA, UNSPECIFIED (3) CHF exacerbation Assessment/Plan: -Cardiology on board -Furosemide -daily weights -strict I&Os -fluid restriction -low Na diet Code(s): I50.9 - HEART FAILURE, UNSPECIFIED Qualifiers: Heart failure type: unspecified Qualified Code(s): I50.9 - Heart failure, unspecified (4) HLD (hyperlipidemia) Assessment/Plan: -Atorvastatin Code(s): E78.5 - HYPERLIPIDEMIA, UNSPECIFIED (5) Hypothyroid Assessment/Plan: -Levothyroxine Code(s): E03.9 - HYPOTHYROIDISM, UNSPECIFIED (6) CKD (chronic kidney disease) Assessment/Plan: -Renal on board -BUN/Cr 23.4/1.9 -monitor renal function Code(s): N18.9 - CHRONIC KIDNEY DISEASE, UNSPECIFIED (7) COPD (chronic obstructive pulmonary disease) Assessment/Plan: -Symbicort -keep SpO2 >90% -O2 via NC Code(s): J44.9 - CHRONIC OBSTRUCTIVE PULMONARY DISEASE, UNSPECIFIED (8) CAD (coronary artery disease) Assessment/Plan: -Aspirin Code(s): I25.10 - ATHSCL HEART DISEASE OF [place] CORONARY ARTERY W/O ANG PCTRS (9) Seizure disorder Assessment/Plan: -[place] Code(s): G40.909 - EPILEPSY, UNSP, NOT INTRACTABLE, WITHOUT STATUS EPILEPTICUS Assessment/Plan see problem list dvt ppx
--- NOTE | 2019-05-28 13:15 | PN ---
Progress Note, Physician Chief Complaint: No sob or chest pain Comfortable Sinus on tele History of Present Illness: 63 year old man with a pmh AFib on xarelto, HTN, HLD, CADs/p NSTEMI 04/2018 s/p PCI with NEGRO RCA 05/03/18 [facility] with no other sig residual CAD, Chronic diastolic CHF, COPD, Anemia, hypothyroid, seizures, schizophrenia admitted with progressively worsening edema, chest tightness. Pt found to be in volume overload with acute on chronic likely diastolic chf, AFib with RVR. Pt was last seen in the office 05/2018 at which time he stated that he could not afford to continue following with doctors and to get his medication due to financial reasons. this was discussed with financial support who was helping him. he did not follow up after that. pt seen and examined today in [facility]. states that he has been eating very badly lately. states he is feeling better since admission. no current chest pain or sob. no palpitations. Cardiac Cath [facility] 05/03/2018 1. Single vessel CAD - long and severe stenosis beginning at the pRCA extending into the dRCA 2. Normal LVEDP 3. No 4. Successful PCI of RCA with NEGRO x 2 Recommend DAPT and medical management of SIHD ECHO 12/30/18 Normal LV systolic function, normal RV Mild mr, mild tr No pericardial effusion - Current Medication List Current Medications: Active Medications Acetaminophen (Tylenol -) 650 mg PO Q6H PRN PRN Reason: PAIN OR FEVER Albuterol Sulfate (Ventolin Hfa Inhaler -) 2 puff IH Q6H PRN PRN Reason: SHORTNESS OF BREATH Amiodarone HCl (Cordarone -) 200 mg PO DAILY [facility] Last Admin: 05/28/19 09:16 Dose: 200 mg Aspirin (Ecotrin -) 81 mg PO DAILY [facility] Last Admin: 05/28/19 09:16 Dose: 81 mg Atorvastatin Calcium (Lipitor -) 20 mg PO HS [facility] Last Admin: 05/27/19 21:39 Dose: 20 mg Budesonide/Formoterol Fumarate (Symbicort 80/4.5mcg -) 2 puff IH BID [facility] Last Admin: 05/28/19 10:00 Dose: 2 puff Furosemide (Lasix Injection -) 40 mg IVPUSH DAILY [facility] Last Admin: 05/28/19 10:00 Dose: 40 mg Gabapentin (Neurontin -) 300 mg PO TID [facility] Last Admin: 05/28/19 06:33 Dose: 300 mg Levetiracetam (Keppra -) 500 mg PO BID [facility] Last Admin: 05/28/19 09:16 Dose: 500 mg Levothyroxine Sodium (Synthroid -) 50 mcg PO DAILY@0700 [facility] Last Admin: 05/28/19 06:33 Dose: 50 mcg Metoprolol Tartrate (Lopressor -) 50 mg PO BID [facility] Last Admin: 05/28/19 09:16 Dose: 50 mg Mirtazapine (Remeron -) 15 mg PO [facility] Last Admin: 05/27/19 21:39 Dose: 15 mg Pramipexole Dihydrochloride (Mirapex -) 0.25 mg PO TID [facility] Last Admin: 05/28/19 06:33 Dose: 0.25 mg Quetiapine Fumarate (Seroquel -) 200 mg PO [facility] Last Admin: 05/27/19 22:08 Dose: 200 mg Rivaroxaban (Xarelto) 20 mg PO DAILY@1800 [facility] Last Admin: 05/27/19 18:17 Dose: 20 mg - Objective Vital Signs: Vital Signs Temperature 98.7 F 05/28/19 09:00 Pulse Rate 73 05/28/19 09:00 Respiratory Rate 18 05/28/19 09:00 Blood Pressure 149/68 05/28/19 09:00 O2 Sat by Pulse Oximetry (%) 100 05/28/19 09:00 Constitutional: Yes: No Distress Neck: Yes: Supple Cardiovascular: Yes: Regular Rate and Rhythm, S1, S2. No: JVD Respiratory: Yes: CTA Bilaterally Gastrointestinal: Yes: Soft Edema: Yes (chronic skin changes) Edema: LLE: Trace, RLE: Trace Labs: CBC, BMP 05/26/19 07:30 05/27/19 06:05 INR, PTT INR 1.75 (0.83-1.09) H 05/25/19 15:47 Problem List - Problems (1) Atrial fibrillation with RVR Code(s): I48.91 - UNSPECIFIED ATRIAL FIBRILLATION (2) CHF exacerbation Code(s): I50.9 - HEART FAILURE, UNSPECIFIED Qualifiers: Heart failure type: unspecified Qualified Code(s): I50.9 - Heart failure, unspecified (3) CAD (coronary artery disease) Code(s): I25.10 - ATHSCL HEART DISEASE OF [place] CORONARY ARTERY W/O ANG PCTRS Assessment/Plan 63 year old man with a pmh AFib on xarelto, HTN, HLD, CADs/p NSTEMI 04/2018 s/p PCI with NEGRO RCA 05/03/18 [facility] with no other sig residual CAD, Chronic diastolic CHF, COPD, Anemia, hypothyroid, seizures, schizophrenia admitted with progressively worsening edema, chest tightness. Pt found to be in volume overload with acute on chronic likely diastolic chf, AFib with RVR. Pt was last seen in the office 05/2018 at which time he stated that he could not afford to continue following with doctors and to get his medication due to financial reasons. this was discussed with financial support who was helping him. he did not follow up after that. pt seen and examined today in [facility]. states that he has been eating very badly lately. states he is feeling better since admission. no current chest pain or sob. no palpitations. Cardiac Cath [facility] 05/03/2018 1. Single vessel CAD - long and severe stenosis beginning at the pRCA extending into the dRCA 2. Normal LVEDP 3. No 4. Successful PCI of RCA with NEGRO x 2 Recommend DAPT and medical management of SIHD ECHO 12/30/18 Normal LV systolic function, normal RV Mild mr, mild tr No pericardial effusion Edema/sob/chest tightness-volume overload -suspect acute on chronic diastolic CHF -Need to confirm medication adherence as in the past pt was non-adherent with fup and likely could not afford medications either -admits to eating a very poor diet -CHF possibly precipitated by Afib with RVR -HR control and now in sinus rhythm -Change to PO furosemide -monitor strict I/Os daily weights, bun/creat and electrolytes and replete as needed. CAD-NSTEMI 04/2018 s/p cardiac cath single vessel CAD RCA s/p NEGRO x 2 RCA -current chest pain/sob not c/w ACS -cardiac enzymes wnl -cont ASA 81mg daily -echo sjr 12/30/18 showed normal LV/RV systolic function, no sig valvular abnl -cont metoprolol and lipitor -would not pursue further ischemic evaluation at this time. Pafib with rvr -cont amiodarone 200mg daily for now -cont metoprolol and uptitrate as needed for HR control -cont Xarelto 20mg daily -needs fup with EP -needs fup with PMD as on amio needs PFTs, TFTs LFTs monitored Change to PO furosemide Remains in sinus rhythm Can DC telemetry Will sign off. Follow up as outpatient with Dr. Power [phone]
[2019-05-28 14:12] LABS: IRON SERUM 25 ug/dL (50-175); TOTAL IRON BINDING CAPACITY 485 ug/dL (250-450)
--- NOTE | 2019-05-28 15:42 | PN ---
Progress Note (short form) - Note Progress Note: 1. CKD 2. Seizure disorder 3. Afib (Xarelto) 4. Anemia 5. COPD 6. GERD 7. Anxiety/depression 8. HLD 9. CHF 10. fluid overload Current Medications Acetaminophen (Tylenol -) 650 mg PO Q6H PRN PRN Reason: PAIN OR FEVER Albuterol Sulfate (Ventolin Hfa Inhaler -) 2 puff IH Q6H PRN PRN Reason: SHORTNESS OF BREATH Amiodarone HCl (Cordarone -) 200 mg PO DAILY [facility] Last Admin: 05/28/19 09:16 Dose: 200 mg Aspirin (Ecotrin -) 81 mg PO DAILY [facility] Last Admin: 05/28/19 09:16 Dose: 81 mg Atorvastatin Calcium (Lipitor -) [address] [facility] Last Admin: 05/27/19 21:39 Dose: 20 mg Budesonide/Formoterol Fumarate (Symbicort 80/4.5mcg -) 2 puff IH BID [facility] Last Admin: 05/28/19 10:00 Dose: 2 puff Furosemide (Lasix Injection -) 40 mg IVPUSH DAILY [facility] Last Admin: 05/28/19 10:00 Dose: 40 mg Gabapentin (Neurontin -) 300 mg PO TID [facility] Last Admin: 05/28/19 14:46 Dose: 300 mg Levetiracetam (Keppra -) 500 mg PO BID [facility] Last Admin: 05/28/19 09:16 Dose: 500 mg Levothyroxine Sodium (Synthroid -) 50 mcg PO DAILY@0700 [facility] Last Admin: 05/28/19 06:33 Dose: 50 mcg Metoprolol Tartrate (Lopressor -) 50 mg PO BID [facility] Last Admin: 05/28/19 09:16 Dose: 50 mg Mirtazapine (Remeron -) [address] [facility] Last Admin: 05/27/19 21:39 Dose: 15 mg Pramipexole Dihydrochloride (Mirapex -) 0.25 mg PO TID [facility] Last Admin: 05/28/19 14:43 Dose: 0.25 mg Quetiapine Fumarate (Seroquel -) [address] [facility] Last Admin: 05/27/19 22:08 Dose: 200 mg Rivaroxaban (Xarelto) 20 mg PO DAILY@1800 [facility] Last Admin: 05/27/19 18:17 Dose: 20 mg Last Vital Signs Temp Pulse Resp BP Pulse Ox 98.7 F 73 18 149/68 100 05/28/19 09:00 05/28/19 09:00 05/28/19 09:00 05/28/19 09:00 05/28/19 09:00 CBC, BMP 05/26/19 07:30 05/27/19 06:05 hf pham Plan - cont lasix - continue to monitor renal function - pt has ckd, hand etcher was 1.8 on last admission - avoid nsaids - daily weights
[2019-05-28] MEDS: RIVAROXABAN 20 MG TABLET PO SCH (17:06)
[2019-05-28] MEDS: MIRTAZAPINE 15 MG TABLET (FP) PO SCH (21:30)
[2019-05-28] MEDS: QUEtiapine FUMARATE 100 MG TABLET (FP) PO SCH (21:30)
[2019-05-28] MEDS: ATORVASTATIN CA 20 MG TABLET (FP) PO SCH (21:30)
[2019-05-29] MEDS: PRAMIPEXOLE DIHYDROCHLORIDE 0.25 MG TABLET PO SCH ×2 (06:36→14:06)
[2019-05-29] MEDS: GABAPENTIN 300 MG CAPSULE (FP) PO SCH ×2 (06:36→14:05)
[2019-05-29] MEDS: LEVOTHYROXINE NA 50 MCG TABLET (FP) PO SCH (06:36)
[2019-05-29 07:13] LABS: HEMATOCRIT 24.9 % (35.4-49); HEMOGLOBIN 8.2 GM/dL (11.7-16.9); MCH 26.5 pg (25.7-33.7); MCHC 33.1 g/dl (32.0-35.9); MEAN CELL VOLUME 80.3 fl (80-96); MEAN PLT VOLUME 8.1 fl (7.5-11.1); PLATELET COUNT 135 K/MM3 (134-434); WHITE BLOOD COUNT 4.1 K/mm3 (4.0-10.0)
[2019-05-29 07:33] LABS: ALBUMIN 3.8 g/dl (3.4-5.0); BILIRUBIN,TOTAL 0.2 mg/dL (0.2-1); BLOOD UREA NITROGEN 26.5 mg/dL (7-18); CALCIUM 8.6 mg/dL (8.5-10.1); CREATININE 1.6 mg/dL (0.55-1.3); POTASSIUM 4.1 mmol/L (3.5-5.1)
[2019-05-29] MEDS: levETIRAcetam 500 MG TABLET (FP) PO SCH (09:30)
[2019-05-29] MEDS: AMIODARONE HCL 200 MG TABLET (FP) PO SCH (09:30)
[2019-05-29] MEDS: FUROSEMIDE 40 MG/4 ML INJECTABLE VIAL IVPUSH SCH (09:30)
[2019-05-29] MEDS: ASPIRIN COATED 81 MG TABLET.EC PO SCH (09:30)
[2019-05-29] MEDS: METOPROLOL TARTRATE 50 MG TABLET (FP) PO SCH (09:30)
[2019-05-29] MEDS: BUDESONIDE/FORMETEROL FUMARATE 80/4.5 mcg INHALER IH SCH (09:34)
--- NOTE | 2019-05-29 10:01 | DS ---
Physical Examination Vital Signs: Vital Signs Temperature 98 F 05/29/19 05:00 Pulse Rate 72 05/29/19 05:00 Respiratory Rate 18 05/29/19 05:00 Blood Pressure 129/73 05/29/19 05:00 O2 Sat by Pulse Oximetry (%) 100 05/28/19 21:00 Findings/Remarks: Laboratory Results - last 24 hr 05/28/19 05/29/19 05/29/19 13:10 06:43 06:43 WBC 4.1 RBC 3.10 L Hgb 8.2 L Hct 24.9 L MCV 80.3 MCH 26.5 MCHC 33.1 RDW 17.0 H Plt Count 135 MPV 8.1 Sodium 135 L Potassium 4.1 Chloride 103 Carbon Dioxide 28 Anion Gap 4 L BUN 26.5 H Creatinine 1.6 H Est GFR (CKD-EPI)AfAm 52.73 Est GFR (CKD-EPI)NonAf 45.50 Random Glucose 95 Calcium 8.6 Iron 25 L TIBC 485 H Iron Saturation 5 L Unsaturated IBC 460 H Ferritin 11.4 Total Bilirubin 0.2 AST 29 ALT 30 Alkaline Phosphatase 114 Total Protein 7.0 Albumin 3.8 Active Medications Generic Name Dose Route Start Last Admin Trade Name Freq PRN Reason Stop Dose Admin Acetaminophen 650 mg 05/25/19 21:32 Tylenol - PO Q6H PRN PAIN OR FEVER Albuterol Sulfate 2 puff 05/25/19 21:32 Ventolin Hfa Inhaler - IH Q6H PRN SHORTNESS OF BREATH Amiodarone HCl 200 mg 05/26/19 10:00 05/29/19 09:30 Cordarone - PO 200 mg DAILY [facility] Administration Aspirin 81 mg 05/26/19 10:00 05/29/19 09:30 Ecotrin - PO 81 mg DAILY [facility] Administration Atorvastatin Calcium 20 mg 05/25/19 22:00 05/28/19 21:30 Lipitor - PO 20 mg HS [facility] Administration Budesonide/Formoterol Fumarate 2 puff 05/25/19 22:00 05/29/19 09:34 Symbicort 80/4.5mcg - IH 2 puff BID [facility] Administration Furosemide 40 mg 05/27/19 10:00 05/29/19 09:30 Lasix Injection - IVPUSH 40 mg DAILY [facility] Administration Gabapentin 300 mg 05/25/19 22:00 05/29/19 06:36 Neurontin - PO 300 mg TID [facility] Administration Levetiracetam 500 mg 05/25/19 22:00 05/29/19 09:30 Keppra - PO 500 mg BID [facility] Administration Levothyroxine Sodium 50 mcg 05/27/19 07:00 05/29/19 06:36 Synthroid - PO 50 mcg DAILY@0700 [facility] Administration Metoprolol Tartrate 50 mg 05/25/19 22:00 05/29/19 09:30 Lopressor - PO 50 mg BID [facility] Administration Mirtazapine 15 mg 05/25/19 22:00 05/28/19 21:30 Remeron - PO 15 mg HS [facility] Administration Pramipexole Dihydrochloride 0.25 mg 05/25/19 22:00 05/29/19 06:36 Mirapex - PO 0.25 mg TID [facility] Administration Quetiapine Fumarate 200 mg 05/25/19 22:00 05/28/19 21:30 Seroquel - PO 200 mg HS [facility] Administration Rivaroxaban 20 mg 05/26/19 18:00 05/28/19 17:06 Xarelto PO 20 mg DAILY@1800 [facility] Administration Constitutional: Yes: No Distress, Calm Eyes: Yes: Conjunctiva Clear HENT: Yes: Atraumatic Cardiovascular: Yes: Regular Rate and Rhythm Respiratory: Yes: Regular, CTA Bilaterally Gastrointestinal: Yes: Normal Bowel Sounds, Soft, Abdomen, Obese Musculoskeletal: Yes: WNL Extremities: Yes: WNL Edema: No Neurological: Yes: Alert, Oriented Psychiatric: Yes: Alert, Oriented Labs: CBC, BMP 05/29/19 06:43 05/29/19 06:43 Discharge Summary Problems reviewed: Yes Reason For Visit: ACUTE ON CHRONIC CHF,AFIB Current Active Problems Afib (Acute) Anemia (Acute) Atrial fibrillation with RVR (Acute) CHF exacerbation (Acute) Depression (Acute) HLD (hyperlipidemia) (Acute) HTN (hypertension) (Acute) Hypothyroid (Acute) Hospital Course: 63 y/o man with a pmhx CHF, HTN/HLD, Afib (on xarelto), CAD (s/p stent placement ), COPD/Asthma, Anemia, Hypothyroidism, Seizures and schizophrenia, arrived to ER with complain worsening LE edema for past 2 days, (legs more swollen and pain going up and down stairs). Patient has difficulty walking due to significant b/l LE edema. Patient also complains of L sided CP for the past day which he states is present both and rest and with exertion. He describes the pain as "sharp" and stated he took an extra baby aspirin which he felt helped. Patient also complains of nausea with 4 episodes of vomiting which the pt attributed to eating bad ham, he endorses CP, heart palpitations, chills, and LE edema. Pt denies SOB, fever, orthopnea, diarrhea, constipation, abdominal pain, dysuria, hematuria, numbness or tingling in his hands/ feet. Patient was followed by Cardiology and admitted to telemetry. Started on Furosemide IVP for diuresis and responded well. 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 Patient will be discharged home with oral furosemide and have [facility] CHF nurse for follow up. Condition: Stable - Instructions Diet, Activity, Other Instructions: Follow up with PCP this week as scheduled Follow up with edge st[facility] machine Dr Mcginnis within 1 week Follow up with [employer] Dr Domínguez\\ 1 liter fluid restriction daily low sodium diet [facility] for CHF Nurse continue with medication as prescribed return to ER if develop severe pain, respiratory distress, chest pain Referrals: Sharlene Mckenzie NP [Primary Care Provider] - Sebastian Mcginnis MD [Staff Physician] - Maureen Domínguez MD [Staff Physician] - Disposition: VNS/HOME HEALTH CARE - Home Medications Comprehensive Discharge Medication List: Ambulatory Orders Albuterol Sulfate [Proair Hfa] 2 puff IH Q6H PRN 08/02/17 Atorvastatin Calcium 20 mg PO HS 08/02/17 Amiodarone HCl 200 mg PO DAILY 10/03/18 Aspirin [Aspirin EC] 81 mg PO DAILY 10/03/18 Clopidogrel Bisulfate [Plavix] 75 mg PO DAILY 10/03/18 Rivaroxaban [Xarelto -] 20 mg PO DAILY 10/03/18 Acetaminophen [Tylenol .Regular Strength -] 650 mg PO Q6H PRN tablet 10/06/18 Albuterol 2.5/Ipratropium 0.5 [Duoneb -] 1 amp NEB Q6H PRN #120 amp 10/06/18 Budesonide/Formeterol Fumarate [SYMBICORT 80/4.5mcg -] 2 puff IH BID #2 inhaler 10/06/18 Gabapentin 300 mg PO TID #90 capsule 10/06/18 Levothyroxine [Synthroid -] 25 mcg PO DAILY@0700 #30 tablet 10/06/18 Metoprolol Tartrate [Lopressor -] 50 mg PO BID #60 tablet 10/06/18 Mirtazapine [Remeron -] 15 mg PO HS #30 tablet 10/06/18 Pramipexole Dihydrochloride [Mirapex -] 0.25 mg PO TID #90 tablet 10/06/18 Quetiapine Fumarate [Seroquel -] 200 mg PO HS #30 tablet 10/06/18 levETIRAcetam [Keppra -] 500 mg PO BID #60 tablet 10/06/18 Furosemide [Lasix -] 40 mg PO DAILY #30 tablet 05/29/19
[2019-05-29 14:44] VITALS: PULSE 71
[2019-05-29] MEDS: RIVAROXABAN 20 MG TABLET PO SCH (17:05)
[2019-05-29 19:40] VITALS: BP 130/71; TEMP 97.7
--- NOTE | 2019-05-29 20:56 | PN ---
Progress Note (short form) - Note Progress Note: 1. CKD 2. Seizure disorder 3. Afib (Xarelto) 4. Anemia 5. COPD 6. GERD 7. Anxiety/depression 8. HLD 9. CHF 10. fluid overload Last Vital Signs Temp Pulse Resp BP Pulse Ox 97.7 F 71 20 130/71 97 05/29/19 17:00 05/29/19 17:00 05/29/19 17:00 05/29/19 17:00 05/29/19 10:00 lungs clear heart reg abd soft nontender CBC, BMP 05/29/19 06:43 05/29/19 06:43 CBC, BMP 05/26/19 07:30 05/27/19 06:05 IMP hf pham- renal function improving Plan f/u labs in am
== END 2019-05-29 19:30 | disposition home health service (06) | DRG 291 ==
LOC: JER 14:23 → JERBED 17:38 → J4W 19:12
PROVIDERS: ADMIT Family Medicine; ATTEND Family Medicine
DX: I13.0 Hypertensive heart and chronic kidney disease with heart failure and stage 1 through stage 4 chronic kidney disease, or unspecified chronic kidney disease (principal); I50.33 Acute on chronic diastolic (congestive) heart failure; N18.9 Chronic kidney disease, unspecified; J44.9 Chronic obstructive pulmonary disease, unspecified; F20.9 Schizophrenia, unspecified; I25.10 Atherosclerotic heart disease of native coronary artery without angina pectoris; Z79.01 Long term (current) use of anticoagulants; D64.9 Anemia, unspecified; E66.9 Obesity, unspecified; F32.9 Major depressive disorder, single episode, unspecified; G40.909 Epilepsy, unspecified, not intractable, without status epilepticus; G25.81 Restless legs syndrome; F41.9 Anxiety disorder, unspecified; I25.2 Old myocardial infarction; I48.0 Paroxysmal atrial fibrillation; Z68.32 Body mass index [BMI] 32.0-32.9, adult
CPT/HCPCS: 36415; 71045-TC-FY; 80048; 80053; 81003; 82728; 83540; 83550; 83880; 84443; 84484; 85025; 85027; 85610; 85730; 93005; 93010; 99285-25

== ENCOUNTER 2019-06-24 13:00 | Inpatient (IN) | payer OTHER ==
--- NOTE | 2019-06-24 13:29 | PDOC ---
Rapid Medical Evaluation Time Seen by Provider: 06/24/19 13:18 Medical Evaluation: Allergies Allergy/AdvReac Type Severity Reaction Status Date / Time codeine Allergy Verified 05/25/19 14:41 06/24/19 13:18 Pt c/o: rt leg pain, no decreased sensation or increased redness, sent from wound care clinic Pt on brief exam: vss, lcta, no visable signs of infection. pt ordered for: duplex of rle Pt to proceed to the ED Discharge Disposition - Diagnosis COPD (chronic obstructive pulmonary disease), CHF exacerbation, Leg edema, right - Discharge Dispostion Disposition: VNS/HOME HEALTH CARE Condition at time of disposition: Stable - Referrals - Patient Instructions - Post Discharge Activity
--- NOTE | 2019-06-24 17:01 | PDOC ---
History of Present Illness - History of Present Illness Initial Comments: 06/24/19 16:50 CHIEF COMPLAINT: R leg swelling HISTORY OF PRESENT ILLNESS: 64 yo M with hx of CHF, COPD, CAD s/p stent placementm asthma, a-fib on Xarelto, GERD, schizophrenia, and anemia sent from wound care with swelling to R leg x 4 days. Patient reports falling a month ago but denies any recent trauma prior to the swelling of his right leg. Patient reports LAINEZ that has worsened since his leg became swollen. No recent travel or sick contacts. PAST MEDICAL HISTORY: Denies past medical history FAMILY HISTORY: Denies SOCIAL HISTORY: Quit smoking 3 month ago, 10 pack year smoking history. Denies tobacco, alcohol, illicit drug use. SURGICAL HISTORY: Denies ALLERGIES: No known drug allergies REVIEW OF SYSTEMS General/Constitutional: Denies fever or chills. Denies weakness, weight change. HEENT: Denies change in vision. Denies ear pain or discharge. Denies sore throat. Cardiovascular: Denies chest pain or shortness of breath. Respiratory: Denies cough, wheezing, or hemoptysis. Gastrointestinal: Denies nausea, vomiting, diarrhea or constipation. Denies rectal bleeding. Genitourinary: Denies dysuria, frequency, or change in urination. Musculoskeletal: R leg swelling and pain. Denies neck or back pain. Skin and breasts: Denies rash or easy bruising. Neurologic: Denies headache, vertigo, loss of consciousness, or loss of sensation. Psychiatric: Denies depression or anxiety. PHYSICAL EXAM General Appearance: Well-appearing, appropriately dressed. No apparent distress , no intoxication. HEENT: EOMI, PERRLA, normal ENT inspection, normal voice, TMs normal, pharynx normal. No conjunctival pallor. No photophobia, scleral icterus. Neck: Supple. Trachea midline. No tenderness, rigidity, carotid bruit, stridor , lymphadenopathy, or thyromegaly. Respiratory/Chest: Lungs CTAB. No shortness of breath, chest tenderness, respiratory distress, accessory muscle use. No crackles, rales, rhonchi, stridor , wheezing, dullness Cardiovascular: RRR. S1, S2. No JVD, murmur, bradycardia, tachycardia. Vascular Pulses: Dorsalis-Pedis (R): 2+, Dorsalis-Pedis (L): 2+ Gastrointestinal/Abdominal: Normal bowel sounds. Abdomen soft, non-distended. No tenderness or rebound tenderness. No organomegaly, pulsatile mass, guarding , hernia, hepatomegaly, splenomegaly. Lymphatic: No adenopathy, tenderness. Musculoskeletal/Extremities: 2+ pitting edema to RLE with tenderness to anterior distal aspect of R leg. FROM of all extremities, normal capillary refill. Pelvis Stable. No CVA tenderness. No tenderness to extremities, pedal edema, swelling, erythema or deformity. Integumentary: Appropriate color, dry, warm. No cyanosis, erythema, jaundice or rash Neurologic: soda flaker II-XII intact. Fully oriented, alert. Appropriate mood/affect. Motor strength 5/5. No appreciable EOM palsy, facial droop or sensory deficit. <Supriya Oleary - Last Filed: 06/24/19 21:46> <Mary Foster - Last Filed: 06/24/19 23:20> - General Chief Complaint: Pain, Acute Stated Complaint: SENT FROM WOUND CARE Time Seen by Provider: 06/24/19 13:18 Past History - Past Medical History Anemia: Yes Asthma: Yes Cardiac Disorders: Yes (AF) COPD: Yes CHF: Yes Diabetes: Yes GI Disorders: Yes Disorders: No HTN: Yes Hypercholesterolemia: Yes Liver Disease: No Seizures: Yes Thyroid Disease: No (Denies) - Surgical History Abdominal Surgery: Yes (Gall Bladder) Cardiac Surgery: Yes (cardiac stent placed 2018 @ [facility]) - Immunization History Immunization Up to Date: No - Psycho Social/Smoking Cessation Hx Smoking History: Former smoker Have you smoked in the past 12 months: Yes Number of Cigarettes Smoked Daily: 10 If you are a former smoker, when did you quit?: 10YRS Information on smoking cessation initiated: Yes Hx Alcohol Use: Yes Drug/Substance Use Hx: No Substance Use Type: None Hx Substance Use Treatment: No <Supriya Oleary - Last Filed: 06/24/19 21:46> <Mary Foster - Last Filed: 06/24/19 23:20> - Past Medical History Allergies/Adverse Reactions: Allergies Allergy/AdvReac Type Severity Reaction Status Date / Time codeine Allergy Verified 06/24/19 13:20 Home Medications: Ambulatory Orders Albuterol Sulfate [Proair Hfa] 2 puff IH Q6H PRN 08/02/17 Atorvastatin Calcium 80 mg PO HS 08/02/17 Amiodarone HCl 500 mg PO DAILY 10/03/18 Aspirin [Aspirin EC] 81 mg PO DAILY 10/03/18 Clopidogrel Bisulfate [Plavix] 75 mg PO DAILY 10/03/18 Rivaroxaban [Xarelto -] 20 mg PO DAILY 10/03/18 Acetaminophen [Tylenol .Regular Strength -] 650 mg PO Q6H PRN tablet 10/06/18 Budesonide/Formeterol Fumarate [SYMBICORT 80/4.5mcg -] 2 puff IH BID #2 inhaler 10/06/18 Gabapentin 300 mg PO TID #90 capsule 10/06/18 Metoprolol Tartrate [Lopressor -] 50 mg PO BID #60 tablet 10/06/18 Pramipexole Dihydrochloride [Mirapex -] 0.25 mg PO TID #90 tablet 10/06/18 Quetiapine Fumarate [Seroquel -] 200 mg PO HS #30 tablet 10/06/18 levETIRAcetam [Keppra -] 500 mg PO BID #60 tablet 10/06/18 Furosemide [Lasix -] 40 mg PO DAILY #30 tablet 05/29/19 Ferrous Sulfate [Iron] 325 mg PO DAILY 06/24/19 Levothyroxine [Synthroid -] 75 mcg PO DAILY@0700 06/24/19 Mirtazapine [Remeron -] 30 mg PO HS 06/24/19 *Physical Exam - Vital Signs Last Vital Signs Temp Pulse Resp BP Pulse Ox 98 F 74 18 126/54 L 97 06/24/19 13:24 06/24/19 13:24 06/24/19 13:24 06/24/19 13:24 06/24/19 13:24 <Supriya Oleary - Last Filed: 06/24/19 21:46> - Vital Signs Last Vital Signs Temp Pulse Resp BP Pulse Ox 98 F 74 18 126/54 L 97 06/24/19 13:24 06/24/19 13:24 06/24/19 13:24 06/24/19 13:24 06/24/19 13:24 <Mary Foster - Last Filed: 06/24/19 23:20> ED Treatment Course - LABORATORY CBC & Chemistry Diagram: 06/24/19 19:00 06/24/19 19:00 <MamtaSupriya - Last Filed: 06/24/19 21:46> - LABORATORY CBC & Chemistry Diagram: 06/24/19 19:00 06/24/19 19:00 - ADDITIONAL ORDERS Additional order review: Laboratory Results 06/24/19 06/24/19 19:00 19:00 Sodium 138 Potassium 4.1 Chloride 106 Carbon Dioxide 25 Anion Gap 7 L BUN 17.7 Creatinine 1.8 H Est GFR (CKD-EPI)AfAm 45.41 Est GFR (CKD-EPI)NonAf 39.18 Random Glucose 99 Calcium 8.3 L Total Bilirubin 0.2 AST 24 ALT 29 Alkaline Phosphatase 116 Creatine Kinase 314 H Creatine Kinase Index 0.7 CK-MB (CK-2) 2.5 Troponin I < 0.02 B-Natriuretic Peptide 1617.2 H Total Protein 6.6 Albumin 3.6 06/24/19 19:00 RBC 3.62 L MCV 76.9 L MCHC 31.0 L RDW 21.1 H MPV 7.6 Neutrophils % 77.2 Lymphocytes % 12.4 D Monocytes % 8.3 Eosinophils % 1.7 D Basophils % 0.4 - Medications Given in the ED: ED Medications Discontinued Medications Generic Name Dose Route Start Last Admin Trade Name Freq PRN Reason Stop Dose Admin Furosemide 40 mg 06/24/19 20:24 06/24/19 21:07 Lasix Injection - IVPUSH 06/24/19 20:25 40 mg ONCE ONE Administration Gabapentin 300 mg 06/24/19 21:08 06/24/19 21:30 Neurontin - PO 06/24/19 21:09 300 mg ONCE ONE Administration Levetiracetam 500 mg 06/24/19 21:08 06/24/19 21:30 Keppra - PO 06/24/19 21:09 500 mg ONCE ONE Administration <Mary Foster - Last Filed: 06/24/19 23:20> Medical Decision Making - Medical Decision Making 06/24/19 17:03 64 yo M with hx of CHF, COPD, asthma, a-fib on Xarelto, GERD, schizophrenia, anemia sent from wound care with swelling to R leg x 4 days. US ordered in E for r/o DVT. US negative. Given patient's c/o of worsening SOB associated with R leg edema, will eval for CHF exacerbation. -ekg -CXR -labs 06/24/19 18:57 EKG unchanged from prior of 05/25/19. Laboratory Tests 06/24/19 06/24/19 06/24/19 19:00 19:00 19:00 Hgb 8.6 L Creatinine 1.8 H B-Natriuretic Peptide 1617.2 H Hg and creatinine at baseline. BNP 1600 down from 2200, and CXR improved from last admission on 05/25/19. However, given acute onset dyspnea and R leg swelling with multiple comorbidities, will request inpatient admission for further workup. -40 mg lasix <Supriya Oleary - Last Filed: 06/24/19 21:46> - Medical Decision Making The patient was seen and evaluated in conjunction with midlevel provider under my direct supervision, ancillary studies were reviewed. I agree with the plan as outlined with TOOL HARDENER Mamta. HPI, workup/dispo as outlined. VS reviewed, wnl. bnp relatively stable, difficult to trend due to chronicity of CHF/issues. lasix HD appropriate cxr improved congestion. labs and lytes at baseline otherwise duplex neg for DVT admit to hospitalist for CHF management, monitoring and clinical care 06/24/19 23:19 <Mary Foster - Last Filed: 06/24/19 23:20> Discharge - Discharge Information Problems reviewed: Yes - Admission Yes <Supriya Oleary - Last Filed: 06/24/19 21:46> <Mary Foster - Last Filed: 06/24/19 23:20> - Discharge Information Clinical Impression/Diagnosis: COPD (chronic obstructive pulmonary disease), Leg edema, right CHF exacerbation Qualifiers: Heart failure type: unspecified Qualified Code(s): I50.9 - Heart failure, unspecified Condition: Stable
[2019-06-24 19:13] LABS: BASO % 0.4 % (0-2.0); EOS % 1.7 % (0-4.5); HEMATOCRIT 27.8 % (35.4-49); HEMOGLOBIN 8.6 GM/dL (11.7-16.9); LYMPH % 12.4 % (8-40); MCH 23.8 pg (25.7-33.7); MEAN CELL VOLUME 76.9 fl (80-96); MEAN PLT VOLUME 7.6 fl (7.5-11.1); MONO % 8.3 % (3.8-10.2); NEUT % 77.2 % (42.8-82.8); PLATELET COUNT 163 K/MM3 (134-434); RBC 3.62 M/mm3 (4.00-5.60); RDW 21.1 % (11.9-15.9); WHITE BLOOD COUNT 4.1 K/mm3 (4.0-10.0)
[2019-06-24 19:42] LABS: ALBUMIN 3.6 g/dl (3.4-5.0); BILIRUBIN,TOTAL 0.2 mg/dL (0.2-1); BLOOD UREA NITROGEN 17.7 mg/dL (7-18); CALCIUM 8.3 mg/dL (8.5-10.1); CREATININE 1.8 mg/dL (0.55-1.3); POTASSIUM 4.1 mmol/L (3.5-5.1); TOT PROT 6.6 g/dl (6.4-8.2)
[2019-06-24 19:53] LABS: ANISOCYTOSIS 2+; MACROCYTOSIS 1+; OVALOCYTE 1+
[2019-06-24 19:54] LABS: PLATELET ESTIMATE ADEQUATE
[2019-06-24 20:09] LABS: N-TERMINAL BNP 1617.2 pg/ml (5-125)
[2019-06-24] MEDS ORDERED: FUROSEMIDE 40 MG/4 ML INJECTABLE VIAL IVPUSH ONE ×2 (20:24→23:13)
[2019-06-24] MEDS ORDERED: FUROSEMIDE 40 MG/4 ML INJECTABLE VIAL ONE (20:46)
[2019-06-24] MEDS ORDERED: GABAPENTIN 300 MG CAPSULE (FP) PO ONE (21:08)
[2019-06-24] MEDS ORDERED: levETIRAcetam 500 MG TABLET (FP) PO ONE ×2 (21:08→21:25)
--- NOTE | 2019-06-24 21:09 | PN ---
Teaching Attending Note Name of Resident: Chadd Woodson ATTENDING PHYSICIAN STATEMENT I saw and evaluated the patient. I reviewed the resident's note and discussed the case with the resident. I agree with the resident's findings and plan as documented. SUBJECTIVE: Patient is a 64 year old man with PMH of CHF, COPD, CAD s/p stent placement, Psoriasis, Asthma, A-fib on Xarelto, GERD, Schizophrenia, and Anemia sent from wound care with swelling to Right leg for 4 days. Patient reports falling a month ago but denies any recent trauma prior to the swelling of his right leg. Patient reports LAINEZ that has worsened since his leg became swollen. Patient concedes that he eats a lot of junk food and he knows it is not good for him. No recent travel or sick contacts. Quit smoking 3 month ago, 10 pack year smoking history. Denies tobacco, alcohol, illicit drug use. OBJECTIVE: Alert Vital Signs Period Temp Pulse Resp BP Sys/David Pulse Ox Last 24 Hr 98 F 74 18 126/54 97 HEENT: No Jaundice, eye redness or discharge, PERRLA, EOMI. Normocephalic, atraumatic. External ears are normal and hearing is grossly intact. No nasal discharge. Neck: Supple, nontender. No palpable adenopathy or thyromegaly. No JVD Chest: Good effort. Clear to auscultation and percussion. Heart: Irregular. No S3, rub or murmur Abdomen: Not distended, soft, nontender and no HSM. No rebound or guarding. Normal bowel sounds. Ext: Peripheral pulses intact. Leg edema. Lower extremity psoriatic lesions. Skin: Warm and dry. No petechiae, rash or ecchymosis. Neuro: Alert. Oriented x3. CN 2-12 grossly intact. Sensation grossly intact in all four extremities and DTR are symmetric. Psych: Appropriate mood and affect. Good insight. Current Medications Generic Name Dose Route Start Last Admin Trade Name Freq PRN Reason Stop Dose Admin Gabapentin 300 mg 06/24/19 21:08 Neurontin - PO 06/24/19 21:09 ONCE ONE Levetiracetam 500 mg 06/24/19 21:08 Keppra - PO 06/24/19 21:09 ONCE ONE Home Medications Medication Instructions Recorded Albuterol Sulfate [Proair Hfa] 2 puff IH Q6H PRN 01/28/18 Atorvastatin Calcium 20 mg PO HS 08/02/17 Amiodarone HCl 200 mg PO DAILY 10/03/18 Aspirin [Aspirin EC] 81 mg PO DAILY 10/03/18 Clopidogrel Bisulfate [Plavix] 75 mg PO DAILY 10/03/18 Rivaroxaban [Xarelto -] 20 mg PO DAILY 10/03/18 Acetaminophen [Tylenol .Regular 650 mg PO Q6H PRN tablet 10/06/18 Strength -] Albuterol 2.5/Ipratropium 0.5 1 amp NEB Q6H PRN #120 amp 10/06/18 [Duoneb -] Budesonide/Formeterol Fumarate 2 puff IH BID #2 inhaler 10/06/18 [SYMBICORT 80/4.5mcg -] Gabapentin 300 mg PO TID #90 capsule 10/06/18 Metoprolol Tartrate [Lopressor -] 50 mg PO BID #60 tablet 10/06/18 Mirtazapine [Remeron -] 15 mg PO HS #30 tablet 10/06/18 Pramipexole Dihydrochloride 0.25 mg PO TID #90 tablet 10/06/18 [Mirapex -] Quetiapine Fumarate [Seroquel -] 200 mg PO HS #30 tablet 10/06/18 levETIRAcetam [Keppra -] 500 mg PO BID #60 tablet 10/06/18 Furosemide [Lasix -] 40 mg PO DAILY #30 tablet 05/29/19 Ferrous Sulfate [Iron] 325 mg PO DAILY 06/24/19 Levothyroxine [Synthroid -] 75 mcg PO DAILY@0700 06/24/19 Abnormal Lab Results 06/24/19 06/24/19 06/24/19 19:00 19:00 19:00 RBC 3.62 L Hgb 8.6 L Hct 27.8 L MCV 76.9 L MCH 23.8 L D MCHC 31.0 L RDW 21.1 H Anion Gap 7 L Creatinine 1.8 H Calcium 8.3 L Creatine Kinase 314 H B-Natriuretic Peptide 1617.2 H ASSESSMENT AND PLAN: 1. CHF exacerbation - CXR shows cardiomegaly, pulmonary vascular congestion and bibasilar atelectasis. No DVT on RLE doppler scan. EKG shows sinus tachycardia with premature supraventricular complexes and inferior infarct of undertermined age. Initial troponin is negative. Will treat with escalating doses of IV lasix , monitor urine output, restrict dietary salt intake, get daily standing weight , TSH, ECHO and consult cardiology. Get urinalysis. Will continue comprehensive care for all of patients comorbid conditions including Xarelto for Afib. 2. CKD - Has risk factors for CKD. Will consult nephrology for nephrologic workup. Avoid nephrotoxic agents such as NSAIDS, aminoglycosides, contrast dyes and certain Alternative medicine products. 3. Anemia - Likely partly due to renal failure. Needs colonoscopy in view of microcytosis. Will do basic anemia work up including serial stool guaiacs, reticulocyte count and iron studies. Would benefit from Procrit therapy once iron replete. 4. Obesity Counseled on the risks associated with obesity. Will provide patient all the necessary assistance, counseling and positive reinforcement to facilitate weight loss. Consult painter and body mechanic apprentice. 5. Hypertension - Restart suitable outpatient antihypertensive drugs when clinically appropriate. Revise regimen to ensure [id number] excellent BP control and public relations counselor patient on the injurious effects of uncontrolled hypertension. Nonpharmacologic measures to control hypertension like weight loss , salt restriction and exercise discussed. Importance of adherence to treatment regimen and attainment of normotension emphasized. 6. DVT prophylaxis - On Xarelto for Afib. 7. Advance directives - Full code
--- NOTE | 2019-06-24 21:21 | HP ---
CHIEF COMPLAINT: SOB PCP: Dr. Pedroza HISTORY OF PRESENT ILLNESS: 64 y/o male PMH CHF, HTN, HLD, A fib on xarelto, CAD s/p stent (03 may 2018), extensive psoriasis, asthma, copd, hypothyroidism, seizure d/o, and schizophrenia c/o progressive SOB since dc 29 May 2019. Pt states he has been taking his medications, including lasix since dc but has not adjusting his diet. He reports eating plenty of salty foods and soda. The pt lives on a 4th floor walk up and has had increasing difficulty getting up the stairs 2/2 SOB and leg pain. He was seen in wound care clinic and was sent down from clinic today 2/2 leg swelling and SOB. He endorses PND and orthopnea plus cough productive white/clear sputum. He denies NVFD, chills, constipation. He has had no sick contacts, recent illness, recent travel, painful calves, new foods, or new meds/herbs/supplements. He denies GARCIA, vision changes, abdominal pain and numbness/tingling. ER course was notable for: (1) Lasix 40 mg IV administered (2) Tachycardiac to 130s (3) EKG a fib Recent Travel: Denies Family history: He is unsure PAST MEDICAL HISTORY: CHF, HTN, HLD, A fib on xarelto, CAD s/p stent (03 may 2018), extensive psoriasis, asthma, copd, hypothyroidism, seizure d/o, and schizophrenia PAST SURGICAL HISTORY: Cholecystectomy (2016), Neck cyst removal (1969) Sexual history: Not sexually active, no h/o sti Social History: Smoking: Former smoker. 20 years 1/2 ppd. Quit smoking 3 month ago, 10 pack year smoking history. 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 Lives at home alone with cat, "Blayne." Has CERAMIC PAINTER visits. Allergies Codeine Allergy (Verified 06/24/19 13:20) HOME MEDICATIONS: Medication Instructions Recorded Albuterol Sulfate [Proair Hfa] 2 puff IH Q6H PRN 08/02/17 Atorvastatin Calcium 20 mg PO HS 08/02/17 Amiodarone HCl 200 mg PO DAILY 10/03/18 Aspirin [Aspirin EC] 81 mg PO DAILY 10/03/18 Clopidogrel Bisulfate [Plavix] 75 mg PO DAILY 10/03/18 Rivaroxaban [Xarelto -] 20 mg PO DAILY 10/03/18 Acetaminophen [Tylenol .Regular 650 mg PO Q6H PRN tablet 10/06/18 Strength -] Albuterol 2.5/Ipratropium 0.5 1 amp NEB Q6H PRN #120 amp 10/06/18 [Duoneb -] Budesonide/Formeterol Fumarate 2 puff IH BID #2 inhaler 10/06/18 [SYMBICORT 80/4.5mcg -] Gabapentin 300 mg PO TID #90 capsule 10/06/18 Metoprolol Tartrate [Lopressor -] 50 mg PO BID #60 tablet 10/06/18 Mirtazapine [Remeron -] 15 mg PO HS #30 tablet 10/06/18 Pramipexole Dihydrochloride 0.25 mg PO TID #90 tablet 10/06/18 [Mirapex -] Quetiapine Fumarate [Seroquel -] 200 mg PO HS #30 tablet 10/06/18 levETIRAcetam [Keppra -] 500 mg PO BID #60 tablet 10/06/18 Furosemide [Lasix -] 40 mg PO DAILY #30 tablet 05/29/19 Ferrous Sulfate [Iron] 325 mg PO DAILY 06/24/19 Levothyroxine [Synthroid -] 75 mcg PO DAILY@0700 06/24/19 REVIEW OF SYSTEMS CONSTITUTIONAL: Absent: fever, chills, diaphoresis, generalized weakness, malaise, loss of appetite, weight change HEENT: Absent: rhinorrhea, nasal congestion, throat pain, throat swelling, difficulty swallowing, mouth swelling, ear pain, eye pain, visual changes CARDIOVASCULAR: Absent: chest pain, syncope, palpitations, irregular heart rate, lightheadedness , peripheral edema RESPIRATORY: Absent: cough, shortness of breath, dyspnea with exertion, orthopnea, wheezing, stridor, hemoptysis GASTROINTESTINAL: Absent: abdominal pain, abdominal distension, nausea, vomiting, diarrhea, constipation, melena, hematochezia GENITOURINARY: Absent: dysuria, frequency, urgency, hesitancy, hematuria, flank pain, genital pain MUSCULOSKELETAL: Absent: myalgia, arthralgia, joint swelling, back pain, neck pain SKIN: Absent: rash, itching, pallor HEMATOLOGIC/IMMUNOLOGIC: Absent: easy bleeding, easy bruising, lymphadenopathy, frequent infections ENDOCRINE: Absent: unexplained weight gain, unexplained weight loss, heat intolerance, cold intolerance NEUROLOGIC: Absent: headache, focal weakness or paresthesias, dizziness, unsteady gait, seizure, mental status changes, bladder or bowel incontinence PSYCHIATRIC: Absent: anxiety, depression, suicidal or homicidal ideation, hallucinations. PHYSICAL EXAMINATION Vital Signs - 24 hr 06/24/19 13:24 Temperature 98 F Pulse Rate 74 Respiratory 18 Rate Blood Pressure 126/54 L O2 Sat by Pulse 97 Oximetry (%) GENERAL: AOx3, in no acute distress, psoriatic lesions diffusely spread across body HEAD: NCAT EYES: BONILLA, EOMI, conjunctiva clear. ENT: Ears normal, nares patent, oropharynx clear without exudates. Moist mucous membranes. NECK: Normal range of motion, supple without lymphadenopathy, JVD, or masses. LUNGS: End expiratory wheezes BL. Crackles at base of posterior lower lobes BL. No accessory muscle use. HEART: Tachycardia. Irregularly irregular rhythm ABDOMEN: Soft, obese, BS present in all 4 quadrants, non-distended, no JVD, MUSCULOSKELETAL: No bony deformities or tenderness. No CVA tenderness. UPPER EXTREMITIES: 2+ pulses, warm, well-perfused. No cyanosis. No clubbing. No peripheral edema. LOWER EXTREMITIES: 2+ pulses, warm, well-perfused. No calf tenderness. 4+ pitting edema NEUROLOGICAL: No focal deficits. Cranial nerves II-XII intact. Normal speech. Gait not appreciated. PSYCHIATRIC: Cooperative. Good eye contact. Appropriate mood and affect. SKIN: Psoriatic lesions diffusely spread across body. Warm, dry, normal turgor, normal capillary refill. Laboratory Results - last 24 hr 06/24/19 06/24/19 06/24/19 19:00 19:00 19:00 WBC 4.1 RBC 3.62 L Hgb 8.6 L Hct 27.8 L MCV 76.9 L MCH 23.8 L D MCHC 31.0 L RDW 21.1 H Plt Count 163 D MPV 7.6 Absolute Neuts (auto) 3.2 Neutrophils % 77.2 Lymphocytes % 12.4 D Monocytes % 8.3 Eosinophils % 1.7 D Basophils % 0.4 Nucleated RBC % 0 Hypochromia 1+ Platelet Estimate Adequate Polychromasia 1+ Poikilocytosis 2+ Anisocytosis 2+ Microcytosis 1+ Macrocytosis 1+ Ovalocytes 1+ Sodium 138 Potassium 4.1 Chloride 106 Carbon Dioxide 25 Anion Gap 7 L BUN 17.7 Creatinine 1.8 H Est GFR (CKD-EPI)AfAm 45.41 Est GFR (CKD-EPI)NonAf 39.18 Random Glucose 99 Calcium 8.3 L Total Bilirubin 0.2 AST 24 ALT 29 Alkaline Phosphatase 116 Creatine Kinase 314 H Creatine Kinase Index 0.7 CK-MB (CK-2) 2.5 Troponin I < 0.02 B-Natriuretic Peptide 1617.2 H Total Protein 6.6 Albumin 3.6 EKG shows sinus tachycardia with premature supraventricular complexes and inferior infarct of undertermined age. ASSESSMENT/PLAN: 64 y/o male PMH CHF, HTN, HLD, A fib on xarelto, CAD s/p stent (03 may 2018), extensive psoriasis, asthma, copd, hypothyroidism, seizure d/o, and schizophrenia c/o progressive SOB since dc 29 May 2019, consistent with acute exacerbation of CHF. High sodium diet, crackles on lung auscultation, and extensive lower extremity pitting edema present. # CHF exacerbation - Last echo EF 55-60, LEFT atrial dilation, mirtral regurg - Lasix 40 mg IV once to trial and no urine produced in ED. Added 20 mg Lasix in setting of CKD3b - TSH - ECHO - Strict i/o - Daily weights - Repeat EKG - Consult cardiology # Microcytic anemia - Venofer # CKD3b - Cr. 1.8 - GFR 39.18 - Consult nephrology # HTN - Cont. curent home regimen: Metoprolol 50 mg PO BID # HLD - Cont. curent home regimen: Atorvastatin 20 mg PO HS # Hypothyroidism - Synthroid 75; med rec in AM - [facility] # Psoriasis - Keep skin clean and moisturized to avoid skin rupture # F/E/N - Fluid restrict/lasix and strict i/o - Cont. to monitor - Low sodium diet # DVT prophylaxis - On Xarelto # Disposition - Admit to telemetry Chadd Woodson MD Visit type - Emergency Visit Emergency Visit: Yes ED Registration Date: 06/24/19 Care time: The patient presented to the Emergency Department on the above date and was hospitalized for further evaluation of their emergent condition. - New Patient This patient is new to me today: Yes Date on this admission: 06/27/19 - Critical Care Critical Care patient: No ATTENDING PHYSICIAN STATEMENT I saw and evaluated the patient. I reviewed the resident's note and discussed the case with the resident. I agree with the resident's findings and plan as documented. SUBJECTIVE: OBJECTIVE: ASSESSMENT AND PLAN:
[2019-06-24] MEDS ORDERED: GABAPENTIN 100 MG CAPSULE (FP) ONE (21:26)
[2019-06-24] MEDS ORDERED: ALBUTEROL SO4 8 GM HFA INHALER IH PRN (23:14)
[2019-06-24] MEDS ORDERED: IRON SUCROSE INJECTION 300 MG in SODIUM CHLORIDE 250 ML IVPB ONE (23:45)
[2019-06-25] MEDS ORDERED: FUROSEMIDE 40 MG/4 ML INJECTABLE VIAL ONE (00:07)
[2019-06-25] MEDS ORDERED: QUEtiapine FUMARATE 200 MG TABLET PO ONE (00:09)
[2019-06-25] MEDS: PRAMIPEXOLE DIHYDROCHLORIDE 0.25 MG TABLET PO SCH ×4 (00:15→22:05)
[2019-06-25] MEDS ORDERED: QUEtiapine FUMARATE 25 MG TABLET (FP) ONE (00:17)
[2019-06-25] MEDS ORDERED: QUEtiapine FUMARATE 100 MG TABLET (FP) ONE (00:17)
[2019-06-25] MEDS ORDERED: MELATONIN 5 MG TABLETS PO ONE (02:22)
[2019-06-25] MEDS ORDERED: METOPROLOL TARTRATE 5 MG/5 ML VIAL IVPUSH ONE (02:28)
[2019-06-25] MEDS: ACETAMINOPHEN 325 MG TABLET (FP) PO PRN (03:05)
[2019-06-25] MEDS: GABAPENTIN 300 MG CAPSULE (FP) PO SCH ×3 (06:15→22:05)
[2019-06-25] MEDS: LEVOTHYROXINE NA 25 MCG TABLET (FP) PO SCH (06:15)
[2019-06-25 07:58] LABS: BASO % 0.4 % (0-2.0); EOS % 1.4 % (0-4.5); HEMATOCRIT 28.3 % (35.4-49); HEMOGLOBIN 8.9 GM/dL (11.7-16.9); LYMPH % 12.5 % (8-40); MCH 25.1 pg (25.7-33.7); MCHC 31.5 g/dl (32.0-35.9); MEAN CELL VOLUME 79.6 fl (80-96); MEAN PLT VOLUME 7.6 fl (7.5-11.1); MONO % 9.5 % (3.8-10.2); NEUT % 76.2 % (42.8-82.8); PLATELET COUNT 156 K/MM3 (134-434); RBC 3.56 M/mm3 (4.00-5.60); RDW 21.6 % (11.9-15.9)
[2019-06-25 08:16] LABS: ALBUMIN 3.6 g/dl (3.4-5.0); BILIRUBIN,TOTAL 0.3 mg/dL (0.2-1); BLOOD UREA NITROGEN 23.4 mg/dL (7-18); CALCIUM 8.9 mg/dL (8.5-10.1); MAGNESIUM 2.5 mg/dL (1.8-2.4); PHOSPHOROUS 3.5 mg/dL (2.5-4.9); POTASSIUM 4.4 mmol/L (3.5-5.1); TOT PROT 6.8 g/dl (6.4-8.2)
[2019-06-25] MEDS ORDERED: guaiFENesin/D-METHORPHAN HB 10 ML UNIT-DOSE CUPS PO PRN (09:56)
[2019-06-25] MEDS ORDERED: AMIODARONE HCL 200 MG TABLET (FP) PO SCH (10:00)
[2019-06-25] MEDS: levETIRAcetam 500 MG TABLET (FP) PO SCH ×2 (10:01→22:06)
[2019-06-25] MEDS: ASPIRIN COATED 81 MG TABLET.EC PO SCH (10:01)
[2019-06-25] MEDS: METOPROLOL TARTRATE 50 MG TABLET (FP) PO SCH ×2 (10:02→22:05)
[2019-06-25] MEDS: CLOPIDOGREL BISULFATE 75 MG TABLET (FP) PO SCH (10:02)
[2019-06-25] MEDS: BUDESONIDE/FORMETEROL FUMARATE 80/4.5 mcg INHALER IH SCH ×2 (11:31→22:06)
--- NOTE | 2019-06-25 13:56 | PN ---
Progress Note, Physician Chief Complaint: CHF exacerbation History of Present Illness: SOB improved after IV lasix Poor dietary choices, needs education and counseling BLLE edema - Current Medication List Current Medications: Active Medications Acetaminophen (Tylenol -) 650 mg PO Q6H PRN PRN Reason: Fever Or Pain Last Admin: 06/25/19 03:05 Dose: 650 mg Albuterol Sulfate (Ventolin Hfa Inhaler -) 2 puff IH Q6H PRN PRN Reason: SHORTNESS OF BREATH Amiodarone HCl (Cordarone -) 500 mg PO DAILY [facility] Aspirin (Ecotrin -) 81 mg PO DAILY [facility] Last Admin: 06/25/19 10:01 Dose: 81 mg Atorvastatin Calcium (Lipitor -) 80 mg PO HS [facility] Budesonide/Formoterol Fumarate (Symbicort 80/4.5mcg -) 2 puff IH BID [facility] Last Admin: 06/25/19 11:31 Dose: 2 puff Clopidogrel Bisulfate (Plavix -) 75 mg PO DAILY [facility] Last Admin: 06/25/19 10:02 Dose: 75 mg Gabapentin (Neurontin -) 300 mg PO TID [facility] Last Admin: 06/25/19 13:26 Dose: 300 mg Guaifenesin (Robitussin Dm -) 10 ml PO Q4H PRN PRN Reason: COUGH Last Admin: 06/25/19 10:12 Dose: 10 ml Levetiracetam (Keppra -) 500 mg PO BID [facility] Last Admin: 06/25/19 10:01 Dose: 500 mg Levothyroxine Sodium (Synthroid -) 75 mcg PO DAILY@0700 [facility] Last Admin: 06/25/19 06:15 Dose: 75 mcg Metoprolol Tartrate (Lopressor -) 50 mg PO BID [facility] Last Admin: 06/25/19 10:02 Dose: 50 mg Mirtazapine (Remeron -) 30 mg PO HS [facility] Pramipexole Dihydrochloride (Mirapex -) 0.25 mg PO TID [facility] Last Admin: 06/25/19 13:26 Dose: 0.25 mg Quetiapine Fumarate (Seroquel -) 200 mg PO HS [facility] Rivaroxaban (Xarelto) 20 mg PO DAILY@1800 [facility] - Objective Vital Signs: Vital Signs Temperature 97.4 F L 06/25/19 09:00 Pulse Rate 118 H 06/25/19 09:00 Respiratory Rate 20 06/25/19 09:00 Blood Pressure 130/71 06/25/19 09:00 O2 Sat by Pulse Oximetry (%) 99 06/25/19 09:00 Constitutional: Yes: Well Nourished, No Distress, Calm Cardiovascular: Yes: Regular Rate and Rhythm Respiratory: Yes: Regular Gastrointestinal: Yes: Normal Bowel Sounds, Soft Genitourinary: Yes: WNL Musculoskeletal: Yes: WNL Extremities: Yes: WNL Edema: Yes Edema: LLE: 2+, RLE: 2+ Peripheral Pulses WNL: Yes Neurological: Yes: Alert, Oriented Psychiatric: Yes: Alert, Oriented Labs: CBC, BMP 06/25/19 06:54 06/25/19 06:54 Problem List - Problems (1) CHF exacerbation Assessment/Plan: - Last echo EF 55-60, LEFT atrial dilation, mirtral regurg -Cardiology consult -Tele monitor -Furosemide 40 mg po daily -Low sodium diet -nutrition consult -Last Echo 12/30/18: Normal LV systolic function, normal RV,Mild mr, mild tr Problems reviewed: Yes Code(s): I50.9 - HEART FAILURE, UNSPECIFIED Qualifiers: Heart failure type: unspecified Qualified Code(s): I50.9 - Heart failure, unspecified (2) COPD (chronic obstructive pulmonary disease) Assessment/Plan: -Pulmonary consult -Nasal O2 PRN -bronchodilators Code(s): J44.9 - CHRONIC OBSTRUCTIVE PULMONARY DISEASE, UNSPECIFIED (3) SHANNA (acute kidney injury) Assessment/Plan: -Nephrology consult -monitor trend Problems reviewed: Yes Code(s): N17.9 - ACUTE KIDNEY FAILURE, UNSPECIFIED (4) Atrial fibrillation with RVR Assessment/Plan: -Chronic, rate controlled, now in NSR -continue Xarelto Problems reviewed: Yes Code(s): I48.91 - UNSPECIFIED ATRIAL FIBRILLATION Assessment/Plan see problem list
--- NOTE | 2019-06-25 14:08 | EKG ---
Test Reason : Blood Pressure : / mmHG Vent. Rate : 127 BPM Atrial Rate : 170 BPM P-R Int : 000 ms QRS Dur : 078 ms QT Int : 276 ms P-R-T Axes : 000 -28 017 degrees QTc Int : 401 ms PROBABLE ATRIAL FIBRILLATION OR FLUTTER LOW VOLTAGE QRS SEPTAL INFARCT , AGE UNDETERMINED ABNORMAL ECG WHEN COMPARED WITH ECG OF 24-JUN-2019 18:28, NO SIGNIFICANT CHANGE PRESENT (PREVIOUS ECG LIKELY SHOWED ATRIAL FLUTTER) Confirmed by ERNST TAMAYO MD ([id number]) on 06/25/2019 2:08:01 PM Referred By: Confirmed By:ERNST TAMAYO MD
--- NOTE | 2019-06-25 14:13 | EKG ---
Test Reason : Blood Pressure : / mmHG Vent. Rate : 128 BPM Atrial Rate : 128 BPM P-R Int : 188 ms QRS Dur : 090 ms QT Int : 276 ms P-R-T Axes : 055 -44 043 degrees QTc Int : 402 ms ATRIAL FLUTTER WITH VARIABLE AV CONDUCTION LEFT AXIS DEVIATION PULMONARY DISEASE PATTERN ABNORMAL ECG WHEN COMPARED WITH ECG OF 25-MAY-2019 14:51, COMPARED TO EKG NO SIGNIFICANT CHANGE IS FOUND Confirmed by ERNST TAMAYO MD ([id number]) on 06/25/2019 2:13:22 PM Referred By: Confirmed By:ERNST TAMAYO MD
--- NOTE | 2019-06-25 14:37 | CON.CARD ---
Consult Consult Specialty:: Cardiology Referred by:: Josh Mclean Reason for Consultation:: SOB, edema, chf - History of Present Illness Chief Complaint: sob History of Present Illness: 64 year old man with a pmh AFib on xarelto, HTN, HLD, CAD s/p NSTEMI 04/2018 s/ p PCI with NEGRO RCA 05/03/18 [facility] with no other sig residual CAD, Chronic diastolic CHF, COPD, Anemia, hypothyroid, seizures, schizophrenia admitted with sob, edema. On prior admission pt found to be in volume overload with acute on chronic likely diastolic chf, AFib with RVR. pt seen and examined today in nad. states he is feeling better. states his sob improved but he still has a cough. states he has been taking his medications as prescribed but is eating a very poor diet. no chest pain, palpitions. Cardiac Cath [facility] 05/03/2018 1. Single vessel CAD - long and severe stenosis beginning at the pRCA extending into the dRCA 2. Normal LVEDP 3. No 4. Successful PCI of RCA with NEGRO x 2 Recommend DAPT and medical management of SIHD ECHO 12/30/18 Normal LV systolic function, normal RV Mild mr, mild tr No pericardial effusion - History Source History Provided By: Patient, Medical Record Limitations to Obtaining History: No Limitations - Past Medical History [employer]: Yes: Seizure Cardio/Vascular: Yes: AFIB, CAD, CHF, HTN, Hyperlipdemia Pulmonary: Yes: Asthma, COPD Renal/: Yes: Renal Inusuff Psych: Yes: Depression, Schizophrenia Musculoskeletal: Yes: Other (chronic right knee pain) Endocrine: Yes: Hypothyroidism - Past Surgical History Past Surgical History: Yes: Cholecystectomy, Stent - Alcohol/Substance Use Hx Alcohol Use: No History of Substance Use: reports: None - Smoking History Smoking history: Former smoker Have you smoked in the past 12 months: Yes Aproximately how many cigarettes per day: 10 If you are a former smoker, when did you quit?: 3 months - Social History ADL: Independent History of Recent Travel: No Home Medications - Allergies Allergies/Adverse Reactions: Allergies Allergy/AdvReac Type Severity Reaction Status Date / Time codeine Allergy Verified 06/24/19 13:20 - Home Medications Home Medications: Ambulatory Orders Albuterol Sulfate [Proair Hfa] 2 puff IH Q6H PRN 08/02/17 Atorvastatin Calcium 80 mg PO HS 08/02/17 Amiodarone HCl 500 mg PO DAILY 10/03/18 Aspirin [Aspirin EC] 81 mg PO DAILY 10/03/18 Clopidogrel Bisulfate [Plavix] 75 mg PO DAILY 10/03/18 Rivaroxaban [Xarelto -] 20 mg PO DAILY 10/03/18 Acetaminophen [Tylenol .Regular Strength -] 650 mg PO Q6H PRN tablet 10/06/18 Budesonide/Formeterol Fumarate [SYMBICORT 80/4.5mcg -] 2 puff IH BID #2 inhaler 10/06/18 Gabapentin 300 mg PO TID #90 capsule 10/06/18 Metoprolol Tartrate [Lopressor -] 50 mg PO BID #60 tablet 10/06/18 Pramipexole Dihydrochloride [Mirapex -] 0.25 mg PO TID #90 tablet 10/06/18 Quetiapine Fumarate [Seroquel -] 200 mg PO HS #30 tablet 10/06/18 levETIRAcetam [Keppra -] 500 mg PO BID #60 tablet 10/06/18 Furosemide [Lasix -] 40 mg PO DAILY #30 tablet 05/29/19 Ferrous Sulfate [Iron] 325 mg PO DAILY 06/24/19 Levothyroxine [Synthroid -] 75 mcg PO DAILY@0700 06/24/19 Mirtazapine [Remeron -] 30 mg PO HS 06/24/19 Family Medical History Family History: Denies Review of Systems - Review of Systems Constitutional: denies: No Symptoms, Chills, Diaphoresis, Fever, Lethargy, Loss of Appetite, Malaise, Night Sweats, Unintentional Wgt. Loss, Weakness, Other Eyes: denies: No Symptoms, Blind Spots, Blurred Vision, Double Vision, Eye Pain , Floaters, Photophobia, Recent Change in Vision, Other HENT: denies: No Symptoms, Difficult Swallowing, Ear Discharge, Ear Pain, Epistaxis, Gingival Bleeding, Hearing Loss, Mouth Swelling, Nasal Congestion, Ocular Prosthesis, Throat Pain, Toothache, Ringing in Ears, Other Neck: denies: No Symptoms, Decreased ROM, Lumps, Pain on Movement, Stiffness, Swollen Glands, Tenderness, Other Cardiovascular: reports: Edema, Shortness of Breath. denies: No Symptoms, Chest Pain, Palpitations, Other Respiratory: reports: Cough, Exercise Intolerance, SOB, SOB on Exertion. denies : No Symptoms, Hemoptysis, Orthopnea, PND, Snoring, Wheezing, Other Gastrointestinal: denies: No Symptoms, Abdominal Pain, Bloating, Constipation, Diarrhea, Dysphagia, Indigestion, Melena, Nausea, Rectal Bleeding, Vomiting, Vomiting Blood, Other Genitourinary: denies: No Symptoms, Burning, Discharge, Dysuria, Flank Pain, Frequency, Hematuria, Incontinence, Lesions, Menses, Pain, Testicular Mass, Testicular Pain, Testicular Swelling, Urgency, Vaginal Bleeding, Other Breasts: denies: No Symptoms Reported, See HPI, Breast Implants, Discharge from Nipple, Lumps, Pain, Skin Changes, Other Musculoskeletal: denies: No Symptoms, Back Pain, Crepitus, Decreased ROM, Extremity Pain, Joint Pain, Joint Swelling, Muscle Pain, Muscle Cramps, Muscle Weakness, Other Integumentary: denies: No Symptoms, Blister, Bruising, Change in Color, Eczema, Erythema, Incision, Lesions, Lump, Pallor, Pruritis, Rash, Wound, Other Neurological: denies: No Symptoms, Change in LOC, Change in Speech, Confusion, Dizziness, Headache, Incoordination, Numbness, Parasthesia, Pre-Existing Deficit , Seizure, Syncope, Tremors, Unsteady Gait, Weakness, Other Endocrine: denies: No Symptoms, Excessive Sweating, Flushing, Increased Hunger, Increased Thirst, Intolerance to Cold, Intolerance to Heat, Unexplained Weight Gain, Unexplained Weight Loss, Other Hematology/Lymphatic: denies: No Symptoms, Easily Bruised, Excessive Bleeding, Swollen Glands, Other Psychiatric: denies: No Symptoms, Altered Sleep Pattern, Anxiety, Depression, Hallucinations, Panic, Paranoia, Suicidal, Other - Risk Factors Known Risk Factors: Yes: Hypercholesterolemia, Hypertension, Prior CA /Emb Stroke Vital Signs: Vital Signs Temperature 97.4 F L 06/25/19 09:00 Pulse Rate 118 H 06/25/19 09:00 Respiratory Rate 20 06/25/19 09:00 Blood Pressure 130/71 06/25/19 09:00 O2 Sat by Pulse Oximetry (%) 99 06/25/19 09:00 Constitutional: Yes: No Distress, Calm Eyes: Yes: Conjunctiva Clear, EOM Intact, PERRL HENT: Yes: Atraumatic, Normocephalic Neck: Yes: Supple, Trachea Midline Respiratory: Yes: Regular, Cough, Diminished. No: Rales, Rhonchi, SOB, Wheezes Gastrointestinal: Yes: Normal Bowel Sounds, Soft. No: Distention, Tenderness Cardiovascular: Yes: Regular Rate and Rhythm. No: Bradycardia, Tachycardia, Pulse Irregular, Gallop, Rub, Varicosities JVD: No Carotid Bruit: No PMI: Non-Displaced Heart Sounds: Yes: S1, S2. No: Split S2, S3, S4, Clicks, Gallop, Rub, Bruit Murmur: No: Systolic Murmur, Diastolic Murmur Musculoskeletal: Yes: WNL Extremities: Yes: WNL Edema: Yes Edema: LLE: 1+, RLE: 1+ Peripheral Pulses WNL: Yes Neurological: Yes: Alert, Oriented Psychiatric: Yes: Alert, Oriented - Other Data Labs, Other Data: CBC, BMP 06/25/19 06:54 06/25/19 06:54 Troponin, BNP 06/24/19 19:00 Troponin I < 0.02 B-Natriuretic Peptide 1617.2 H Troponin, BNP 06/24/19 19:00 Troponin I < 0.02 B-Natriuretic Peptide 1617.2 H afib 127bpm Echo: Report Reviewed Imaging - Results Chest X-ray: Report Reviewed, Image Reviewed EKG: Report Reviewed, Image Reviewed Other: Report Reviewed, Image Reviewed (tele-Afib-->NSR) Assessment/Plan 64 year old man with a pmh AFib on xarelto, HTN, HLD, CAD s/p NSTEMI 04/2018 s/ p PCI with NEGRO RCA 05/03/18 [facility] with no other sig residual CAD, Chronic diastolic CHF, COPD, Anemia, hypothyroid, seizures, schizophrenia admitted with sob, edema. On prior admission pt found to be in volume overload with acute on chronic likely diastolic chf, AFib with RVR. pt seen and examined today in nad. states he is feeling better. states his sob improved but he still has a cough. states he has been taking his medications as prescribed but is eating a very poor diet. no chest pain, palpitions. Cardiac Cath [facility] 05/03/2018 1. Single vessel CAD - long and severe stenosis beginning at the pRCA extending into the dRCA 2. Normal LVEDP 3. No 4. Successful PCI of RCA with NEGRO x 2 Recommend DAPT and medical management of SIHD ECHO 12/30/18 Normal LV systolic function, normal RV Mild mr, mild tr No pericardial effusion Edema/sob-mild volume overload but not significantly worse from baseline -acute on chronic diastolic CHF -admits to eating a very poor diet -again CHF possibly precipitated by Afib with RVR -HR control and now in sinus rhythm -given 2 doses of IV Lasix in ER -start Lasix 40mg po daily CAD-NSTEMI 04/2018 s/p cardiac cath single vessel CAD RCA s/p NEGRO x 2 RCA -current presentation not c/w ACS -cardiac enzymes wnl -cont ASA 81mg daily -echo sjr 12/30/18 showed normal LV/RV systolic function, no sig valvular abnl -cont metoprolol and lipitor -would not pursue further ischemic evaluation at this time. Pafib with rvr on admission-now NSR -cont amiodarone 200mg daily for now -cont metoprolol and uptitrate as needed for HR control -cont Xarelto 20mg daily -needs fup with EP as outpatient -needs fup with PMD as on amio needs PFTs, TFTs LFTs monitored Close outpatient fup.
[2019-06-25] MEDS: RIVAROXABAN 20 MG TABLET PO SCH (17:50)
[2019-06-25] MEDS ORDERED: PT OWN MED DRAWER 7, Y5N ONE (21:55)
[2019-06-25] MEDS: MIRTAZAPINE 15 MG TABLET (FP) PO SCH (22:05)
[2019-06-25] MEDS: ATORVASTATIN CA 40 MG TABLET (FP) PO SCH (22:05)
[2019-06-25] MEDS: QUEtiapine FUMARATE 200 MG TABLET PO SCH (22:05)
--- NOTE | 2019-06-25 22:41 | CON.NEP ---
Consult Consult Specialty:: Nephrology Referred by:: dr jcaobs Reason for Consultation:: CKD, Acute CHF exacerbation - History of Present Illness Chief Complaint: sob edema History of Present Illness: pt with h/o ckd and chf admitted with sob placed on cafeteria monitor denies any sob today renal function is near baseline lower ext edema Cardiac Cath [facility] 05/03/2018 1. Single vessel CAD - long and severe stenosis beginning at the pRCA extending into the dRCA 2. Normal LVEDP 3. No 4. Successful PCI of RCA with ROSSANA x 2 Recommend DAPT and medical management of SIHD ECHO 12/30/18 Normal LV systolic function, normal RV Mild mr, mild tr No pericardial effusion - History Source History Provided By: Patient Limitations to Obtaining History: No Limitations - Past Medical History [employer]: Yes: Seizure Cardio/Vascular: Yes: AFIB, CAD, CHF, HTN, Hyperlipdemia Pulmonary: Yes: Asthma, COPD Renal/: Yes: Renal Inusuff Psych: Yes: Depression, Schizophrenia Musculoskeletal: Yes: Other (chronic right knee pain) Endocrine: Yes: Hypothyroidism - Past Surgical History Past Surgical History: Yes: Cholecystectomy, Stent - Alcohol/Substance Use Hx Alcohol Use: No History of Substance Use: reports: None - Smoking History Smoking history: Former smoker Have you smoked in the past 12 months: Yes Aproximately how many cigarettes per day: 10 If you are a former smoker, when did you quit?: 3 months - Social History ADL: Independent History of Recent Travel: No Home Medications - Allergies Allergies/Adverse Reactions: Allergies Allergy/AdvReac Type Severity Reaction Status Date / Time codeine Allergy Verified 06/24/19 13:20 - Home Medications Home Medications: Ambulatory Orders Albuterol Sulfate [Proair Hfa] 2 puff IH Q6H PRN 08/02/17 Atorvastatin Calcium 80 mg PO HS 08/02/17 Amiodarone HCl 500 mg PO DAILY 10/03/18 Aspirin [Aspirin EC] 81 mg PO DAILY 10/03/18 Clopidogrel Bisulfate [Plavix] 75 mg PO DAILY 10/03/18 Rivaroxaban [Xarelto -] 20 mg PO DAILY 10/03/18 Acetaminophen [Tylenol .Regular Strength -] 650 mg PO Q6H PRN tablet 10/06/18 Budesonide/Formeterol Fumarate [SYMBICORT 80/4.5mcg -] 2 puff IH BID #2 inhaler 10/06/18 Gabapentin 300 mg PO TID #90 capsule 10/06/18 Metoprolol Tartrate [Lopressor -] 50 mg PO BID #60 tablet 10/06/18 Pramipexole Dihydrochloride [Mirapex -] 0.25 mg PO TID #90 tablet 10/06/18 Quetiapine Fumarate [Seroquel -] 200 mg PO HS #30 tablet 10/06/18 levETIRAcetam [Keppra -] 500 mg PO BID #60 tablet 10/06/18 Furosemide [Lasix -] 40 mg PO DAILY #30 tablet 05/29/19 Ferrous Sulfate [Iron] 325 mg PO DAILY 06/24/19 Levothyroxine [Synthroid -] 75 mcg PO DAILY@0700 06/24/19 Mirtazapine [Remeron -] 30 mg PO HS 06/24/19 Nephrology Consult - Height Height: 5 ft 6 in - Weight Weight: 204 lb - BMI Body Mass Index (BMI): 32.9 - Lab Results CBC,BMP: CBC, BMP 06/25/19 06:54 06/25/19 06:54 Anion Gap: Anion Gap Anion Gap 10 MMOL/L (8-16) 06/25/19 06:54 - Physical Examination Vital Signs: Vital Signs Temperature 97.8 F 06/25/19 20:53 Pulse Rate 70 06/25/19 20:53 Respiratory Rate 18 06/25/19 20:53 Blood Pressure 146/75 06/25/19 20:53 O2 Sat by Pulse Oximetry (%) 96 06/25/19 20:53 Constitutional: Yes: Well Nourished, No Distress, Calm Eyes: Yes: WNL, Conjunctiva Clear, EOM Intact HENT: Yes: WNL, Atraumatic, Normocephalic Neck: Yes: WNL, Supple, Trachea Midline Cardiovascular: Yes: WNL, Regular Rate and Rhythm Respiratory: Yes: WNL, Regular, CTA Bilaterally Gastrointestinal: Yes: WNL, Normal Bowel Sounds Renal/: Yes: WNL Musculoskeletal: Yes: WNL Extremities: Yes: Erythema Edema: Yes Edema: LLE: 2+, RLE: 2+ Integumentary: Yes: WNL Neurological: Yes: WNL, Alert, Oriented Psychiatric: Yes: WNL, Alert, Oriented Assessment/Plan chf exacerbation acute on chronic Kidney failure CKD renal function near baseline PMHx- afib on xarelto, htn, hld, cad s/p nstemi 04/2018 s/p pci with rossana rca 05/03/18, diastolic chf, copd, a nemia, hypothyroid, sz, s chizophrenia Plan- monitor renal function renal function should remain stable when chf is optimized
[2019-06-26] MEDS ORDERED: METOPROLOL TARTRATE 5 MG/5 ML VIAL IVPUSH ONE (04:49)
[2019-06-26] MEDS ORDERED: PT OWN MED DRAWER 7, Y5N ONE ×3 (05:44→20:41)
[2019-06-26] MEDS: GABAPENTIN 300 MG CAPSULE (FP) PO SCH ×3 (06:43→21:15)
[2019-06-26] MEDS: LEVOTHYROXINE NA 25 MCG TABLET (FP) PO SCH (06:43)
[2019-06-26 07:15] LABS: BLOOD UREA NITROGEN 20.6 mg/dL (7-18); CALCIUM 8.8 mg/dL (8.5-10.1); CREATININE 1.5 mg/dL (0.55-1.3); POTASSIUM 4.3 mmol/L (3.5-5.1)
[2019-06-26] MEDS: PRAMIPEXOLE DIHYDROCHLORIDE 0.25 MG TABLET PO SCH ×3 (07:32→21:17)
[2019-06-26] MEDS: ASPIRIN COATED 81 MG TABLET.EC PO SCH (09:40)
[2019-06-26] MEDS: FUROSEMIDE 40 MG TABLET (FP) PO SCH (09:40)
[2019-06-26] MEDS: CLOPIDOGREL BISULFATE 75 MG TABLET (FP) PO SCH (09:40)
[2019-06-26] MEDS: METOPROLOL TARTRATE 50 MG TABLET (FP) PO SCH ×2 (09:40→21:15)
[2019-06-26] MEDS: levETIRAcetam 500 MG TABLET (FP) PO SCH ×2 (09:40→21:15)
[2019-06-26] MEDS: BUDESONIDE/FORMETEROL FUMARATE 80/4.5 mcg INHALER IH SCH ×2 (09:42→21:18)
--- NOTE | 2019-06-26 09:45 | PN ---
Progress Note, Physician Chief Complaint: CHF exacerbation History of Present Illness: SOB improved after IV lasix Poor dietary choices, needs education and counseling BLLE edema - Current Medication List Current Medications: Active Medications Acetaminophen (Tylenol -) 650 mg PO Q6H PRN PRN Reason: Fever Or Pain Last Admin: 06/25/19 03:05 Dose: 650 mg Albuterol Sulfate (Ventolin Hfa Inhaler -) 2 puff IH Q6H PRN PRN Reason: SHORTNESS OF BREATH Amiodarone HCl (Cordarone -) 500 mg PO DAILY [facility] Aspirin (Ecotrin -) 81 mg PO DAILY [facility] Last Admin: 06/26/19 09:40 Dose: 81 mg Atorvastatin Calcium (Lipitor -) 80 mg PO HS [facility] Last Admin: 06/25/19 22:05 Dose: 80 mg Budesonide/Formoterol Fumarate (Symbicort 80/4.5mcg -) 2 puff IH BID [facility] Last Admin: 06/26/19 09:42 Dose: 2 puff Clopidogrel Bisulfate (Plavix -) 75 mg PO DAILY [facility] Last Admin: 06/26/19 09:40 Dose: 75 mg Furosemide (Lasix -) 40 mg PO DAILY [facility] Last Admin: 06/26/19 09:40 Dose: 40 mg Gabapentin (Neurontin -) 300 mg PO TID [facility] Last Admin: 06/26/19 06:43 Dose: 300 mg Guaifenesin (Robitussin Dm -) 10 ml PO Q4H PRN PRN Reason: COUGH Last Admin: 06/25/19 10:12 Dose: 10 ml Levetiracetam (Keppra -) 500 mg PO BID [facility] Last Admin: 06/26/19 09:40 Dose: 500 mg Levothyroxine Sodium (Synthroid -) 75 mcg PO DAILY@0700 [facility] Last Admin: 06/26/19 06:43 Dose: 75 mcg Metoprolol Tartrate (Lopressor -) 50 mg PO BID [facility] Last Admin: 06/26/19 09:40 Dose: 50 mg Mirtazapine (Remeron -) 30 mg PO HS [facility] Last Admin: 06/25/19 22:05 Dose: 30 mg Pramipexole Dihydrochloride (Mirapex -) 0.25 mg PO TID [facility] Last Admin: 06/26/19 07:32 Dose: Not Given Quetiapine Fumarate (Seroquel -) 200 mg PO HS [facility] Last Admin: 06/25/19 22:05 Dose: 200 mg Rivaroxaban (Xarelto) 20 mg PO DAILY@1800 [facility] Last Admin: 06/25/19 17:50 Dose: 20 mg - Objective Vital Signs: Vital Signs Temperature 98.1 F 06/26/19 05:00 Pulse Rate 123 H 06/26/19 05:00 Respiratory Rate 20 06/26/19 05:00 Blood Pressure 116/89 06/26/19 05:00 O2 Sat by Pulse Oximetry (%) 96 06/25/19 20:53 Constitutional: Yes: Well Nourished, No Distress, Calm Cardiovascular: Yes: Regular Rate and Rhythm Respiratory: Yes: Regular, On Nasal O2, SOB on Exertion Gastrointestinal: Yes: Normal Bowel Sounds, Soft, Abdomen, Obese Genitourinary: Yes: WNL Musculoskeletal: Yes: WNL Extremities: Yes: WNL Edema: Yes Edema: LLE: 2+, RLE: 2+ Peripheral Pulses WNL: Yes Neurological: Yes: Alert, Oriented Psychiatric: Yes: Alert, Oriented Labs: CBC, BMP 06/25/19 06:54 06/26/19 06:10 Problem List - Problems (1) CHF exacerbation Assessment/Plan: -Cardiology consult -Tele monitor -Furosemide 40 mg po daily -Low sodium diet -nutrition consult -Last Echo 12/30/18: Normal LV systolic function, normal RV,Mild mr, mild tr -If clinically better, would d/c home in AM Problems reviewed: Yes Code(s): I50.9 - HEART FAILURE, UNSPECIFIED Qualifiers: Heart failure type: unspecified Qualified Code(s): I50.9 - Heart failure, unspecified (2) COPD (chronic obstructive pulmonary disease) Assessment/Plan: -Pulmonary consult -Nasal O2 PRN -bronchodilators Problems reviewed: Yes Code(s): J44.9 - CHRONIC OBSTRUCTIVE PULMONARY DISEASE, UNSPECIFIED (3) SHANNA (acute kidney injury) Assessment/Plan: -Nephrology consult -monitor trend Code(s): N17.9 - ACUTE KIDNEY FAILURE, UNSPECIFIED (4) Atrial fibrillation with RVR Assessment/Plan: -Chronic, rate controlled, now in NSR -continue Xarelto Problems reviewed: Yes Code(s): I48.91 - UNSPECIFIED ATRIAL FIBRILLATION Assessment/Plan see problem list
--- NOTE | 2019-06-26 12:08 | CON.PULM ---
Consult Consult Specialty:: PULMONARY Referred by:: Dr Pedroza Reason for Consultation:: shortness of breath - History of Present Illness Chief Complaint: shortness of breath History of Present Illness: 64yo male with h/o HTN, hyperlipidemia, atrial fibrillation, LV diastolic dysfunction, CAD, asthma/COPD, hypothyroidism, seizure disorder, schizophrenia who was admitted with worsening shortness of breath. NO chest pain or discomfort. +cough with clear sputum without wheezing. No fevers, chills or sweats. Reports compliance with medications. He is a former smoker. 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: Seizure Cardio/Vascular: Yes: AFIB, CAD, CHF, HTN, Hyperlipdemia Pulmonary: Yes: Asthma, COPD Renal/: Yes: Renal Inusuff Psych: Yes: Depression, Schizophrenia Musculoskeletal: Yes: Other (chronic right knee pain) Endocrine: Yes: Hypothyroidism - Past Surgical History Past Surgical History: Yes: Cholecystectomy, Stent - Alcohol/Substance Use Hx Alcohol Use: No History of Substance Use: reports: None - Smoking History Smoking history: Former smoker Have you smoked in the past 12 months: Yes Aproximately how many cigarettes per day: 10 If you are a former smoker, when did you quit?: 3 months - Social History ADL: Independent History of Recent Travel: No Home Medications - Allergies Allergies/Adverse Reactions: Allergies Allergy/AdvReac Type Severity Reaction Status Date / Time codeine Allergy Verified 06/24/19 13:20 - Home Medications Home Medications: Ambulatory Orders Albuterol Sulfate [Proair Hfa] 2 puff IH Q6H PRN 08/02/17 Atorvastatin Calcium 80 mg PO HS 08/02/17 Amiodarone HCl 500 mg PO DAILY 10/03/18 Aspirin [Aspirin EC] 81 mg PO DAILY 10/03/18 Clopidogrel Bisulfate [Plavix] 75 mg PO DAILY 10/03/18 Rivaroxaban [Xarelto -] 20 mg PO DAILY 10/03/18 Acetaminophen [Tylenol .Regular Strength -] 650 mg PO Q6H PRN tablet 10/06/18 Budesonide/Formeterol Fumarate [SYMBICORT 80/4.5mcg -] 2 puff IH BID #2 inhaler 10/06/18 Gabapentin 300 mg PO TID #90 capsule 10/06/18 Metoprolol Tartrate [Lopressor -] 50 mg PO BID #60 tablet 10/06/18 Pramipexole Dihydrochloride [Mirapex -] 0.25 mg PO TID #90 tablet 10/06/18 Quetiapine Fumarate [Seroquel -] 200 mg PO HS #30 tablet 10/06/18 levETIRAcetam [Keppra -] 500 mg PO BID #60 tablet 10/06/18 Furosemide [Lasix -] 40 mg PO DAILY #30 tablet 05/29/19 Ferrous Sulfate [Iron] 325 mg PO DAILY 06/24/19 Levothyroxine [Synthroid -] 75 mcg PO DAILY@0700 06/24/19 Mirtazapine [Remeron -] 30 mg PO HS 06/24/19 Review of Systems - Review of Systems Constitutional: reports: Weakness. denies: Chills, Fever Eyes: denies: Recent Change in Vision HENT: denies: Nasal Congestion, Throat Pain Neck: denies: Stiffness, Tenderness Cardiovascular: reports: Edema, Shortness of Breath. denies: Chest Pain, Palpitations Respiratory: reports: Cough, SOB on Exertion. denies: Hemoptysis, Wheezing Gastrointestinal: denies: Abdominal Pain, Nausea, Vomiting Genitourinary: denies: Dysuria, Hematuria Neurological: denies: Dizziness, Headache Endocrine: denies: Unexplained Weight Loss Physical Exam Vital Sings: Vital Signs Temperature 97.9 F 06/26/19 09:43 Pulse Rate 81 06/26/19 09:43 Respiratory Rate 18 06/26/19 09:43 Blood Pressure 128/68 06/26/19 09:43 O2 Sat by Pulse Oximetry (%) 96 06/26/19 09:00 Constitutional: Yes: Calm Eyes: Yes: Conjunctiva Clear, EOM Intact HENT: Yes: Atraumatic, Normocephalic Neck: Yes: Supple, Trachea Midline Cardiovascular: Yes: Regular Rate and Rhythm Respiratory: Yes: Diminished (decreased breath sounds at the bases) ...Clubbing: No Gastrointestinal: Yes: Normal Bowel Sounds, Soft. No: Tenderness Edema: Yes Neurological: Yes: Alert, Oriented Labs: CBC, BMP 06/25/19 06:54 06/26/19 06:10 Imaging - Results Chest X-ray: Report Reviewed, Image Reviewed (bibasilar atelectasis) Problem List - Problems (1) Acute on chronic diastolic (congestive) heart failure Code(s): I50.33 - ACUTE ON CHRONIC DIASTOLIC (CONGESTIVE) HEART FAILURE Assessment/Plan Acute on Chronic Diastolic Heart Failure Atrial Fibrillation CAD Asthma/COPD HTN Hyperlipidemia Hypothyroidism Seizure Disorder Schizophrenia - continue lasix - monitor urine output, creatinine - daily weights - O2 as needed - inhaled bronchodilators as needed - rate control - continue anticoagulation Thank you for this consult Bandar Matthews MD
--- NOTE | 2019-06-26 15:03 | PN ---
Progress Note, Physician History of Present Illness: pt seen and examined today in nad. no overnight events. no new complaints. cough better. no sob, palpitations, or chest pain. - Current Medication List Current Medications: Active Medications Acetaminophen (Tylenol -) 650 mg PO Q6H PRN PRN Reason: Fever Or Pain Last Admin: 06/25/19 03:05 Dose: 650 mg Albuterol Sulfate (Ventolin Hfa Inhaler -) 2 puff IH Q6H PRN PRN Reason: SHORTNESS OF BREATH Amiodarone HCl (Cordarone -) 500 mg PO DAILY [facility] Aspirin (Ecotrin -) 81 mg PO DAILY [facility] Last Admin: 06/26/19 09:40 Dose: 81 mg Atorvastatin Calcium (Lipitor -) 80 mg PO HS [facility] Last Admin: 06/25/19 22:05 Dose: 80 mg Budesonide/Formoterol Fumarate (Symbicort 80/4.5mcg -) 2 puff IH BID [facility] Last Admin: 06/26/19 09:42 Dose: 2 puff Clopidogrel Bisulfate (Plavix -) 75 mg PO DAILY [facility] Last Admin: 06/26/19 09:40 Dose: 75 mg Furosemide (Lasix -) 40 mg PO DAILY [facility] Last Admin: 06/26/19 09:40 Dose: 40 mg Gabapentin (Neurontin -) 300 mg PO TID [facility] Last Admin: 06/26/19 13:50 Dose: 300 mg Guaifenesin (Robitussin Dm -) 10 ml PO Q4H PRN PRN Reason: COUGH Last Admin: 06/25/19 10:12 Dose: 10 ml Levetiracetam (Keppra -) 500 mg PO BID [facility] Last Admin: 06/26/19 09:40 Dose: 500 mg Levothyroxine Sodium (Synthroid -) 75 mcg PO DAILY@0700 [facility] Last Admin: 06/26/19 06:43 Dose: 75 mcg Metoprolol Tartrate (Lopressor -) 50 mg PO BID [facility] Last Admin: 06/26/19 09:40 Dose: 50 mg Mirtazapine (Remeron -) 30 mg PO HS [facility] Last Admin: 06/25/19 22:05 Dose: 30 mg Pramipexole Dihydrochloride (Mirapex -) 0.25 mg PO TID [facility] Last Admin: 06/26/19 13:50 Dose: 0.25 mg Quetiapine Fumarate (Seroquel -) 200 mg PO HS [facility] Last Admin: 06/25/19 22:05 Dose: 200 mg Rivaroxaban (Xarelto) 20 mg PO DAILY@1800 [facility] Last Admin: 06/25/19 17:50 Dose: 20 mg - Objective Vital Signs: Vital Signs Temperature 97.9 F 06/26/19 09:43 Pulse Rate 81 06/26/19 09:43 Respiratory Rate 18 06/26/19 09:43 Blood Pressure 128/68 06/26/19 09:43 O2 Sat by Pulse Oximetry (%) 96 06/26/19 09:00 Constitutional: Yes: No Distress, Calm Eyes: Yes: Conjunctiva Clear, EOM Intact HENT: Yes: Atraumatic, Normocephalic Neck: Yes: Supple, Trachea Midline Cardiovascular: Yes: Regular Rate and Rhythm, S1, S2. No: Bradycardia, Tachycardia, Pulse Irregular, Bruit, JVD, Gallop, Murmur, Rub, S3, S4, Varicosities Respiratory: Yes: Regular, Diminished. No: Rales, Rhonchi, SOB, Wheezes Gastrointestinal: Yes: Normal Bowel Sounds, Soft. No: Distention, Tenderness Extremities: Yes: WNL Edema: Yes Edema: LLE: 1+, RLE: 1+ Peripheral Pulses WNL: Yes Neurological: Yes: Alert, Oriented Psychiatric: Yes: Alert, Oriented Labs: CBC, BMP 06/25/19 06:54 06/26/19 06:10 - ....Imaging Chest X-ray: Report Reviewed, Image Reviewed EKG: Report Reviewed, Image Reviewed Other: Report Reviewed, Image Reviewed (tele-nsr) Assessment/Plan 64 year old man with a pmh AFib on xarelto, HTN, HLD, CAD s/p NSTEMI 04/2018 s/ p PCI with NEGRO RCA 05/03/18 [facility] with no other sig residual CAD, Chronic diastolic CHF, COPD, Anemia, hypothyroid, seizures, schizophrenia admitted with sob, edema. On prior admission pt found to be in volume overload with acute on chronic likely diastolic chf, AFib with RVR. states he is feeling better. states his sob improved but he still has a cough. states he has been taking his medications as prescribed but is eating a very poor diet. no chest pain, palpitions. Cardiac Cath [facility] 05/03/2018 1. Single vessel CAD - long and severe stenosis beginning at the pRCA extending into the dRCA 2. Normal LVEDP 3. No 4. Successful PCI of RCA with NEGRO x 2 Recommend DAPT and medical management of SIHD ECHO 12/30/18 Normal LV systolic function, normal RV Mild mr, mild tr No pericardial effusion Edema/sob-mild volume overload but not significantly worse from baseline -at baseline currently -acute on chronic diastolic CHF -admits to eating a very poor diet -again CHF possibly precipitated by Afib with RVR -HR control and now in sinus rhythm -given 2 doses of IV Lasix in ER -cont Lasix 40mg po daily CAD-NSTEMI 04/2018 s/p cardiac cath single vessel CAD RCA s/p NEGRO x 2 RCA -current presentation not c/w ACS -cardiac enzymes wnl -cont ASA 81mg daily -echo sjr 12/30/18 showed normal LV/RV systolic function, no sig valvular abnl -cont metoprolol and lipitor -would not pursue further ischemic evaluation at this time. Pafib with rvr on admission-now NSR -cont amiodarone 200mg daily for now -cont metoprolol and uptitrate as needed for HR control -cont Xarelto 20mg daily -needs fup with EP as outpatient -needs fup with PMD as on amio needs PFTs, TFTs LFTs monitored Rec outpatient fup. Will see as needed. Please call with any additional questions.
[2019-06-26] MEDS: RIVAROXABAN 20 MG TABLET PO SCH (17:42)
--- NOTE | 2019-06-26 21:13 | PN ---
Progress Note (short form) - Note Progress Note: Problems CAD single vessel pRCA s/p nstemi 2018 Normal Lv ef on echo 12/22 s/p PCI RCA with NEGRO x 2 CHF acute on chronic PAFIB with RVR on admission Current Medications Acetaminophen (Tylenol -) 650 mg PO Q6H PRN PRN Reason: Fever Or Pain Last Admin: 06/25/19 03:05 Dose: 650 mg Albuterol Sulfate (Ventolin Hfa Inhaler -) 2 puff IH Q6H PRN PRN Reason: SHORTNESS OF BREATH Amiodarone HCl (Cordarone -) 500 mg PO DAILY [facility] Aspirin (Ecotrin -) 81 mg PO DAILY [facility] Last Admin: 06/26/19 09:40 Dose: 81 mg Atorvastatin Calcium (Lipitor -) 80 mg PO HS [facility] Last Admin: 06/25/19 22:05 Dose: 80 mg Budesonide/Formoterol Fumarate (Symbicort 80/4.5mcg -) 2 puff IH BID [facility] Last Admin: 06/26/19 09:42 Dose: 2 puff Clopidogrel Bisulfate (Plavix -) 75 mg PO DAILY [facility] Last Admin: 06/26/19 09:40 Dose: 75 mg Furosemide (Lasix -) 40 mg PO DAILY [facility] Last Admin: 06/26/19 09:40 Dose: 40 mg Gabapentin (Neurontin -) 300 mg PO TID [facility] Last Admin: 06/26/19 13:50 Dose: 300 mg Guaifenesin (Robitussin Dm -) 10 ml PO Q4H PRN PRN Reason: COUGH Last Admin: 06/25/19 10:12 Dose: 10 ml Levetiracetam (Keppra -) 500 mg PO BID [facility] Last Admin: 06/26/19 09:40 Dose: 500 mg Levothyroxine Sodium (Synthroid -) 75 mcg PO DAILY@0700 [facility] Last Admin: 06/26/19 06:43 Dose: 75 mcg Metoprolol Tartrate (Lopressor -) 50 mg PO BID [facility] Last Admin: 06/26/19 09:40 Dose: 50 mg Mirtazapine (Remeron -) 30 mg PO HS [facility] Last Admin: 06/25/19 22:05 Dose: 30 mg Pramipexole Dihydrochloride (Mirapex -) 0.25 mg PO TID [facility] Last Admin: 06/26/19 13:50 Dose: 0.25 mg Quetiapine Fumarate (Seroquel -) 200 mg PO HS [facility] Last Admin: 06/25/19 22:05 Dose: 200 mg Rivaroxaban (Xarelto) 20 mg PO DAILY@1800 [facility] Last Admin: 06/26/19 17:42 Dose: 20 mg Last Vital Signs Temp Pulse Resp BP Pulse Ox 98.0 F 70 20 132/76 96 06/26/19 17:00 06/26/19 17:00 06/26/19 17:00 06/26/19 17:00 06/26/19 09:00 Lungs clear Heart reg Abd soft nontender Ext edema CBC, BMP 06/25/19 06:54 06/26/19 06:10 IMP- s/p pham on ckd 2/2 chf decompensation renal function improving now better than baseline Plan- follow bmp
[2019-06-26] MEDS: ATORVASTATIN CA 40 MG TABLET (FP) PO SCH (21:15)
[2019-06-26] MEDS: MIRTAZAPINE 15 MG TABLET (FP) PO SCH (21:15)
[2019-06-26] MEDS: QUEtiapine FUMARATE 200 MG TABLET PO SCH (21:18)
[2019-06-27] MEDS: LEVOTHYROXINE NA 25 MCG TABLET (FP) PO SCH (06:59)
[2019-06-27] MEDS: PRAMIPEXOLE DIHYDROCHLORIDE 0.25 MG TABLET PO SCH ×3 (06:59→22:10)
[2019-06-27] MEDS: GABAPENTIN 300 MG CAPSULE (FP) PO SCH ×3 (06:59→22:10)
[2019-06-27 07:05] LABS: BLOOD UREA NITROGEN 19.2 mg/dL (7-18); CALCIUM 8.6 mg/dL (8.5-10.1); CREATININE 1.4 mg/dL (0.55-1.3); POTASSIUM 4.3 mmol/L (3.5-5.1)
--- NOTE | 2019-06-27 08:57 | PN ---
Progress Note, Physician Chief Complaint: AWAKE ALERT H/O OF BEING NON-COMPLIANT WITH MEDICATIONS/DIET AND LIFESTYLE. - Current Medication List Current Medications: Active Medications Acetaminophen (Tylenol -) 650 mg PO Q6H PRN PRN Reason: Fever Or Pain Last Admin: 06/25/19 03:05 Dose: 650 mg Albuterol Sulfate (Ventolin Hfa Inhaler -) 2 puff IH Q6H PRN PRN Reason: SHORTNESS OF BREATH Amiodarone HCl (Cordarone -) 500 mg PO DAILY [facility] Aspirin (Ecotrin -) 81 mg PO DAILY [facility] Last Admin: 06/26/19 09:40 Dose: 81 mg Atorvastatin Calcium (Lipitor -) 80 mg PO HS [facility] Last Admin: 06/26/19 21:15 Dose: 80 mg Budesonide/Formoterol Fumarate (Symbicort 80/4.5mcg -) 2 puff IH BID [facility] Last Admin: 06/26/19 21:18 Dose: 2 puff Clopidogrel Bisulfate (Plavix -) 75 mg PO DAILY [facility] Last Admin: 06/26/19 09:40 Dose: 75 mg Furosemide (Lasix -) 40 mg PO DAILY [facility] Last Admin: 06/26/19 09:40 Dose: 40 mg Gabapentin (Neurontin -) 300 mg PO TID [facility] Last Admin: 06/27/19 06:59 Dose: 300 mg Guaifenesin (Robitussin Dm -) 10 ml PO Q4H PRN PRN Reason: COUGH Last Admin: 06/25/19 10:12 Dose: 10 ml Levetiracetam (Keppra -) 500 mg PO BID [facility] Last Admin: 06/26/19 21:15 Dose: 500 mg Levothyroxine Sodium (Synthroid -) 75 mcg PO DAILY@0700 [facility] Last Admin: 06/27/19 06:59 Dose: 75 mcg Metoprolol Tartrate (Lopressor -) 50 mg PO BID [facility] Last Admin: 06/26/19 21:15 Dose: 50 mg Mirtazapine (Remeron -) 30 mg PO [facility] Last Admin: 06/26/19 21:15 Dose: 30 mg Pramipexole Dihydrochloride (Mirapex -) 0.25 mg PO TID [facility] Last Admin: 06/27/19 06:59 Dose: 0.25 mg Quetiapine Fumarate (Seroquel -) 200 mg PO [facility] Last Admin: 06/26/19 21:18 Dose: 200 mg Rivaroxaban (Xarelto) 20 mg PO DAILY@1800 [facility] Last Admin: 06/26/19 17:42 Dose: 20 mg - Objective Vital Signs: Vital Signs Temperature 98.3 F 06/27/19 08:27 Pulse Rate 122 H 06/27/19 08:27 Respiratory Rate 20 06/27/19 08:27 Blood Pressure 142/86 06/27/19 08:27 O2 Sat by Pulse Oximetry (%) 96 06/26/19 21:00 Constitutional: Yes: Mild Distress Cardiovascular: Yes: Pulse Irregular Respiratory: Yes: Diminished, On Nasal O2 Gastrointestinal: Yes: Soft Genitourinary: Yes: WNL Musculoskeletal: Yes: WNL Edema: Yes Edema: LLE: 2+, RLE: 2+ Integumentary: Yes: Rash, Venous Stasis Changes Wound/Incision: Yes: Open to air Psychiatric: Yes: Other Labs: CBC, BMP 06/25/19 06:54 06/27/19 05:35 Problem List - Problems (1) Acute on chronic diastolic (congestive) heart failure Code(s): I50.33 - ACUTE ON CHRONIC DIASTOLIC (CONGESTIVE) HEART FAILURE (2) COPD (chronic obstructive pulmonary disease) Code(s): J44.9 - CHRONIC OBSTRUCTIVE PULMONARY DISEASE, UNSPECIFIED (3) Leg edema, right Code(s): R60.0 - LOCALIZED EDEMA (4) SHANNA (acute kidney injury) Code(s): N17.9 - ACUTE KIDNEY FAILURE, UNSPECIFIED (5) Abdominal pain Code(s): R10.9 - UNSPECIFIED ABDOMINAL PAIN Qualifiers: Abdominal location: unspecified location Qualified Code(s): R10.9 - Unspecified abdominal pain (6) Afib Code(s): I48.91 - UNSPECIFIED ATRIAL FIBRILLATION Qualifiers: Atrial fibrillation type: unspecified Qualified Code(s): I48.91 - Unspecified atrial fibrillation (7) Anemia Code(s): D64.9 - ANEMIA, UNSPECIFIED (8) Psoriasis Code(s): L40.9 - PSORIASIS, UNSPECIFIED (9) Schizophrenia Code(s): F20.9 - SCHIZOPHRENIA, UNSPECIFIED Assessment/Plan NEEDS A STRONG OUTPATIENT SUPPORT SYSTEM. SCREEN MAKER TO ARRANGE HOME HEALTH AID DAILY [facility] NEEDS TO BE FOLLOWED THIS PATIENT WITHOUT THIS SUPPORT SYSTEM WILL CONTINUE TO TO BE READMITTED WITH CHF/COPD RE-EXACERBATIONS. RAJENDRA RUIZ 02 SUPPORT SILVESTRE I WILL CALL HIS PRIMARY CARE DOCTOR IN COMMUNITY TO ARRANGE SUPPORT SYSTEM F/U WEEKLY OUTPATIENT .
[2019-06-27] MEDS: ASPIRIN COATED 81 MG TABLET.EC PO SCH (09:34)
[2019-06-27] MEDS: METOPROLOL TARTRATE 50 MG TABLET (FP) PO SCH ×2 (09:35→22:10)
[2019-06-27] MEDS: levETIRAcetam 500 MG TABLET (FP) PO SCH ×2 (09:35→22:09)
[2019-06-27] MEDS: FUROSEMIDE 40 MG TABLET (FP) PO SCH (09:35)
[2019-06-27] MEDS: CLOPIDOGREL BISULFATE 75 MG TABLET (FP) PO SCH (09:36)
[2019-06-27] MEDS: BUDESONIDE/FORMETEROL FUMARATE 80/4.5 mcg INHALER IH SCH ×2 (09:36→22:11)
--- NOTE | 2019-06-27 10:15 | PN ---
Progress Note, Physician History of Present Illness: PULMONARY ALERT,NO DISTRESS,-SOB - Current Medication List Current Medications: Active Medications Acetaminophen (Tylenol -) 650 mg PO Q6H PRN PRN Reason: Fever Or Pain Last Admin: 06/25/19 03:05 Dose: 650 mg Albuterol Sulfate (Ventolin Hfa Inhaler -) 2 puff IH Q6H PRN PRN Reason: SHORTNESS OF BREATH Amiodarone HCl (Cordarone -) 500 mg PO DAILY [facility] Aspirin (Ecotrin -) 81 mg PO DAILY [facility] Last Admin: 06/27/19 09:34 Dose: 81 mg Atorvastatin Calcium (Lipitor -) 80 mg PO HS [facility] Last Admin: 06/26/19 21:15 Dose: 80 mg Budesonide/Formoterol Fumarate (Symbicort 80/4.5mcg -) 2 puff IH BID [facility] Last Admin: 06/27/19 09:36 Dose: 2 puff Clopidogrel Bisulfate (Plavix -) 75 mg PO DAILY [facility] Last Admin: 06/27/19 09:36 Dose: 75 mg Furosemide (Lasix -) 40 mg PO DAILY [facility] Last Admin: 06/27/19 09:35 Dose: 40 mg Gabapentin (Neurontin -) 300 mg PO TID [facility] Last Admin: 06/27/19 06:59 Dose: 300 mg Guaifenesin (Robitussin Dm -) 10 ml PO Q4H PRN PRN Reason: COUGH Last Admin: 06/25/19 10:12 Dose: 10 ml Levetiracetam (Keppra -) 500 mg PO BID [facility] Last Admin: 06/27/19 09:35 Dose: 500 mg Levothyroxine Sodium (Synthroid -) 75 mcg PO DAILY@0700 [facility] Last Admin: 06/27/19 06:59 Dose: 75 mcg Metoprolol Tartrate (Lopressor -) 50 mg PO BID [facility] Last Admin: 06/27/19 09:35 Dose: 50 mg Mirtazapine (Remeron -) 30 mg PO [facility] Last Admin: 06/26/19 21:15 Dose: 30 mg Pramipexole Dihydrochloride (Mirapex -) 0.25 mg PO TID [facility] Last Admin: 06/27/19 06:59 Dose: 0.25 mg Quetiapine Fumarate (Seroquel -) 200 mg PO [facility] Last Admin: 06/26/19 21:18 Dose: 200 mg Rivaroxaban (Xarelto) 20 mg PO DAILY@1800 [facility] Last Admin: 06/26/19 17:42 Dose: 20 mg - Objective Vital Signs: Vital Signs Temperature 98.3 F 06/27/19 08:27 Pulse Rate 122 H 06/27/19 08:27 Respiratory Rate 20 06/27/19 08:27 Blood Pressure 142/86 06/27/19 08:27 O2 Sat by Pulse Oximetry (%) 96 06/26/19 21:00 Constitutional: Yes: Well Nourished, Calm Eyes: Yes: WNL HENT: Yes: WNL Neck: Yes: WNL Cardiovascular: Yes: Pulse Irregular, S1, S2 Respiratory: Yes: CTA Bilaterally Gastrointestinal: Yes: Normal Bowel Sounds, Soft Extremities: Yes: WNL Edema: No Labs: CBC, BMP 06/27/19 05:35 Problem List - Problems (1) Acute on chronic diastolic (congestive) heart failure Code(s): I50.33 - ACUTE ON CHRONIC DIASTOLIC (CONGESTIVE) HEART FAILURE (2) CHF exacerbation Code(s): I50.9 - HEART FAILURE, UNSPECIFIED Qualifiers: Heart failure type: unspecified Qualified Code(s): I50.9 - Heart failure, unspecified (3) COPD (chronic obstructive pulmonary disease) Code(s): J44.9 - CHRONIC OBSTRUCTIVE PULMONARY DISEASE, UNSPECIFIED (4) Afib Code(s): I48.91 - UNSPECIFIED ATRIAL FIBRILLATION Qualifiers: Atrial fibrillation type: unspecified Qualified Code(s): I48.91 - Unspecified atrial fibrillation (5) Anemia Code(s): D64.9 - ANEMIA, UNSPECIFIED (6) CAD (coronary artery disease) Code(s): I25.10 - ATHSCL HEART DISEASE OF [place] CORONARY ARTERY W/O ANG PCTRS (7) HLD (hyperlipidemia) Code(s): E78.5 - HYPERLIPIDEMIA, UNSPECIFIED (8) HTN (hypertension) Code(s): I10 - ESSENTIAL (PRIMARY) HYPERTENSION (9) Seizure disorder Code(s): G40.909 - EPILEPSY, UNSP, NOT INTRACTABLE, WITHOUT STATUS EPILEPTICUS Assessment/Plan Problem List - Problems (1) Acute on chronic diastolic (congestive) heart failure Code(s): I50.33 - ACUTE ON CHRONIC DIASTOLIC (CONGESTIVE) HEART FAILURE Assessment/Plan Acute on Chronic Diastolic Heart Failure Atrial Fibrillation CAD Asthma/COPD HTN Hyperlipidemia Hypothyroidism Seizure Disorder Schizophrenia - lasix - monitor urine output, creatinine - daily weights - O2 as needed - inhaled bronchodilators as needed - rate control - anticoagulation DR KIM
[2019-06-27] MEDS ORDERED: AMMONIUM LACTATE 12% LOTION 225 GM BOTTLE TP PRN (12:53)
[2019-06-27] MEDS ORDERED: PT OWN MED DRAWER 7, Y5N ONE ×3 (12:57→21:23)
--- NOTE | 2019-06-27 13:44 | PN ---
Progress Note, Physician History of Present Illness: Pt seen and examined at bedside. He is awake and alert. He feels that the edema is a little better. - Current Medication List Current Medications: Active Medications Acetaminophen (Tylenol -) 650 mg PO Q6H PRN PRN Reason: Fever Or Pain Last Admin: 06/25/19 03:05 Dose: 650 mg Albuterol Sulfate (Ventolin Hfa Inhaler -) 2 puff IH Q6H PRN PRN Reason: SHORTNESS OF BREATH Amiodarone HCl (Cordarone -) 500 mg PO DAILY [facility] Aspirin (Ecotrin -) 81 mg PO DAILY [facility] Last Admin: 06/27/19 09:34 Dose: 81 mg Atorvastatin Calcium (Lipitor -) 80 mg PO HS [facility] Last Admin: 06/26/19 21:15 Dose: 80 mg Budesonide/Formoterol Fumarate (Symbicort 80/4.5mcg -) 2 puff IH BID [facility] Last Admin: 06/27/19 09:36 Dose: 2 puff Clopidogrel Bisulfate (Plavix -) 75 mg PO DAILY [facility] Last Admin: 06/27/19 09:36 Dose: 75 mg Furosemide (Lasix -) 40 mg PO DAILY [facility] Last Admin: 06/27/19 09:35 Dose: 40 mg Gabapentin (Neurontin -) 300 mg PO TID [facility] Last Admin: 06/27/19 13:31 Dose: 300 mg Guaifenesin (Robitussin Dm -) 10 ml PO Q4H PRN PRN Reason: COUGH Last Admin: 06/25/19 10:12 Dose: 10 ml Lactic Acid (Lac-Hydrin 12) 1 applic TP BID PRN PRN Reason: DRY SKIN Levetiracetam (Keppra -) 500 mg PO BID [facility] Last Admin: 06/27/19 09:35 Dose: 500 mg Levothyroxine Sodium (Synthroid -) 75 mcg PO DAILY@0700 [facility] Last Admin: 06/27/19 06:59 Dose: 75 mcg Metoprolol Tartrate (Lopressor -) 50 mg PO BID [facility] Last Admin: 06/27/19 09:35 Dose: 50 mg Mirtazapine (Remeron -) 30 mg PO HS [facility] Last Admin: 06/26/19 21:15 Dose: 30 mg Pramipexole Dihydrochloride (Mirapex -) 0.25 mg PO TID [facility] Last Admin: 06/27/19 06:59 Dose: 0.25 mg Quetiapine Fumarate (Seroquel -) 200 mg PO HS [facility] Last Admin: 06/26/19 21:18 Dose: 200 mg Rivaroxaban (Xarelto) 20 mg PO DAILY@1800 [facility] Last Admin: 06/26/19 17:42 Dose: 20 mg Triamcinolone Acetonide (Aristocort 0.1% Cream -) 1 applic TP BID [facility] - Objective Vital Signs: Vital Signs Temperature 98.3 F 06/27/19 08:27 Pulse Rate 122 H 06/27/19 08:27 Respiratory Rate 20 06/27/19 08:27 Blood Pressure 142/86 06/27/19 08:27 O2 Sat by Pulse Oximetry (%) 97 06/27/19 09:00 Constitutional: Yes: Calm Eyes: Yes: Conjunctiva Clear HENT: Yes: Atraumatic Neck: Yes: Supple Cardiovascular: Yes: S1, S2 Respiratory: Yes: CTA Bilaterally Gastrointestinal: Yes: Soft Genitourinary: Yes: WNL Musculoskeletal: Yes: WNL Edema: Yes Edema: LLE: 2+, RLE: 2+ Integumentary: Yes: Venous Stasis Changes Neurological: Yes: Oriented Psychiatric: Yes: Oriented Labs: CBC, BMP 06/25/19 06:54 06/27/19 05:35 Assessment/Plan Current Medications Generic Name Dose Route Start Last Admin Trade Name Freq PRN Reason Stop Dose Admin Acetaminophen 650 mg 06/25/19 02:39 06/25/19 03:05 Tylenol - PO 650 mg Q6H PRN Administration Fever Or Pain Albuterol Sulfate 2 puff 06/24/19 23:14 Ventolin Hfa Inhaler - IH Q6H PRN SHORTNESS OF BREATH Amiodarone HCl 500 mg 06/25/19 10:00 Cordarone - PO DAILY [facility] Aspirin 81 mg 06/25/19 10:00 06/27/19 09:34 Ecotrin - PO 81 mg DAILY [facility] Administration Atorvastatin Calcium 80 mg 06/25/19 22:00 06/26/19 21:15 Lipitor - PO 80 mg HS [facility] Administration Budesonide/Formoterol Fumarate 2 puff 06/25/19 10:00 06/27/19 09:36 Symbicort 80/4.5mcg - IH 2 puff BID [facility] Administration Clopidogrel Bisulfate 75 mg 06/25/19 10:00 06/27/19 09:36 Plavix - PO 75 mg DAILY [facility] Administration Furosemide 40 mg 06/26/19 10:00 06/27/19 09:35 Lasix - PO 40 mg DAILY [facility] Administration Gabapentin 300 mg 06/25/19 06:00 06/27/19 13:31 Neurontin - PO 300 mg TID [facility] Administration Guaifenesin 10 ml 06/25/19 09:56 06/25/19 10:12 Robitussin Dm - PO 10 ml Q4H PRN Administration COUGH Lactic Acid 1 applic 06/27/19 12:53 Lac-Hydrin 12 TP BID PRN DRY SKIN Levetiracetam 500 mg 06/25/19 10:00 06/27/19 09:35 Keppra - PO 500 mg BID [facility] Administration Levothyroxine Sodium 75 mcg 06/25/19 07:00 06/27/19 06:59 Synthroid - PO 75 mcg DAILY@0700 [facility] Administration Metoprolol Tartrate 50 mg 06/25/19 10:00 06/27/19 09:35 Lopressor - PO 50 mg BID [facility] Administration Mirtazapine 30 mg 06/25/19 22:00 06/26/19 21:15 Remeron - PO 30 mg HS [facility] Administration Pramipexole Dihydrochloride 0.25 mg 06/24/19 23:15 06/27/19 06:59 Mirapex - PO 0.25 mg TID [facility] Administration Quetiapine Fumarate 200 mg 06/25/19 22:00 06/26/19 21:18 Seroquel - PO 200 mg HS [facility] Administration Rivaroxaban 20 mg 06/25/19 18:00 06/26/19 17:42 Xarelto PO 20 mg DAILY@1800 [facility] Administration Triamcinolone Acetonide 1 applic 06/27/19 22:00 Aristocort 0.1% Cream - TP BID [facility] Impression 1. CKD 2. Seizure disorder 3. Afib (Xarelto) 4. Anemia 5. COPD 6. GERD 7. Anxiety/depression 8. HLD 9. CHF 10. fluid overload Plan - cont with lasix - low sodium diet, pt not compliant - renal function stabilizing - will need closer outpt follow up, he is not good about keeping appointments - avoid nsaids - daily weights
[2019-06-27] MEDS: RIVAROXABAN 20 MG TABLET PO SCH (17:13)
[2019-06-27] MEDS: ATORVASTATIN CA 40 MG TABLET (FP) PO SCH (22:09)
[2019-06-27] MEDS: MIRTAZAPINE 15 MG TABLET (FP) PO SCH (22:10)
[2019-06-27] MEDS: QUEtiapine FUMARATE 200 MG TABLET PO SCH (22:10)
[2019-06-27] MEDS: TRIAMCINOLONE ACET 0.1% CREAM 15 GM TUBE TP SCH (22:22)
[2019-06-28] MEDS: LEVOTHYROXINE NA 25 MCG TABLET (FP) PO SCH (06:38)
[2019-06-28] MEDS: PRAMIPEXOLE DIHYDROCHLORIDE 0.25 MG TABLET PO SCH ×3 (06:39→21:35)
[2019-06-28] MEDS: GABAPENTIN 300 MG CAPSULE (FP) PO SCH ×3 (06:39→21:33)
--- NOTE | 2019-06-28 08:50 | PN ---
Progress Note (short form) - Note Progress Note: IN BED FEELS BETTER CAN'T GO HOME BECAUSE ITS ANGELA DORIAN AND HAS NO FOOD SO WILL D/W [employer]. DC HOME AFTER ANGELA? CONTINUE MEDS Problem List - Problems (1) Acute on chronic diastolic (congestive) heart failure Code(s): I50.33 - ACUTE ON CHRONIC DIASTOLIC (CONGESTIVE) HEART FAILURE (2) COPD (chronic obstructive pulmonary disease) Code(s): J44.9 - CHRONIC OBSTRUCTIVE PULMONARY DISEASE, UNSPECIFIED (3) Leg edema, right Code(s): R60.0 - LOCALIZED EDEMA (4) SHANNA (acute kidney injury) Code(s): N17.9 - ACUTE KIDNEY FAILURE, UNSPECIFIED (5) Abdominal pain Code(s): R10.9 - UNSPECIFIED ABDOMINAL PAIN Qualifiers: Abdominal location: unspecified location Qualified Code(s): R10.9 - Unspecified abdominal pain (6) Afib Code(s): I48.91 - UNSPECIFIED ATRIAL FIBRILLATION Qualifiers: Atrial fibrillation type: unspecified Qualified Code(s): I48.91 - Unspecified atrial fibrillation (7) Anemia Code(s): D64.9 - ANEMIA, UNSPECIFIED (8) Psoriasis Code(s): L40.9 - PSORIASIS, UNSPECIFIED (9) Schizophrenia Code(s): F20.9 - SCHIZOPHRENIA, UNSPECIFIED
--- NOTE | 2019-06-28 09:28 | PN ---
Progress Note, Physician History of Present Illness: pulmonary alert,comfortable,-resp distress - Current Medication List Current Medications: Active Medications Acetaminophen (Tylenol -) 650 mg PO Q6H PRN PRN Reason: Fever Or Pain Last Admin: 06/25/19 03:05 Dose: 650 mg Albuterol Sulfate (Ventolin Hfa Inhaler -) 2 puff IH Q6H PRN PRN Reason: SHORTNESS OF BREATH Amiodarone HCl (Cordarone -) 200 mg PO DAILY [facility] Aspirin (Ecotrin -) 81 mg PO DAILY [facility] Last Admin: 06/27/19 09:34 Dose: 81 mg Atorvastatin Calcium (Lipitor -) 80 mg PO HS [facility] Last Admin: 06/27/19 22:09 Dose: 80 mg Budesonide/Formoterol Fumarate (Symbicort 80/4.5mcg -) 2 puff IH BID [facility] Last Admin: 06/27/19 22:11 Dose: 2 puff Clopidogrel Bisulfate (Plavix -) 75 mg PO DAILY [facility] Last Admin: 06/27/19 09:36 Dose: 75 mg Furosemide (Lasix -) 40 mg PO DAILY [facility] Last Admin: 06/27/19 09:35 Dose: 40 mg Gabapentin (Neurontin -) 300 mg PO TID [facility] Last Admin: 06/28/19 06:39 Dose: 300 mg Guaifenesin (Robitussin Dm -) 10 ml PO Q4H PRN PRN Reason: COUGH Last Admin: 06/25/19 10:12 Dose: 10 ml Lactic Acid (Lac-Hydrin 12) 1 applic TP BID PRN PRN Reason: DRY SKIN Last Admin: 06/27/19 22:21 Dose: 1 applic Levetiracetam (Keppra -) 500 mg PO BID [facility] Last Admin: 06/27/19 22:09 Dose: 500 mg Levothyroxine Sodium (Synthroid -) 75 mcg PO DAILY@0700 [facility] Last Admin: 06/28/19 06:38 Dose: 75 mcg Metoprolol Tartrate (Lopressor -) 50 mg PO BID [facility] Last Admin: 06/27/19 22:10 Dose: 50 mg Mirtazapine (Remeron -) 30 mg PO HS [facility] Last Admin: 06/27/19 22:10 Dose: 30 mg Pramipexole Dihydrochloride (Mirapex -) 0.25 mg PO TID [facility] Last Admin: 12/24/19 06:39 Dose: 0.25 mg Quetiapine Fumarate (Seroquel -) 200 mg PO HS [facility] Last Admin: 06/27/19 22:10 Dose: 200 mg Rivaroxaban (Xarelto) 20 mg PO DAILY@1800 [facility] Last Admin: 06/27/19 17:13 Dose: 20 mg Triamcinolone Acetonide (Aristocort 0.1% Cream -) 1 applic TP BID [facility] Last Admin: 06/27/19 22:22 Dose: 1 applic - Objective Vital Signs: Vital Signs Temperature 98.1 F 06/28/19 09:07 Pulse Rate 104 H 06/28/19 09:07 Respiratory Rate 20 06/28/19 09:07 Blood Pressure 147/80 06/28/19 09:07 O2 Sat by Pulse Oximetry (%) 100 06/28/19 09:00 Constitutional: Yes: Well Nourished, Calm Eyes: Yes: WNL HENT: Yes: WNL Neck: Yes: WNL Cardiovascular: Yes: Pulse Irregular, S1, S2 Respiratory: Yes: Rhonchi (few scattered rhochi) Gastrointestinal: Yes: Normal Bowel Sounds, Soft Extremities: Yes: WNL Edema: Yes Labs: CBC, BMP Problem List - Problems (1) Acute on chronic diastolic (congestive) heart failure Code(s): I50.33 - ACUTE ON CHRONIC DIASTOLIC (CONGESTIVE) HEART FAILURE (2) CHF exacerbation Code(s): I50.9 - HEART FAILURE, UNSPECIFIED Qualifiers: Heart failure type: unspecified Qualified Code(s): I50.9 - Heart failure, unspecified (3) COPD (chronic obstructive pulmonary disease) Code(s): J44.9 - CHRONIC OBSTRUCTIVE PULMONARY DISEASE, UNSPECIFIED (4) Afib Code(s): I48.91 - UNSPECIFIED ATRIAL FIBRILLATION Qualifiers: Atrial fibrillation type: unspecified Qualified Code(s): I48.91 - Unspecified atrial fibrillation (5) Anemia Code(s): D64.9 - ANEMIA, UNSPECIFIED (6) CAD (coronary artery disease) Code(s): I25.10 - ATHSCL HEART DISEASE OF [place] CORONARY ARTERY W/O ANG PCTRS (7) HLD (hyperlipidemia) Code(s): E78.5 - HYPERLIPIDEMIA, UNSPECIFIED (8) HTN (hypertension) Code(s): I10 - ESSENTIAL (PRIMARY) HYPERTENSION (9) Seizure disorder Code(s): G40.909 - EPILEPSY, UNSP, NOT INTRACTABLE, WITHOUT STATUS EPILEPTICUS Assessment/Plan Problem List - Problems (1) Acute on chronic diastolic (congestive) heart failure Code(s): I50.33 - ACUTE ON CHRONIC DIASTOLIC (CONGESTIVE) HEART FAILURE Assessment/Plan Acute on Chronic Diastolic Heart Failure Atrial Fibrillation CAD Asthma/COPD HTN Hyperlipidemia Hypothyroidism Seizure Disorder Schizophrenia - lasix - monitor urine output, creatinine - daily weights - O2 as needed - inhaled bronchodilators as needed - rate control - anticoagulation DR KIM
[2019-06-28] MEDS ORDERED: AMIODARONE HCL 200 MG TABLET (FP) PO SCH (10:00)
[2019-06-28] MEDS: CLOPIDOGREL BISULFATE 75 MG TABLET (FP) PO SCH (10:23)
[2019-06-28] MEDS: ASPIRIN COATED 81 MG TABLET.EC PO SCH (10:24)
[2019-06-28] MEDS: BUDESONIDE/FORMETEROL FUMARATE 80/4.5 mcg INHALER IH SCH ×2 (10:24→21:37)
[2019-06-28] MEDS: FUROSEMIDE 40 MG TABLET (FP) PO SCH (10:24)
[2019-06-28] MEDS: levETIRAcetam 500 MG TABLET (FP) PO SCH ×2 (10:24→21:34)
[2019-06-28] MEDS: METOPROLOL TARTRATE 50 MG TABLET (FP) PO SCH ×2 (10:25→21:34)
[2019-06-28] MEDS: TRIAMCINOLONE ACET 0.1% CREAM 15 GM TUBE TP SCH ×2 (10:28→21:37)
[2019-06-28 13:51] VITALS: BMI 32.4
[2019-06-28] MEDS: ACETAMINOPHEN 325 MG TABLET (FP) PO PRN (14:38)
[2019-06-28] MEDS ORDERED: guaiFENesin/D-METHORPHAN HB 10 ML UNIT-DOSE CUPS PO PRN (14:41)
[2019-06-28] MEDS ORDERED: ALBUTEROL SO4 8 GM HFA INHALER IH PRN (14:41)
--- NOTE | 2019-06-28 15:10 | PN ---
Progress Note, Physician History of Present Illness: Pt seen and examined at bedside. He is awake and alert. He denies shortness of breath. - Current Medication List Current Medications: Active Medications Acetaminophen (Tylenol -) 650 mg PO Q6H PRN PRN Reason: Fever Or Pain Albuterol Sulfate (Ventolin Hfa Inhaler -) 2 puff IH Q6H PRN PRN Reason: SHORTNESS OF BREATH Amiodarone HCl (Cordarone -) 200 mg PO DAILY [facility] Aspirin (Ecotrin -) 81 mg PO DAILY [facility] Atorvastatin Calcium (Lipitor -) 80 mg PO HS [facility] Budesonide/Formoterol Fumarate (Symbicort 80/4.5mcg -) 2 puff IH BID [facility] Clopidogrel Bisulfate (Plavix -) 75 mg PO DAILY [facility] Furosemide (Lasix -) 40 mg PO DAILY [facility] Gabapentin (Neurontin -) 300 mg PO TID [facility] Guaifenesin (Robitussin Dm -) 10 ml PO Q4H PRN PRN Reason: COUGH Lactic Acid (Lac-Hydrin 12) 1 applic TP BID PRN PRN Reason: DRY SKIN Levetiracetam (Keppra -) 500 mg PO BID [facility] Levothyroxine Sodium (Synthroid -) 75 mcg PO DAILY@0700 [facility] Metoprolol Tartrate (Lopressor -) 50 mg PO BID [facility] Mirtazapine (Remeron -) 30 mg PO HS [facility] Pramipexole Dihydrochloride (Mirapex -) 0.25 mg PO TID [facility] Quetiapine Fumarate (Seroquel -) 200 mg PO HS [facility] Rivaroxaban (Xarelto) 20 mg PO DAILY@1800 [facility] Triamcinolone Acetonide (Aristocort 0.1% Cream -) 1 applic TP BID [facility] - Objective Vital Signs: Vital Signs Temperature 98.1 F 06/28/19 09:07 Pulse Rate 104 H 06/28/19 09:07 Respiratory Rate 20 06/28/19 09:07 Blood Pressure 147/80 06/28/19 09:07 O2 Sat by Pulse Oximetry (%) 100 06/28/19 09:00 Constitutional: Yes: Calm Eyes: Yes: Conjunctiva Clear HENT: Yes: Atraumatic Neck: Yes: Supple Cardiovascular: Yes: S1, S2 Respiratory: Yes: CTA Bilaterally Gastrointestinal: Yes: Normal Bowel Sounds, Soft Musculoskeletal: Yes: WNL Edema: LLE: 1+, RLE: 1+ Integumentary: Yes: Venous Stasis Changes Neurological: Yes: Oriented Psychiatric: Yes: Oriented Labs: CBC, BMP 06/25/19 06:54 06/27/19 05:35 Assessment/Plan Current Medications Generic Name Dose Route Start Last Admin Trade Name Freq PRN Reason Stop Dose Admin Acetaminophen 650 mg 06/28/19 14:41 Tylenol - PO Q6H PRN Fever Or Pain Albuterol Sulfate 2 puff 06/28/19 14:41 Ventolin Hfa Inhaler - IH Q6H PRN SHORTNESS OF BREATH Amiodarone HCl 200 mg 06/29/19 10:00 Cordarone - PO DAILY [facility] Aspirin 81 mg 06/29/19 10:00 Ecotrin - PO DAILY [facility] Atorvastatin Calcium 80 mg 06/28/19 22:00 Lipitor - PO HS [facility] Budesonide/Formoterol Fumarate 2 puff 06/28/19 22:00 Symbicort 80/4.5mcg - IH BID [facility] Clopidogrel Bisulfate 75 mg 06/29/19 10:00 Plavix - PO DAILY [facility] Furosemide 40 mg 06/29/19 10:00 Lasix - PO DAILY [facility] Gabapentin 300 mg 06/28/19 22:00 Neurontin - PO TID [facility] Guaifenesin 10 ml 06/28/19 14:41 Robitussin Dm - PO Q4H PRN COUGH Lactic Acid 1 applic 06/28/19 14:41 Lac-Hydrin 12 TP BID PRN DRY SKIN Levetiracetam 500 mg 06/28/19 22:00 Keppra - PO BID [facility] Levothyroxine Sodium 75 mcg 06/29/19 07:00 Synthroid - PO DAILY@0700 [facility] Metoprolol Tartrate 50 mg 06/28/19 22:00 Lopressor - PO BID [facility] Mirtazapine 30 mg 06/28/19 22:00 Remeron - PO HS [facility] Pramipexole Dihydrochloride 0.25 mg 06/28/19 22:00 Mirapex - PO TID [facility] Quetiapine Fumarate 200 mg 06/28/19 22:00 Seroquel - PO HS [facility] Rivaroxaban 20 mg 06/28/19 18:00 Xarelto PO DAILY@1800 [facility] Triamcinolone Acetonide 1 applic 06/28/19 22:00 Aristocort 0.1% Cream - TP BID [facility] Impression 1. CKD 2. Seizure disorder 3. Afib (Xarelto) 4. Anemia 5. COPD 6. GERD 7. Anxiety/depression 8. HLD 9. CHF 10. fluid overload Plan - renal function stabilizing - cont lasix - outpt follow up - 2 gram sodium diet - avoid nsaids - daily weights
[2019-06-28] MEDS: RIVAROXABAN 20 MG TABLET PO SCH (17:22)
[2019-06-28] MEDS: ATORVASTATIN CA 40 MG TABLET (FP) PO SCH (21:34)
[2019-06-28] MEDS: QUEtiapine FUMARATE 200 MG TABLET PO SCH (21:34)
[2019-06-28] MEDS: MIRTAZAPINE 15 MG TABLET (FP) PO SCH (21:35)
[2019-06-28] MEDS: AMMONIUM LACTATE 12% LOTION 225 GM BOTTLE TP PRN (21:36)
[2019-06-29] MEDS: ACETAMINOPHEN 325 MG TABLET (FP) PO PRN ×2 (03:02→17:39)
[2019-06-29] MEDS: LEVOTHYROXINE NA 25 MCG TABLET (FP) PO SCH (06:24)
[2019-06-29] MEDS: PRAMIPEXOLE DIHYDROCHLORIDE 0.25 MG TABLET PO SCH ×3 (06:25→22:12)
[2019-06-29] MEDS: GABAPENTIN 300 MG CAPSULE (FP) PO SCH ×3 (06:25→22:12)
--- NOTE | 2019-06-29 09:48 | PN ---
Progress Note, Physician Chief Complaint: CHF exacerbation History of Present Illness: SOB improved after IV lasix Poor dietary choices, needs education and counseling BLLE edema - Current Medication List Current Medications: Active Medications Acetaminophen (Tylenol -) 650 mg PO Q6H PRN PRN Reason: Fever Or Pain Last Admin: 06/29/19 03:02 Dose: 650 mg Albuterol Sulfate (Ventolin Hfa Inhaler -) 2 puff IH Q6H PRN PRN Reason: SHORTNESS OF BREATH Amiodarone HCl (Cordarone -) 200 mg PO DAILY [facility] Aspirin (Ecotrin -) 81 mg PO DAILY [facility] Atorvastatin Calcium (Lipitor -) 80 mg PO HS [facility] Last Admin: 06/28/19 21:34 Dose: 80 mg Budesonide/Formoterol Fumarate (Symbicort 80/4.5mcg -) 2 puff IH BID [facility] Last Admin: 06/28/19 21:37 Dose: 2 puff Clopidogrel Bisulfate (Plavix -) 75 mg PO DAILY [facility] Furosemide (Lasix -) 40 mg PO DAILY [facility] Gabapentin (Neurontin -) 300 mg PO TID [facility] Last Admin: 06/29/19 06:25 Dose: 300 mg Guaifenesin (Robitussin Dm -) 10 ml PO Q4H PRN PRN Reason: COUGH Lactic Acid (Lac-Hydrin 12) 1 applic TP BID PRN PRN Reason: DRY SKIN Last Admin: 06/28/19 21:36 Dose: 1 applic Levetiracetam (Keppra -) 500 mg PO BID [facility] Last Admin: 06/28/19 21:34 Dose: 500 mg Levothyroxine Sodium (Synthroid -) 75 mcg PO DAILY@0700 [facility] Last Admin: 06/29/19 06:24 Dose: 75 mcg Metoprolol Tartrate (Lopressor -) 50 mg PO BID [facility] Last Admin: 06/28/19 21:34 Dose: 50 mg Mirtazapine (Remeron -) 30 mg PO [facility] Last Admin: 06/28/19 21:35 Dose: 30 mg Pramipexole Dihydrochloride (Mirapex -) 0.25 mg PO TID [facility] Last Admin: 06/29/19 06:25 Dose: 0.25 mg Quetiapine Fumarate (Seroquel -) 200 mg PO [facility] Last Admin: 12/24/19 21:34 Dose: 200 mg Rivaroxaban (Xarelto) 20 mg PO DAILY@1800 [facility] Last Admin: 06/28/19 17:22 Dose: 20 mg Triamcinolone Acetonide (Aristocort 0.1% Cream -) 1 applic TP BID [facility] Last Admin: 06/28/19 21:37 Dose: 1 applic - Objective Vital Signs: Vital Signs Temperature 98.2 F 06/29/19 06:00 Pulse Rate 75 06/29/19 06:00 Respiratory Rate 20 06/29/19 06:00 Blood Pressure 145/72 06/29/19 06:00 O2 Sat by Pulse Oximetry (%) 100 06/28/19 21:00 Constitutional: Yes: Well Nourished, No Distress, Calm Cardiovascular: Yes: Regular Rate and Rhythm Respiratory: Yes: Regular Gastrointestinal: Yes: Normal Bowel Sounds, Soft, Abdomen, Obese Genitourinary: Yes: WNL Musculoskeletal: Yes: Muscle Weakness Extremities: Yes: WNL Edema: Yes Edema: LLE: 1+, RLE: 1+ Peripheral Pulses WNL: Yes Neurological: Yes: Alert, Oriented Psychiatric: Yes: Alert, Oriented Labs: CBC, BMP 06/25/19 06:54 06/27/19 05:35 Problem List - Problems (1) CHF exacerbation Assessment/Plan: -Cardiology consult -Tele monitor -Furosemide 40 mg po daily -Low sodium diet -nutrition consult -Last Echo 12/30/18: Normal LV systolic function, normal RV,Mild mr, mild tr Problems reviewed: Yes Code(s): I50.9 - HEART FAILURE, UNSPECIFIED Qualifiers: Heart failure type: unspecified Qualified Code(s): I50.9 - Heart failure, unspecified (2) COPD (chronic obstructive pulmonary disease) Assessment/Plan: -Pulmonary consult -Nasal O2 PRN -bronchodilators Problems reviewed: Yes Code(s): J44.9 - CHRONIC OBSTRUCTIVE PULMONARY DISEASE, UNSPECIFIED (3) SHANNA (acute kidney injury) Assessment/Plan: -Nephrology consult -monitor trend Problems reviewed: Yes Code(s): N17.9 - ACUTE KIDNEY FAILURE, UNSPECIFIED (4) Atrial fibrillation with RVR Assessment/Plan: -Chronic, rate controlled, now in NSR -continue Xarelto Problems reviewed: Yes Code(s): I48.91 - UNSPECIFIED ATRIAL FIBRILLATION Assessment/Plan see problem list Extended stay 2/2 to social issues, manager social involved
[2019-06-29] MEDS: METOPROLOL TARTRATE 50 MG TABLET (FP) PO SCH ×2 (10:02→22:11)
[2019-06-29] MEDS: AMIODARONE HCL 200 MG TABLET (FP) PO SCH (10:03)
[2019-06-29] MEDS: ASPIRIN COATED 81 MG TABLET.EC PO SCH (10:03)
[2019-06-29] MEDS: FUROSEMIDE 40 MG TABLET (FP) PO SCH (10:03)
[2019-06-29] MEDS: levETIRAcetam 500 MG TABLET (FP) PO SCH ×2 (10:03→22:12)
[2019-06-29] MEDS: CLOPIDOGREL BISULFATE 75 MG TABLET (FP) PO SCH (10:03)
[2019-06-29] MEDS: BUDESONIDE/FORMETEROL FUMARATE 80/4.5 mcg INHALER IH SCH ×2 (10:06→22:14)
[2019-06-29] MEDS: TRIAMCINOLONE ACET 0.1% CREAM 15 GM TUBE TP SCH ×2 (10:06→22:12)
[2019-06-29] MEDS: AMMONIUM LACTATE 12% LOTION 225 GM BOTTLE TP PRN ×2 (10:07→22:11)
--- NOTE | 2019-06-29 11:11 | PN ---
Progress Note (short form) - Note Progress Note: Comfortable on RA. Reports breathing is overall better. Some sore throat. Intake & Output 06/26/19 06/27/19 06/28/19 06/29/19 23:59 23:59 23:59 23:59 Intake Total 560 360 200 0 Output Total 200 1 Balance 360 360 199 0 Weight 204 lb 201 lb 8 oz 201 lb 197 lb 1 oz Last Vital Signs Temp Pulse Resp BP Pulse Ox 98.2 F 75 20 145/72 100 06/29/19 06:00 06/29/19 06:00 06/29/19 06:00 06/29/19 06:00 06/28/19 21:00 Active Medications Acetaminophen (Tylenol -) 650 mg PO Q6H PRN PRN Reason: Fever Or Pain Last Admin: 06/29/19 03:02 Dose: 650 mg Albuterol Sulfate (Ventolin Hfa Inhaler -) 2 puff IH Q6H PRN PRN Reason: SHORTNESS OF BREATH Amiodarone HCl (Cordarone -) 200 mg PO DAILY [facility] Last Admin: 06/29/19 10:03 Dose: 200 mg Aspirin (Ecotrin -) 81 mg PO DAILY [facility] Last Admin: 06/29/19 10:03 Dose: 81 mg Atorvastatin Calcium (Lipitor -) 80 mg PO HS [facility] Last Admin: 06/28/19 21:34 Dose: 80 mg Budesonide/Formoterol Fumarate (Symbicort 80/4.5mcg -) 2 puff IH BID [facility] Last Admin: 06/29/19 10:06 Dose: 2 puff Clopidogrel Bisulfate (Plavix -) 75 mg PO DAILY [facility] Last Admin: 06/29/19 10:03 Dose: 75 mg Furosemide (Lasix -) 40 mg PO DAILY [facility] Last Admin: 06/29/19 10:03 Dose: 40 mg Gabapentin (Neurontin -) 300 mg PO TID [facility] Last Admin: 06/29/19 06:25 Dose: 300 mg Guaifenesin (Robitussin Dm -) 10 ml PO Q4H PRN PRN Reason: COUGH Lactic Acid (Lac-Hydrin 12) 1 applic TP BID PRN PRN Reason: DRY SKIN Last Admin: 06/29/19 10:07 Dose: 1 applic Levetiracetam (Keppra -) 500 mg PO BID [facility] Last Admin: 06/29/19 10:03 Dose: 500 mg Levothyroxine Sodium (Synthroid -) 75 mcg PO DAILY@0700 [facility] Last Admin: 06/29/19 06:24 Dose: 75 mcg Metoprolol Tartrate (Lopressor -) 50 mg PO BID [facility] Last Admin: 06/29/19 10:02 Dose: 50 mg Mirtazapine (Remeron -) 30 mg PO HS [facility] Last Admin: 06/28/19 21:35 Dose: 30 mg Pramipexole Dihydrochloride (Mirapex -) 0.25 mg PO TID [facility] Last Admin: 06/29/19 06:25 Dose: 0.25 mg Quetiapine Fumarate (Seroquel -) 200 mg PO HS [facility] Last Admin: 06/28/19 21:34 Dose: 200 mg Rivaroxaban (Xarelto) 20 mg PO DAILY@1800 [facility] Last Admin: 06/28/19 17:22 Dose: 20 mg Triamcinolone Acetonide (Aristocort 0.1% Cream -) 1 applic TP BID [facility] Last Admin: 06/29/19 10:06 Dose: 1 applic Constitutional: Yes: Well Nourished, NAD Eyes: Yes: WNL HENT: Yes: WNL Neck: Yes: WNL Cardiovascular: Yes: Pulse Irregular, S1, S2 Respiratory: Yes: Few scattered Rhonchi Gastrointestinal: Yes: Normal Bowel Sounds, Soft Extremities: Yes: WNL Edema: Yes Labs: Problem List - Problems (1) Acute on chronic diastolic (congestive) heart failure Code(s): I50.33 - ACUTE ON CHRONIC DIASTOLIC (CONGESTIVE) HEART FAILURE (2) CHF exacerbation Code(s): I50.9 - HEART FAILURE, UNSPECIFIED Qualifiers: Heart failure type: unspecified Qualified Code(s): I50.9 - Heart failure, unspecified (3) COPD (chronic obstructive pulmonary disease) Code(s): J44.9 - CHRONIC OBSTRUCTIVE PULMONARY DISEASE, UNSPECIFIED (4) Afib Code(s): I48.91 - UNSPECIFIED ATRIAL FIBRILLATION Qualifiers: Atrial fibrillation type: unspecified Qualified Code(s): I48.91 - Unspecified atrial fibrillation (5) Anemia Code(s): D64.9 - ANEMIA, UNSPECIFIED (6) CAD (coronary artery disease) Code(s): I25.10 - ATHSCL HEART DISEASE OF [place] CORONARY ARTERY W/O ANG PCTRS (7) HLD (hyperlipidemia) Code(s): E78.5 - HYPERLIPIDEMIA, UNSPECIFIED (8) HTN (hypertension) Code(s): I10 - ESSENTIAL (PRIMARY) HYPERTENSION (9) Seizure disorder Code(s): G40.909 - EPILEPSY, UNSP, NOT INTRACTABLE, WITHOUT STATUS EPILEPTICUS Assessment/Plan Acute on Chronic Diastolic Heart Failure Atrial Fibrillation CAD Asthma/COPD HTN Hyperlipidemia Hypothyroidism Seizure Disorder Schizophrenia - Lasix - monitor urine output, creatinine - daily weights - O2 as needed - inhaled bronchodilators as needed - rate control - anticoagulation - Symbicort BID - Trial of Cepacol - DC planning Dr Rhodes
--- NOTE | 2019-06-29 14:47 | PN ---
Progress Note, Physician History of Present Illness: Pt seen and examined at bedside. He denies shortness of breath. - Current Medication List Current Medications: Active Medications Acetaminophen (Tylenol -) 650 mg PO Q6H PRN PRN Reason: Fever Or Pain Last Admin: 06/29/19 03:02 Dose: 650 mg Albuterol Sulfate (Ventolin Hfa Inhaler -) 2 puff IH Q6H PRN PRN Reason: SHORTNESS OF BREATH Amiodarone HCl (Cordarone -) 200 mg PO DAILY [facility] Last Admin: 06/29/19 10:03 Dose: 200 mg Aspirin (Ecotrin -) 81 mg PO DAILY [facility] Last Admin: 06/29/19 10:03 Dose: 81 mg Atorvastatin Calcium (Lipitor -) 80 mg PO HS [facility] Last Admin: 06/28/19 21:34 Dose: 80 mg Budesonide/Formoterol Fumarate (Symbicort 80/4.5mcg -) 2 puff IH BID [facility] Last Admin: 06/29/19 10:06 Dose: 2 puff Clopidogrel Bisulfate (Plavix -) 75 mg PO DAILY [facility] Last Admin: 06/29/19 10:03 Dose: 75 mg Furosemide (Lasix -) 40 mg PO DAILY [facility] Last Admin: 06/29/19 10:03 Dose: 40 mg Gabapentin (Neurontin -) 300 mg PO TID [facility] Last Admin: 06/29/19 14:14 Dose: 300 mg Guaifenesin (Robitussin Dm -) 10 ml PO Q4H PRN PRN Reason: COUGH Lactic Acid (Lac-Hydrin 12) 1 applic TP BID PRN PRN Reason: DRY SKIN Last Admin: 06/29/19 10:07 Dose: 1 applic Levetiracetam (Keppra -) 500 mg PO BID [facility] Last Admin: 06/29/19 10:03 Dose: 500 mg Levothyroxine Sodium (Synthroid -) 75 mcg PO DAILY@0700 [facility] Last Admin: 06/29/19 06:24 Dose: 75 mcg Metoprolol Tartrate (Lopressor -) 50 mg PO BID [facility] Last Admin: 06/29/19 10:02 Dose: 50 mg Mirtazapine (Remeron -) 30 mg PO HS [facility] Last Admin: 06/28/19 21:35 Dose: 30 mg Pramipexole Dihydrochloride (Mirapex -) 0.25 mg PO TID [facility] Last Admin: 06/29/19 14:15 Dose: 0.25 mg Quetiapine Fumarate (Seroquel -) 200 mg PO HS [facility] Last Admin: 06/28/19 21:34 Dose: 200 mg Rivaroxaban (Xarelto) 20 mg PO DAILY@1800 [facility] Last Admin: 06/28/19 17:22 Dose: 20 mg Triamcinolone Acetonide (Aristocort 0.1% Cream -) 1 applic TP BID [facility] Last Admin: 06/29/19 10:06 Dose: 1 applic - Objective Vital Signs: Vital Signs Temperature 98.2 F 06/29/19 06:00 Pulse Rate 76 06/29/19 10:00 Respiratory Rate 18 06/29/19 10:00 Blood Pressure 130/66 06/29/19 10:00 O2 Sat by Pulse Oximetry (%) 95 06/29/19 09:00 Constitutional: Yes: Calm Eyes: Yes: Conjunctiva Clear HENT: Yes: Atraumatic Cardiovascular: Yes: S1, S2 Respiratory: Yes: CTA Bilaterally Gastrointestinal: Yes: Soft Genitourinary: Yes: WNL Musculoskeletal: Yes: WNL Edema: Yes Edema: LLE: 2+, RLE: 2+ Neurological: Yes: Oriented Psychiatric: Yes: Oriented Labs: CBC, BMP 06/25/19 06:54 06/27/19 05:35 Problem List - Problems (1) CHF exacerbation Code(s): I50.9 - HEART FAILURE, UNSPECIFIED Qualifiers: Heart failure type: unspecified Qualified Code(s): I50.9 - Heart failure, unspecified (2) SHANNA (acute kidney injury) Code(s): N17.9 - ACUTE KIDNEY FAILURE, UNSPECIFIED Assessment/Plan Current Medications Generic Name Dose Route Start Last Admin Trade Name Freq PRN Reason Stop Dose Admin Acetaminophen 650 mg 06/28/19 14:41 06/29/19 03:02 Tylenol - PO 650 mg Q6H PRN Administration Fever Or Pain Albuterol Sulfate 2 puff 06/28/19 14:41 Ventolin Hfa Inhaler - IH Q6H PRN SHORTNESS OF BREATH Amiodarone HCl 200 mg 06/29/19 10:00 06/29/19 10:03 Cordarone - PO 200 mg DAILY [facility] Administration Aspirin 81 mg 06/29/19 10:00 06/29/19 10:03 Ecotrin - PO 81 mg DAILY [facility] Administration Atorvastatin Calcium 80 mg 06/28/19 22:00 06/28/19 21:34 Lipitor - PO 80 mg HS [facility] Administration Budesonide/Formoterol Fumarate 2 puff 06/28/19 22:00 06/29/19 10:06 Symbicort 80/4.5mcg - IH 2 puff BID [facility] Administration Clopidogrel Bisulfate 75 mg 06/29/19 10:00 06/29/19 10:03 Plavix - PO 75 mg DAILY [facility] Administration Furosemide 40 mg 06/29/19 10:00 06/29/19 10:03 Lasix - PO 40 mg DAILY [facility] Administration Gabapentin 300 mg 06/28/19 22:00 06/29/19 14:14 Neurontin - PO 300 mg TID [facility] Administration Guaifenesin 10 ml 06/28/19 14:41 Robitussin Dm - PO Q4H PRN COUGH Lactic Acid 1 applic 06/28/19 14:41 06/29/19 10:07 Lac-Hydrin 12 TP 1 applic BID PRN Administration DRY SKIN Levetiracetam 500 mg 06/28/19 22:00 06/29/19 10:03 Keppra - PO 500 mg BID [facility] Administration Levothyroxine Sodium 75 mcg 06/29/19 07:00 06/29/19 06:24 Synthroid - PO 75 mcg DAILY@0700 [facility] Administration Metoprolol Tartrate 50 mg 06/28/19 22:00 06/29/19 10:02 Lopressor - PO 50 mg BID [facility] Administration Mirtazapine 30 mg 06/28/19 22:00 06/28/19 21:35 Remeron - PO 30 mg HS [facility] Administration Pramipexole Dihydrochloride 0.25 mg 06/28/19 22:00 06/29/19 14:15 Mirapex - PO 0.25 mg TID [facility] Administration Quetiapine Fumarate 200 mg 06/28/19 22:00 06/28/19 21:34 Seroquel - PO 200 mg HS [facility] Administration Rivaroxaban 20 mg 06/28/19 18:00 06/28/19 17:22 Xarelto PO 20 mg DAILY@1800 [facility] Administration Triamcinolone Acetonide 1 applic 06/28/19 22:00 06/29/19 10:06 Aristocort 0.1% Cream - TP 1 applic BID [facility] Administration Impression 1. CKD 2. Seizure disorder 3. Afib (Xarelto) 4. Anemia 5. COPD 6. GERD 7. Anxiety/depression 8. HLD 9. CHF 10. fluid overload Plan - cont lasix - check cmp - outpt follow up - 2 gram sodium diet - avoid nsaids
[2019-06-29] MEDS: RIVAROXABAN 20 MG TABLET PO SCH (17:39)
[2019-06-29] MEDS: MIRTAZAPINE 15 MG TABLET (FP) PO SCH (22:12)
[2019-06-29] MEDS: QUEtiapine FUMARATE 200 MG TABLET PO SCH (22:12)
[2019-06-29] MEDS: ATORVASTATIN CA 40 MG TABLET (FP) PO SCH (22:12)
[2019-06-30] MEDS: GABAPENTIN 300 MG CAPSULE (FP) PO SCH ×2 (06:06→14:19)
[2019-06-30] MEDS: LEVOTHYROXINE NA 25 MCG TABLET (FP) PO SCH (06:06)
[2019-06-30] MEDS: PRAMIPEXOLE DIHYDROCHLORIDE 0.25 MG TABLET PO SCH ×2 (06:06→14:19)
[2019-06-30 08:23] LABS: ALBUMIN 3.4 g/dl (3.4-5.0); BILIRUBIN,TOTAL 0.3 mg/dL (0.2-1); BLOOD UREA NITROGEN 22.4 mg/dL (7-18); CALCIUM 9.1 mg/dL (8.5-10.1); CREATININE 1.6 mg/dL (0.55-1.3); TOT PROT 6.7 g/dl (6.4-8.2)
[2019-06-30 08:32] VITALS: BP 125/75; PULSE 85; TEMP 98.5
[2019-06-30] MEDS: levETIRAcetam 500 MG TABLET (FP) PO SCH (09:07)
[2019-06-30] MEDS: AMIODARONE HCL 200 MG TABLET (FP) PO SCH (09:07)
[2019-06-30] MEDS: CLOPIDOGREL BISULFATE 75 MG TABLET (FP) PO SCH (09:08)
[2019-06-30] MEDS: FUROSEMIDE 40 MG TABLET (FP) PO SCH (09:08)
[2019-06-30] MEDS: METOPROLOL TARTRATE 50 MG TABLET (FP) PO SCH (09:08)
[2019-06-30] MEDS: ASPIRIN COATED 81 MG TABLET.EC PO SCH (09:08)
[2019-06-30] MEDS: BUDESONIDE/FORMETEROL FUMARATE 80/4.5 mcg INHALER IH SCH (09:09)
[2019-06-30] MEDS: TRIAMCINOLONE ACET 0.1% CREAM 15 GM TUBE TP SCH (09:10)
[2019-06-30] MEDS: AMMONIUM LACTATE 12% LOTION 225 GM BOTTLE TP PRN (09:10)
[2019-06-30] MEDS: ACETAMINOPHEN 325 MG TABLET (FP) PO PRN (09:14)
--- NOTE | 2019-06-30 10:56 | DS ---
Physical Examination Vital Signs: Vital Signs Temperature 98.5 F 06/30/19 08:31 Pulse Rate 85 06/30/19 08:31 Respiratory Rate 19 06/30/19 09:00 Blood Pressure 125/75 06/30/19 08:31 O2 Sat by Pulse Oximetry (%) 96 06/30/19 09:00 Findings/Remarks: 64 y/o male PMH CHF, HTN, HLD, A fib on xarelto, CAD s/p stent (03 may 2018), extensive psoriasis, asthma, copd, hypothyroidism, seizure d/o, and schizophrenia c/o progressive SOB since dc 29 May 2019. Pt states he has been taking his medications, including lasix since dc but has not adjusting his diet. He reports eating plenty of salty foods and soda. The pt lives on a 4th floor walk up and has had increasing difficulty getting up the stairs 2/2 SOB and leg pain. He was seen in wound care clinic and was sent down from clinic today 2/2 leg swelling and SOB. He endorses PND and orthopnea plus cough productive white/clear sputum. He denies NVFD, chills, constipation. He has had no sick contacts, recent illness, recent travel, painful calves, new foods, or new meds/herbs/supplements. He denies GARCIA, vision changes, abdominal pain and numbness/tingling. Constitutional: Yes: Well Nourished, No Distress, Calm Cardiovascular: Yes: Regular Rate and Rhythm Respiratory: Yes: Regular Gastrointestinal: Yes: Normal Bowel Sounds, Soft, Abdomen, Obese Musculoskeletal: Yes: WNL Extremities: Yes: WNL Edema: Yes Edema: LLE: 1+, RLE: 1+ Peripheral Pulses WNL: Yes Neurological: Yes: Alert, Oriented Psychiatric: Yes: Alert, Oriented Labs: CBC, BMP 06/25/19 06:54 06/30/19 07:30 Discharge Summary Problems reviewed: Yes Reason For Visit: ACUTE ON CHRONIC CHF,SOB,CHRONIC KIDNEY DISEASE Current Active Problems Acute on chronic diastolic (congestive) heart failure (Acute) CHF exacerbation (Acute) COPD (chronic obstructive pulmonary disease) (Acute) Leg edema, right (Acute) Laboratory Last Values WBC 5.0 K/mm3 (4.0-10.0) 06/25/19 06:54 RBC 3.56 M/mm3 (4.00-5.60) L 06/25/19 06:54 Hgb 8.9 GM/dL (11.7-16.9) L 06/25/19 06:54 Hct 28.3 % (35.4-49) L 06/25/19 06:54 MCV 79.6 fl (80-96) L 06/25/19 06:54 MCH 25.1 pg (25.7-33.7) L 06/25/19 06:54 MCHC 31.5 g/dl (32.0-35.9) L 06/25/19 06:54 RDW 21.6 % (11.9-15.9) H 06/25/19 06:54 Plt Count 156 K/MM3 (134-434) 06/25/19 06:54 MPV 7.6 fl (7.5-11.1) 06/25/19 06:54 Absolute Neuts (auto) 3.8 K/mm3 (1.5-8.0) 06/25/19 06:54 Neutrophils % 76.2 % (42.8-82.8) 06/25/19 06:54 Lymphocytes % 12.5 % (8-40) 06/25/19 06:54 Monocytes % 9.5 % (3.8-10.2) 06/25/19 06:54 Eosinophils % 1.4 % (0-4.5) 06/25/19 06:54 Basophils % 0.4 % (0-2.0) 06/25/19 06:54 Nucleated RBC % 0 % (0-0) 06/25/19 06:54 Hypochromia 1+ 06/24/19 19:00 Platelet Estimate Adequate 06/24/19 19:00 Polychromasia 1+ 06/24/19 19:00 Poikilocytosis 2+ 06/24/19 19:00 Anisocytosis 2+ 06/24/19 19:00 Microcytosis 1+ 06/24/19 19:00 Macrocytosis 1+ 06/24/19 19:00 Ovalocytes 1+ 06/24/19 19:00 Sodium 139 mmol/L (136-145) 06/30/19 07:30 Potassium 4.0 mmol/L (3.5-5.1) 06/30/19 07:30 Chloride 105 mmol/L (98-107) 06/30/19 07:30 Carbon Dioxide 29 mmol/L (21-32) 06/30/19 07:30 Anion Gap 5 MMOL/L (8-16) L 06/30/19 07:30 BUN 22.4 mg/dL (7-18) H 06/30/19 07:30 Creatinine 1.6 mg/dL (0.55-1.3) H 06/30/19 07:30 Est GFR (CKD-EPI)AfAm 52.36 06/30/19 07:30 Est GFR (CKD-EPI)NonAf 45.18 06/30/19 07:30 Random Glucose 91 mg/dL (74-106) 06/30/19 07:30 Calcium 9.1 mg/dL (8.5-10.1) 06/30/19 07:30 Phosphorus 3.5 mg/dL (2.5-4.9) 06/25/19 06:54 Magnesium 2.5 mg/dL (1.8-2.4) H 06/25/19 06:54 Total Bilirubin 0.3 mg/dL (0.2-1) 06/30/19 07:30 AST 20 U/L (15-37) 06/30/19 07:30 ALT 24 U/L (13-61) 06/30/19 07:30 Alkaline Phosphatase 119 U/L (45-117) H 06/30/19 07:30 Creatine Kinase 314 U/L (26-308) H 06/24/19 19:00 Creatine Kinase Index 0.7 % (0.0-5.0) 06/24/19 19:00 CK-MB (CK-2) 2.5 ng/mL (0.5-3.6) 06/24/19 19:00 Troponin I < 0.02 ng/ml (0.00-0.05) 06/24/19 19:00 B-Natriuretic Peptide 1617.2 pg/ml (5-125) H 06/24/19 19:00 Total Protein 6.7 g/dl (6.4-8.2) 06/30/19 07:30 Albumin 3.4 g/dl (3.4-5.0) 06/30/19 07:30 Vital Signs Temp 98.5 F 06/30/19 08:31 Pulse 85 06/30/19 08:31 Resp 19 06/30/19 09:00 BP 125/75 06/30/19 08:31 Pulse Ox 96 06/30/19 09:00 Intake & Output 06/29/19 06/29/19 06/30/19 11:59 23:59 11:59 Intake Total 0 450 200 Balance 0 450 200 Weight 89.386 kg Intake: IV 0 SALINE LOCK 0 Oral 450 200 Other: Voiding Method Toilet Toilet Toilet # Unmeasured Voids Void 1 1 2 Bowel Movement No Yes No # Bowel Movements 1 Weight Measurement Method Standing Scale Condition: Stable - Instructions Referrals: Sharlene Mckenzie NP [Primary Care Provider] - - Home Medications Comprehensive Discharge Medication List: Ambulatory Orders Albuterol Sulfate [Proair Hfa] 2 puff IH Q6H PRN 08/02/17 Atorvastatin Calcium 80 mg PO HS 08/02/17 Aspirin [Aspirin EC] 81 mg PO DAILY 10/03/18 Clopidogrel Bisulfate [Plavix] 75 mg PO DAILY 10/03/18 Rivaroxaban [Xarelto -] 20 mg PO DAILY 10/03/18 Acetaminophen [Tylenol .Regular Strength -] 650 mg PO Q6H PRN tablet 10/06/18 Budesonide/Formeterol Fumarate [SYMBICORT 80/4.5mcg -] 2 puff IH BID #2 inhaler 10/06/18 Gabapentin 300 mg PO TID #90 capsule 10/06/18 Metoprolol Tartrate [Lopressor -] 50 mg PO BID #60 tablet 10/06/18 Pramipexole Dihydrochloride [Mirapex -] 0.25 mg PO TID #90 tablet 10/06/18 Quetiapine Fumarate [Seroquel -] 200 mg PO HS #30 tablet 10/06/18 levETIRAcetam [Keppra -] 500 mg PO BID #60 tablet 10/06/18 Furosemide [Lasix -] 40 mg PO DAILY #30 tablet 05/29/19 Ferrous Sulfate [Iron] 325 mg PO DAILY 06/24/19 Levothyroxine [Synthroid -] 75 mcg PO DAILY@0700 06/24/19 Mirtazapine [Remeron -] 30 mg PO HS 06/24/19 Acetaminophen [Tylenol .Regular Strength -] 650 mg PO Q6H PRN tablet 06/30/19 Amiodarone HCl [Cordarone -] 200 mg PO DAILY #30 tablet 06/30/19 Furosemide [Lasix -] 40 mg PO DAILY #30 tablet 06/30/19 Triamcinolone 0.1% Cream [Aristocort 0.1% Cream -] 1 applic TP BID #1 tube 06/30
--- NOTE | 2019-06-30 13:26 | PN ---
Progress Note (short form) - Note Progress Note: Comfortable on RA. Reports breathing is overall better. Still with some sore throat. Intake & Output 06/27/19 06/28/19 06/29/19 06/30/19 23:59 23:59 23:59 23:59 Intake Total 360 200 450 200 Output Total 1 Balance 360 199 450 200 Weight 201 lb 8 oz 201 lb 197 lb 1 oz Last Vital Signs Temp Pulse Resp BP Pulse Ox 98.5 F 85 19 125/75 96 06/30/19 08:31 06/30/19 08:31 06/30/19 09:00 06/30/19 08:31 06/30/19 09:00 Active Medications Acetaminophen (Tylenol -) 650 mg PO Q6H PRN PRN Reason: Fever Or Pain Last Admin: 06/30/19 09:14 Dose: 650 mg Albuterol Sulfate (Ventolin Hfa Inhaler -) 2 puff IH Q6H PRN PRN Reason: SHORTNESS OF BREATH Amiodarone HCl (Cordarone -) 200 mg PO DAILY [facility] Last Admin: 06/30/19 09:07 Dose: 200 mg Aspirin (Ecotrin -) 81 mg PO DAILY [facility] Last Admin: 06/30/19 09:08 Dose: 81 mg Atorvastatin Calcium (Lipitor -) 80 mg PO HS [facility] Last Admin: 06/29/19 22:12 Dose: 80 mg Budesonide/Formoterol Fumarate (Symbicort 80/4.5mcg -) 2 puff IH BID [facility] Last Admin: 06/30/19 09:09 Dose: 2 puff Clopidogrel Bisulfate (Plavix -) 75 mg PO DAILY [facility] Last Admin: 06/30/19 09:08 Dose: 75 mg Furosemide (Lasix -) 40 mg PO DAILY [facility] Last Admin: 06/30/19 09:08 Dose: 40 mg Gabapentin (Neurontin -) 300 mg PO TID [facility] Last Admin: 06/30/19 06:06 Dose: 300 mg Guaifenesin (Robitussin Dm -) 10 ml PO Q4H PRN PRN Reason: COUGH Lactic Acid (Lac-Hydrin 12) 1 applic TP BID PRN PRN Reason: DRY SKIN Last Admin: 06/30/19 09:10 Dose: 1 applic Levetiracetam (Keppra -) 500 mg PO BID [facility] Last Admin: 06/30/19 09:07 Dose: 500 mg Levothyroxine Sodium (Synthroid -) 75 mcg PO DAILY@0700 [facility] Last Admin: 06/30/19 06:06 Dose: 75 mcg Metoprolol Tartrate (Lopressor -) 50 mg PO BID [facility] Last Admin: 06/30/19 09:08 Dose: 50 mg Mirtazapine (Remeron -) 30 mg PO [facility] Last Admin: 06/29/19 22:12 Dose: 30 mg Pramipexole Dihydrochloride (Mirapex -) 0.25 mg PO TID [facility] Last Admin: 06/30/19 06:06 Dose: 0.25 mg Quetiapine Fumarate (Seroquel -) 200 mg PO [facility] Last Admin: 06/29/19 22:12 Dose: 200 mg Rivaroxaban (Xarelto) 20 mg PO DAILY@1800 [facility] Last Admin: 06/29/19 17:39 Dose: 20 mg Triamcinolone Acetonide (Aristocort 0.1% Cream -) 1 applic TP BID [facility] Last Admin: 06/30/19 09:10 Dose: 1 applic Constitutional: Yes: Well Nourished, NAD Eyes: Yes: WNL HENT: Yes: WNL Neck: Yes: WNL Cardiovascular: Yes: Pulse Irregular, S1, S2 Respiratory: Yes: Few scattered Rhonchi Gastrointestinal: Yes: Normal Bowel Sounds, Soft Extremities: Yes: WNL Edema: Yes Labs: Laboratory Results - last 24 hr 06/30/19 07:30 Sodium 139 Potassium 4.0 Chloride 105 Carbon Dioxide 29 Anion Gap 5 L BUN 22.4 H Creatinine 1.6 H Est GFR (CKD-EPI)AfAm 52.36 Est GFR (CKD-EPI)NonAf 45.18 Random Glucose 91 Calcium 9.1 Total Bilirubin 0.3 AST 20 ALT 24 Alkaline Phosphatase 119 H Total Protein 6.7 Albumin 3.4 Problem List - Problems (1) Acute on chronic diastolic (congestive) heart failure Code(s): I50.33 - ACUTE ON CHRONIC DIASTOLIC (CONGESTIVE) HEART FAILURE (2) CHF exacerbation Code(s): I50.9 - HEART FAILURE, UNSPECIFIED Qualifiers: Heart failure type: unspecified Qualified Code(s): I50.9 - Heart failure, unspecified (3) COPD (chronic obstructive pulmonary disease) Code(s): J44.9 - CHRONIC OBSTRUCTIVE PULMONARY DISEASE, UNSPECIFIED (4) Afib Code(s): I48.91 - UNSPECIFIED ATRIAL FIBRILLATION Qualifiers: Atrial fibrillation type: unspecified Qualified Code(s): I48.91 - Unspecified atrial fibrillation (5) Anemia Code(s): D64.9 - ANEMIA, UNSPECIFIED (6) CAD (coronary artery disease) Code(s): I25.10 - ATHSCL HEART DISEASE OF [place] CORONARY ARTERY W/O ANG PCTRS (7) HLD (hyperlipidemia) Code(s): E78.5 - HYPERLIPIDEMIA, UNSPECIFIED (8) HTN (hypertension) Code(s): I10 - ESSENTIAL (PRIMARY) HYPERTENSION (9) Seizure disorder Code(s): G40.909 - EPILEPSY, UNSP, NOT INTRACTABLE, WITHOUT STATUS EPILEPTICUS Assessment/Plan Acute on Chronic Diastolic Heart Failure Atrial Fibrillation CAD Asthma/COPD HTN Hyperlipidemia Hypothyroidism Seizure Disorder Schizophrenia - rate control - anticoagulation - Symbicort BID - Cepacol PRN - DC planning Dr Rhodes
--- NOTE | 2019-06-30 15:25 | PN ---
Progress Note, Physician History of Present Illness: Pt seen and examined at bedside. He denies shortness of breath. He feels that his lower ext edema is improving. - Current Medication List Current Medications: Active Medications Acetaminophen (Tylenol -) 650 mg PO Q6H PRN PRN Reason: Fever Or Pain Last Admin: 06/30/19 09:14 Dose: 650 mg Albuterol Sulfate (Ventolin Hfa Inhaler -) 2 puff IH Q6H PRN PRN Reason: SHORTNESS OF BREATH Amiodarone HCl (Cordarone -) 200 mg PO DAILY [facility] Last Admin: 06/30/19 09:07 Dose: 200 mg Aspirin (Ecotrin -) 81 mg PO DAILY [facility] Last Admin: 06/30/19 09:08 Dose: 81 mg Atorvastatin Calcium (Lipitor -) 80 mg PO HS [facility] Last Admin: 06/29/19 22:12 Dose: 80 mg Budesonide/Formoterol Fumarate (Symbicort 80/4.5mcg -) 2 puff IH BID [facility] Last Admin: 06/30/19 09:09 Dose: 2 puff Clopidogrel Bisulfate (Plavix -) 75 mg PO DAILY [facility] Last Admin: 06/30/19 09:08 Dose: 75 mg Furosemide (Lasix -) 40 mg PO DAILY [facility] Last Admin: 06/30/19 09:08 Dose: 40 mg Gabapentin (Neurontin -) 300 mg PO TID [facility] Last Admin: 06/30/19 14:19 Dose: 300 mg Guaifenesin (Robitussin Dm -) 10 ml PO Q4H PRN PRN Reason: COUGH Last Admin: 06/30/19 14:19 Dose: 10 ml Lactic Acid (Lac-Hydrin 12) 1 applic TP BID PRN PRN Reason: DRY SKIN Last Admin: 06/30/19 09:10 Dose: 1 applic Levetiracetam (Keppra -) 500 mg PO BID [facility] Last Admin: 06/30/19 09:07 Dose: 500 mg Levothyroxine Sodium (Synthroid -) 75 mcg PO DAILY@0700 [facility] Last Admin: 06/30/19 06:06 Dose: 75 mcg Metoprolol Tartrate (Lopressor -) 50 mg PO BID [facility] Last Admin: 06/30/19 09:08 Dose: 50 mg Mirtazapine (Remeron -) 30 mg PO HS [facility] Last Admin: 06/29/19 22:12 Dose: 30 mg Pramipexole Dihydrochloride (Mirapex -) 0.25 mg PO TID [facility] Last Admin: 06/30/19 14:19 Dose: 0.25 mg Quetiapine Fumarate (Seroquel -) 200 mg PO [facility] Last Admin: 06/29/19 22:12 Dose: 200 mg Rivaroxaban (Xarelto) 20 mg PO DAILY@1800 [facility] Last Admin: 06/29/19 17:39 Dose: 20 mg Triamcinolone Acetonide (Aristocort 0.1% Cream -) 1 applic TP BID [facility] Last Admin: 06/30/19 09:10 Dose: 1 applic - Objective Vital Signs: Vital Signs Temperature 98.5 F 06/30/19 08:31 Pulse Rate 85 06/30/19 08:31 Respiratory Rate 19 06/30/19 09:00 Blood Pressure 125/75 06/30/19 08:31 O2 Sat by Pulse Oximetry (%) 96 06/30/19 09:00 Constitutional: Yes: Calm Eyes: Yes: Conjunctiva Clear HENT: Yes: Atraumatic Neck: Yes: Supple Cardiovascular: Yes: S1, S2 Respiratory: Yes: CTA Bilaterally Gastrointestinal: Yes: Soft Genitourinary: Yes: WNL Musculoskeletal: Yes: WNL Edema: Yes Edema: LLE: 1+, RLE: 1+ Neurological: Yes: Oriented Psychiatric: Yes: Oriented Labs: CBC, BMP 06/25/19 06:54 06/30/19 07:30 Problem List - Problems (1) CHF exacerbation Code(s): I50.9 - HEART FAILURE, UNSPECIFIED Qualifiers: Heart failure type: unspecified Qualified Code(s): I50.9 - Heart failure, unspecified (2) SHANNA (acute kidney injury) Code(s): N17.9 - ACUTE KIDNEY FAILURE, UNSPECIFIED Assessment/Plan Current Medications Generic Name Dose Route Start Last Admin Trade Name Freq PRN Reason Stop Dose Admin Acetaminophen 650 mg 06/28/19 14:41 06/30/19 09:14 Tylenol - PO 650 mg Q6H PRN Administration Fever Or Pain Albuterol Sulfate 2 puff 06/28/19 14:41 Ventolin Hfa Inhaler - IH Q6H PRN SHORTNESS OF BREATH Amiodarone HCl 200 mg 06/29/19 10:00 06/30/19 09:07 Cordarone - PO 200 mg DAILY [facility] Administration Aspirin 81 mg 06/29/19 10:00 06/30/19 09:08 Ecotrin - PO 81 mg DAILY [facility] Administration Atorvastatin Calcium 80 mg 06/28/19 22:00 06/29/19 22:12 Lipitor - PO 80 mg HS [facility] Administration Budesonide/Formoterol Fumarate 2 puff 06/28/19 22:00 06/30/19 09:09 Symbicort 80/4.5mcg - IH 2 puff BID [facility] Administration Clopidogrel Bisulfate 75 mg 06/29/19 10:00 06/30/19 09:08 Plavix - PO 75 mg DAILY [facility] Administration Furosemide 40 mg 06/29/19 10:00 06/30/19 09:08 Lasix - PO 40 mg DAILY [facility] Administration Gabapentin 300 mg 06/28/19 22:00 06/30/19 14:19 Neurontin - PO 300 mg TID [facility] Administration Guaifenesin 10 ml 06/28/19 14:41 06/30/19 14:19 Robitussin Dm - PO 10 ml Q4H PRN Administration COUGH Lactic Acid 1 applic 06/28/19 14:41 06/30/19 09:10 Lac-Hydrin 12 TP 1 applic BID PRN Administration DRY SKIN Levetiracetam 500 mg 06/28/19 22:00 06/30/19 09:07 Keppra - PO 500 mg BID [facility] Administration Levothyroxine Sodium 75 mcg 06/29/19 07:00 06/30/19 06:06 Synthroid - PO 75 mcg DAILY@0700 [facility] Administration Metoprolol Tartrate 50 mg 06/28/19 22:00 06/30/19 09:08 Lopressor - PO 50 mg BID [facility] Administration Mirtazapine 30 mg 06/28/19 22:00 06/29/19 22:12 Remeron - PO 30 mg HS [facility] Administration Pramipexole Dihydrochloride 0.25 mg 06/28/19 22:00 06/30/19 14:19 Mirapex - PO 0.25 mg TID [facility] Administration Quetiapine Fumarate 200 mg 06/28/19 22:00 06/29/19 22:12 Seroquel - PO 200 mg HS [facility] Administration Rivaroxaban 20 mg 06/28/19 18:00 06/29/19 17:39 Xarelto PO 20 mg DAILY@1800 [facility] Administration Triamcinolone Acetonide 1 applic 06/28/19 22:00 06/30/19 09:10 Aristocort 0.1% Cream - TP 1 applic BID [facility] Administration Impression 1. CKD 2. Seizure disorder 3. Afib (Xarelto) 4. Anemia 5. COPD 6. GERD 7. Anxiety/depression 8. HLD 9. CHF 10. fluid overload Plan - cont with lasix - discussed diet - will need outpt follow up - - 2 gram sodium diet - avoid nsaids
== END 2019-06-30 15:49 | disposition home or self-care (01) | DRG 291 ==
LOC: JER 13:00 → JERBED 21:46 → J4W 06-25 02:01 → J5S 06-28 14:20
PROVIDERS: ADMIT Internal Medicine; ATTEND Family Medicine
DX: I13.0 Hypertensive heart and chronic kidney disease with heart failure and stage 1 through stage 4 chronic kidney disease, or unspecified chronic kidney disease (principal); I50.33 Acute on chronic diastolic (congestive) heart failure; N17.9 Acute kidney failure, unspecified; J98.11 Atelectasis; N18.3 Chronic kidney disease, stage 3 (moderate); I25.10 Atherosclerotic heart disease of native coronary artery without angina pectoris; K21.9 Gastro-esophageal reflux disease without esophagitis; I48.0 Paroxysmal atrial fibrillation; F20.9 Schizophrenia, unspecified; D64.9 Anemia, unspecified; E87.70 Fluid overload, unspecified; J44.9 Chronic obstructive pulmonary disease, unspecified; F41.8 Other specified anxiety disorders; J45.909 Unspecified asthma, uncomplicated; L40.9 Psoriasis, unspecified; E66.9 Obesity, unspecified; Z68.31 Body mass index [BMI] 31.0-31.9, adult; E03.9 Hypothyroidism, unspecified; G40.909 Epilepsy, unspecified, not intractable, without status epilepticus; I25.2 Old myocardial infarction; R10.9 Unspecified abdominal pain; E78.5 Hyperlipidemia, unspecified; M25.561 Pain in right knee; Z95.5 Presence of coronary angioplasty implant and graft
CPT/HCPCS: 36415; 71046-TC-FY; 80048; 80053; 82550; 82553; 83735; 83880; 84100; 84484; 85025; 93005; 93010; 93971-TC; 99284-25; J1756